=== PATIENT | male | born 1945 | race Asian ===

== ENCOUNTER 2021-01-13 13:17 | Inpatient (IN) ==
--- NOTE | 2021-01-13 14:08 | Emergency Department Note ---
Impression & Plan Venous thromboembolism, Abdominal pain ED Provider Note NAME: SVETA FOURNIER AGE: 75 SEX: M : 1945 ARRIVES VIA: Walk-In INFORMANT: Patient, ED PROVIDER(S): Hussein Brown MD Chief Complaint: Abdominal pain HPI: Patient does present concern for abdominal pain has been ongoing approximately 3 days with no bowel movement for 5 days. The pain is left-sided and aching nature. Slightly worse with palpation. The patient does not believe he has been passing gas. Patient does not have any history of abdominal surgeries but does have a history of colon cancer for which she does receive chemotherapy. The patient was initially with Dr. Clark but is transitioning to Dr. Barker. Patient last chemo was last little week. Patient denies any fevers chills chest pain shortness of breath nausea or vomiting. The patient does have a history of brain cancer status post gamma knife radiation and this is currently in remission. Patient does relate that the patient had had a period of remission with the colon cancer but that this relapsed. Patient has not taken anything at home for his constipation type symptoms. The patient does not take narcotics. ROS: See HPI for pertinent positives and negatives. A total of 10 systems were reviewed and otherwise negative. Past medical history: See below Surgical history: See below Social history: See below Physical Exam: GENERAL: Wearing a knit cap and a mask. NAD, non-toxic. EYE EXAM: Normal conjunctiva. PERRL, no anisocoria and EOM's grossly intact w/o pain. NECK: Supple, no nuchal rigidity, no adenopathy, non-tender. No signs of meningismus. Chest: Port in left chest. LUNGS: Clear to auscultation. Normal chest wall mechanics. HEART: NSR, no MRG. ABDOMEN: Abdomen soft, left-sided abdominal pain but without peritonitis. Normo-active bowel sounds, no masses, no rebound or guarding. BACK: No CVA TTP. SKIN: No rashes and no bruising. UPPER EXTREMITIES: Upper extremities are grossly normal. LOWER EXTREMITIES: Grossly normal, no edema. NEURO EXAM: A&O x3, cranial nerves II-XII grossly intact, normal speech, moves all 4 extremities on command w/o issue. Differential diagnoses: Appendicitis, testicular torsion, infections, diverticulitis, UTI, obstruction, mesenteric ischemia, aortic pathology, inflammatory bowel disease, renal colic, PUD, pancreatitis, biliary pathology, hernia, volvulus, constipation, as well as other pathologies. Course: Patient was seen and evaluated the bedside. Full history physical exam was performed. Imaging Studies: See below Cardiac monitoring: An order was placed for continuous cardiac monitoring. The monitor shows a rate of 68 with sinus rhythm. MDM: Patient was seen due to concern for abdominal pain. Blood work is obtained along with CT abdomen pelvis and patient was treated symptomatically. Patient does have normal white count virtually normal hemoglobin 13.5. Thrombocytopenia is noted 71,000. Kidney function is unremarkable. Hypercalcemia noted. Urinalysis negative for blood or infection. Covid negative. 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 This certainly may explain the patient's abdominal pain. The patient is not on any anticoagulant medications. Heparin ordered. I did speak the on-call hospitalist Dr. Soriano the patient was admitted to the medicine service Critical Care: I have personally spent 55 minutes of critical care time in direct management of this patient. This includes bedside care, interpretation of diagnostic studies, and testing, discussion with consultants, patient, and family members, and other require inpatient management activities. This 55 minutes is in excess of all separately billable procedures. Past Med/Surg History Medical History Abdominal pain Abscess packing removal Acoustic neuroma Adenocarcinoma of colon Anxiety BPH (benign prostatic hyperplasia) Brain cancer Dizziness Gastritis GERD (gastroesophageal reflux disease) Glaucoma Hearing deficit History of radiation therapy 2011 - Gamma Knife - in [place] - for Acoustic Neuroma Infected sebaceous cyst Port-A-Cath in place (03/15/19) Insertion of A-Port via left subclavian Dr. 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 And Counter Required: No Beliefs That Will Affect Care: None marital status: Current Living Situation: Spouse current occupational status: retired 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 [employer] Feels Safe at Home: Yes caffeine: No Dental Care, Regularly: No Physical Activity Frequency: Does not Exercise Seatbelt Use: always Assistive Devices: Cane and Glasses Allergies Allergies Allergy/AdvReac Type Severity Reaction Status Date / Time Anesthetics - Bing Type- AdvReac Intermediate URINARY Verified 01/13/21 16:48 Parabens RETENTION ibuprofen AdvReac Mild GI SYMPTOMS Verified 01/13/21 16:48 Home Meds Home Medications Medication Instructions Recorded Confirmed dorzolamide-timolol 1 drp OPB BID 01/14/19 01/13/21 latanoprost 1 drp OPB HS 01/14/19 01/13/21 lactobacillus combination no.4 3,000 mmu cells PO DAILY #0 03/08/19 01/13/21 [Probiotic] multivitamin 1 tab PO DAILY 07/19/19 01/13/21 medical marijuana 1 ea PO BID 04/15/20 01/13/21 Previous Rx's Medication Instructions Recorded Wheelchair (Manual or Powered) #1 ea 09/24/19 tamsulosin 0.4 mg capsule 0.4 mg PO BID 90 Days #180 cap 03/05/20 mirabegron 25 mg tablet,extended 25 mg PO DAILY #30 tab 12/24/20 release 24 hr omeprazole 40 mg capsule,delayed 40 mg PO DAILY #30 cap 01/06/21 release Results & Data (ED) Vital Signs Vital Signs - 24 hr 01/13/21 13:27 01/13/21 14:00 01/13/21 14:20 Temperature 36.1 C L Temperature Source Temporal Artery Scan Pulse Rate 75 70 Pulse Rate from SpO2 Sensor 70 Respiratory Rate 20 16 Respiratory Effort / Characteristics Non-Labored Spontaneous Respiratory Depth Normal Respiratory Pattern Regular Blood Pressure 125/76 101/69 Blood Pressure Mean 92 79 Pulse Oximetry 96 96 Oxygen Delivery Method Room Air Room Air Sepsis Recent Fever Within 48 Hours No Sepsis New/Unexplained Change in Mental Status No Sepsis Action Taken by Nursing No Action Required 01/13/21 14:30 01/13/21 15:00 01/13/21 15:01 Temperature Temperature Source Pulse Rate 68 61 65 Pulse Rate from SpO2 Sensor 68 62 64 Respiratory Rate 15 13 20 Respiratory Effort / Characteristics Respiratory Depth Respiratory Pattern Blood Pressure 108/73 123/73 Blood Pressure Mean 84 89 Pulse Oximetry 96 98 99 Oxygen Delivery Method Sepsis Recent Fever Within 48 Hours Sepsis New/Unexplained Change in Mental Status Sepsis Action Taken by Nursing 01/13/21 15:30 01/13/21 15:31 01/13/21 16:03 Temperature Temperature Source Pulse Rate 60 65 61 Pulse Rate from SpO2 Sensor 61 65 62 Respiratory Rate 19 19 14 Respiratory Effort / Characteristics Respiratory Depth Respiratory Pattern Blood Pressure 115/72 128/74 Blood Pressure Mean 86 92 Pulse Oximetry 95 92 99 Oxygen Delivery Method Sepsis Recent Fever Within 48 Hours Sepsis New/Unexplained Change in Mental Status Sepsis Action Taken by Nursing 01/13/21 16:04 01/13/21 16:30 01/13/21 16:31 Temperature Temperature Source Pulse Rate 62 63 66 Pulse Rate from SpO2 Sensor 62 64 66 Respiratory Rate 15 24 18 Respiratory Effort / Characteristics Respiratory Depth Respiratory Pattern Blood Pressure 140/85 Blood Pressure Mean 103 Pulse Oximetry 99 98 98 Oxygen Delivery Method Sepsis Recent Fever Within 48 Hours Sepsis New/Unexplained Change in Mental Status Sepsis Action Taken by Nursing 01/13/21 17:00 01/13/21 17:01 01/13/21 17:30 Temperature Temperature Source Pulse Rate 60 61 69 Pulse Rate from SpO2 Sensor 60 61 Respiratory Rate 15 19 20 Respiratory Effort / Characteristics Respiratory Depth Respiratory Pattern Blood Pressure 110/73 Blood Pressure Mean 85 Pulse Oximetry 96 98 Oxygen Delivery Method Sepsis Recent Fever Within 48 Hours Sepsis New/Unexplained Change in Mental Status Sepsis Action Taken by Nursing 01/13/21 18:00 01/13/21 18:32 01/13/21 18:38 Temperature Temperature Source Pulse Rate 62 58 L Pulse Rate from SpO2 Sensor 61 58 L Respiratory Rate 20 15 Respiratory Effort / Characteristics Respiratory Depth Respiratory Pattern Blood Pressure 129/84 Blood Pressure Mean 99 Pulse Oximetry 99 99 Oxygen Delivery Method Sepsis Recent Fever Within 48 Hours Sepsis New/Unexplained Change in Mental Status Sepsis Action Taken by Nursing 01/13/21 19:00 01/13/21 19:01 01/13/21 19:30 Temperature Temperature Source Pulse Rate 58 L 60 57 L Pulse Rate from SpO2 Sensor 58 L 60 57 L Respiratory Rate 17 20 19 Respiratory Effort / Characteristics Respiratory Depth Respiratory Pattern Blood Pressure 125/80 116/74 Blood Pressure Mean 95 88 Pulse Oximetry 97 97 96 Oxygen Delivery Method Sepsis Recent Fever Within 48 Hours Sepsis New/Unexplained Change in Mental Status Sepsis Action Taken by Nursing 01/13/21 19:31 Temperature Temperature Source Pulse Rate 60 Pulse Rate from SpO2 Sensor 60 Respiratory Rate 13 Respiratory Effort / Characteristics Respiratory Depth Respiratory Pattern Blood Pressure Blood Pressure Mean Pulse Oximetry 96 Oxygen Delivery Method Sepsis Recent Fever Within 48 Hours Sepsis New/Unexplained Change in Mental Status Sepsis Action Taken by Alf Medications Current Medication List: was personally reviewed by me Laboratory Data Attestation: I reviewed the patient's lab results. Result diagrams: 01/13/21 13:48 01/13/21 13:48 Lab Results 01/13/21 01/13/21 01/13/21 Range/Units 13:48 13:48 16:04 WBC 9.51 (4.8-10.8) K/uL RBC 4.28 L (4.7-6.1) M/uL Hgb 13.5 L (14.0-18.0) g/dL Hct 40.4 L (42-52) % MCV 94.4 (80-100) fL MCH 31.5 (25-34) pg MCHC 33.4 (32-36) g/dL RDW Std Deviation 54.7 H (36.4-46.3) fL RDW Coeff of Brian 15.9 H (11.5-14.5) % Plt Count 71 L (130-400) K/uL MPV 11.4 H (7.4-10.4) fL Immature Gran % (Auto) 1.2 % Neut % (Auto) 86.7 % Lymph % (Auto) 5.2 % [place] % (Auto) 4.2 % Eos % (Auto) 2.5 % Baso % (Auto) 0.2 % Neut # (Auto) 8.25 H (1.4-6.5) K/uL Lymph # (Auto) 0.49 L (1.2-3.4) K/uL [place] # (Auto) 0.40 (0.11-0.59) K/uL Eos # (Auto) 0.24 (0-0.5) K/uL Baso # (Auto) 0.02 (0-0.2) K/uL Immature Gran # (Auto) 0.11 H (0.00-0.02) K/uL Dohle Bodies 1+ Platelet Estimate Decreased L (Normal) Tear Drop Cells 1+ Sodium 139 (136-145) mmol/L Potassium 3.6 (3.5-5.1) mmol/L Chloride 107 (98-107) mmol/L Carbon Dioxide 26 (21-32) mmol/L Anion Gap 6.0 (3-11) BUN 16 (7-18) mg/dl Creatinine 0.72 (0.6-1.4) mg/dl Est Cr Clr Drug Dosing Not Reportable Est GFR ( Amer) 105.0 ml/min Est GFR (Non-Af Amer) 90.6 ml/min BUN/Creatinine Ratio 22.8 H (10-20) Glucose 118 H (70-99) mg/dl Lactate (0.4-2.0) mmol/L Calcium 8.0 L (8.5-10.1) mg/dl Total Bilirubin 1.1 H (0.2-1) mg/dl AST 18 (15-37) U/L ALT 32 (12-78) U/L Alkaline Phosphatase 202 H (45-117) U/L Total Protein 6.7 (6.4-8.2) gm/dl Albumin 3.4 (3.4-5.0) gm/dl Globulin 3.3 (2.5-4.0) gm/dl Albumin/Globulin Ratio 1.0 (0.9-2) Lipase 106 (73-393) U/L Urine Color Yellow Urine Appearance Clear (Clear) Urine pH 7.5 (4.5-7.5) Ur Specific [place] 1.020 (1.000-1.030) Urine Protein Negative (Negative) Urine Glucose (UA) Negative (Negative) Urine Ketones Negative (Negative) Urine Blood Negative (Negative) Urine Nitrite Negative (Negative) Urine Bilirubin Negative (Negative) Urine Urobilinogen Negative (Negative) Ur Leukocyte Esterase Negative (Negative) COVID-19 Eval Order SARS-CoV-2 (PCR) (Negative) 01/13/21 01/13/21 01/13/21 Range/Units 18:33 18:33 19:05 WBC (4.8-10.8) K/uL RBC (4.7-6.1) M/uL Hgb (14.0-18.0) g/dL Hct (42-52) % MCV (80-100) fL MCH (25-34) pg MCHC (32-36) g/dL RDW Std Deviation (36.4-46.3) fL RDW Coeff of Brian (11.5-14.5) % Plt Count (130-400) K/uL MPV (7.4-10.4) fL Immature Gran % (Auto) % Neut % (Auto) % Lymph % (Auto) % [place] % (Auto) % Eos % (Auto) % Baso % (Auto) % Neut # (Auto) (1.4-6.5) K/uL Lymph # (Auto) (1.2-3.4) K/uL [place] # (Auto) (0.11-0.59) K/uL Eos # (Auto) (0-0.5) K/uL Baso # (Auto) (0-0.2) K/uL Immature Gran # (Auto) (0.00-0.02) K/uL Dohle Bodies Platelet Estimate (Normal) Tear Drop Cells Sodium (136-145) mmol/L Potassium (3.5-5.1) mmol/L Chloride (98-107) mmol/L Carbon Dioxide (21-32) mmol/L Anion Gap (3-11) BUN (7-18) mg/dl Creatinine (0.6-1.4) mg/dl Est Cr Clr Drug Dosing Est GFR ( Amer) ml/min Est GFR (Non-Af Amer) ml/min BUN/Creatinine Ratio (10-20) Glucose (70-99) mg/dl Lactate 1.2 (0.4-2.0) mmol/L Calcium (8.5-10.1) mg/dl Total Bilirubin (0.2-1) mg/dl AST (15-37) U/L ALT (12-78) U/L Alkaline Phosphatase (45-117) U/L Total Protein (6.4-8.2) gm/dl Albumin (3.4-5.0) gm/dl Globulin (2.5-4.0) gm/dl Albumin/Globulin Ratio (0.9-2) Lipase (73-393) U/L Urine Color Urine Appearance (Clear) Urine pH (4.5-7.5) Ur Specific [place] (1.000-1.030) Urine Protein (Negative) Urine Glucose (UA) (Negative) Urine Ketones (Negative) Urine Blood (Negative) Urine Nitrite (Negative) Urine Bilirubin (Negative) Urine Urobilinogen (Negative) Ur Leukocyte Esterase (Negative) COVID-19 Eval Order Covid19 at [facility] SARS-CoV-2 (PCR) NEGATIVE (Negative) Administered Medications Heparin Sodium/Dextrose (Heparin Sodium/Dextrose) 25,000 units in 500 mls @ 26 mls/hr IV .[id number] [id number]; Protocol Stop: 02/12/21 18:33 Last Admin: 01/13/21 18:37 Dose: 1,300 units/hr, 26 mls/hr Documented by: [id number] Cosigned by: [id number] Discontinued Medications Heparin Sodium/Dextrose (Heparin Iv Adult Wt-Based Standard *No* Bolus Protocol) 1 ea N/A ONE ONE; Protocol Stop: 01/13/21 18:18 Last Admin: 01/13/21 18:37 Dose: 1 ea Documented by: [id number] Sodium Chloride (Nss) 500 mls @ 999 mls/hr IV .Q31M STA Stop: 01/13/21 14:50 Last Infusion: 01/13/21 15:25 Dose: 999 mls/hr Documented by: [id number] Admin: 01/13/21 14:43 Dose: 999 mls/hr Documented by: [id number] Ioversol (Optiray 320 100ml) 94 ml IV ONCE ONE Stop: 01/13/21 17:30 Last Admin: 01/13/21 17:30 Dose: 1 ml Documented by: [id number] Morphine Sulfate (Morphine Sulfate 4 Mg/Ml 1 Ml Carp\Vial) 2 mg IV NOW STA Stop: 01/13/21 14:21 Last Admin: 01/13/21 14:43 Dose: 2 mg Documented by: [id number] Morphine Sulfate (Morphine Sulfate 4 Mg/Ml 1 Ml Carp\Vial) 4 mg IV NOW STA Stop: 01/13/21 16:37 Last Admin: 01/13/21 16:42 Dose: 4 mg Documented by: [id number] Ondansetron HCl (Ondansetron Inj 2 Mg/Ml 2 Ml Vial) 4 mg IV NOW STA Stop: 01/13/21 14:21 Last Admin: 01/13/21 14:43 Dose: 4 mg Documented by: [id number] Imaging Data Radiologist's Impression: Abdomen/Pelvis CT 01/13/21 14:[address] WITH IV CONTRAST CT DOSE: 442.96 mGy.cm HISTORY: Acute left lower quadrant abdominal pain. History of rectal carcinoma with chemotherapy. L sided ab pain; h/o rectal CA undergoing trx TECHNIQUE: Multiaxial CT images of the abdomen and pelvis were performed following the IV administration of 94 cc of Optiray, A dose lowering technique was utilized adhering to the principles of ALARA. COMPARISON STUDY: CT abdomen and pelvis 10/08/2020, PET CT 04/09/2020 FINDINGS: Imaged inferior cardiac chambers are unremarkable. Trace pleural effusions. Mild bibasilar atelectasis. No pneumatosis or pneumoperitoneum. Spleen is enlarged measuring up to 14 cm. Mild generalized pancreatic atrophy. Unremarkable gallbladder and adrenal glands. Hepatic metastasis redemonstrated. 1.4 cm lesion of the posterior right hepatic lobe on image 90 is unchanged. 1.3 cm lesion of the hepatic dome on image 33 is stable. No definite new or enlarging metastatic lesions are identified. No hydronephrosis. Unremarkable kidneys. Asymmetric right lateral wall urinary bladder wall thickening is similar to comparison. Prostamegaly. Small fat filled left inguinal hernia. Atherosclerosis of the abdominal aorta without aneurysm. 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 The splenic vein is patent. Mild soft tissue thickening surrounding the inferior mesenteric artery is unchanged. No arterial occlusion identified. No bowel obstruction. Soft tissue asymmetry involving the right lateral rectal wall with extension into the mesorectal tissues redemonstrated. Mild to moderate fecal retention. Normal appendix. Stool-filled terminal ileum with trace free fluid of the inferior right pericolic gutter. There is a catheter present with distal tip terminating within the right paracentral mid abdomen anteriorly. No acute fracture. No destructive osseous lesions identified. Degenerative changes of the spine, pelvis and hips. Unchanged sclerotic foci of the left iliac bone. IMPRESSION: 1. 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 2. Mild associated reactive mesenteric edema with trace free fluid of the inferior right pericolic gutter. 3. Unchanged appearance of the hepatic metastasis. 4. Stable soft tissue thickening of the right lateral rectal wall with extension into the mesorectal distribution. 5. Prostamegaly with unchanged asymmetric right lateral urinary bladder wall thickening. 6. Trace pleural effusions. 7. Additional findings as above. ACT 112: Negative or not required by law. The above report was generated using voice recognition software. It may contain grammatical, syntax or spelling errors. Electronically signed by: Mil Barkley M.D. 01/13/2021 6:09 PM Discharge Plan Visit Data Chief Complaint: Abdominal Pain Stated Complaint: STOMACH PAIN FOR 5 DAYS ED Provider: Hussein Brown Discharge Problem: Venous thromboembolism, Abdominal pain Forms Stand Alone Forms: [employer] Prescriptions Prescriptions: No Action medical marijuana 1 ea PO BID RF: 0 (DME) Wheelchair (Manual) Device See Rx Instructions .ROUTE .MEDSUPPLY Qty: 1 RF: 0 Myrbetriq 25 mg tablet extended release 24 hr 25 mg PO DAILY Qty: 30 RF: 2 omeprazole 40 mg capsule,delayed release(DR/EC) 40 mg PO DAILY Qty: 30 RF: 5 tamsulosin 0.4 mg capsule 0.4 mg PO BID 90 Days Qty: 180 RF: 3 latanoprost 0.005 % drops 1 drp OPB HS RF: 0 dorzolamide-timolol 22.3-6.8 mg/mL drops 1 drp OPB BID RF: 0 Probiotic 3 billion cell Capsule 3,000 mmu cells PO DAILY Qty: 0 RF: 0 multivitamin Tablet 1 tab PO DAILY RF: 0 Discharge Problem: Abdominal pain Qualifiers: Abdominal location: unspecified location Qualified Code(s): R10.9 - Unspecified abdominal pain
[2021-01-13] MEDS ORDERED: MoRPHine SULFATE 4 MG/ML 1 ML CARP\\VIAL IV STA ×2 (14:20→16:36)
[2021-01-13] MEDS ORDERED: ONDANSETRON INJ 2 MG/ML 2 ML VIAL IV STA (14:20)
[2021-01-13] MEDS ORDERED: SODIUM CHLORIDE 0.9% 500 ML IV STA (14:20)
[2021-01-13 16:16] LABS: Appearance Urine Clear (Clear); Bilirubin Urine Negative (Negative); Blood Urine Negative (Negative); Color Urine Yellow; Glucose Urine UA Negative (Negative); Ketones Urine Negative (Negative); Leukocyte Esterase Urine Negative (Negative); Nitrite Urine Negative (Negative); Protein Urine Negative (Negative); Urobilinogen Urine Negative (Negative); pH Urine 7.5 (4.5-7.5)
[2021-01-13 16:35] LABS: Alanine Aminotransferase 32 U/L (12-78); Albumin Level 3.4 gm/dl (3.4-5.0); Aspartate Aminotransferase 18 U/L (15-37); BUN Creatinine Ratio 22.8 (10-20); Blood Urea Nitrogen 16 mg/dl (7-18); Carbon Dioxide 26 mmol/L (21-32); Chloride 107 mmol/L (98-107); Est GFR (Non-African American) 90.6 ml/min; Glucose 118 mg/dl (70-99); Lipase 106 U/L (73-393); Potassium 3.6 mmol/L (3.5-5.1); Sodium 139 mmol/L (136-145)
[2021-01-13 16:38] LABS: Alkaline Phosphatase 202 U/L (45-117); Bilirubin,Total 1.1 mg/dl (0.2-1); Globulin 3.3 gm/dl (2.5-4.0); Total Protein 6.7 gm/dl (6.4-8.2)
[2021-01-13 16:44] LABS: Hematocrit (blood only) 40.4 % (42-52); Hemoglobin 13.5 g/dL (14.0-18.0); Mean Corpuscular Hemoglobin 31.5 pg (25-34); Mean Corpuscular Hgb Conc 33.4 g/dL (32-36); Mean Corpuscular Volume 94.4 fL (80-100); Mean Platelet Volume 11.4 fL (7.4-10.4); Platelet Count 71 K/uL (130-400); RDW Coefficient of Variation 15.9 % (11.5-14.5); RDW Standard Deviation 54.7 fL (36.4-46.3); Red Blood Count 4.28 M/uL (4.7-6.1); White Blood Count 9.51 K/uL (4.8-10.8)
[2021-01-13 16:45] LABS: Basophils # (auto) 0.02 K/uL (0-0.2); Basophils % (auto) 0.2 %; Dohle Bodies 1+; Eosinophils # (auto) 0.24 K/uL (0-0.5); Eosinophils % (auto) 2.5 %; Immature Granulocytes # (auto) 0.11 K/uL (0.00-0.02); Immature Granulocytes % (auto) 1.2 %; Lymphocytes # (auto) 0.49 K/uL (1.2-3.4); Lymphocytes % (auto) 5.2 %; Monocytes % (auto) 4.2 %; Neutrophils # (auto) 8.25 K/uL (1.4-6.5); Neutrophils % (auto) 86.7 %; Platelet Estimate Decreased (Normal); Tear Drop Cells 1+
[2021-01-13] MEDS ORDERED: OPTIRAY 320 100ml IV ONE (17:29)
--- NOTE | 2021-01-13 18:10 | CT Scan Report ---
ABDOMEN AND PELVIS CT WITH IV CONTRAST CT DOSE: 442.96 mGy.cm HISTORY: Acute left lower quadrant abdominal pain. History of rectal carcinoma with chemotherapy. L sided ab pain; h/o rectal CA undergoing trx TECHNIQUE: Multiaxial CT images of the abdomen and pelvis were performed following the IV administrat ion of 94 cc of Optiray, A dose lowering technique was utilized adhering to the principles of ALARA. COMPARISON STUDY: CT abdomen and pelvis 10/08/2020, PET CT 04/09/2020 FINDINGS: Imaged inferior cardiac chambers are unremarkable. Trace pleural effusions. Mild bibasilar atelectasis. No pneumatosis or pneumoperitoneum. Spleen is enlarged measuring up to 14 cm. Mild gener alized pancreatic atrophy. Unremarkable gallbladder and adrenal glands. Hepatic metastasis redemonstr ated. 1.4 cm lesion of the posterior right hepatic lobe on image 90 is unchanged. 1.3 cm lesion of th e hepatic dome on image 33 is stable. No definite new or enlarging metastatic lesions are identified. No hydronephrosis. Unremarkable kidneys. Asymmetric right lateral wall urinary bladder wall thickenin g is similar to comparison. Prostamegaly. Small fat filled left inguinal hernia. Atherosclerosis of t he abdominal aorta without aneurysm. Occlusive and partially occlusive thrombi of the superior mesent pina vein and its branches extends into the portal vein with partially occlusive thrombus. The spleni c vein is patent. Mild soft tissue thickening surrounding the inferior mesenteric artery is unchanged . No arterial occlusion identified. No bowel obstruction. Soft tissue asymmetry involving the right lateral rectal wall with extension in to the mesorectal tissues redemonstrated. Mild to moderate fecal retention. Normal appendix. Stool-fi lled terminal ileum with trace free fluid of the inferior right pericolic gutter. There is a catheter present with distal tip terminating within the right paracentral mid abdomen anteriorly. No acute fr acture. No destructive osseous lesions identified. Degenerative changes of the spine, pelvis and hips . Unchanged sclerotic foci of the left iliac bone. IMPRESSION: 1. 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 2. Mild associated reactive mesenteric edema with trace free fluid of the inferior right pericolic gu tter. 3. Unchanged appearance of the hepatic metastasis. 4. Stable soft tissue thickening of the right lateral rectal wall with extension into the mesorectal distribution. 5. Prostamegaly with unchanged asymmetric right lateral urinary bladder wall thickening. 6. Trace pleural effusions. 7. Additional findings as above. ACT 112: Negative or not required by law. The above report was generated using voice recognition software. It may contain grammatical, syntax o r spelling errors. Electronically signed by: Mil Barkley M.D. 01/13/2021 6:09 PM
[2021-01-13] MEDS ORDERED: Heparin IV Adult Wt-Based Standard *NO* Bolus Protocol ONE (18:17)
[2021-01-13] MEDS: HEPARIN SODIUM/DEXTROSE 25,000 UNITS/500 ML BAG IV SCH (18:37)
--- NOTE | 2021-01-13 19:02 | History & Physical Report ---
Date of Service January 13, 2021 Assessment & Plan (1) Superior mesenteric vein thrombosis: Admit to PCU bed Patient now on heparin drip keep patient n.p.o. 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 Barker, I will consult him for further recommendations (3) Thrombocytopenia: Patient's platelet count is diminished from previous, consider effects of chemotherapy versus thromboembolic phenomena versus possible liver metastasis Await Dr. Barker's input regarding this. Patient is now on heparin, will need to monitor platelets very closely (4) Constipation: Patient is requesting something for constipation. Reluctant to give the patient a laxative considering ongoing pain Can try Dulcolax suppository for now History of Present Illness Chief Complaint: Abdominal pain Primary Care Provider: Lizett Walters MD This is a 75-year-old male with past medical history of rectal carcinoma with mets to the liver that presents today complaining abdominal pain. Patient is accompanied by his , both are good historians. Patient tells me he is having abdominal pain for the past 6 days. This tends to be mostly postprandial and lasts approximately 4-5 hours before it resolves. Pain is sharp with a cramping quality, mostly in the left side. He has been having significant nausea as well as a decreased appetite which has been an ongoing issue with his chemotherapy. He also states he has been constipated for the past 3 days, did not note any abnormality with his bowels before. Denies any hematochezia. Also denies any hematemesis or other vomiting. At the time of my exam, the patient was mostly comfortable, only expressed some pain with palpation during the exam. He is in no acute cardiopulmonary distress. Allergies Allergy/AdvReac Type Severity Reaction Status Date / Time Anesthetics - Bing Type- AdvReac Intermediate URINARY Verified 01/13/21 16:48 Parabens RETENTION ibuprofen AdvReac Mild GI SYMPTOMS Verified 01/13/21 16:48 Home Medications Medication Instructions Recorded Confirmed Type dorzolamide-timolol 1 drp OPB BID 01/14/19 01/13/21 History latanoprost 1 drp OPB HS 01/14/19 01/13/21 History lactobacillus combination no.4 3,000 mmu cells PO DAILY #0 03/08/19 01/13/21 History [Probiotic] multivitamin 1 tab PO DAILY 07/19/19 01/13/21 History Wheelchair (Manual or Powered) #1 ea 09/24/19 11/07/20 Rx tamsulosin 0.4 mg capsule 0.4 mg PO BID 90 Days #180 cap 03/05/20 01/13/21 Rx medical marijuana 1 ea PO BID 04/15/20 01/13/21 History mirabegron 25 mg tablet,extended 25 mg PO DAILY #30 tab 12/24/20 01/13/21 Rx release 24 hr omeprazole 40 mg capsule,delayed 40 mg PO DAILY #30 cap 01/06/21 01/13/21 Rx release Past Med/Surg History Medical History Abdominal pain Abscess packing removal Acoustic neuroma Adenocarcinoma of colon Anxiety BPH (benign prostatic hyperplasia) Brain cancer Dizziness Gastritis GERD (gastroesophageal reflux disease) Glaucoma Hearing deficit History of radiation therapy 2011 - Gamma Knife - in [place] - for Acoustic Neuroma Infected sebaceous cyst Port-A-Cath in place (03/15/19) Insertion of A-Port via left subclavian Dr. 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 Mechanic Required: No Beliefs That Will Affect Care: None marital status: Current Living Situation: Spouse current occupational status: retired 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 Feels Safe at Home: Yes caffeine: No Dental Care, Regularly: No Physical Activity Frequency: Does not Exercise Seatbelt Use: always Assistive Devices: Cane and Glasses Review of Systems Constitutional: + weakness, + anorexia and + weight loss; no fever, no chills and no weight gain Eyes: as per Subjective / HPI Respiratory: no cough, no chest congestion, no dyspnea and no dyspnea on e xertion Cardiovascular: no chest pain, no orthopnea, no palpitations, no l ightheadedness and no edema Gastrointestinal: + abdominal pain, + nausea, + cramping and + constipation; no vomiting, no coffee ground emesis, no dysphagia, no diarrhea/loose stools, no fecal incontinence and no melena Musculoskeletal: no back pain, no neck pain, no joint pain, no stiffness and no myalgia Integumentary: no rash Neurologic: no gait abnormality, no unsteadiness, no falls and no generalized weakness Physical Exam Constitutional: cooperative and comfortable; no acute distress Neck: trachea midline, no thyromegaly Respiratory: normal respiratory effort Auscultation: lungs clear to auscultation bilaterally; no crackles, no rales, no rhonchi and no wheezes Cardiovascular: Rate/Rhythm: regular rate and regular rhythm Heart Sounds: normal S1, normal S2 and + murmur Gastrointestinal (Abdomen): Inspection/Auscultation: abdomen normal to ins pection and + hypoactive bowel sounds Percussion/Palpation: + abdomen tender (L quads) and abdomen soft; no guarding, abdomen not rigid and no hepato splenomegaly Skin: no rashes, warm and dry Results & Data Results & Data ([facility]) Vital Signs (Past 12 Hours) Vital Signs Temp Pulse Resp BP Pulse Ox 01/13/21 17:01 61 19 98 01/13/21 17:00 60 15 110/73 96 01/13/21 16:31 66 18 98 01/13/21 16:30 63 24 140/85 98 01/13/21 16:04 62 15 99 01/13/21 16:03 61 14 128/74 99 01/13/21 15:31 65 19 92 01/13/21 15:30 60 19 115/72 95 01/13/21 15:01 65 20 99 01/13/21 15:00 61 13 123/73 98 01/13/21 14:30 68 15 108/73 96 01/13/21 14:00 70 16 101/69 96 01/13/21 13:27 36.1 C L 75 20 125/76 96 Diagnostic Findings ABDOMEN AND PELVIS CT WITH IV CONTRAST CT DOSE: 442.96 mGy.cm HISTORY: Acute left lower quadrant abdominal pain. History of rectal carcinoma with chemotherapy. L sided ab pain; h/o rectal CA undergoing trx TECHNIQUE: Multiaxial CT images of the abdomen and pelvis were performed following the IV administration of 94 cc of Optiray, A dose lowering technique was utilized adhering to the principles of ALARA. COMPARISON STUDY: CT abdomen and pelvis 10/08/2020, PET CT 04/09/2020 FINDINGS: Imaged inferior cardiac chambers are unremarkable. Trace pleural e ffusions. Mild bibasilar atelectasis. No pneumatosis or pneumoperitoneum. Spleen is enlarged measuring up to 14 cm. Mild generalized pancreatic atrophy. Unremarkable gallbladder and adrenal glands. Hepatic metastasis redemonstrated. 1.4 cm lesion of the posterior right hepatic lobe on image 90 is unchanged. 1.3 cm lesion of the hepatic dome on image 33 is stable. No definite new or enlarging metastatic lesions are identified. No hydronephrosis. Unremarkable kidneys. Asymmetric right lateral wall urinary bladder wall thickening is similar to comparison. Prostamegaly. Small fat filled left inguinal hernia. Atherosclerosis of the abdominal aorta without aneurysm. 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 The splenic vein is patent. Mild soft tissue thickening surrounding the inferior mesenteric artery is unchanged. No arterial occlusion identified. No bowel obstruction. Soft tissue asymmetry involving the right lateral rectal wall with extension into the mesorectal tissues redemonstrated. Mild to moderate fecal retention. Normal appendix. Stool-filled terminal ileum with trace free fluid of the inferior right pericolic gutter. There is a catheter present with distal tip terminating within the right paracentral mid abdomen anteriorly. No acute fracture. No destructive osseous lesions identified. Degenerative changes of the spine, pelvis and hips. Unchanged sclerotic foci of the left iliac bone. IMPRESSION: 1. 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 2. Mild associated reactive mesenteric edema with trace free fluid of the inferior right pericolic gutter. 3. Unchanged appearance of the hepatic metastasis. 4. Stable soft tissue thickening of the right lateral rectal wall with extension into the mesorectal distribution. 5. Prostamegaly with unchanged asymmetric right lateral urinary bladder wall thickening. 6. Trace pleural effusions. 7. Additional findings as above. 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
[2021-01-13] MEDS ORDERED: ZOLPIDEM TARTRATE 5 MG TAB PO PRN (20:30)
[2021-01-13] MEDS ORDERED: bisacodyL 10 MG SUPP PR ONE (20:30)
[2021-01-13] MEDS ORDERED: ONDANSETRON INJ 2 MG/ML 2 ML VIAL IV PRN (20:30)
[2021-01-13] MEDS: LATANOPROST 0.005% OP SOLN 2.5 ML BTL OPB SCH (21:25)
[2021-01-13] MEDS: DORZOLAMIDE/TIMOLOL 22.3/6.8MG/ML 10 ML BTL OPB SCH (21:26)
[2021-01-13] MEDS: TAMSULOSIN HCL 0.4 MG CAP PO SCH (21:28)
[2021-01-13] MEDS: SODIUM CHLORIDE 0.9% 1000ML 1,000 ML IV SCH (21:32)
[2021-01-13] MEDS ORDERED: ACETAMINOPHEN 1,000 MG/100 ML VIAL IV PRN (22:09)
[2021-01-14] MEDS ORDERED: HEPARIN 100 UNIT/ML 5ML FLUSH FLUSH PRN (00:46)
[2021-01-14 01:13] LABS: Partial Thromboplastin Ratio 2.5
[2021-01-14 01:19] LABS: Partial Thromboplastin Time 64.6 Seconds (21.0-31.0)
[2021-01-14 06:46] LABS: Hematocrit (blood only) 39.9 % (42-52); Hemoglobin 13.4 g/dL (14.0-18.0); Mean Corpuscular Hgb Conc 33.6 g/dL (32-36); Mean Corpuscular Volume 92.4 fL (80-100); RDW Coefficient of Variation 15.7 % (11.5-14.5); RDW Standard Deviation 52.8 fL (36.4-46.3); Red Blood Count 4.32 M/uL (4.7-6.1); White Blood Count 7.59 K/uL (4.8-10.8)
[2021-01-14 07:08] LABS: Mean Platelet Volume 11.6 fL (7.4-10.4); Platelet Count 59 K/uL (130-400)
[2021-01-14 07:09] LABS: Basophils # (auto) 0.02 K/uL (0-0.2); Basophils % (auto) 0.3 %; Eosinophils # (auto) 0.23 K/uL (0-0.5); Immature Granulocytes # (auto) 0.19 K/uL (0.00-0.02); Immature Granulocytes % (auto) 2.5 %; Lymphocytes # (auto) 0.51 K/uL (1.2-3.4); Lymphocytes % (auto) 6.7 %; Monocytes # (auto) 0.61 K/uL (0.11-0.59); Neutrophils # (auto) 6.03 K/uL (1.4-6.5); Neutrophils % (auto) 79.5 %
[2021-01-14 07:24] LABS: Albumin Level 3.2 gm/dl (3.4-5.0); BUN Creatinine Ratio 14.8 (10-20); Bilirubin,Total 1.1 mg/dl (0.2-1); Calcium 8.6 mg/dl (8.5-10.1); Creatinine Clr Calc Pharmacy 81.6 ml/min; Est GFR (Non-African American) 90.6 ml/min; Globulin 3.3 gm/dl (2.5-4.0); Potassium 3.6 mmol/L (3.5-5.1); Total Protein 6.5 gm/dl (6.4-8.2)
[2021-01-14] MEDS: DORZOLAMIDE/TIMOLOL 22.3/6.8MG/ML 10 ML BTL OPB SCH ×2 (08:09→21:02)
[2021-01-14] MEDS: MULTIVITAMIN TAB PO SCH (08:10)
[2021-01-14] MEDS: PANTOprazole 40 MG TAB PO SCH (08:10)
[2021-01-14] MEDS: MIRABEGRON ER 25 MG TAB PO SCH (08:10)
[2021-01-14] MEDS: TAMSULOSIN HCL 0.4 MG CAP PO SCH ×2 (08:10→21:00)
[2021-01-14] MEDS: SODIUM CHLORIDE 0.9% 1000ML 1,000 ML IV SCH ×2 (08:12→18:00)
[2021-01-14 08:36] LABS: INR 1.2 (0.9-1.1); Prothrombin Time 12.2 Seconds (9.0-12.0)
[2021-01-14] MEDS ORDERED: WARFARIN SOD 10 MG TAB PO ONE (09:15)
--- NOTE | 2021-01-14 09:19 | Consultation Report ---
MEDICAL ONCOLOGY CONSULTATION DATE OF CONSULTATION: 01/14/2021. REASON FOR CONSULTATION: A 75-year-old gentleman with metastatic colorectal cancer and new-ons et superior mesenteric vein thrombosis. HISTORY OF PRESENT ILLNESS: Mr. Colunga is a pleasant 75-year-old gentleman, patient at [facility] with a diag nosis of metastatic colorectal cancer originally established in 2019, status post multiple chemothera peutic regimens. Apparently received his final cycle of FOLFIRI and cetuximab which completed on . Shortly thereafter, developed subacute onset abdominal pain, specifically upon consumption of food, which prompted him to visit the emergency room. He admits to having pain at least over the past 6 days. Again, the pain is mostly postprandial and lasts about 4-5 hours before spontaneously r esolving. He describes the pain as sharp, cramping, mostly left sided. Neri is also manifesting si gnificant nausea and anorexia because of pain brought on by food. No fevers, chills or sweats. He u nderwent extensive radiographic workup in the emergency room and CT scan of the abdomen and pelvis sp ecifically revealed occlusive and partially occlusive thrombi of the superior mesenteric vein with pa rtial occlusive thrombus extension into the portal vein, unchanged appearance of hepatic metastasis, stable soft tissue thickening, right lateral rectal wall with extension into the mesorectal distribut ion, prostatomegaly with unchanged asymmetric right lateral urinary bladder wall thickening. Appropr iately, Neri has been started on heparin, awaiting conversion to Coumadin moving forward. This gent candis has no prior history of thromboembolic disease. I have been asked to render opinion regarding 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 moving forward. PAST MEDICAL HISTORY: Again significant for metastatic rectal cancer established in January of 2019, ac oustic neuroma, anxiety, benign prostatic hypertrophy, brain cancer, dizziness, gastritis, gastroesop hageal reflux disease, glaucoma, history of radiation therapy in 2011, gamma knife for acoustic neuro ma, infected sebaceous cyst, MediPort placement. PAST SURGICAL HISTORY: Brain shunt in 2012 for intracranial fluid and then history of urinary retent ion, history of anesthesia reaction, cataract surgery, colonoscopy, hemorrhoidectomy, history of live r biopsy, status post DRAY DRIVER shunt. MEDICATIONS: Prior to admission include dorzolamide/timolol ophthalmic drops one drop ____ b.i.d., l atanoprost one drop ____ at bedtime, lactobacillus 3000 mmu cells p.o. every day, multivitamin 1 p.o. every day, tamsulosin 0.4 mg p.o. b.i.d., medical marijuana, mirabegron 25 mg p.o. every day, omepra zole 40 mg p.o. every day. ALLERGIES: IBUPROFEN AND ANESTHESIA. FAMILY HISTORY: Mother at age 92 from old age, suffered a stroke and cardiovascular disease oth erwise. Father at age 100 of natural causes. No first-degree relatives with history of colore ctal or other neoplasia. 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 He is . Continues to smoke cigarettes. Negative for alcohol or illicit drugs. REVIEW OF SYSTEMS: CONSTITUTIONAL: Mostly for sharp stabbing crampy abdominal pain. No fevers, chills or sweats. Posi tive for anorexia. No overt weight loss. SKIN: No rashes or lesions. No history of dermatoses. HEENT: Negative for headaches, lightheadedness or dizziness. No dysphagia or sore throat. LYMPH: No history of lymphoproliferative disease. CARDIAC: Negative for coronary artery disease. No angina or palpitations. PULMONARY: Negative for COPD. He is not short of breath, dyspneic or orthopneic. GASTROINTESTINAL: As per HPI. GENITOURINARY: Positive for BPH. No current hematuria, dysuria, urinary incontinence. MUSCULOSKELETAL: No focal muscle weakness. No arthralgias. ENDOCRINE: Negative for diabetes or thyroid disease. NEUROLOGIC: Negative for seizure, stroke, or migraine headache. HEMATOLOGIC: Recent diagnosis of superior mesenteric vein and portal vein thrombosis. PHYSICAL EXAMINATION: GENERAL: A very pleasant 75-year-old gentleman in no acute distress. VITAL SIGNS: Temperature 36.4, pulse 65, respiratory rate 20, blood pressure 158/90. SKIN: Warm, dry, noncyanotic without petechiae, rash, or ecchymosis. HEENT: Head is atraumatic, normocephalic. Eyes: PERRLA, EOMI. Sclerae are nonicteric. No conjunc tival injection. Nares are patent without rhinorrhea or discharge. Throat clear. Tongue midline. Mucous membranes are moist. NECK: Supple without JVD or thyromegaly. LYMPH: No cervical, supraclavicular, axillary palpable nodes. HEART: Regular rate and rhythm. No clicks, rubs, murmurs or gallops. LUNGS: Clear to auscultation bilaterally. ABDOMEN: Soft, nontender, nondistended, without palpable hepatosplenomegaly. No rigidity or guardin g. Bowel sounds hypoactive. EXTREMITIES: Musculoskeletal strength and pulses are equal in all 4 quadrants. No clubbing, cyanosi s, or edema. NEUROLOGIC: He is awake, alert and oriented x3. Cranial nerves II through XII are intact. LABORATORY DATA: WBC count is 7590, hemoglobin 13.4, platelet count pending. PTT 64.6 seconds on he claudio. CMP pending. IMPRESSION: 1. 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 2. Metastatic colorectal cancer. 3. Thrombocytopenia. 4. Constipation. PLAN: Neri is a very pleasant 75-year-old longstanding patient of [facility] continuing his mobley with me tastatic colorectal cancer, hepatic metastatic disease. The patient has been followed by the physici an extenders, previously managed by Dr. Alejo Clark. He has been heavily pretreated receiving bot h FOLFOX and more recently FOLFIRI plus cetuximab. He actually finished his 12th and final course of FOLFIRI and cetuximab on 01/06/2021 and most likely will continue maintenance rituximab moving forwa rd. Radiographically, it would appear that his disease is stable. Unfortunately, he developed throm bosis in an unusual anatomic area, which indeed with his diagnosis warrants indefinite anticoagulatio n. I am sort of mixed as it pertains to hypercoag panel as it really would not offer additional info rmation; however, if one is to be done I would just limit it to antibodies, lupus anticoagulant, anti cardiolipin and antiphospholipid antibodies. That said, he is on heparin at this time and I would pl an on converting him to Coumadin moving forward. In case he does have an underlying thrombophilia, h e would be covered as NOACs are not studied extensively in the setting of acquired thrombophilias. I would also recommend consultation to the 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 clinic for Coumadin management. The patien t has established followup with Tamra Feliciano who has been managing Neri's case for the most part . I will inform her of his admission to hospital and therapeutic plan moving forward. I have nothin g further to add, agree with medical management otherwise. Thank you very much for allowing me to participate in his care. Job ID: [id number]
--- NOTE | 2021-01-14 09:33 | Gastrointestinal Consultation ---
Date of Consultation January 14, 2021 Assessment & Plan (1) Abdominal pain: 75 year old male with history of acoustic neuroma, anxiety, BPH s/p LUTS, metastatic colorectal cancer, hepatic metastatic disease admitted with pain, constipation, CTAP w/ known metastasis disease but new occlusive and partially occlusive thrombi of the superior mesenteric vein with partially occlusive thrombus extension into the portal vein. Agree with 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 As no signs of obstruction on CT but stool burden consider miralax 1 capful daily Thank you for allowing us to participate in the care of this patient. Please call with any acute changes, questions or concerns. Please see addendum below with additional recommendation from my supervising physician. (2) Superior mesenteric vein thrombosis: Supervising Physician Co-Signing Physician Notes Attg add: I interviewed and examined pt, reviewed chart and labs. Pt with h/o met rectal cancer, admit with post prandial abd pain, imaging shows acute SMV thrombosis. His pain appears resolved today - he tolerated breakfast without pain. His pain is likely related to mesenteric ischemia from acute mesenteric venous thrombosis; I assume his thrombosis is likely related to rectal cancer. Agree with anticoag. He was informed of risk of bleeding from Gi malignancy with 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; however, benefits of ac likely outweigh risks. Will schedule EGD to screen for varices and proctoscopy eval rectal cancer; if pt has varices, will need nadolol. History of Present Illness Reason for Consultation: CMV occlusion Requesting Physician: Aron Attending Physician: Dewey Sharp, DO History of Present Illness 75 year old male with history of metastatic colorectal cancer, hepatic metastatic disease following with [facility] s/p chemo/radiation admitted through the ED with abdominal pain. CTAP w/ occlusive and partially occlusive thrombi of the superior mesenteric vein with partially occlusive thrombus extension into the portal vein, unchanged appearance of the hepatic metastasis, stable soft tissue thickening of the right lateral rectal wall with extension into the mesorectal distribution. Pt was seem and evaluated, chart reviewed. at bedside. Notes generalized abd pain x 1 week associated with constipation. He did vomiting x 1 but this was after drinking a lot of water. Denies black or bloody stools. CTAP: 1. 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 Mild associated reactive mesenteric edema with trace free fluid of the inferior right pericolic gutter. Unchanged appearance of the hepatic metastasis. Stable soft tissue thickening of the right lateral rectal wall with extension into the mesorectal distribution.Prostamegaly with unchanged asymmetric right lateral urinary bladder wall thickening. Trace pleural effusions. Colonoscopy: none Allergies Allergy/AdvReac Type Severity Reaction Status Date / Time Anesthetics - Bing Type- AdvReac Intermediate URINARY Verified 01/13/21 16:48 Parabens RETENTION ibuprofen AdvReac Mild GI SYMPTOMS Verified 01/13/21 16:48 Home Medications Medication Instructions Recorded Confirmed Type dorzolamide-timolol 1 drp OPB BID 01/14/19 01/13/21 History latanoprost 1 drp OPB HS 01/14/19 01/13/21 History lactobacillus combination no.4 3,000 mmu cells PO DAILY #0 03/08/19 01/13/21 History [Probiotic] multivitamin 1 tab PO DAILY 07/19/19 01/13/21 History Wheelchair (Manual or Powered) #1 ea 09/24/19 11/07/20 Rx tamsulosin 0.4 mg capsule 0.4 mg PO BID 90 Days #180 cap 03/05/20 01/13/21 Rx medical marijuana 1 ea PO BID 04/15/20 01/13/21 History mirabegron 25 mg tablet,extended 25 mg PO DAILY #30 tab 12/24/20 01/13/21 Rx release 24 hr omeprazole 40 mg capsule,delayed 40 mg PO DAILY #30 cap 01/06/21 01/13/21 Rx release Patient History Medical History Abdominal pain Abscess packing removal Acoustic neuroma Adenocarcinoma of colon Anxiety BPH (benign prostatic hyperplasia) Brain cancer Dizziness Gastritis GERD (gastroesophageal reflux disease) Glaucoma Hearing deficit History of radiation therapy 2011 - Gamma Knife - in [place] - for Acoustic Neuroma Infected sebaceous cyst Port-A-Cath in place (03/15/19) Insertion of A-Port via left subclavian Dr. 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 Brother Family history of diabetes mellitus Hypertension Other Heart disease Denies family history of Colon cancer Ovarian cancer Prostate cancer Breast cancer Social History Smoking Status: Former smoker Tobacco Type: Cigarettes packs per day: 1; Years Smoked: 23; Second Hand Exposure: Yes; Hx Alcohol Use: No Hx Substance Use: No Preferred Language: Mandarin Faroese Communication Ability: Effective Visual Impairment: No Limitations Hearing Ability: Hard of Hearing Wiping Rag Washer Required: No Beliefs That Will Affect Care: None marital status: Current Living Situation: Spouse current occupational status: retired 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 [employer] How many Children do You have: 2 Other Information That Helps Us Care for You: No Feels Safe at Home: Yes Safety Concerns: Feels Safe At This Time caffeine: No Dental Care, Regularly: No Physical Activity Frequency: Does not Exercise Seatbelt Use: always Assistive Devices: Cane Review of Systems Review of Systems: All systems reviewed & are unremarkable except as noted in HPI & below Physical Exam Constitutional: WD/WN, vitals as above no acute distress and not ill appearing Neck: trachea midline, no thyromegaly Respiratory: normal respiratory effort, lungs clear to auscultation Cardiovascular: RRR, no murmur, no edema Gastrointestinal (Abdomen): normal bowel sounds, soft, nontender, no hepatosplenomegaly Results & Data ([facility]) Vital Signs (Past 12 Hours) Vital Signs Temp Pulse Pulse Resp BP Pulse Ox 01/14/21 07:45 36.8 C 69 18 148/81 H 96 01/14/21 05:36 36.4 C L 65 20 158/90 H 98 01/13/21 23:54 59 L 01/13/21 23:24 36.5 C 60 20 137/78 99 Laboratory Results 01/14/21 01/14/21 01/14/21 Range/Units 06:07 06:07 00:29 WBC 7.59 (4.8-10.8) K/uL RBC 4.32 L (4.7-6.1) M/uL Hgb 13.4 L (14.0-18.0) g/dL Hct 39.9 L (42-52) % MCV 92.4 (80-100) fL MCH 31.0 (25-34) pg MCHC 33.6 (32-36) g/dL RDW Std Deviation 52.8 H (36.4-46.3) fL RDW Coeff of Brian 15.7 H (11.5-14.5) % Plt Count 59 L (130-400) K/uL MPV 11.6 H (7.4-10.4) fL Immature Gran % (Auto) 2.5 % Neut % (Auto) 79.5 % Lymph % (Auto) 6.7 % [place] % (Auto) 8.0 % Eos % (Auto) 3.0 % Baso % (Auto) 0.3 % Neut # (Auto) 6.03 (1.4-6.5) K/uL Lymph # (Auto) 0.51 L (1.2-3.4) K/uL [place] # (Auto) 0.61 H (0.11-0.59) K/uL Eos # (Auto) 0.23 (0-0.5) K/uL Baso # (Auto) 0.02 (0-0.2) K/uL Immature Gran # (Auto) 0.19 H (0.00-0.02) K/uL Dohle Bodies Platelet Estimate (Normal) Tear Drop Cells PT 12.2 H (9.0-12.0) Seconds INR 1.2 H (0.9-1.1) APTT (21.0-31.0) Seconds PTT Ratio Sodium 139 (136-145) mmol/L Potassium 3.6 (3.5-5.1) mmol/L Chloride 109 H (98-107) mmol/L Carbon Dioxide 26 (21-32) mmol/L Anion Gap 5.0 (3-11) BUN 11 (7-18) mg/dl Creatinine 0.72 (0.6-1.4) mg/dl Est Cr Clr Drug Dosing 81.6 Est GFR ( Amer) 105.0 ml/min Est GFR (Non-Af Amer) 90.6 ml/min BUN/Creatinine Ratio 14.8 (10-20) Glucose 119 H (70-99) mg/dl Lactate (0.4-2.0) mmol/L Calcium 8.6 (8.5-10.1) mg/dl Total Bilirubin 1.1 H (0.2-1) mg/dl AST 18 (15-37) U/L ALT 28 (12-78) U/L Alkaline Phosphatase 186 H (45-117) U/L Total Protein 6.5 (6.4-8.2) gm/dl Albumin 3.2 L (3.4-5.0) gm/dl Globulin 3.3 (2.5-4.0) gm/dl Albumin/Globulin Ratio 1.0 (0.9-2) Lipase (73-393) U/L Urine Color Urine Appearance (Clear) Urine pH (4.5-7.5) Ur Specific [place] (1.000-1.030) Urine Protein (Negative) Urine Glucose (UA) (Negative) Urine Ketones (Negative) Urine Blood (Negative) Urine Nitrite (Negative) Urine Bilirubin (Negative) Urine Urobilinogen (Negative) Ur Leukocyte Esterase (Negative) COVID-19 Eval Order SARS-CoV-2 (PCR) (Negative) 01/14/21 01/13/21 01/13/21 Range/Units 00:29 19:05 18:33 WBC (4.8-10.8) K/uL RBC (4.7-6.1) M/uL Hgb (14.0-18.0) g/dL Hct (42-52) % MCV (80-100) fL MCH (25-34) pg MCHC (32-36) g/dL RDW Std Deviation (36.4-46.3) fL RDW Coeff of Brian (11.5-14.5) % Plt Count (130-400) K/uL MPV (7.4-10.4) fL Immature Gran % (Auto) % Neut % (Auto) % Lymph % (Auto) % [place] % (Auto) % Eos % (Auto) % Baso % (Auto) % Neut # (Auto) (1.4-6.5) K/uL Lymph # (Auto) (1.2-3.4) K/uL [place] # (Auto) (0.11-0.59) K/uL Eos # (Auto) (0-0.5) K/uL Baso # (Auto) (0-0.2) K/uL Immature Gran # (Auto) (0.00-0.02) K/uL Dohle Bodies Platelet Estimate (Normal) Tear Drop Cells PT (9.0-12.0) Seconds INR (0.9-1.1) APTT 64.6 H* (21.0-31.0) Seconds PTT Ratio 2.5 Sodium (136-145) mmol/L Potassium (3.5-5.1) mmol/L Chloride (98-107) mmol/L Carbon Dioxide (21-32) mmol/L Anion Gap (3-11) BUN (7-18) mg/dl Creatinine (0.6-1.4) mg/dl Est Cr Clr Drug Dosing Est GFR ( Amer) ml/min Est GFR (Non-Af Amer) ml/min BUN/Creatinine Ratio (10-20) Glucose (70-99) mg/dl Lactate 1.2 (0.4-2.0) mmol/L Calcium (8.5-10.1) mg/dl Total Bilirubin (0.2-1) mg/dl AST (15-37) U/L ALT (12-78) U/L Alkaline Phosphatase (45-117) U/L Total Protein (6.4-8.2) gm/dl Albumin (3.4-5.0) gm/dl Globulin (2.5-4.0) gm/dl Albumin/Globulin Ratio (0.9-2) Lipase (73-393) U/L Urine Color Urine Appearance (Clear) Urine pH (4.5-7.5) Ur Specific [place] (1.000-1.030) Urine Protein (Negative) Urine Glucose (UA) (Negative) Urine Ketones (Negative) Urine Blood (Negative) Urine Nitrite (Negative) Urine Bilirubin (Negative) Urine Urobilinogen (Negative) Ur Leukocyte Esterase (Negative) COVID-19 Eval Order SARS-CoV-2 (PCR) NEGATIVE (Negative) 01/13/21 01/13/21 01/13/21 Range/Units 18:33 16:04 13:48 WBC (4.8-10.8) K/uL RBC (4.7-6.1) M/uL Hgb (14.0-18.0) g/dL Hct (42-52) % MCV (80-100) fL MCH (25-34) pg MCHC (32-36) g/dL RDW Std Deviation (36.4-46.3) fL RDW Coeff of Brian (11.5-14.5) % Plt Count (130-400) K/uL MPV (7.4-10.4) fL Immature Gran % (Auto) % Neut % (Auto) % Lymph % (Auto) % [place] % (Auto) % Eos % (Auto) % Baso % (Auto) % Neut # (Auto) (1.4-6.5) K/uL Lymph # (Auto) (1.2-3.4) K/uL [place] # (Auto) (0.11-0.59) K/uL Eos # (Auto) (0-0.5) K/uL Baso # (Auto) (0-0.2) K/uL Immature Gran # (Auto) (0.00-0.02) K/uL Dohle Bodies Platelet Estimate (Normal) Tear Drop Cells PT (9.0-12.0) Seconds INR (0.9-1.1) APTT (21.0-31.0) Seconds PTT Ratio Sodium 139 (136-145) mmol/L Potassium 3.6 (3.5-5.1) mmol/L Chloride 107 (98-107) mmol/L Carbon Dioxide 26 (21-32) mmol/L Anion Gap 6.0 (3-11) BUN 16 (7-18) mg/dl Creatinine 0.72 (0.6-1.4) mg/dl Est Cr Clr Drug Dosing Not Reportable Est GFR ( Amer) 105.0 ml/min Est GFR (Non-Af Amer) 90.6 ml/min BUN/Creatinine Ratio 22.8 H (10-20) Glucose 118 H (70-99) mg/dl Lactate (0.4-2.0) mmol/L Calcium 8.0 L (8.5-10.1) mg/dl Total Bilirubin 1.1 H (0.2-1) mg/dl AST 18 (15-37) U/L ALT 32 (12-78) U/L Alkaline Phosphatase 202 H (45-117) U/L Total Protein 6.7 (6.4-8.2) gm/dl Albumin 3.4 (3.4-5.0) gm/dl Globulin 3.3 (2.5-4.0) gm/dl Albumin/Globulin Ratio 1.0 (0.9-2) Lipase 106 (73-393) U/L Urine Color Yellow Urine Appearance Clear (Clear) Urine pH 7.5 (4.5-7.5) Ur Specific [place] 1.020 (1.000-1.030) Urine Protein Negative (Negative) Urine Glucose (UA) Negative (Negative) Urine Ketones Negative (Negative) Urine Blood Negative (Negative) Urine Nitrite Negative (Negative) Urine Bilirubin Negative (Negative) Urine Urobilinogen Negative (Negative) Ur Leukocyte Esterase Negative (Negative) COVID-19 Eval Order Covid19 at [facility] SARS-CoV-2 (PCR) (Negative) 01/13/21 Range/Units 13:48 WBC 9.51 (4.8-10.8) K/uL RBC 4.28 L (4.7-6.1) M/uL Hgb 13.5 L (14.0-18.0) g/dL Hct 40.4 L (42-52) % MCV 94.4 (80-100) fL MCH 31.5 (25-34) pg MCHC 33.4 (32-36) g/dL RDW Std Deviation 54.7 H (36.4-46.3) fL RDW Coeff of Brian 15.9 H (11.5-14.5) % Plt Count 71 L (130-400) K/uL MPV 11.4 H (7.4-10.4) fL Immature Gran % (Auto) 1.2 % Neut % (Auto) 86.7 % Lymph % (Auto) 5.2 % [place] % (Auto) 4.2 % Eos % (Auto) 2.5 % Baso % (Auto) 0.2 % Neut # (Auto) 8.25 H (1.4-6.5) K/uL Lymph # (Auto) 0.49 L (1.2-3.4) K/uL [place] # (Auto) 0.40 (0.11-0.59) K/uL Eos # (Auto) 0.24 (0-0.5) K/uL Baso # (Auto) 0.02 (0-0.2) K/uL Immature Gran # (Auto) 0.11 H (0.00-0.02) K/uL Dohle Bodies 1+ Platelet Estimate Decreased L (Normal) Tear Drop Cells 1+ PT (9.0-12.0) Seconds INR (0.9-1.1) APTT (21.0-31.0) Seconds PTT Ratio Sodium (136-145) mmol/L Potassium (3.5-5.1) mmol/L Chloride (98-107) mmol/L Carbon Dioxide (21-32) mmol/L Anion Gap (3-11) BUN (7-18) mg/dl Creatinine (0.6-1.4) mg/dl Est Cr Clr Drug Dosing Est GFR ( Amer) ml/min Est GFR (Non-Af Amer) ml/min BUN/Creatinine Ratio (10-20) Glucose (70-99) mg/dl Lactate (0.4-2.0) mmol/L Calcium (8.5-10.1) mg/dl Total Bilirubin (0.2-1) mg/dl AST (15-37) U/L ALT (12-78) U/L Alkaline Phosphatase (45-117) U/L Total Protein (6.4-8.2) gm/dl Albumin (3.4-5.0) gm/dl Globulin (2.5-4.0) gm/dl Albumin/Globulin Ratio (0.9-2) Lipase (73-393) U/L Urine Color Urine Appearance (Clear) Urine pH (4.5-7.5) Ur Specific [place] (1.000-1.030) Urine Protein (Negative) Urine Glucose (UA) (Negative) Urine Ketones (Negative) Urine Blood (Negative) Urine Nitrite (Negative) Urine Bilirubin (Negative) Urine Urobilinogen (Negative) Ur Leukocyte Esterase (Negative) COVID-19 Eval Order SARS-CoV-2 (PCR) (Negative) (1) Abdominal pain Abdominal location: unspecified location Qualified Code(s): R10.9 - Unspecified abdominal pain
[2021-01-14] MEDS: HEPARIN SODIUM/DEXTROSE 25,000 UNITS/500 ML BAG IV SCH (12:37)
[2021-01-14] MEDS: LATANOPROST 0.005% OP SOLN 2.5 ML BTL OPB SCH (21:02)
--- NOTE | 2021-01-14 23:24 | Hospitalist Progress Note ---
Date of Service January 14, 2021 Assessment & Plan (1) Superior mesenteric vein thrombosis: heparin drip started on Coumadin 10mg will follow up with coagulation clinic per Dr. Barker, will need lifelong 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 (2) Malignant neoplasm of rectum metastatic to liver: GI plans for flex sig tomorrow (3) Thrombocytopenia: Patient's platelet count is diminished from previous, consider effects of chemotherapy versus thromboembolic phenomena versus possible liver metastasis needs to be on heparin for SMV thrombus (4) Constipation: plan for flex sig tomorrow Admission and Anticipated Discharge Date Admission Date: January 13, 2021 Subjective patient doing okay, no much abdominal pain as long as he does not eat not much of an appetite, plan for EGD and flex sig tomorrow discussed with GI, appreciate their input discussed with Dr. Barker, recommends Coumadin with the heparin drip, needs indefinitely, should follow with coag clinic no dyspnea, no fever/chills, no chest pain reviewed chart and labs Review of Systems Review of Systems: All systems reviewed & are unremarkable except as noted in Subjective Physical Exam Constitutional: well developed, well nourished, + disheveled and comfortable; no acute distress Neck: trachea midline, no thyromegaly Respiratory: normal respiratory effort, lungs clear to auscultation Cardiovascular: RRR, no murmur, no edema Gastrointestinal (Abdomen): normal bowel sounds, soft, nontender, no hepatosplenomegaly Musculoskeletal: no cyanosis or clubbing, extremities motor strength 5/5 Skin: no rashes, warm and dry Neurologic: patellar DTR's 2+ bilat, sensation intact and PERRL, EOMI, accommodation nl, no face palsy, no dysarthria Psychiatric: A+Ox3, euthymic affect Lymphatic: no cervical or axillary lymphadenopathy Results & Data Results & Data ([facility]) Vital Signs (Past 12 Hours) Vital Signs Temp Pulse Resp BP BP Pulse Ox 01/14/21 20:53 36.5 C 77 18 115/80 98 01/14/21 16:47 36.6 C 62 18 144/63 H 95 01/14/21 12:29 36.7 C 52 L 16 140/93 140/93 96 Laboratory Results Laboratory Results - last 24 hr 01/14/21 01/14/21 01/14/21 00:29 00:29 06:07 WBC 7.59 RBC 4.32 L Hgb 13.4 L Hct 39.9 L MCV 92.4 MCH 31.0 MCHC 33.6 RDW Std Deviation 52.8 H RDW Coeff of Brian 15.7 H Plt Count 59 L MPV 11.6 H Immature Gran % (Auto) 2.5 Neut % (Auto) 79.5 Lymph % (Auto) 6.7 [place] % (Auto) 8.0 Eos % (Auto) 3.0 Baso % (Auto) 0.3 Neut # (Auto) 6.03 Lymph # (Auto) 0.51 L [place] # (Auto) 0.61 H Eos # (Auto) 0.23 Baso # (Auto) 0.02 Immature Gran # (Auto) 0.19 H PT 12.2 H INR 1.2 H APTT 64.6 H* PTT Ratio 2.5 Sodium Potassium Chloride Carbon Dioxide Anion Gap BUN Creatinine Est Cr Clr Drug Dosing Est GFR ( Amer) Est GFR (Non-Af Amer) BUN/Creatinine Ratio Glucose POC Glucose Calcium Total Bilirubin AST ALT Alkaline Phosphatase Total Protein Albumin Globulin Albumin/Globulin Ratio 01/14/21 01/14/21 06:07 18:01 WBC RBC Hgb Hct MCV MCH MCHC RDW Std Deviation RDW Coeff of Brian Plt Count MPV Immature Gran % (Auto) Neut % (Auto) Lymph % (Auto) [place] % (Auto) Eos % (Auto) Baso % (Auto) Neut # (Auto) Lymph # (Auto) [place] # (Auto) Eos # (Auto) Baso # (Auto) Immature Gran # (Auto) PT INR APTT PTT Ratio Sodium 139 Potassium 3.6 Chloride 109 H Carbon Dioxide 26 Anion Gap 5.0 BUN 11 Creatinine 0.72 Est Cr Clr Drug Dosing 81.6 Est GFR ( Amer) 105.0 Est GFR (Non-Af Amer) 90.6 BUN/Creatinine Ratio 14.8 Glucose 119 H POC Glucose 116 H Calcium 8.6 Total Bilirubin 1.1 H AST 18 ALT 28 Alkaline Phosphatase 186 H Total Protein 6.5 Albumin 3.2 L Globulin 3.3 Albumin/Globulin Ratio 1.0 Medications Administered Current Inpatient Medications Dorzolamide/Timolol (Dorzolamide/Timolol 22.3/6.8mg/Ml 10 Ml Btl) 1 drops OPB BID LEAH Stop: 02/12/21 20:59 Last Admin: 01/14/21 21:02 Dose: 1 drops Documented by: Heparin Sodium (Porcine) (Heparin 100 Unit/Ml 5ml Flush) 5 ml FLUSH PRN PRN PRN Reason: Flush Stop: 02/13/21 00:45 Heparin Sodium/Dextrose (Heparin Sodium/Dextrose) 25,000 units in 500 mls @ 26 mls/hr IV .[id number] [facility]; Protocol Stop: 02/12/21 18:33 Last Titration: 01/14/21 19:10 Dose: 1,300 units/hr, 26 mls/hr Documented by: Sodium Chloride (Nss 1000ml) 1,000 mls @ 100 mls/hr IV .Q10H [facility] Stop: 02/12/21 20:29 Last Admin: 01/14/21 18:00 Dose: 100 mls/hr Documented by: Acetaminophen (Ofirmev) 1,000 mg in 100 mls @ 400 mls/hr IV Q8H PRN PRN Reason: Mild Pain Stop: 01/16/21 22:08 Latanoprost (Latanoprost 0.005% Op Soln 2.5 Ml Btl) 1 drops OPB HS [facility] Stop: 02/12/21 20:59 Last Admin: 01/14/21 21:02 Dose: 1 drops Documented by: Mirabegron (Mirabegron Er 25 Mg Tab) 25 mg PO DAILY [facility] Stop: 02/13/21 08:59 Last Admin: 01/14/21 08:10 Dose: 25 mg Documented by: Morphine Sulfate (Morphine Sulfate 2 Mg/Ml Carp) 2 mg IV Q2H PRN PRN Reason: Pain Stop: 01/27/21 22:08 Multivitamins (Multivitamin Tab) 1 tab PO DAILY [facility] Stop: 02/13/21 08:59 Last Admin: 01/14/21 08:10 Dose: 1 tab Documented by: Ondansetron HCl (Ondansetron Inj 2 Mg/Ml 2 Ml Vial) 4 mg IV Q6H PRN PRN Reason: Nausea Stop: 02/12/21 20:29 Last Admin: 01/13/21 21:29 Dose: 4 mg Documented by: Pantoprazole Sodium (Pantoprazole 40 Mg Tab) 40 mg PO DAILY [facility] Stop: 02/13/21 08:59 Last Admin: 01/14/21 08:10 Dose: 40 mg Documented by: Tamsulosin HCl (Tamsulosin Hcl 0.4 Mg Cap) 0.4 mg PO BID LEAH Stop: 02/12/21 20:59 Last Admin: 01/14/21 21:00 Dose: Not Given Documented by: Zolpidem Tartrate (Zolpidem Tartrate 5 Mg Tab) 5 mg PO HS PRN PRN Reason: Sleep Stop: 02/12/21 20:29 PG Care Time/CCT Total # of Minutes Spent Total Time Spent with Patient: Total time spent is greater than 50% in c oordination of care (as documented) at patient's floor/unit and/or counseling patient: Coding Level of Care Code 73539 Subseq Hosp Care Lvl 2 Diagnoses Superior mesenteric vein thrombosis K55.069 Malignant neoplasm of rectum metastatic to liver C20; C78.7 Thrombocytopenia D69.6 Constipation K59.00
[2021-01-15] MEDS: SODIUM CHLORIDE 0.9% 1000ML 1,000 ML IV SCH ×2 (03:36→15:58)
[2021-01-15] MEDS: MoRPHine SULFATE 2 MG/ML CARP IV PRN ×2 (03:36→22:27)
[2021-01-15 06:18] LABS: INR 2.4 (0.9-1.1); Partial Thromboplastin Ratio > 5.3; Prothrombin Time 22.3 Seconds (9.0-12.0)
[2021-01-15 06:31] LABS: Partial Thromboplastin Time > 139.0 Seconds (21.0-31.0)
[2021-01-15 08:20] LABS: Partial Thromboplastin Time 104.3 Seconds (21.0-31.0)
[2021-01-15] MEDS: MIRABEGRON ER 25 MG TAB PO SCH (08:59)
[2021-01-15] MEDS: MULTIVITAMIN TAB PO SCH (08:59)
[2021-01-15] MEDS: TAMSULOSIN HCL 0.4 MG CAP PO SCH ×2 (08:59→22:28)
[2021-01-15] MEDS: DORZOLAMIDE/TIMOLOL 22.3/6.8MG/ML 10 ML BTL OPB SCH ×2 (09:00→22:52)
[2021-01-15] MEDS: PANTOprazole 40 MG TAB PO SCH (09:00)
[2021-01-15 09:17] LABS: Partial Thromboplastin Ratio 2.5
[2021-01-15 09:18] LABS: Partial Thromboplastin Time 66.1 Seconds (21.0-31.0)
[2021-01-15] MEDS: HEPARIN SODIUM/DEXTROSE 25,000 UNITS/500 ML BAG IV SCH (09:28)
--- NOTE | 2021-01-15 10:31 | Gastroenterology Progress Note ---
Date of Service January 15, 2021 Assessment & Plan (1) Venous thromboembolism: 75 year old male with history of acoustic neuroma, anxiety, BPH s/p LUTS, metastatic colorectal cancer, hepatic metastatic disease admitted with pain, constipation, CTAP w/ known metastasis disease but new occlusive and partially occlusive thrombi of the superior mesenteric vein with partially occlusive thrombus extension into the portal vein NPO w/ heparin held for EGD/Colon this AM (2) Abdominal pain: Admission and Anticipated Discharge Date Admission Date: January 13, 2021 Subjective Pt was seen and evaluated, chart reviewed. Heparin was turned off this morning for EGD/Colon No new symptoms, no concerns verbalized by pt or Review of Systems Review of Systems: All systems reviewed & are unremarkable except as noted in HPI & below Physical Exam Constitutional: WD/WN, vitals as above Results & Data ([facility]) Vital Signs (Past 12 Hours) Vital Signs Temp Pulse Pulse Resp BP Pulse Ox 01/15/21 07:00 68 01/15/21 06:31 36.8 C 64 18 122/77 96 01/15/21 03:39 36.7 C 71 18 133/84 97 01/15/21 00:00 71 01/14/21 23:22 36.9 C 72 17 141/95 H 99 Laboratory Results 01/15/21 01/15/21 01/15/21 Range/Units 08:47 07:41 05:19 PT 22.3 H (9.0-12.0) Seconds INR 2.4 H (0.9-1.1) APTT 66.1 H* 104.3 H* > 139.0 H* (21.0-31.0) Seconds PTT Ratio 2.5 4.0 > 5.3 POC Glucose (70-99) mg/dl 01/14/21 Range/Units 18:01 PT (9.0-12.0) Seconds INR (0.9-1.1) APTT (21.0-31.0) Seconds PTT Ratio POC Glucose 116 H (70-99) mg/dl (1) Abdominal pain Abdominal location: unspecified location Qualified Code(s): R10.9 - Unspecified abdominal pain
--- NOTE | 2021-01-15 11:43 | Anesthesiology Consultation ---
Date of Service January 15, 2021 Assessment & Plan Chart Review Chart Review: Acceptable Risk for Surgery and Patient NOT seen in Pre Admission Testing Consults Requested none ASA ASA4 Proposed Anesthesia Anesthesia Type: MAC Risk / Benefits Reviewed With: PT / POA / Parent / Guardian, Accepts Plan and Informed Consent Obtained Additional Comments: covid test negative History Surgery Operation Date: 01/15/21 16:45 Proposed Procedures p Colonscopy EGD Dr Pritchett - Candi Pritchett MD Height/Weight Height: 5 ft 7 in Weight: 78.6 kg Allergies Allergy/AdvReac Type Severity Reaction Status Date / Time Anesthetics - Bing Type- AdvReac Intermediate URINARY Verified 01/13/21 16:48 Parabens RETENTION ibuprofen AdvReac Mild GI SYMPTOMS Verified 01/13/21 16:48 Medications Home Medications Medication Instructions Recorded Confirmed Last Taken dorzolamide-timolol 1 drp OPB BID 01/14/19 01/13/21 07/19/19 latanoprost 1 drp OPB HS 01/14/19 01/13/21 07/19/19 lactobacillus combination no.4 3,000 mmu cells PO DAILY #0 03/08/19 01/13/21 07/19/19 [Probiotic] multivitamin 1 tab PO DAILY 07/19/19 01/13/21 07/19/19 Wheelchair (Manual or Powered) #1 ea 09/24/19 11/07/20 Unknown tamsulosin 0.4 mg capsule 0.4 mg PO BID 90 Days #180 cap 03/05/20 01/13/21 Unknown medical marijuana 1 ea PO BID 04/15/20 01/13/21 Unknown mirabegron 25 mg tablet,extended 25 mg PO DAILY #30 tab 12/24/20 01/13/21 Unknown release 24 hr omeprazole 40 mg capsule,delayed 40 mg PO DAILY #30 cap 01/06/21 01/13/21 Unknown release Active Medications Generic Name Dose Route Start Last Admin Trade Name Freq PRN Reason Stop Dose Admin Dorzolamide/Timolol 1 drops 01/13/21 21:00 01/15/21 09:00 Dorzolamide/Timolol 22.3/6.8mg/Ml 10 Ml Btl OPB 02/12/21 20:59 1 drops BID LEAH Administration Heparin Sodium/Dextrose 25,000 units in 500 mls @ 0 mls/hr 01/13/21 18:34 01/15/21 10:58 Heparin Sodium/Dextrose IV 02/12/21 18:33 0 units/hr .Q0M LEAH 0 mls/hr Titration Protocol 0 UNITS/HR Sodium Chloride 1,000 mls @ 100 mls/hr 01/13/21 20:30 01/15/21 03:36 Nss 1000ml IV 02/12/21 20:29 100 mls/hr .Q10H LEAH Administration Latanoprost 1 drops 01/13/21 21:00 01/14/21 21:02 Latanoprost 0.005% Op Soln 2.5 Ml Btl OPB 02/12/21 20:59 1 drops HS LEAH Administration Mirabegron 25 mg 01/14/21 09:00 01/15/21 08:59 Mirabegron Er 25 Mg Tab PO 02/13/21 08:59 25 mg DAILY LEAH Administration Morphine Sulfate 2 mg 01/13/21 22:09 01/15/21 03:36 Morphine Sulfate 2 Mg/Ml Carp IV 01/27/21 22:08 2 mg Q2H PRN Administration Pain Multivitamins 1 tab 01/14/21 09:00 01/15/21 08:59 Multivitamin Tab PO 02/13/21 08:59 1 tab DAILY LEAH Administration Ondansetron HCl 4 mg 01/13/21 20:30 01/13/21 21:29 Ondansetron Inj 2 Mg/Ml 2 Ml Vial IV 02/12/21 20:29 4 mg Q6H PRN Administration Nausea Pantoprazole Sodium 40 mg 01/14/21 09:00 01/15/21 09:00 Pantoprazole 40 Mg Tab PO 02/13/21 08:59 40 mg DAILY LEAH Administration Tamsulosin HCl 0.4 mg 01/13/21 21:00 01/15/21 08:59 Tamsulosin Hcl 0.4 Mg Cap PO 02/12/21 20:59 0.4 mg BID LEAH Administration NPO Date Last Intake of Fluids: 01/14/21 Time Last Intake of Fluids: 23:30 Date Last Intake of Solids: 01/14/21 Time Last Intake of Solids: 23:30 Past Medical History Medical History Abdominal pain Abscess packing removal Acoustic neuroma Adenocarcinoma of colon Anxiety BPH (benign prostatic hyperplasia) Brain cancer Dizziness Gastritis GERD (gastroesophageal reflux disease) Glaucoma Hearing deficit History of radiation therapy 2011 - Gamma Knife - in [place] - for Acoustic Neuroma Infected sebaceous cyst Port-A-Cath in place (03/15/19) Insertion of A-Port via left subclavian Dr. 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 Brother Family history of diabetes mellitus Hypertension Other Heart disease Denies family history of Colon cancer Ovarian cancer Prostate cancer Breast cancer Past Surgical History Surgical History History of anesthesia reaction URINARY RETENTION History of brain shunt 2012 FOR INTRACRANIAL FLUID History of cataract surgery RT/LEFT History of colonoscopy History of hemorrhoidectomy 12/25/2014 History of liver biopsy S/P ROW BOSS shunt 2013 Past Anesthesia History No Hx of Anesthesia Complications and No Family Hx of Anesthesia Complications History of PONV No Hx of PONV and No Hx of Motion Sickness Social History Smoking Status: Former smoker tobacco type: cigarettes Hx Alcohol Use: No Hx Substance Use: No substance use type: does not use Physical Exam Vital Signs Last Vital Signs Temp 36.3 C L 01/15/21 11:18 Pulse 70 01/15/21 11:18 Resp 20 01/15/21 11:18 BP 140/93 01/15/21 11:18 Pulse Ox 95 01/15/21 11:18 Constitutional average body habitus ENMT Mouth: + dentition abnormality, + dental restorations and + poor dentition Thyromental Distance: > or= 3.5 Finger Breadths Mallampati Class: II Neck normal visual inspection and trachea midline; neck extension not limited Respiratory normal respiratory effort Auscultation: + diminished lung sounds Cardiovascular Rate/Rhythm: regular rate and regular rhythm Heart Sounds: no murmur Vessels: no carotid bruit Musculoskeletal Spine: normal cervical ROM Extremities: extremities normal to inspection Neurologic moves all extremities Motor/Sensory: no sensory deficit Psychiatric Orientation: alert and oriented x 3 Testing Laboratory Results 01/14/21 06:07 01/14/21 06:07 PT 22.3 Seconds (9.0-12.0) H 01/15/21 05:19 INR 2.4 (0.9-1.1) H 01/15/21 05:19 APTT 66.1 Seconds (21.0-31.0) H* 01/15/21 08:47 Urine Color Yellow 01/13/21 16:04 Urine Appearance Clear (Clear) 01/13/21 16:04 Urine pH 7.5 (4.5-7.5) 01/13/21 16:04 Ur Specific [place] 1.020 (1.000-1.030) 01/13/21 16:04 Urine Protein Negative (Negative) 01/13/21 16:04 Urine Glucose (UA) Negative (Negative) 01/13/21 16:04 Urine Ketones Negative (Negative) 01/13/21 16:04 Urine Nitrite Negative (Negative) 01/13/21 16:04 Ur Leukocyte Esterase Negative (Negative) 01/13/21 16:04 Electrocardiogram Date: 03/08/19 Findings: + NSR @ (at 72) Chest X-Ray Date: 03/15/19 Findings: + NAD and + other (left sided port)
[2021-01-15] MEDS ORDERED: ePHEDrine sulfate 50 MG/ML AMP IV PRN (11:46)
[2021-01-15] MEDS ORDERED: ATROPINE SULFATE 0.1 MG/ML 10ML SYR IV PRN (11:46)
--- NOTE | 2021-01-15 12:08 | History & Physical Bridge Note ---
Date of Service January 15, 2021 History & Physical Bridge Note I have examined the patient, reviewed the History & Physical and in the interval since the performance of the History & Physical I have noted the following changes of clinical significance: no changes noted
[2021-01-15] MEDS ORDERED: LIDOCAINE 2% 2 ML VIAL/AMP(20MG/ML) INFIL ONE (12:16)
[2021-01-15] MEDS ORDERED: PROPOFOL IV EMULSION 10 MG/ML 20 ML VIAL IV ONE (12:16)
[2021-01-15] MEDS ORDERED: ONDANSETRON INJ 2 MG/ML 2 ML VIAL ONE (12:17)
--- NOTE | 2021-01-15 12:57 | GI REPORT ---
Patient Name: Neri Colunga Procedure Date: 01/15/2021 12:20 PM Date of : 1945 Admit Type: Inpatient Age: 75 Gender: Male Attending MD: Candi Pritchett MD Procedure: Upper GI endoscopy Providers: Candi Pritchett MD Referring MD: Dewey Sharp Indications: Portal hypertension rule out esophageal varices Medicines: See the Anesthesia note for documentation of the administered medications Complications: No immediate complications. Estimated Blood Loss: Estimated blood loss: none. Procedure: Pre-Anesthesia Assessment: - ASA Grade Assessment: IV - A patient with severe systemic disease that is a constant threat to life. After obtaining informed consent, the endoscope was passed under direct vision. Throughout the procedure, the patient's blood pressure, pulse, and oxygen saturations were monitored continuously. The Endoscope was introduced through the mouth, and advanced to the fourth part of duodenum. The upper GI endoscopy was accomplished without difficulty. The patient tolerated the procedure well. Findings: There were two columns of small grade 1 varices less than 5 cm in length in the lower esophagus and GE junction. The remainder of the esophagus was normal. There were diffuse petechiae and snakeskin appearance of the stomach mucosa in the fundus and body, suggestive of mild portal gastropathy. There was a small lymphocele but the duodenum was otherwise normal. Recommendation: Discharge pt to floor. See [facility] for recommendations. - Discharge patient to home. Candi Pritchett M.D. Candi Pritchett MD 01/15/2021 12:57:13 PM This report has been signed electronically. Note Initiated On: 01/15/2021 12:20 PM Number of Addenda: 0 I attest to the content of the Intraoperative Record and orders documented therein, exceptions below {[id number]}
--- NOTE | 2021-01-15 13:02 | GI REPORT ---
Patient Name: Neri Colunga Procedure Date: 01/15/2021 12:19 PM Date of : 1945 Admit Type: Inpatient Age: 75 Gender: Male Attending MD: Candi Pritchett MD Procedure: Colonoscopy Providers: Candi Pritchett MD Referring MD: Dewey Sharp Indications: Follow-up of rectal cancer Medicines: See the Anesthesia note for documentation of the administered medications Complications: No immediate complications. Estimated Blood Loss: Estimated blood loss: none. Procedure: Pre-Anesthesia Assessment: - ASA Grade Assessment: IV - A patient with severe systemic disease that is a constant threat to life. After I obtained informed consent, the scope was passed under direct vision. Throughout the procedure, the patient's blood pressure, pulse, and oxygen saturations were monitored continuously. The Endoscope was introduced through the anus with the intention of advancing to the cecum. The scope was advanced to the transverse colon before the procedure was aborted. Medications were given. The colonoscopy was performed without difficulty. The patient tolerated the procedure well. The quality of the bowel preparation was poor. Findings: Perianal exam and rectal exam was normal. There was solid stool throughout the entire examined portion of the colon, limiting the exam. There was diffuse erythema and friability of the entire mucosa of the rectum. The rectum appeared narrow in caliber. Hemorrhoids on retroflexion. There was no evidence of mucosal involvement of colon cancer. Impression: - Preparation of the colon was poor. - No mucosal evidence of colon malignancy. Recommendation: - Discharge patient to floor. - See [facility] for recommendations. Candi Pritchett M.D. Candi Pritchett MD 01/15/2021 1:01:46 PM This report has been signed electronically. Note Initiated On: 01/15/2021 12:19 PM Number of Addenda: 0 I attest to the content of the Intraoperative Record and orders documented therein, exceptions below {[id number]}
--- NOTE | 2021-01-15 13:08 | Anesthesiology Progress Note ---
Date of Service January 15, 2021 Anesthesia Post Procedure Vital Signs Vital Signs: Temp Pulse Pulse Resp BP BP Pulse Ox 01/15/21 12:48 75 16 105/70 93 01/15/21 11:18 36.3 C L 70 20 140/93 95 01/15/21 07:00 68 01/15/21 06:31 36.8 C 64 18 122/77 96 01/15/21 03:39 36.7 C 71 18 133/84 97 01/15/21 00:00 71 01/14/21 23:22 36.9 C 72 17 141/95 H 99 01/14/21 20:53 36.5 C 77 18 115/80 98 01/14/21 16:47 36.6 C 62 18 144/63 H 95 Pain Intensity Lower Abdomen: Pain Intensity: 8 Transfer of Care Handoff Completed per policy Notes Mental Status: alert / awake / arousable Patient Amnestic to Procedure: Yes Nausea / Vomiting: adequately controlled Pain: adequately controlled Airway Patency, RR, SpO2: stable & adequate BP & HR: stable & adequate Hydration State: stable & adequate Anesthetic Complications: no major complications apparent
--- NOTE | 2021-01-15 13:25 | Gastroenterology Progress Note ---
Date of Service January 15, 2021 Assessment & Plan Admission and Anticipated Discharge Date Admission Date: January 13, 2021 Subjective There was no lesion seen on endoscopy today that would be considered at high risk for bleeding with 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. Would continue indefinite 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, with f/u imaging in 2-3 mos to eval for resolution of thrombosis; will defer management of SMV thrombosis to heme service Diet as tolerated. Pt should be begun on bowel regimen for constipation. No scheduled GI f/u needed, but please reconsult for any questions if needed. Results & Data ([facility]) Vital Signs (Past 12 Hours) Vital Signs Temp Pulse Pulse Resp BP BP Pulse Ox 01/15/21 13:03 72 16 124/81 97 01/15/21 12:48 75 16 105/70 93 01/15/21 11:18 36.3 C L 70 20 140/93 95 01/15/21 07:00 68 01/15/21 06:31 36.8 C 64 18 122/77 96 01/15/21 03:39 36.7 C 71 18 133/84 97
--- NOTE | 2021-01-15 16:20 | Hospitalist Progress Note ---
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 Barker, will need lifelong 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 (2) Malignant neoplasm of rectum metastatic to liver: GI plans for flex sig tomorrow - no advanced disease, no local spread to mucosa (3) Thrombocytopenia: Patient's platelet count is diminished likely from effects of chemotherapy versus thromboembolic phenomena versus possible liver metastasis INR is 2.4 stop heparin (4) Constipation: clean colon on flex sig today Admission and Anticipated Discharge Date Admission Date: January 13, 2021 Subjective patient did well with EGD and flex sigmoidoscopy today, poor bowel prep no varices seen, nothing significant on flex sig INR up to 2.4, will stop heparin given his low platelets, no need to overlap further try to get him tomorrow CM arranging for coag clinic follow up mild abdominal pain but much better, no N/V/D, no melena no chest pain, dyspnea, fevers Review of Systems Review of Systems: All systems reviewed & are unremarkable except as noted in Subjective Physical Exam Constitutional: well developed, well nourished, + disheveled and comfortable; no acute distress Neck: trachea midline, no thyromegaly Respiratory: normal respiratory effort, lungs clear to auscultation Cardiovascular: RRR, no murmur, no edema Gastrointestinal (Abdomen): normal bowel sounds, soft, nontender, no hepatosplenomegaly Musculoskeletal: no cyanosis or clubbing, extremities motor strength 5/5 Skin: no rashes, warm and dry Neurologic: patellar DTR's 2+ bilat, sensation intact and PERRL, EOMI, accommodation nl, no face palsy, no dysarthria Psychiatric: A+Ox3, euthymic affect Lymphatic: no cervical or axillary lymphadenopathy Results & Data Results & Data ([facility]) Vital Signs (Past 12 Hours) Vital Signs Temp Pulse Pulse Resp BP BP Pulse Ox 01/15/21 15:58 37.0 C 77 18 118/69 94 01/15/21 14:00 37 C 88 14 144/74 H 99 01/15/21 13:21 78 16 115/76 98 01/15/21 13:03 72 16 124/81 97 01/15/21 12:48 75 16 105/70 93 01/15/21 11:18 36.3 C L 70 20 140/93 95 01/15/21 07:00 68 01/15/21 06:31 36.8 C 64 18 122/77 96 Laboratory Results Laboratory Results - last 24 hr 01/15/21 01/15/21 01/15/21 05:19 07:41 08:47 PT 22.3 H INR 2.4 H APTT > 139.0 H* 104.3 H* 66.1 H* PTT Ratio > 5.3 4.0 2.5 POC Glucose 01/15/21 20:26 PT INR APTT PTT Ratio POC Glucose 138 H Medications Administered Current Inpatient Medications Dorzolamide/Timolol (Dorzolamide/Timolol 22.3/6.8mg/Ml 10 Ml Btl) 1 drops OPB BID LEAH Stop: 02/12/21 20:59 Last Admin: 01/15/21 22:52 Dose: 1 drops Documented by: Heparin Sodium (Porcine) (Heparin 100 Unit/Ml 5ml Flush) 5 ml FLUSH PRN PRN PRN Reason: Flush Stop: 02/13/21 00:45 Last Admin: 01/15/21 17:23 Dose: 5 ml Documented by: Acetaminophen (Ofirmev) 1,000 mg in 100 mls @ 400 mls/hr IV Q8H PRN PRN Reason: Mild Pain Stop: 01/16/21 22:08 Latanoprost (Latanoprost 0.005% Op Soln 2.5 Ml Btl) 1 drops OPB HS LEAH Stop: 02/12/21 20:59 Last Admin: 01/15/21 22:29 Dose: 1 drops Documented by: Mirabegron (Mirabegron Er 25 Mg Tab) 25 mg PO DAILY LEAH Stop: 02/13/21 08:59 Last Admin: 01/15/21 08:59 Dose: 25 mg Documented by: Morphine Sulfate (Morphine Sulfate 2 Mg/Ml Carp) 2 mg IV Q2H PRN PRN Reason: Pain Stop: 01/27/21 22:08 Last Admin: 01/15/21 22:27 Dose: 2 mg Documented by: Multivitamins (Multivitamin Tab) 1 tab PO DAILY LEAH Stop: 02/13/21 08:59 Last Admin: 01/15/21 08:59 Dose: 1 tab Documented by: Ondansetron HCl (Ondansetron Inj 2 Mg/Ml 2 Ml Vial) 4 mg IV Q6H PRN PRN Reason: Nausea Stop: 02/12/21 20:29 Last Admin: 01/13/21 21:29 Dose: 4 mg Documented by: Pantoprazole Sodium (Pantoprazole 40 Mg Tab) 40 mg PO DAILY LEAH Stop: 02/13/21 08:59 Last Admin: 01/15/21 09:00 Dose: 40 mg Documented by: Polyethylene Glycol (Polyethylene (Miralax) 17 Gm Pack) 17 gm PO DAILY LEAH Stop: 02/15/21 08:59 Tamsulosin HCl (Tamsulosin Hcl 0.4 Mg Cap) 0.4 mg PO BID LEAH Stop: 02/12/21 20:59 Last Admin: 01/15/21 22:28 Dose: 0.4 mg Documented by: Zolpidem Tartrate (Zolpidem Tartrate 5 Mg Tab) 5 mg PO HS PRN PRN Reason: Sleep Stop: 02/12/21 20:29 PG Care Time/CCT Total # of Minutes Spent Total Time Spent with Patient: Total time spent is greater than 50% in coordination of care (as documented) at patient's floor/unit and/or counseling patient: Coding Level of Care Code 53694 Subseq Hosp Care Lvl 2 Diagnoses Superior mesenteric vein thrombosis K55.069 Malignant neoplasm of rectum metastatic to liver C20; C78.7 Thrombocytopenia D69.6 Constipation K59.00
[2021-01-15] MEDS: LATANOPROST 0.005% OP SOLN 2.5 ML BTL OPB SCH (22:29)
[2021-01-16 06:06] LABS: INR 2.9 (0.9-1.1); Prothrombin Time 26.8 Seconds (9.0-12.0)
[2021-01-16] MEDS: PANTOprazole 40 MG TAB PO SCH (07:51)
[2021-01-16] MEDS: TAMSULOSIN HCL 0.4 MG CAP PO SCH (07:51)
[2021-01-16] MEDS: MULTIVITAMIN TAB PO SCH (07:52)
[2021-01-16] MEDS: MIRABEGRON ER 25 MG TAB PO SCH (07:53)
[2021-01-16] MEDS: DORZOLAMIDE/TIMOLOL 22.3/6.8MG/ML 10 ML BTL OPB SCH (07:53)
[2021-01-16 07:58] VITALS: PULSE 72; TEMP 98.1; O2SAT 96
[2021-01-16] MEDS ORDERED: POLYETHYLENE (MIRALAX) 17 GM PACK PO SCH (09:00)
--- NOTE | 2021-01-16 12:24 | Discharge Summary ---
Date of Service January 16, 2021 Admission HPI Per Admitting Provider This is a 75-year-old male with past medical history of rectal carcinoma with mets to the liver that presents today complaining abdominal pain. Patient is accompanied by his , both are good historians. Patient tells me he is having abdominal pain for the past 6 days. This tends to be mostly postprandial and lasts approximately 4-5 hours before it resolves. Pain is sharp with a cramping quality, mostly in the left side. He has been having significant nausea as well as a decreased appetite which has been an ongoing issue with his chemotherapy. He also states he has been constipated for the past 3 days, did not note any abnormality with his bowels before. Denies any hematochezia. Also denies any hematemesis or other vomiting. At the time of my exam, the patient was mostly comfortable, only expressed some pain with palpation during the exam. He is in no acute cardiopulmonary distress. Principal Diagnosis SMV thrombosis Discharge Exam Constitutional well developed, well nourished, + disheveled and comfortable; no acute distress Neck trachea midline, no thyromegaly Respiratory normal respiratory effort, lungs clear to auscultation Cardiovascular RRR, no murmur, no edema Gastrointestinal (Abdomen) normal bowel sounds, soft, nontender, no hepatosplenomegaly Musculoskeletal no cyanosis or clubbing, extremities motor strength 5/5 Skin no rashes, warm and dry Neurologic patellar DTR's 2+ bilat, sensation intact and PERRL, EOMI, accommodation nl, no face palsy, no dysarthria Psychiatric A+Ox3, euthymic affect Lymphatic no cervical or axillary lymphadenopathy Discharge Data Allergies Allergy/AdvReac Type Severity Reaction Status Date / Time Anesthetics - Bing Type- AdvReac Intermediate URINARY Verified 01/13/21 16:48 Parabens RETENTION ibuprofen AdvReac Mild GI SYMPTOMS Verified 01/13/21 16:48 Consultations 01/13/21 18:20 ED Decision to Admit Stat 01/13/21 20:30 Consult Gastroenterology Routine Consult Hematology Routine Procedures Performed Operation Date: 01/15/21 16:45 Actual Procedures p Esophagogastroduodenoscopy - Candi Pritchett MD s Colonoscopy - Candi Pritchett MD Ordered Studies 01/13/21 14:20 CT abd pelvis IV con only Stat Hospital Course (1) Superior mesenteric vein thrombosis: heparin ip -- stopped 01/15 as INR was 2.4 and low plts started on Coumadin 10mg on 01/14, INR up to 2.4 INR is up to 2.9 today will discharge on 5mg daily but told patient to not start until Wednesday 01/17 will check INR on Friday 01/19 with results to coagulation clinic and PCP, Dr. Walters per Dr. Barker, will need lifelong 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 due to setting of metastatic cancer (2) Malignant neoplasm of rectum metastatic to liver: flex sigmoidoscopy on 01/15 - no advanced disease, no local spread to mucosa (3) Thrombocytopenia: Patient's platelet count is diminished likely from effects of chemotherapy versus thromboembolic phenomena versus possible liver metastasis plts are low but stable (4) Constipation: clean colon on flex sig today Total Time Total Time Spent Total Time Spent (In Minutes): 32 Total Time Includes: Examination of the Patient, Discharge Planning, Medication Reconciliation and Communication With Other Providers Discharge Plan Discharge Items Patient Disposition: Home - Self-Care Reason For Visit: SMV THROMBOSIS Discharge Diagnosis: Superior mesenteric vein thrombosis Rectal cancer Condition on Discharge: Good Goals: use Warfarin for 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 Activity: Resume your previous activity Weightbearing: Full weightbearing Non-emergency contact: Primary Care Provider Call non-emergency contact if: you have any medication questions Follow-up/Referrals: Tarah Alonso MD, PhD [Pathologist] - (coagulation clinic, should get appointment this week) Lizett Walters MD [Primary Care Provider] - Diet: Regular Ambulatory Orders: Prothrombin Time INR (Routine) Timeframe: 20210119 Location: Determined by Patient Ordered By: Dewey Ramsey Attending Provider Instructions: Medications: continue all prior medications WARFARIN: this is blood thinner, your dose will likely change a few times over next several weeks as we determine what is an appropriate dose to keep INR between 2 and 3 you will start by taking 5mg daily, start taking this tomorrow (Tuesday) in the late afternoon (4-5pm) you will see another prescription for 1mg tablets, these are not intended to be taken yet, just in case you need to alter dose you will have them continue to take 5mg daily until you get INR checked on Friday 01/19, you can go anywhere to get blood work, does not need to be fasting results will go to coagulation clinic and PCP Superior mesenteric vein thrombosis (clot) likely due to hypercoagulable state with cancer, treated initially with heparin drip and started on warfarin will need to take blood thinner forever due to cancer see above for warfarin instructions Pending Studies at Discharge: No Stand-Alone Forms: My [facility] [employer], Smoking Cessation Medications and DC Order Prescriptions: New warfarin 5 mg tablet 5 mg PO DAILY Qty: 30 RF: 0 warfarin 1 mg tablet 1 mg PO UD 30 Days Qty: 60 RF: 0 Continued medical marijuana 1 ea PO BID RF: 0 (DME) Wheelchair (Manual) Device See Rx Instructions .ROUTE .MEDSUPPLY Qty: 1 RF: 0 Myrbetriq 25 mg tablet extended release 24 hr 25 mg PO DAILY Qty: 30 RF: 2 omeprazole 40 mg capsule,delayed release(DR/EC) 40 mg PO DAILY Qty: 30 RF: 5 tamsulosin 0.4 mg capsule 0.4 mg PO BID 90 Days Qty: 180 RF: 3 latanoprost 0.005 % drops 1 drp OPB HS RF: 0 dorzolamide-timolol 22.3-6.8 mg/mL drops 1 drp OPB BID RF: 0 Probiotic 3 billion cell Capsule 3,000 mmu cells PO DAILY Qty: 0 RF: 0 multivitamin Tablet 1 tab PO DAILY RF: 0 Discharge Orders: Discharge Order (Routine); Ordered 01/16/21 Ordered By: Dewey Sharp Admission Data Admit Date/Time: 01/13/21 19:22 Attending Provider: Dewey Sharp Admit Provider: Trevor Soriano Primary Care Provider: Lizett Walters Other Providers: Trevor Soriano ; Laya Rodriguez ; Shashank Barker V. Coding Level of Care Code D/C Day Management >30 mins Diagnoses Superior mesenteric vein thrombosis K55.069 Malignant neoplasm of rectum metastatic to liver C20; C78.7 Thrombocytopenia D69.6 Constipation K59.00
[2021-01-16 12:48] VITALS: BP 122/77
--- NOTE | 2021-01-19 19:31 | Communication Note ---
Date of Service: January 19, 2021 I received a phone call from the lab about a critical INR of 6.4. I called the patient discussed his care with his on the phone. She reports he is not having any trouble with bleeding from anywhere and that other than being a little bit fatigued which is his normal, he is doing fairly well. I advised her to have him hold his Coumadin although unfortunately he already took it today at 1600. She will have him hold his Coumadin for the next several days. I advised her to bring him to the lab tomorrow afternoon for a repeat INR to ensure that it is not climbing any higher. She has the 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 clinic appointment rescheduled for this coming January 22. No need for vitamin K reversal at this point as he is asymptomatic. Gave prec autions to come to the ER if he has any signs of bleeding.
== END 2021-01-16 13:03 | disposition home or self-care (01) | DRG 393 ==
LOC: ED 13:17 → SUATTDRO 19:22 → 2E 19:22 → 3N 01-15 16:00

== ENCOUNTER 2021-10-25 12:42 | Observation (INO) ==
--- NOTE | 2021-10-25 12:57 | Emergency Department Note ---
Impression & Plan Atypical chest pain, Chronic 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, History of rectal cancer ED Provider Note NAME: SVETA FOURNIER AGE: 76 SEX: M : 1945 ARRIVES VIA: Walk-In INFORMANT: Patient, ED PROVIDER(S): Hussein Brown MD Chief Complaint: Chest pain HPI: Patient presents due to concern for chest pain. The patient states it is midline and will radiate to the top of his abdomen. The patient describes it as a pressure and 5 out of 10 in severity. Patient states that have been ongoing for approximately 3 months but has been worse over the last 3 days and is not amenable to food which is typically improved his symptoms. Patient is unsure as without is a true exertional symptoms but denies any diaphoresis. The patient has had occasional nausea but no vomiting. Patient denies any leg swelling. The patient does receive chemotherapy for prior history of rectal cancer with liver metastases. The patient does have a prior history of acoustic neuroma but this is been treated status post surgery and does not receive any treatment for this. 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 Patient denies any fevers chills or cough. Patient denies any recent travel or known sick contacts. The patient has not taken any other medications help with the symptoms. The patient states that the symptoms been fairly constant over the last several days. Patient states he has been compliant with his medications. Patient denies any leg swelling recent surgeries procedures or hospitalizations. ROS: See HPI for pertinent positives and negatives. A total of 10 systems were revie wed and otherwise negative. Past medical history: See below Surgical history: See below Social history: See below Physical Exam: GENERAL: NAD, wearing glasses, wearing a mask, non-toxic. EYE EXAM: Normal conjunctiva. PERRL, no anisocoria and EOM's grossly intact w/o pain. OROPHARYNX: Moist mucus membranes. Grossly normal dentition. NECK: Supple, no nuchal rigidity, no adenopathy, non-tender. No signs of meningismus. Chest: No reproducible chest wall pain. LUNGS: Clear to auscultation. Normal chest wall mechanics. HEART: NSR, no MRG. ABDOMEN: Abdomen soft, non-tender, normo-active bowel sounds, no masses, no rebound or guarding. BACK: No CVA TTP. SKIN: No rashes and no bruising. UPPER EXTREMITIES: Upper extremities are grossly normal. LOWER EXTREMITIES: Grossly normal, no edema. Homans' sign bilaterally. NEURO EXAM: A&O x3, cranial nerves II-XII grossly intact, normal speech, moves all 4 extremities on command w/o issue. Differential diagnoses: Cardiac ischemia, aortic dissection, pulmonary embolism, pneumothorax, pneumonia, pericarditis, myocarditis, esophageal rupture, GERD, cholecystitis, pancreatitis, musculoskeletal, as well as other pathologies. Course: Patient was seen and evaluated the bedside. Full history physical exam was performed. EKG interpreted by me Normal sinus rhythm, rate of 80, normal intervals, normal axis, T wave inversion in lead III morphology appears relatively unchanged with the patient's T wave inversion is new from comparison EKG completed March 08, 2019. Imaging Studies: See Below Cardiac monitoring: An order was placed for continuous cardiac monitoring. The monitor shows a rate of 78 with sinus rhythm. MDM: Patient was seen due to concern for chest pain. As the patient had described as pressure was concerned with the possibility of cardiac etiology. The patient had stated that this discomfort had improved with eating in the past but this had not proved his symptoms in the last 3 days. Blood work was obtained along w ith an EKG troponin and chest x-ray. The patient was ordered some nitroglycerin. Patient did not have significant improvement symptoms but would like to try something for his stomach. Patient has a soft abdomen gel. Believe he requires a CAT scan at this time. Patient's blood work shows normal white counts with mildly elevated hemoglobin. The patient was ordered some IV fluids. The patient INR is slightly supratherapeutic at 3.1. The patient's kidney function normal with an undetectable troponin at this time. Covid negative. Chest x-ray clear. I did speak the on-call hospitalist as the patient does have an elevated heart score. Patient was admitted to the medicine service by Dr. Wu. Believe PE to be less likely as the patient is anticoagulated on Coumadin and is slightly supratherapeutic. The patient is not hypoxic nor tachycardic. Past Med/Surg History Medical History Abdominal pain Abdominal pain Abscess packing removal Acoustic neuroma Adenocarcinoma of colon Anxiety BPH (benign prostatic hyperplasia) Brain cancer Dizziness Gastritis GERD (gastroesophageal reflux disease) Glaucoma Hearing deficit History of radiation therapy 2011 - Gamma Knife - in [place] - for Acoustic Neuroma Infected sebaceous cyst Port-A-Cath in place (03/15/19) Insertion of A-Port via left subclavian Dr. 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 Brother Family history of diabetes mellitus Hypertension Other Heart disease Denies family history of Colon cancer Ovarian cancer Prostate cancer Breast cancer Social History Smoking Status: Former smoker Tobacco Type: Cigarettes packs per day: 1; Years Smoked: 23; Second Hand Exposure: Yes; Hx Alcohol Use: No Hx Substance Use: No Preferred Language: Mandarin [place] Communication Ability: Effective Visual Impairment: No Limitations Hearing Ability: Hard of Hearing Solid Die Cutter Required: No Beliefs That Will Affect Care: None marital status: Current Living Situation: Spouse current occupational status: retired 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 Home Meds Home Medications Medication Instructions Recorded Confirmed dorzolamide 22.3 mg-timolol 6.8 1 drp OPB BID 01/14/19 10/25/21 mg/mL eye drops latanoprost 0.005 % eye drops 1 drp OPB HS 01/14/19 10/25/21 lactobacillus combination no.4 3 3,000 mmu cells PO DAILY #0 03/08/19 10/25/21 billion cell capsule (Probiotic) medical marijuana 1 ea PO BID 04/15/20 10/25/21 cetuximab 100 mg/50 mL intravenous 0 mg IV Q14D ml 03/13/21 10/25/21 solution (Erbitux) tamsulosin 0.4 mg capsule 0.4 mg PO DAILY cap 04/24/21 10/25/21 warfarin 2.5 mg tablet See Rx Instructions PO UD tab 08/21/21 10/25/21 Previous Rx's Medication Instructions Recorded Wheelchair (Manual) #1 ea 09/24/19 omeprazole 40 mg capsule,delayed 40 mg PO DAILY #30 cap 01/06/21 release Wheeled Walker #1 ea 06/26/21 Results & Data (ED) Vital Signs Vital Signs - 24 hr 10/25/21 12:44 10/25/21 13:08 10/25/21 13:17 Temperature 36.1 C L Temperature Source Temporal Artery Scan Pulse Rate 84 Pulse Rate [Apical] Pulse Rhythm Regular Pulse Rhythm [Apical] Pulse Strength Normal Pulse Strength [Apical] Respiratory Rate 20 Respiratory Effort / Characteristics Non-Labored Spontaneous Respiratory Depth Normal Respiratory Pattern Regular Blood Pressure 166/106 H Blood Pressure [Right Arm] Blood Pressure Mean 126 Blood Pressure Mean [Right Arm] Blood Pressure Position Sitting Blood Pressure Position [Right Arm] Pulse Oximetry 95 Oxygen Delivery Method Room Air Room Air Room Air Sepsis Recent Fever Within 48 Hours No Sepsis New/Unexplained Change in Mental Status N/A Sepsis Action Taken by Nursing No Action Required 10/25/21 14:42 10/25/21 16:00 Temperature Temperature Source Pulse Rate Pulse Rate [Apical] 61 69 Pulse Rhythm Pulse Rhythm [Apical] Regular Pulse Strength Pulse Strength [Apical] Normal Respiratory Rate 20 18 Respiratory Effort / Characteristics Non-Labored Respiratory Depth Normal Respiratory Pattern Regular Blood Pressure Blood Pressure [Right Arm] 126/86 160/101 H Blood Pressure Mean Blood Pressure Mean [Right Arm] 99 120 Blood Pressure Position Blood Pressure Position [Right Arm] Lying Pulse Oximetry 95 95 Oxygen Delivery Method Room Air Room Air Sepsis Recent Fever Within 48 Hours Sepsis New/Unexplained Change in Mental Status Sepsis Action Taken by Halfway Medications Current Medication List: was personally reviewed by me Laboratory Data Attestation: I reviewed the patient's lab results. Result diagrams: 10/25/21 13:00 10/25/21 13:00 Lab Results 10/25/21 10/25/21 10/25/21 Range/Units 13:00 13:00 13:00 WBC 6.22 (4.8-10.8) K/uL RBC 5.97 (4.7-6.1) M/uL Hgb 18.4 H (14.0-18.0) g/dL Hct 52.4 H (42-52) % MCV 87.8 (80-100) fL MCH 30.8 (25-34) pg MCHC 35.1 (32-36) g/dL RDW Std Deviation 45.0 (36.4-46.3) fL RDW Coeff of Brian 14.0 (11.5-14.5) % Plt Count 154 (130-400) K/uL MPV 11.0 H (7.4-10.4) fL Immature Gran % (Auto) 0.2 % Neut % (Auto) 68.2 % Lymph % (Auto) 22.0 % [place] % (Auto) 6.3 % Eos % (Auto) 3.1 % Baso % (Auto) 0.2 % Neut # (Auto) 4.25 (1.4-6.5) K/uL Lymph # (Auto) 1.37 (1.2-3.4) K/uL [place] # (Auto) 0.39 (0.11-0.59) K/uL Eos # (Auto) 0.19 (0-0.5) K/uL Baso # (Auto) 0.01 (0-0.2) K/uL Immature Gran # (Auto) 0.01 (0.00-0.02) K/uL PT 30.8 H (9.0-12.0) Seconds INR 3.1 H (0.9-1.1) APTT 38.3 H (21.0-31.0) Seconds PTT Ratio 1.4 Sodium 140 (136-145) mmol/L Potassium 3.6 (3.5-5.1) mmol/L Chloride 104 (98-107) mmol/L Carbon Dioxide 26 (21-32) mmol/L Anion Gap 10 (3-11) BUN 14 (6-23) mg/dl Creatinine 0.84 (0.6-1.4) mg/dl Est Cr Clr Drug Dosing 75.3 ml/min Est GFR ( Amer) 97.9 ml/min Est GFR (Non-Af Amer) 84.5 ml/min BUN/Creatinine Ratio 16.7 (10-20) Glucose 137 H (70-99(Fasting)) mg/dl Calcium 9.3 (8.5-10.1) mg/dl Total Bilirubin 0.9 (0.2-1.0) mg/dl AST 31 (13-39) U/L ALT 44 (7-52) U/L Alkaline Phosphatase 124 H (34-104) U/L Troponin I < 0.03 (0-0.04) ng/ml Total Protein 8.1 (6.0-8.3) gm/dl Albumin 4.3 (3.4-5.0) gm/dl Globulin 3.8 (2.5-4.0) gm/dl Albumin/Globulin Ratio 1.1 (0.9-2) Lipase 25 (11-82) U/L SARS-CoV-2, RNA, NAAT (NEGATIVE) 10/25/21 Range/Units 15:09 WBC (4.8-10.8) K/uL RBC (4.7-6.1) M/uL Hgb (14.0-18.0) g/dL Hct (42-52) % MCV (80-100) fL MCH (25-34) pg MCHC (32-36) g/dL RDW Std Deviation (36.4-46.3) fL RDW Coeff of Brian (11.5-14.5) % Plt Count (130-400) K/uL MPV (7.4-10.4) fL Immature Gran % (Auto) % Neut % (Auto) % Lymph % (Auto) % [place] % (Auto) % Eos % (Auto) % Baso % (Auto) % Neut # (Auto) (1.4-6.5) K/uL Lymph # (Auto) (1.2-3.4) K/uL [place] # (Auto) (0.11-0.59) K/uL Eos # (Auto) (0-0.5) K/uL Baso # (Auto) (0-0.2) K/uL Immature Gran # (Auto) (0.00-0.02) K/uL PT (9.0-12.0) Seconds INR (0.9-1.1) APTT (21.0-31.0) Seconds PTT Ratio Sodium (136-145) mmol/L Potassium (3.5-5.1) mmol/L Chloride (98-107) mmol/L Carbon Dioxide (21-32) mmol/L Anion Gap (3-11) BUN (6-23) mg/dl Creatinine (0.6-1.4) mg/dl Est Cr Clr Drug Dosing ml/min Est GFR ( Amer) ml/min Est GFR (Non-Af Amer) ml/min BUN/Creatinine Ratio (10-20) Glucose (70-99(Fasting)) mg/dl Calcium (8.5-10.1) mg/dl Total Bilirubin (0.2-1.0) mg/dl AST (13-39) U/L ALT (7-52) U/L Alkaline Phosphatase (34-104) U/L Troponin I (0-0.04) ng/ml Total Protein (6.0-8.3) gm/dl Albumin (3.4-5.0) gm/dl Globulin (2.5-4.0) gm/dl Albumin/Globulin Ratio (0.9-2) Lipase (11-82) U/L SARS-CoV-2, RNA, NAAT NEGATIVE (NEGATIVE) Administered Medications Nitroglycerin (Nitroglycerin Sl 0.4 Mg/Tab Tab) 0.4 mg SL UD PRN PRN Reason: Chest Pain Stop: 11/24/21 13:15 Last Admin: 10/25/21 15:05 Dose: 0.4 mg Documented by: [id number] Discontinued Medications Aspirin (Aspirin Chew 324 Mg) 324 mg PO NOW STA Stop: 10/25/21 15:09 Last Admin: 10/25/21 15:27 Dose: 324 mg Documented by: [id number] Calcium Carbonate (Calcium Carbonate 500 Mg Chewable Tab) 1,500 mg PO ONE STA Stop: 10/25/21 16:32 Last Admin: 10/25/21 17:28 Dose: 1,500 mg Documented by: [id number] Famotidine (Pepcid 20mg Iv Push) 20 mg in 5 mls @ 2.5 mls/min IV NOW STA Stop: 10/25/21 15:09 Last Admin: 10/25/21 15:28 Dose: 2.5 mls/min Documented by: [id number] Sodium Chloride (Nss 1000ml) 500 mls @ 999 mls/hr IV .Q31M ONE Stop: 10/25/21 15:38 Last Infusion: 10/25/21 16:00 Dose: 0 mls/hr Documented by: [id number] Admin: 10/25/21 15:28 Dose: 999 mls/hr Documented by: [id number] Imaging Data Radiologist's Impression: Chest X-Ray 10/25/21 13:16 XR chest 1V portable CLINICAL HISTORY: Atypical chest pain. COMPARISON STUDY: Chest CT August 06, 2021. FINDINGS: Lung volumes are normal. A left upper lobe nodule is better depicted on chest CT August 06, 2021. There is no pneumothorax or pleural effusion. Cardiac size is normal. Mediastinal contours are normal. There is no evidence for pulmonary edema. Left subclavian [id number] is in place. Shunt catheter is partially imaged. IMPRESSION: 1. No acute cardiopulmonary findings. 2. Redemonstration of an indeterminate left upper lobe solid nodule. ACT 112: Negative or not required by law. Electronically signed by: Domenic Ortiz M.D. 10/25/2021 1:54 PM Discharge Plan Visit Data Chief Complaint: Cardiac Assessment Stated Complaint: chest pain Discharge Problem: Atypical chest pain, Chronic 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, History of rectal cancer Patient Disposition: Admitted As Inpatient
[2021-10-25] MEDS ORDERED: NITROGLYCERIN SL 0.4 MG/TAB TAB SL PRN (13:16)
[2021-10-25 13:25] LABS: Basophils # (auto) 0.01 K/uL (0-0.2); Basophils % (auto) 0.2 %; Eosinophils # (auto) 0.19 K/uL (0-0.5); Eosinophils % (auto) 3.1 %; Hematocrit (blood only) 52.4 % (42-52); Hemoglobin 18.4 g/dL (14.0-18.0); Immature Granulocytes # (auto) 0.01 K/uL (0.00-0.02); Immature Granulocytes % (auto) 0.2 %; Lymphocytes # (auto) 1.37 K/uL (1.2-3.4); Mean Corpuscular Hemoglobin 30.8 pg (25-34); Mean Corpuscular Hgb Conc 35.1 g/dL (32-36); Mean Corpuscular Volume 87.8 fL (80-100); Monocytes # (auto) 0.39 K/uL (0.11-0.59); Monocytes % (auto) 6.3 %; Neutrophils # (auto) 4.25 K/uL (1.4-6.5); Neutrophils % (auto) 68.2 %; Platelet Count 154 K/uL (130-400); Red Blood Count 5.97 M/uL (4.7-6.1); White Blood Count 6.22 K/uL (4.8-10.8)
--- NOTE | 2021-10-25 13:55 | XRay Report ---
XR chest 1V portable CLINICAL HISTORY: Atypical chest pain. COMPARISON STUDY: Chest CT August 06, 2021. FINDINGS: Lung volumes are normal. A left upper lobe nodule is better depicted on chest CT July. There is no pneumothorax or pleural effusion. Cardiac size is normal. Mediastinal contours ar e normal. There is no evidence for pulmonary edema. Left subclavian [id number]-[id number] is in place. Shunt catheter is partially imaged. IMPRESSION: 1. No acute cardiopulmonary findings. 2. Redemonstration of an indeterminate left upper lobe solid nodule. ACT 112: Negative or not required by law. Electronically signed by: Domenic Ortiz M.D. 10/25/2021 1:54 PM
[2021-10-25 13:56] LABS: Troponin I < 0.03 ng/ml (0-0.04)
[2021-10-25 13:59] LABS: Alanine Aminotransferase 44 U/L (7-52); Albumin Globulin Ratio 1.1 (0.9-2); Albumin Level 4.3 gm/dl (3.4-5.0); Alkaline Phosphatase 124 U/L (34-104); Anion Gap 10 (3-11); Aspartate Aminotransferase 31 U/L (13-39); BUN Creatinine Ratio 16.7 (10-20); Bilirubin,Total 0.9 mg/dl (0.2-1.0); Blood Urea Nitrogen 14 mg/dl (6-23); Calcium 9.3 mg/dl (8.5-10.1); Carbon Dioxide 26 mmol/L (21-32); Chloride 104 mmol/L (98-107); Creatinine Clr Calc Pharmacy 75.3 ml/min; Est GFR (African American) 97.9 ml/min; Est GFR (Non-African American) 84.5 ml/min; Globulin 3.8 gm/dl (2.5-4.0); Glucose 137 mg/dl (70-99(Fasting)); Lipase 25 U/L (11-82); Potassium 3.6 mmol/L (3.5-5.1); Sodium 140 mmol/L (136-145); Total Protein 8.1 gm/dl (6.0-8.3)
[2021-10-25] MEDS ORDERED: FAMOTIDINE 20MG IV PUSH 20 MG/5 ML SYR IV STA (15:08)
[2021-10-25] MEDS ORDERED: SODIUM CHLORIDE 0.9% 1000ML 500 ML IV ONE (15:08)
[2021-10-25] MEDS ORDERED: ASPIRIN CHEW 324 MG PO STA (15:08)
--- NOTE | 2021-10-25 16:27 | History & Physical Report ---
Date of Service October 25, 2021 Assessment & Plan (1) Dysphagia: Plan: Given relatively rapid onset on food getting stuck over a 2 week period would recommend inpatient workup for this. Will consult GI for consideration of EGD. (2) Gastritis: Plan: Patient with longstanding history of heartburn, likes acidic and spicy foods. Previously prescribed omeprazole last year although he is currently on taking this despite on his home med list. 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 Appears to be new onset. Will repeat CBC in AM and consider further workup at that time if persistent. (7) Palpitations: Plan: Monitor for arrhythmia overnight on telemetry (8) Pulmonary nodule: Plan: Presumably known to his oncologist as on recent PET/CT. Will defer further workup to them if necessary. Doubtful cause of current pain and appears to be stable. Plan: VTE Prophylaxis - warfarin Diet - heart healthy, NPO @ midnight Disposition - observation status to med/tele Admission and Anticipated Discharge Date Admission Date: October 25, 2020 History of Present Illness Chief Complaint: Chest pain Primary Care Provider: Lizett Walters MD Neri Colunga is a 76 year old male with colon adenocarcinoma and liver metastatic disease who presents to the ER with chest/epigastric pain. It has been ongoing for the last 3 months but worse over the last three days. He reports it comes on for 3-4 hours at a time. Usually only substernal but much more in epigastric area now for the last 2 days. Improves on exertion, no worse on inspiration. Comes on with eating food. Worse when he lies down on the recliner. Feels associated palpitations (fast and hard). Associated feeling cold inside. No diaphoresis or shortness of breath. Last had chemotherapy on Tuesday. Yesterday pain severity 6-7/10, currently 7/10. Worse now than when he came. He also notes food getting stuck, especially thicker foods in the lower part of his sternum for the last 2 weeks which is also getting worse. No acid taste in his mouth or NSAID use but he does enjoy many oranges and spicy foods. In the ER initial troponin negative. Given increasing frequency and increased HEART score he was referred to medicine for observation and ongoing management of this chest pain. Allergies Allergy/AdvReac Type Severity Reaction Status Date / Time Anesthetics - Bing Type- AdvReac Intermediate URINARY Verified 10/25/21 15:01 Parabens RETENTION ibuprofen AdvReac Mild OK IF Verified 10/25/21 15:04 TAKES WITH FOOD. Home Medications Medication Instructions Recorded Confirmed Type dorzolamide 22.3 mg-timolol 6.8 1 drp OPB BID 01/14/19 10/25/21 History mg/mL eye drops latanoprost 0.005 % eye drops 1 drp OPB HS 01/14/19 10/25/21 History lactobacillus combination no.4 3 3,000 mmu cells PO DAILY #0 03/08/19 10/25/21 History billion cell capsule (Probiotic) Wheelchair (Manual) #1 ea 09/24/19 09/18/21 Rx medical marijuana 1 ea PO BID 04/15/20 10/25/21 History omeprazole 40 mg capsule,delayed 40 mg PO DAILY #30 cap 01/06/21 10/25/21 Rx release cetuximab 100 mg/50 mL intravenous 0 mg IV Q14D ml 03/13/21 10/25/21 History solution (Erbitux) tamsulosin 0.4 mg capsule 0.4 mg PO DAILY cap 04/24/21 10/25/21 History Wheeled Walker #1 ea 06/26/21 09/18/21 Rx warfarin 2.5 mg tablet See Rx Instructions PO UD tab 08/21/21 10/25/21 History Past Med/Surg History Medical History Abdominal pain Abdominal pain Abscess packing removal Acoustic neuroma Adenocarcinoma of colon Anxiety BPH (benign prostatic hyperplasia) Brain cancer Dizziness Gastritis GERD (gastroesophageal reflux disease) Glaucoma Hearing deficit History of radiation therapy 2011 - Gamma Knife - in [place] - for Acoustic Neuroma Infected sebaceous cyst Port-A-Cath in place (03/15/19) Insertion of A-Port via left subclavian Dr. 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 Required: No Beliefs That Will Affect Care: None marital status: Current Living Situation: Spouse current occupational status: retired 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 Most recently prescribed omeprazole in March but didn't think it helped much so stopped taking this. Physical Exam Constitutional: WD/WN, vitals as above Eyes: PERRL, conjunctivae normal, anicteric sclerae Neck: trachea midline, no thyromegaly Respiratory: normal respiratory effort, lungs clear to auscultation Cardiovascular: RRR, no murmur, no edema Gastrointestinal (Abdomen): Inspection/Auscultation: normal bowel sounds Percussion/Palpation: + abdomen tender (epigastric) and abdomen soft; no guarding and abdomen not rigid Musculoskeletal: no cyanosis or clubbing, extremities motor strength 5/5 Skin: no rashes, warm and dry Neurologic: moves all extremities and awake; not confused Psychiatric: A+Ox3, euthymic affect Genitourinary: no CVA tenderness Results & Data Results & Data ([facility]) Vital Signs (Past 12 Hours) Vital Signs Temp Pulse Pulse Resp BP BP Pulse Ox 10/25/21 16:00 69 18 160/101 H 95 10/25/21 14:42 61 20 126/86 95 10/25/21 12:44 36.1 C L 84 20 166/106 H 95 Laboratory Results Abnormal lab results 10/25/21 10/25/21 10/25/21 Range/Units 13:00 13:00 13:00 Hgb 18.4 H (14.0-18.0) g/dL Hct 52.4 H (42-52) % MPV 11.0 H (7.4-10.4) fL PT 30.8 H (9.0-12.0) Seconds INR 3.1 H (0.9-1.1) APTT 38.3 H (21.0-31.0) Seconds Glucose 137 H (70-99(Fasting)) mg/dl Alkaline Phosphatase 124 H (34-104) U/L Diagnostic Findings XR chest 1V portable CLINICAL HISTORY: Atypical chest pain. COMPARISON STUDY: Chest CT August 06, 2021. FINDINGS: Lung volumes are normal. A left upper lobe nodule is better depicted on chest CT August 06, 2021. There is no pneumothorax or pleural effusion. Cardiac size is normal. Mediastinal contours are normal. There is no evidence for pulmonary edema. Left subclavian [id number]-[id number] is in place. Shunt catheter is partially imaged. IMPRESSION: 1. No acute cardiopulmonary findings. 2. Redemonstration of an indeterminate left upper lobe solid nodule. Medications Administered ER Medications Given: Aspirin 324mg PO Famotidine 20mg IV daily NSS 500ml bolus ECG Indication: chest pain Rate (beats per minute): 80 Rhythm: normal sinus Findings: + other (T wave flattening throughout) and + T-wave inversion (Inferior) Comparison ECG Date: from (March 08, 2019) Change: the following changes noted (T wave inversion/flattening is more prominant) Code Status & VTE Plan Code Status Full VTE Prophylaxis Plan VTE Prophylaxis will be ordered: Yes PG Care Time/CCT Total # of Minutes Spent Total Time Spent with Patient: Total time spent is greater than 50% in coordination of care (as documented) at patient's floor/unit and/or counseling patient: Coding Level of Care Code INT OBSERVATION CARE 70M LVL 3 Diagnoses Chest pain R07.9 Dysphagia R13.10 Gastritis K29.70 Superior mesenteric vein thrombosis K55.069 Adenocarcinoma of colon C18.9 Polycythemia D75.1 Palpitations R00.2 Pulmonary nodule R91.1
[2021-10-25] MEDS ORDERED: CALCIUM CARBONATE 500 MG CHEWABLE TAB PO STA (16:31)
[2021-10-25 16:52] LABS: INR 3.1 (0.9-1.1); Partial Thromboplastin Ratio 1.4; Partial Thromboplastin Time 38.3 Seconds (21.0-31.0); Prothrombin Time 30.8 Seconds (9.0-12.0)
[2021-10-25] MEDS ORDERED: ONDANSETRON INJ 2 MG/ML 2 ML VIAL IV PRN (18:07)
[2021-10-25] MEDS ORDERED: ACETAMINOPHEN 325 MG TAB PO PRN (18:07)
[2021-10-25] MEDS ORDERED: ALUMINUM/MAGNESIUM SUSP 30 ML UDC PO PRN (18:07)
[2021-10-25] MEDS ORDERED: WARFARIN SOD 2.5 MG TAB PO SCH (19:00)
[2021-10-25] MEDS ORDERED: LATANOPROST 0.005% OP SOLN 2.5 ML BTL OPB SCH (21:00)
[2021-10-25] MEDS: DORZOLAMIDE/TIMOLOL 22.3/6.8MG/ML 10 ML BTL OPB SCH (21:22)
[2021-10-26] MEDS ORDERED: LORazepam 2 MG/1 ML VIAL IV STA (03:03)
[2021-10-26] MEDS: HEPARIN 100 UNIT/ML 5ML FLUSH FLUSH PRN ×3 (03:23→17:36)
[2021-10-26] MEDS ORDERED: LACTATED RINGER'S 1,000 ML IV SCH (06:30)
[2021-10-26 06:43] LABS: Basophils # (auto) 0.01 K/uL (0-0.2); Basophils % (auto) 0.2 %; Eosinophils # (auto) 0.22 K/uL (0-0.5); Eosinophils % (auto) 3.7 %; Hematocrit (blood only) 48.5 % (42-52); Hemoglobin 17.1 g/dL (14.0-18.0); Immature Granulocytes # (auto) 0.01 K/uL (0.00-0.02); Immature Granulocytes % (auto) 0.2 %; Lymphocytes # (auto) 1.35 K/uL (1.2-3.4); Lymphocytes % (auto) 22.9 %; Mean Corpuscular Hemoglobin 30.5 pg (25-34); Mean Corpuscular Hgb Conc 35.3 g/dL (32-36); Mean Corpuscular Volume 86.5 fL (80-100); Mean Platelet Volume 10.9 fL (7.4-10.4); Monocytes % (auto) 8.5 %; Neutrophils % (auto) 64.5 %; Platelet Count 151 K/uL (130-400); RDW Coefficient of Variation 14.1 % (11.5-14.5); RDW Standard Deviation 44.7 fL (36.4-46.3); Red Blood Count 5.61 M/uL (4.7-6.1); White Blood Count 5.89 K/uL (4.8-10.8)
[2021-10-26 06:52] LABS: INR 2.7 (0.9-1.1); Prothrombin Time 26.9 Seconds (9.0-12.0)
[2021-10-26 07:05] LABS: BUN Creatinine Ratio 20.5 (10-20); Calcium 8.8 mg/dl (8.5-10.1); Creatinine Clr Calc Pharmacy 81.1 ml/min; Est GFR (African American) 100.9 ml/min; Est GFR (Non-African American) 87.1 ml/min; Potassium 3.5 mmol/L (3.5-5.1)
--- NOTE | 2021-10-26 07:30 | Hospitalist Progress Note ---
Date of Service October 26, 2021 Assessment & Plan Admission and Anticipated Discharge Date Admission Date: October 25, 2021 Subjective No overnight events. Patient stated that he is not currently experiencing any ch est pain, usually the pain comes when he has not eaten anything, tends to get better with food consumption but not always. Endorses palpitations at times. Denies nausea, vomiting, fevers, chills, shortness of breath, diarrhea. Review of Systems Review of Systems: As per HPI. Results & Data Results & Data ([facility]) Vital Signs (Past 12 Hours) Vital Signs Temp Pulse Pulse Resp BP Pulse Ox 10/26/21 03:18 36.4 C L 58 L 18 158/94 H 94 10/25/21 23:59 62 10/25/21 23:25 36.5 C 59 L 16 123/79 95 10/25/21 19:39 36.2 C L 70 18 149/88 H 94
[2021-10-26] MEDS: DORZOLAMIDE/TIMOLOL 22.3/6.8MG/ML 10 ML BTL OPB SCH (07:56)
[2021-10-26] MEDS ORDERED: TAMSULOSIN HCL 0.4 MG CAP PO SCH (09:00)
[2021-10-26] MEDS ORDERED: PANTOprazole 40 MG TAB PO SCH (09:00)
[2021-10-26] MEDS ORDERED: FAMOTIDINE 20 MG in SYRINGE 3 ML IV SCH (09:00)
--- NOTE | 2021-10-26 09:58 | Gastrointestinal Consultation ---
Date of Consultation October 26, 2021 Assessment & Plan (1) History of rectal cancer: (2) Dysphagia: (3) Chest pain: (4) GERD (gastroesophageal reflux disease): Pt is a 76 yo male w hx of metastatic rectal ca seen for symptoms of chest pain (negative Troponin, + EKG changes), mild dysphagia and GERD. Hx of grade I varices and portal gastropathy on last EGD in 2020. DDx: esophagitis, esophageal stenosis/stricture, dysmotility. - DC Famotidine, trial Protonix 40mg BID - He is taking Coumadin for hx of SMV thrombus. INR 2.7. Discussed with pt and that we can offer repeat EGD evaluation though needs his Coumadin held. Pt would like to have EGD in outpt setting. Hospitalist will discuss w Dr. Saravia to see if we need to bridge Coumadin for the procedure - GERD and aspiration precautions - Consider Cardiology eval for chest pain symptoms. - GI sign off; pls recall prn. We will help arrange outpt EGD Supervising Physician Co-Signing Physician Notes I have personally seen and examined the patient with NAIDA Ochoa. Her note reflects my exam and findings. I agree with her impression and plan. Will arrange out patient EGD with Dr. Pritchett. Leon Nickerson M.D. History of Present Illness Reason for Consultation: Dysphagia, gastritis Requesting Physician: Dr. Yasmin Castillo Attending Physician: Dr. Leon Nickerson History of Present Illness Pt is a 76 yo male w hx of metastatic rectal ca who presented yesterday w c/o chest pain symptoms. Troponin negative. EKG w changes ? infarct age non specific. He described the chest pain to be pressure like. He reports having trouble swallowing foods but only when he recline when eating. He does admit to having acid reflux and takes antiacids on prn basis. He denies any n/v, abd pain, bowel habit changes otherwise. Since admitted he was started on Protonix 40mg PO daily + Famotidine 20mg IV BID and felt his symptoms are improved. Last EGD 12/2020 showed grade I varices and portal gastropathy. Allergies Allergy/AdvReac Type Severity Reaction Status Date / Time Anesthetics - Bing Type- AdvReac Intermediate URINARY Verified 10/25/21 15:01 Parabens RETENTION ibuprofen AdvReac Mild OK IF Verified 10/25/21 15:04 TAKES WITH FOOD. Home Medications Medication Instructions Recorded Confirmed Type dorzolamide 22.3 mg-timolol 6.8 1 drp OPB BID 01/14/19 10/25/21 History mg/mL eye drops latanoprost 0.005 % eye drops 1 drp OPB HS 01/14/19 10/25/21 History lactobacillus combination no.4 3 3,000 mmu cells PO DAILY #0 03/08/19 10/25/21 History billion cell capsule (Probiotic) Wheelchair (Manual) #1 ea 09/24/19 09/18/21 Rx medical marijuana 1 ea PO BID 04/15/20 10/25/21 History omeprazole 40 mg capsule,delayed 40 mg PO DAILY #30 cap 01/06/21 10/25/21 Rx release cetuximab 100 mg/50 mL intravenous 0 mg IV Q14D ml 03/13/21 10/25/21 History solution (Erbitux) tamsulosin 0.4 mg capsule 0.4 mg PO DAILY cap 04/24/21 10/25/21 History Wheeled Walker #1 ea 06/26/21 09/18/21 Rx warfarin 2.5 mg tablet See Rx Instructions PO UD tab 08/21/21 10/25/21 History Patient History Medical History Abdominal pain Abdominal pain Abscess packing removal Acoustic neuroma Adenocarcinoma of colon Anxiety BPH (benign prostatic hyperplasia) Brain cancer Dizziness Gastritis GERD (gastroesophageal reflux disease) Glaucoma Hearing deficit History of radiation therapy 2011 - Gamma Knife - in [place] - for Acoustic Neuroma Infected sebaceous cyst Port-A-Cath in place (03/15/19) Insertion of A-Port via left subclavian Dr. 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: No Beliefs That Will Affect Care: None marital status: Current Living Situation: Spouse current occupational status: retired 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 [employer] How many Children do You have: 2 Other Information That Helps Us Care for You: No Feels Safe at Home: Yes Safety Concerns: Feels Safe At This Time caffeine: No Dental Care, Regularly: No Physical Activity Frequency: Does not Exercise Seatbelt Use: always Assistive Devices: Cane Review of Systems Review of Systems: All systems reviewed & are unremarkable except as noted in HPI & below Physical Exam Constitutional: WD/WN, vitals as above well groomed, cooperative and comfortable Eyes: PERRL, conjunctivae normal, anicteric sclerae ENMT: external ear and nose normal, oropharynx normal Respiratory: normal respiratory effort, lungs clear to auscultation Cardiovascular: RRR, no murmur, no edema Gastrointestinal (Abdomen): normal bowel sounds, soft, nontender, no hepatosplenomegaly Skin: no rashes, warm and dry no jaundice Psychiatric: A+Ox3, euthymic affect Lymphatic: no lymphedema Results & Data ([facility]) Vital Signs (Past 12 Hours) Vital Signs Temp Pulse Pulse Resp BP Pulse Ox 10/26/21 07:39 36.7 C 74 16 116/70 92 10/26/21 06:16 89 10/26/21 03:18 36.4 C L 58 L 18 158/94 H 94 10/25/21 23:59 62 10/25/21 23:25 36.5 C 59 L 16 123/79 95
[2021-10-26] MEDS ORDERED: Nursing to Pharmacy Communication SCH (14:15)
[2021-10-26 15:01] VITALS: BP 129/73; TEMP 98.6; O2SAT 94
[2021-10-26] MEDS ORDERED: WARFARIN SOD 5 MG TAB PO SCH (16:00)
--- NOTE | 2021-10-26 16:36 | Discharge Summary ---
Date of Service October 26, 2021 Admission HPI Per Admitting Provider Neri Colunga is a 76 year old male with colon adenocarcinoma and liver metastatic disease who presents to the ER with chest/epigastric pain. It has been ongoing for the last 3 months but worse over the last three days. He reports it comes on for 3-4 hours at a time. Usually only substernal but much more in epigastric area now for the last 2 days. Improves on exertion, no worse on inspiration. Comes on with eating food. Worse when he lies down on the recliner. Feels associated palpitations (fast and hard). Associated feeling cold inside. No diaphoresis or shortness of breath. Last had chemotherapy on Tuesday. Yesterday pain severity 6-7/10, currently 7/10. Worse now than when he came. He also notes food getting stuck, especially thicker foods in the lower part of his sternum for the last 2 weeks which is also getting worse. No acid taste in his mouth or NSAID use but he does enjoy many oranges and spicy foods. In the ER initial troponin negative. Given increasing frequency and increased HEART score he was referred to medicine for observation and ongoing management of this chest pain. Admission Exam Per Admitting Provider Constitutional: WD/WN, vitals as above Eyes: PERRL, conjunctivae normal, anicteric sclerae Neck: trachea midline, no thyromegaly Respiratory: normal respiratory effort, lungs clear to auscultation Cardiovascular: RRR, no murmur, no edema Gastrointestinal (Abdomen): Inspection/Auscultation: normal bowel sounds Percussion/Palpation: + abdomen tender (epigastric) and abdomen soft; no guarding and abdomen not rigid Musculoskeletal: no cyanosis or clubbing, extremities motor strength 5/5 Skin: no rashes, warm and dry Neurologic: moves all extremities and awake; not confused Psychiatric: A+Ox3, euthymic affect Genitourinary: no CVA tenderness Principal Diagnosis GERD, dysphagia Discharge Exam Constitutional WD/WN, vitals as above Eyes PERRL, conjunctivae normal, anicteric sclerae Respiratory normal respiratory effort, lungs clear to auscultation Cardiovascular RRR, no murmur, no edema Gastrointestinal (Abdomen) normal bowel sounds, soft, nontender, no hepatosplenomegaly Discharge Data Allergies Allergy/AdvReac Type Severity Reaction Status Date / Time Anesthetics - Bing Type- AdvReac Intermediate URINARY Verified 10/25/21 15:01 Parabens RETENTION ibuprofen AdvReac Mild OK IF Verified 10/25/21 15:04 TAKES WITH FOOD. Consultations 10/25/21 15:08 ED Decision to Admit Stat 10/25/21 20:01 Consult Gastroenterology Routine Hospital Course (1) Chest pain: (2) Dysphagia: (3) Gastritis: (4) Chronic 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: (5) History of rectal cancer: (6) Polycythemia: Neri is a 76 year old male w/ PmHx colon adenocarcinoma and liver mets undergoing chemotherapy, GERD, and nocturia who came into the ED for chest pain. GERD/Dysphagia: -History of GERD on omeprazole in the past, not currently taking. -GI consulted: -Recommend Protonix 40mg BID. Patient said they will continue their home omeprazole instead of wanting to get a new prescription. -Can do outpatient EGD. GI to contact patient in regards to scheduling EGD. 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 -Dr. Alonso from 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 clinic recommended D/C Coumadin 5 days prior to endoscopy and start Lovenox at prophylactic dose. -Prescribed Lovenox 40mg daily. -Told patient to ask at 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 clinic about when to stop Lovenox after procedure. Chest pain: -Non-exertional pain, better with eating, more likely reflux related. -Trop <0.03. -Heart rate normal sinus rhythm in 60's-80's while on telemetry. -GI consulted and plan as above. Chronic 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: -Same plan as above for EGD. ?Polycythemia: -Hgb 18.4 10/25, 17.1 10/26 -History of SVM thrombus. -No past workup can be found for polycythemia vera, REGGIE, hemochromatosis. -May warrant follow up on Hgb or further workup outpatient. Total Time Total Time Spent Total Time Spent (In Minutes): Please see attending attestation. Discharge Plan Discharge Items Patient Disposition: Home - Self-Care Reason For Visit: DYSPHAGIA, PALPITATIONS, EPIGASTRIC PAIN Discharge Diagnosis: Esophageal chest pain Activity: Per Instructions section Non-emergency contact: Primary Care Provider and Joint Maker Machine Call non-emergency contact if: your symptoms worsen, your pain is worsening and your temperature is above 101 Follow-up/Referrals: Lizett Walters MD [Primary Care Provider] - Diet: Regular Addtl Attending Provider Instructions: A discharge summary will be sent to your primary care physician to ensure continuity of care. You came in to the hospital for worsening chest pain. While you were here your it was determined that it is unlikely your chest pain is cardiac in nature based on your history. A blood test for damage to heart muscle came back negative. The pain you are experiencing is more likely to be gastrointestinal. The ordering box operator saw you in the hospital and recommended further evaluation with an endoscopy in the outpatient setting. They recommended you continue your reflux medication (either omeprazole or pantoprazole). Your outpatient endoscopy still has to be scheduled and so you will receive a call from a nurse telling you when to schedule in the near future. We talked with Dr. Alonso about stopping your Coumadin before your endoscopy. It is advised for you to stop taking Coumadin at least 5 days before the endoscopy. As soon as you stop taking Coumadin please take the medication Lovenox that is prescribed to you to keep you anticoagulated. After the endoscopy please continue both your Coumadin and the Lovenox so that there is no disconnect in 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 while restarting your Coumadin. Follow-up: * You should be seen by your primary physician within the next week for follow up on your hospital visit. * You need to follow up with gastroenterology for your further work up. They should call you with scheduling your endoscopy. Medications: Your medication list has been reviewed and reconciled upon discharge to ensure accuracy and continuity of care. An updated list of all your medications is included with your hospital discharge paperwork. Please review this list closely, and make note of any changes. * Please stop taking Coumadin 5 days before your scheduled endoscopy procedure. After the procedure you can restart Coumadin. * Please start taking the Lovenox 40mg the same day you stop taking your Coumadin. Lovenox is a once a day medication you will take until your 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 clinic tells you to stop. It is important you continue taking Lovenox after restarting Coumadin. * Please keep taking your proton pump inhibitor medication (either omeprazole or pantoprazole) daily to help decrease your reflux symptoms. * You were given a prescription for a new walker at your request. Take your medications as instructed; do not skip a dose of your medicines. Make sure all of your doctors know every medicine you are taking (including hobm-cof-bvmyhmb medicines, vitamins, and supplements). let your primary care provider know before taking any new medicines because some of these may interact with your current medications, or may make your symptoms worse. CONTACT YOUR PRIMARY CARE PROVIDER if you experience any of the following: * Fevers or shaking chills * Shortness of breath not relieved by inhalers, fainting * Sudden abdominal distension not relieved by catheterization. * Difficulty following your treatment plan, or difficulty taking medications CALL 911 OR GO TO THE EMERGENCY DEPARTMENT if you experience any of the following: * Sudden, severe abdominal pain or nausea/vomiting * Severe chest pain, or chest pain that radiates (moves) to your jaw or arm * Sudden, severe shortness of breath or difficulty breathing It was was our pleasure taking care of you here at [facility] . Thank you for allowing us to participate in your care. Pending Studies at Discharge: No Stand-Alone Forms: My [facility], Smoking Cessation Medications and DC Order Prescriptions: New enoxaparin [Lovenox] 40 mg/0.4 mL syringe 40 mg subcut DAILY 14 Days Qty: 5.6 RF: 0 Continued medical marijuana 1 ea PO BID RF: 0 Erbitux 100 mg/50 mL solution 0 mg IV Q14D RF: 0 tamsulosin 0.4 mg capsule 0.4 mg PO DAILY RF: 0 (DME) Wheelchair (Manual) Device See Rx Instructions .ROUTE .MEDSUPPLY Qty: 1 RF: 0 omeprazole 40 mg capsule,delayed release(DR/EC) 40 mg PO DAILY Qty: 30 RF: 5 (DME) Wheeled Walker Misc See Rx Instructions .Route Qty: 1 RF: 0 warfarin 2.5 mg tablet See Rx Instructions PO UD Qty: 110 RF: 1 latanoprost 0.005 % drops 1 drp OPB HS RF: 0 dorzolamide-timolol 22.3-6.8 mg/mL drops 1 drp OPB BID RF: 0 Probiotic 3 billion cell Capsule 3,000 mmu cells PO DAILY Qty: 0 RF: 0 Discharge Orders: Discharge Order (Routine); Ordered 10/26/21 Ordered By: Christian Malhotra Admission Data Admit Date/Time: 10/25/21 17:03 Attending Provider: Yasmin Castillo Admit Provider: Javier Wu Primary Care Provider: Lizett Walters Other Providers: Javier Wu ; Chelsea James Other Interventions: Discharge Summary Assessment (RN) Last Done: 10/26/21 17:07 Supervising Physician Co-Signing Physician Notes Resident Physician Supervision Note: I independently interviewed and examined the patient and verified the thornton history and physical, reviewed labs and image studies and agree with resident Dr. Malhotra findings and care plan. Resident Activity Tracking Resident Involvement: Resident Care Provided Care Provided: Adult Hospital Medicine
[2021-10-26 17:09] VITALS: PULSE 64
--- NOTE | 2021-10-27 06:35 | Electrocardiogram Report ---
Test Reason : Blood Pressure : / mmHG Vent. Rate : 080 BPM Atrial Rate : 080 BPM P-R Int : 174 ms QRS Dur : 098 ms QT Int : 376 ms P-R-T Axes : 035 -02 005 degrees QTc Int : 433 ms Poor data quality, interpretation may be adversely affected Normal sinus rhythm Inferior infarct , age undetermined Cannot rule out Anterior infarct , age undetermined Abnormal ECG When compared with ECG of 08-MAR-2019 15:17, T wave inversion more evident in Inferior leads T wave amplitude has decreased in Anterolateral leads Confirmed by Reynaldo Mcintyre ([id number]) on 10/27/2021 6:35:34 AM Referred By: Confirmed By:Reynaldo Mcintyre
== END 2021-10-26 17:38 | disposition home or self-care (01) ==
LOC: ED 12:42 → 2N 12:42 → SUATTDRO 17:03 → 2N 18:41

== ENCOUNTER 2022-07-06 07:28 | Observation (INO) ==
--- NOTE | 2022-07-01 10:43 | Anesthesiology Consultation ---
Date of Service July 01, 2022 Assessment & Plan (1) Encounter for pre-operative examination: Plan - check coags and CBC with diff STAT am DOS. - COVID screening: Per pumping supervisor on 07/01/2022: Travel screen negative, no known COVID-19 positive contacts or current COVID-19 related symptoms in past 2 weeks. To surgeon's discretion if preop COVID testing is needed. Chart Review Chart Review: Acceptable Risk for Surgery and Patient NOT seen in Pre Admission Testing History Surgery Operation Date: 07/06/22 09:05 Proposed Procedures p TURP (Transurethral Resection of the Prostate) - Dangelo Alvares MD Height/Weight Height: 5 ft 6 in Weight: 81.647 kg Allergies Allergy/AdvReac Type Severity Reaction Status Date / Time Anesthetics - Bing Type- AdvReac Intermediate URINARY Verified 07/01/22 09:51 Parabens RETENTION Medications Home Medications Medication Instructions Recorded Confirmed Last Taken dorzolamide 22.3 mg-timolol 6.8 1 drp OPB BID 01/14/19 07/01/22 06/02/22 mg/mL eye drops latanoprost 0.005 % eye drops 1 drp OPB HS 01/14/19 07/01/22 06/02/22 lactobacillus combination no.4 3 3,000 mmu cells PO QAM ##0 03/08/19 07/01/22 11/11/21 billion cell capsule (Probiotic) Wheelchair (Manual) #1 ea 09/24/19 07/01/22 Unknown medical marijuana 1 ea PO BID PRN appetite, mood 04/15/20 07/01/22 06/03/22 00:00 Wheeled Walker #1 ea 06/26/21 07/01/22 Unknown Wheeled Walker #1 ea 11/09/21 07/01/22 Unknown tamsulosin 0.4 mg capsule 0.4 mg PO BID #180 caps 05/31/22 07/01/22 06/02/22 21:00 dutasteride 0.5 mg capsule 0.5 mg PO QAM 06/01/22 07/01/22 06/02/22 (Avodart) warfarin 2.5 mg tablet 2.5 - 5 mg PO UD 06/01/22 07/01/22 05/30/22 Past Medical History Medical History (Updated 07/01/22 @ 10:37 by Lisa Arnett PA-C) Acoustic neuroma 2011 Anxiety BPH (benign prostatic hyperplasia) Brain cancer acoustic neuroma s/p radiation 2013, [employer] shunt in place 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 Calabrese 03/15/19 Rectal adenocarcinoma metastatic to liver Diagnosed 12/2018 Rectal cancer Diagnosed 12/25/14, Recurrence 12/2018; chemo/radiation Secondary lung cancer (05/12/22) s/p radiation to left lung per [facility]ology records 06/25/22 Past Family History Family History Mother , Passed age 92 of old age Stroke Myocardial infarction Father , Passed age 100 of old age No problems noted. Brother Family history of diabetes mellitus Hypertension Other Heart disease Denies family history of Colon cancer Ovarian cancer Prostate cancer Breast cancer Past Surgical History Surgical History (Updated 07/01/22 @ 10:37 by Lisa Arnett PA-C) History of anesthesia reaction URINARY RETENTION History of brain shunt 2012 hydrocephalus History of cataract surgery RT/LEFT History of colonoscopy History of esophagogastroduodenoscopy (EGD) History of hemorrhoidectomy 12/25/2014 History of liver biopsy History of procedure for peripheral vascular disease S/P [employer] shunt 2013 Social History Smoking Status: Former smoker tobacco type: cigarettes Smoking cigarettes per day: quit at age 44 Do You Dip or Chew Tobacco: No Hx Alcohol Use: No Hx Substance Use: Yes (medical- ADVISED) substance use type: marijuana Last Used Substance Other:: medical marijuana oil- uses daily for appetite and depression Lab Results Anesthesia Preop Results Results Anesthesia Widget: WBC 5.30 K/ul (4.8-10.8) 06/21/22 Hgb 17.7 g/dl (14.0-18.0) 06/21/22 Hct 50.6 % (40.1-51.0) 06/21/22 Plt 126 K/uL (130-400) L 06/21/22 Na 139 mmol/L (136-145) 06/21/22 K 4.1 mmol/L (3.5-5.1) 06/21/22 Cl 107 mmol/L (98-107) 06/21/22 CO2 25 mmol/L (21-32) 06/21/22 BUN 20 mg/dl (6-23) 06/21/22 Creat 0.96 mg/dl (0.6-1.4) 06/21/22 Glucose Level 127 mg/dl (70-99(Fasting)) H 06/21/22 Urine Color Yellow 05/21/22 Urine Appearance Clear 06/28/22 Urine pH 5.0 (4.5-7.5) 05/21/22 Urine Specific [place] 1.014 (1.000-1.030) 05/21/22 Urine Protein Negative (Negative) 05/21/22 Urine Glucose (UA) Negative (Negative) 05/21/22 Urine Ketones Negative (Negative) 05/21/22 Urine Blood Negative (Negative) 05/21/22 Urine Nitrite Negative (Negative) 05/21/22 Urine Bilirubin Negative (Negative) 05/21/22 Urine Urobilinogen Negative (Negative) 05/21/22 Urine Leukocyte Esterase Negative (Negative) 05/21/22 Testing Electrocardiogram Date: 10/25/21 Poor data quality NSR, rate 80 bpm Inferior infarct, age undetermined Cannot rule out anterior infarct, age undetermined Chest X-Ray Date: 10/25/21 *1view* Lung volumes are normal. A left upper lobe nodule is better depicted on chest CT August 06, 2021. There is no pneumothorax or pleural effusion. Cardiac size is normal. Mediastinal contours are normal. There is no evidence for pulmonary edema. Left subclavian [id number] is in place. Shunt catheter is partially imaged. IMPRESSION: 1. No acute cardiopulmonary findings. 2. Redemonstration of an indeterminate left upper lobe solid nodule. Other Testing PET scan skull to mid thigh 05/12/22 1. Asymmetric right lateral rectal wall thickening as shown on prior PET/CT. However, FDG avidity has increased. This favors progression at the primary site. Associated nodular thickening of the right aspect of the mesorectal fascia with mild FDG uptake which is also slightly increased. 2. 1.6 cm lobulated left upper lobe nodule, unchanged in size from earlier exams. However, FDG avidity has increased. This remains indeterminate but unlike ly to represent metastatic disease. A primary lung neoplasm cannot be excluded. 3. No change in asymmetric wall thickening of the right lateral aspect of the bladder. This remains indeterminate. 4. Resolution of FDG avidity of the right hepatic lobe metastases. Chest CT 02/24/22 1. No change in a solid lobulated 1.6 cm left upper lobe nodule since initial chest CT of February 16, 2019. This remains indeterminate but is unlikely to represent metastatic disease. 2. No new pulmonary nodules. 3. No thoracic lymphadenopathy. Abdomen pelvis CT 02/24/22 Lung bases: The heart is top normal in size and without pericardial effusion. There are coronary artery calcifications. There is elevation of the right hemidiaphragm and mild bibasilar scarring/atelectasis. The lung bases are otherwise clear. Liver: The contrast-enhanced liver is normal in size size and contour. Attenuation is heterogeneous. There is no intrahepatic biliary ductal dilatation. Faint hepatic hypodensities likely represent treated disease. The hepatic veins and portal veins are patent. There is a trace residual superior mesenteric venous thrombus, best seen on axial image #203. Gallbladder: Unremarkable. Spleen: Normal in size and attenuation. Pancreas: Unremarkable. Adrenal glands: Unremarkable. Kidneys: The contrast enhanced kidneys demonstrate mild cortical atrophy and are without hydronephrosis. The kidneys enhance symmetrically. There are small bilateral nonobstructing renal calculi which measure up to 3 mm. Abdominal vasculature: There is moderate atherosclerotic calcification and mild ectasia of the abdominal aorta. Bowel: There is no bowel obstruction. Enteric contrast reaches the left colon. Fecal retention is noted throughout the colon. The appendix is well-visualized and normal. No discrete rectal mass lesion is seen. There is mild perirectal soft tissue thickening. This is similar to previous and likely treatment related. There is mild colonic diverticulosis without CT evidence of acute diverticulitis. Peritoneum: There is no intraperitoneal free air or abdominal ascites. A peritoneal shunt catheter is in place. This traverses the anterior abdominal wall, enters the abdominal cavity above the umbilicus, and is coiled in the right lower quadrant. Mild soft tissue thickening around the inferior mesenteric artery seen on image #274 is unchanged. Lymphadenopathy: None. Pelvic viscera: The prostate gland is markedly enlarged and heterogeneous noting median lobe hypertrophy. The bladder wall is thickened and trabeculated indicating chronic outlet obstruction. Asymmetric bladder wall thickening is again seen on the right and measures up to 1.5 cm in thickness. There are bilateral fat-containing inguinal hernias. Skeletal structures: The skeletal structures are osteopenic. [id number] lumbosacral spondylosis is observed. No lytic or blastic lesions are seen. IMPRESSION: 1. There is no evidence of progressive metastatic disease. No significant change from 11/16/2021. 2. Previously identified hepatic metastatic lesions have almost completely resolved. 3. The previously characterized rectal mass is no longer discretely seen. 4. Nonspecific soft tissue thickening adjacent to the inferior mesenteric artery is unchanged. 5. There is only trace residual superior mesenteric venous thrombus. 6. Asymmetric right-sided bladder wall thickening is unchanged. This could be further assessed with cystoscopy if clinically warranted. 7. Bilateral nephrolithiasis. 8. Additional findings as above.
[~2022-07-06 07:28] MED LIST: CIPROFLOXACIN / D5W 400 MG/200 ML BAG IV SCH; LACTATED RINGER'S 1,000 ML IV SCH
[2022-07-06 08:08] LABS: Basophils # (auto) 0.03 K/uL (0-0.2); Basophils % (auto) 0.7 %; Eosinophils # (auto) 0.23 K/uL (0-0.50); Eosinophils % (auto) 5.7 %; Hematocrit (blood only) 49.7 % (40.1-51.0); Immature Granulocytes # (auto) 0.02 K/uL (0.00-0.02); Immature Granulocytes % (auto) 0.5 %; Lymphocytes # (auto) 1.17 K/uL (1.2-3.4); Lymphocytes % (auto) 28.8 %; Mean Corpuscular Hemoglobin 30.7 pg (25.0-34.0); Mean Corpuscular Hgb Conc 34.2 g/dL (32.0-36.0); Mean Corpuscular Volume 89.9 fL (80.0-100.0); Mean Platelet Volume 9.8 fL (9.4-12.4); Monocytes # (auto) 0.38 K/uL (0.24-0.82); Monocytes % (auto) 9.4 %; Neutrophils # (auto) 2.23 K/uL (1.4-6.5); Neutrophils % (auto) 54.9 %; Platelet Count 147 K/uL (130-400); RDW Coefficient of Variation 13.7 % (11.5-14.5); RDW Standard Deviation 45.2 fL (36.4-46.3); Red Blood Count 5.53 M/uL (4.63-6.08); White Blood Count 4.06 K/ul (4.8-10.8)
[2022-07-06 08:20] LABS: INR 1.1 (0.9-1.1); Partial Thromboplastin Time 26.2 Seconds (21.0-31.0); Prothrombin Time 11.2 Seconds (9.0-12.0)
[2022-07-06] MEDS ORDERED: ONDANSETRON INJ 2 MG/ML 2 ML VIAL IV PRN (08:41)
[2022-07-06] MEDS ORDERED: LABETALOL HCL IV 5 MG/ML 20ML IV PRN (08:41)
[2022-07-06] MEDS ORDERED: ATROPINE SULFATE 0.1 MG/ML 10ML SYR IV PRN (08:41)
[2022-07-06] MEDS ORDERED: fentaNYL citrate 100 MCG/2 ML VIAL IV PRN (08:41)
[2022-07-06] MEDS ORDERED: LIDOCAINE 2% MPF LOCAL 5 ML VIAL INFIL ONE (08:50)
[2022-07-06] MEDS ORDERED: PROPOFOL IV EMULSION 10 MG/ML 20 ML VIAL IV ONE (08:50)
[2022-07-06] MEDS ORDERED: ONDANSETRON INJ 2 MG/ML 2 ML VIAL ONE (08:50)
[2022-07-06] MEDS ORDERED: DEXAMETHASONE SOD INJ 4 MG/ML VIAL ONE (08:50)
[2022-07-06] MEDS ORDERED: fentaNYL citrate 100 MCG/2 ML VIAL ONE (08:51)
[2022-07-06] MEDS ORDERED: MIDAZOLAM HCL 1 MG/ML 2ML VIAL ONE (08:51)
--- NOTE | 2022-07-06 08:53 | History & Physical Bridge Note ---
Date of Service July 06, 2022 History & Physical Bridge Note I have examined the patient, reviewed the History & Physical and in the interval since the performance of the History & Physical I have noted the following changes of clinical significance: no changes noted
[2022-07-06] MEDS ORDERED: ePHEDrine sulfate 50 MG/ML SYR ONE (09:30)
[2022-07-06] MEDS ORDERED: PHENYLEPHRINE 100MCG/ML 5ML SYR ONE (09:30)
--- NOTE | 2022-07-06 10:32 | Operative Report ---
PG Post Operative Report Pre & Post Diagnosis Operation Date: 07/06/22 09:00 Pre-Op Diagnosis: Benign Prostatic Hyperplasia without Lower Urinary Obstuction Post-Op Diagnosis: Benign Prostatic Hyperplasia without Lower Urinary Obstuction I identified the patient and participated in the time-out.: Yes Procedure Operation Date: 07/06/22 09:00 Actual Procedures p Transurethral Resection of the Prostate(Not Applicable) - Dangelo Alvares MD Surgeon Dangelo Alvares MD Transmitter Chief none Estimated Blood Loss 5 Findings Consistent with Post-Op Diagnosis Specimens none Description of Procedure The patient was identified in the preoperative holding area, appropriate informed consents were reviewed and completed and the patient was transferred to the operative suite. Upon arrival, appropriate antibiotics and anesthesia were administered and the patient was placed in dorsal lithotomy position and prepped and draped in sterile fashion. To be in the case I passed a 26 Sammarinese resectoscope with 30 degree lens and visual obturator. Inspection reveals an enlarged prostate with lateral lobe hypertrophy and an intravesical component. Ureteral orifices were identified and a small stone was seen in the bladder. I irrigated the stone out of the bladder. I then utilized a button electrode to resect the intravesical component as well as the left and right lateral lobe. I obtained meticulous hemostasis after completing the resection. A 22 Sammarinese Valdes catheter was introduced and 30 cc of water instilled into the balloon. The case was concluded and he was reversed of anesthesia and taken to the recovery room in stable condition. There were no complications. I attest to the content of the Intraoperative Record and any orders documented therein. Any exceptions are noted below.
--- NOTE | 2022-07-06 11:26 | Anesthesiology Progress Note ---
Date of Service July 06, 2022 Anesthesia Post Procedure Vital Signs Vital Signs: Temp Pulse Pulse Resp BP Pulse Ox O2 Del Method 07/06/22 11:00 36.4 C L 70 18 127/83 97 Nasal Cannula 07/06/22 10:50 73 19 123/85 94 Nasal Cannula 07/06/22 10:40 71 16 111/76 93 Oxymask 07/06/22 10:30 73 16 119/79 94 Oxymask 07/06/22 10:20 77 16 113/80 95 Oxymask 07/06/22 10:14 36.4 C L 80 18 107/70 96 Oxymask 07/06/22 08:15 36.6 C 73 20 158/97 H 98 Room Air O2 Flow Rate 07/06/22 11:00 2 07/06/22 10:50 2 07/06/22 10:40 4 07/06/22 10:30 6 07/06/22 10:20 9 07/06/22 10:14 9 07/06/22 08:15 Transfer of Care Handoff Completed per policy Notes Mental Status: alert / awake / arousable Patient Amnestic to Procedure: Yes Nausea / Vomiting: adequately controlled Pain: adequately controlled Airway Patency, RR, SpO2: stable & adequate BP & HR: stable & adequate Hydration State: stable & adequate Anesthetic Complications: no major complications apparent
[2022-07-06] MEDS: SODIUM CHLORIDE 0.9% 500 ML IV SCH ×2 (13:30→19:52)
[2022-07-06] MEDS: DORZOLAMIDE/TIMOLOL 22.3/6.8MG/ML 10 ML BTL OPB SCH (19:52)
[2022-07-06] MEDS ORDERED: LATANOPROST 0.005% OP SOLN 2.5 ML BTL OPB SCH (21:00)
[2022-07-06] MEDS ORDERED: oxyCODONE/ACETAMINOPHEN 5mg/325mg TAB PO STA (23:18)
[2022-07-07] MEDS: SODIUM CHLORIDE 0.9% 500 ML IV SCH ×2 (00:57→01:15)
[2022-07-07 03:16] VITALS: O2SAT 97
[2022-07-07] MEDS ORDERED: oxyCODONE/ACETAMINOPHEN 5mg/325mg TAB PO STA (04:39)
[2022-07-07] MEDS: DORZOLAMIDE/TIMOLOL 22.3/6.8MG/ML 10 ML BTL OPB SCH (08:07)
--- NOTE | 2022-07-07 09:38 | Urology Progress Note ---
Date of Service July 07, 2022 Assessment & Plan (1) BPH w/o urinary obs/LUTS: Plan: Postop June 24 status post TURP voiding trial this morning and discharge home Admission and Anticipated Discharge Date Admission Date: July 06, 2022 Subjective No issues overnight Tolerated the catheter well Good urine output Feels well this morning Physical Exam Physical Exam: Relatively clear urine within the tubing, slightly bloody within the bag Plan for voiding trial this morning Results & Data ([facility]) Vital Signs (Past 12 Hours) Vital Signs Temp Pulse Resp BP BP Pulse Ox O2 Del Method 07/07/22 07:51 36.3 C L 53 L 16 121/80 97 Room Air 07/07/22 02:53 36.8 C 57 L 16 130/82 97 Room Air 07/06/22 21:46 36.5 C 87 16 132/84 95 Room Air PG Care Time/CCT Total # of Minutes Spent Total Time Spent with Patient: Total time spent is greater than 50% in coordination of care (as documented) at patient's floor/unit and/or counseling patient: Coding Level of Care Code 62884 Subseq Hosp Care Lvl 2 Diagnoses BPH w/o urinary obs/LUTS N40.0
[2022-07-07 11:17] VITALS: BP 113/77; PULSE 63; TEMP 98.1
--- NOTE | 2022-07-07 14:44 | Discharge Summary ---
Date of Service July 07, 2022 Admission HPI Per Admitting Provider 76-year-old male who presents for transurethral resection of the prostate. Admission Exam Per Admitting Provider Constitutional well developed and well nourished Neck neck nontender Respiratory normal respiratory effort; no respiratory distress and does not use accessory muscles Cardiovascular Rate/Rhythm: regular rate Vessels: radial pulses present Extremities: no edema Gastrointestinal (Abdomen) Inspection/Auscultation: abdomen normal to inspection Percussion/Palpation: abdomen soft; abdomen nontender and no guarding Musculoskeletal Head/Neck/Chest: normocephalic and head atraumatic Extremities: extremities normal to inspection Skin no rashes and no lesions Trauma: no evidence of skin trauma Neurologic awake; not obtunded Speech / Cognition: normal speech Motor/Sensory: no tremor Psychiatric Orientation: alert and oriented x 3 Genitourinary no CVA tenderness Lymphatic no lymphadenopathy Principal Diagnosis Benign Prostatic Hyperplasia without Lower Urinary Obstuction Discharge Exam Constitutional no acute distress Respiratory no respiratory distress and no labored breathing Neurologic moves all extremities and awake Psychiatric A+Ox3, euthymic affect Discharge Data Allergies Allergy/AdvReac Type Severity Reaction Status Date / Time Anesthetics - Bing Type- AdvReac Intermediate URINARY Verified 07/06/22 08:06 Parabens RETENTION Procedures Performed Operation Date: 07/06/22 09:00 Actual Procedures p Transurethral Resection of the Prostate(Not Applicable) - Dangelo Alvares MD Hospital Course (1) BPH w/o urinary obs/LUTS: Plan 76-year-old male admitted status post transurethral resection of the prostate with Dr. Alvares. Patient tolerated procedure well. No acute issues postoperatively. Patient remained afebrile and hemodynamically stable. He passed a voiding trial on postop day #1. Minimal pain. Tolerated diet. Ambulated without issue. He was subsequently discharged home on postop day #1. He was in stable condition at time of discharge. Discharge instructions were reviewed, all questions were answered. Total Time Total Time Spent Total Time Spent (In Minutes): 15 Discharge Plan Discharge Items Patient Disposition: Home - Self-Care Reason For Visit: Benign Prostatic Hyperplasia without Lower Urinary Discharge Diagnosis: Benign Prostatic Hyperplasia without Lower Urinary Activity: Per Instructions section Driving/Machine Use: Do not drive if taking prescription pain medication. Non-emergency contact: Surgeon and Urologist Call non-emergency contact if: you have any medication questions, your pain is not controlled, your pain is worsening and you have a fever Follow-up/Referrals: Dangelo Alvares MD [Physician] - (Dr. Dia Gandhi's office will call the patient with a hospital follow up visit.) Lizett Walters MD [Primary Care Provider] - Diet: Regular Addtl Attending Provider Instructions: Please take all medications as prescribed and keep all follow-ups as scheduled. Please call our office at [phone] with any questions, concerns or need to reschedule appointments for any reason. We are happy to assist you. The urology office will contact you to arrange a follow-up visit. You may resume your Coumadin in the next 1-2 days given your urine remains relatively clear. Please call the urology office with any questions or concerns. Tips for your recovery at home: Dont be alarmed by brownish or reddish blood or clots in your urine. This is a result of the procedure. This may occur off and on for weeks to months after the procedure but should continue to improve. Drink plenty of fluids during the day (enough to keep your urine very light colored). This will help keep a healthy flow of urine. Avoid constipation. Please use a stool softener (Colace) for the first two weeks after your procedure if needed. When to call [facility] at [phone]: Your urine contains heavy blood clots or you are unable to urinate. You are constantly leaking urine Fever of 101F or higher, chills, nausea, or vomiting Your pain is not relieved with medication Pending Studies at Discharge: No Stand-Alone Forms: My [employer], Smoking Cessation Medications and DC Order Prescriptions: Continued medical marijuana 1 ea PO BID PRN (Reason: appetite, mood) (DME) Wheelchair (Manual) Device See Rx Instructions .ROUTE .MEDSUPPLY Qty: 1 0RF Rx Instructions: As directed (DME) Wheeled Walker Misc See Rx Instructions .Route Qty: 1 0RF Rx Instructions: As directed tamsulosin 0.4 mg capsule 0.4 mg PO BID Qty: 180 3RF (DME) Wheeled Walker Misc See Rx Instructions .Route Qty: 1 0RF Rx Instructions: rollator walker with seat latanoprost 0.005 % drops 1 drp OPB HS dorzolamide-timolol 22.3-6.8 mg/mL drops 1 drp OPB BID Probiotic 3 billion cell Capsule 3,000 mmu cells PO QAM Qty: 0 warfarin 2.5 mg tablet 2.5 - 5 mg PO UD Rx Instructions: 5mg qMoFr, 2.5mg x 5 days per [facility] PO use as directed; dutasteride [Avodart] 0.5 mg capsule 0.5 mg PO QAM Discharge Orders: Discharge Order (Routine); Ordered 07/07/22 Ordered By: Tamra Elam/Other Patient Handouts: DVT Post Op Prevention Admission Data Admit Date/Time: 07/06/22 10:30 Attending Provider: Dangelo Alvares Admit Provider: Dangelo Alvares Primary Care Provider: Lizett Walters Other Interventions: Discharge Summary Assessment (RN) Last Done: 07/07/22 13:49 Coding Level of Care Code D/C DAY MANAGEMENT <30 MINS Diagnoses BPH w/o urinary obs/LUTS N40.0
== END 2022-07-07 14:53 | disposition home or self-care (01) ==
LOC: ASU 07:28 → PACUINP 07:28 → 3E 13:02

== ENCOUNTER 2022-10-05 15:32 | Inpatient (IN) ==
[2022-10-05] MEDS ORDERED: CEFEPIME 2,000 MG/20 ML VIAL IV STA (15:56)
[2022-10-05] MEDS ORDERED: SODIUM CHLORIDE 0.9% 1000ML 1,000 ML IV SCH (16:00)
--- NOTE | 2022-10-05 16:04 | Emergency Department Note ---
Impression & Plan Altered mental status, Tachycardia, Left leg pain, Lactic acidosis, Neutropenia, Metastatic cancer, Tachypnea ED Provider Note NAME: SVETA FOURNIER AGE: 77 SEX: M : 1945 ARRIVES VIA: Walk-In INFORMANT: [] ED PROVIDER(S): [Yosef Gonzales MD] CHIEF COMPLAINT: Weakness HISTORY OF PRESENT ILLNESS: The patient is a 77-year-old male who has been weak since yesterday evening at around 6:00pm, almost 24 hrs. now. He cannot walk without significant assistance because he has so much weakness. He actually crumpled to the ground when his was trying to help him to the bathroom. He does not want to speak. There has been no cough or fever or complaints of shortness of breath. He has complained of some left lower thigh pain near the knee. This pain was present though before the fall to the ground today. He has not had sick contacts. He does have known rectal and colon cancer that is metastasized to his liver. He has a OFFICE MOVER shunt from a previous brain lesion. The patient is undergoing chemotherapy, last chemotherapy was 2 weeks ago. He was told after the treatment that his counts had gone too low and that he was at risk for developing an infection. Because of the persistent weakness throughout the day today, he was brought for evaluation. Of note, the patient is a poor historian. History obtained from his . PMHx/PSHx: See Below SOCIAL HISTORY: See Below. PHYSICAL EXAM: GENERAL: Patient is in mild distress, seems potentially in pain. Mild respiratory distress noted. HEENT: No acute trauma, normocephalic atraumatic, mucous membranes moist, no nasal congestion. OFFICE MOVER shunt is palpable and ballotable. NECK: No stridor, no adenopathy, no meningismus, trachea is midline. LUNGS: Clear to auscultation bilaterally when listening anterior, no wheeze, no rhonchi, breath sounds equal. Respiratory rate is increased, mild respiratory distress noted. HEART: Mildly tachycardic, regular rhythm, no murmurs. ABDOMEN: Soft, nontender, bowel sounds positive, no peritonitis. EXTREMITIES: No cyanosis or edema. There is some warmth and slight redness to the distal thigh anteriorly just proximal to the knee. Movement of the left knee joint does not cause any pain. Warmth is present over this area of erythema. Both feet are equally warm to the touch. NEUROLOGIC: The patient does move all extremities, currently nonverbal. Awake. SKIN: No rash, no jaundice, no diaphoresis. Groin: No scrotal erythema appreciated. DIFFERENTIAL DIAGNOSIS: Sepsis or bacteremia, COVID-19, influenza, electrolyte imbalance, anemia, UTI, intracranial bleeding, stroke, among others. EMERGENCY DEPARTMENT COURSE/PROCEDURES: Prior/Outside records reviewed: Recent oncology note. ECG per my interpretation: Indication was weakness. The ECG shows a sinus tachycardia with a rate of 105. There is some baseline artifact seen. An old inferior infarct was suspected. There was no acute ST elevation, no PVCs. The QTc was 428. Continuous Cardiac Monitoring per my interpretation: An order was placed for continuous cardiac monitoring. The monitor shows a rate of 108 with sinus tachycardia. Critical Care Note: I have personally spent 53 minutes of critical care time in the direct management of this patient. This includes bedside care, interp retation of diagnostic studies, and testing, discussion with consultants, patient, and family members, and other required patient management activities. This 53 minutes is in excess of all separately billable procedures. MEDICAL DECISION MAKING: The patient is neutropenic with a white count of 0.91. Total neutrophil count is low at 0.07. Platelet count was low at 77. No anemia. INR was subtherapeutic at 1.6. Renal panel testing showed potential acidosis with a CO2 of 20. There was no renal failure. Lactic acid was quite high at 4.6, consistent with potential sepsis and/or dehydration. ECG showed a sinus tachycardia, no obvious ischemia. Cardiac enzyme testing x1 did show a slight elevation consistent with potential cardiac injury or strain. Mismatch could also be responsible for the mild troponin elevation. Procalcitonin level was elevated at over 6, consistent with bacterial infection. Urinalysis showed findings of dehydration, no obvious infection. Respiratory bio fire was completely negative. Chest film showed a poor inspiratory effort, no pneumonia or CHF per my review. Repeat chest film showed similar findings. Brain CT showed evidence for the OFFICE MOVER shunt, no hydrocephalus, no acute bleed or mass effect. Abdominal and pelvis CT results are currently pending. Films of the left femur and left knee were performed, no fractures or bony dislocations per my review. The patient was aggressively managed. He had presented quite ill. There was concern for sepsis. The patient received 2.5 L of IV saline for hydration. This was just over 30 cc/kg of fluid. He received IV Zofran for nausea, IV morphine for pain. He was given IV cefepime and IV daptomycin. He received a DuoNeb. A Valdes catheter was placed. Despite the above treatment, the patient remains tachypneic and tachycardic. I did talk with the patient's , she does not want the patient on a ventilator, she does not want aggressive measures. Comfort was felt to be a top concern. At this point, I have not been able to find an infectious source. Certainly, bacteremia from his port is a consideration. The area in the left thigh that was initially erythematous and warm has improved significantly and no longer appears cellulitic. DISPOSITION: Patient's presentation and findings warrant a hospital stay. 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 Diagnosed 12/2018 Rectal cancer Diagnosed 12/25/14, Recurrence 12/2018; chemo/radiation Secondary lung cancer (05/12/22) s/p radiation to left lung per [place] oncology records 06/25/22 Superior mesenteric vein thrombosis Surgical History History of anesthesia reaction URINARY RETENTION History of brain shunt 2012 hydrocephalus History of cataract surgery RT/LEFT History of colonoscopy History of esophagogastroduodenoscopy (EGD) History of hemorrhoidectomy 12/25/2014 History of liver biopsy History of procedure for peripheral vascular disease S/P OFFICE MOVER shunt 2013 Family History Mother , Passed age 92 of old age Stroke Myocardial infarction Father , Passed age 100 of old age No problems noted. Brother Family history of diabetes mellitus Hypertension Other Heart disease Denies family history of Colon cancer Ovarian cancer Prostate cancer Breast cancer Social History Smoking Status: Unknown if ever smoked Tobacco Type: Cigarettes packs per day: 1; Cigarettes Per Day: quit at age 44; Second Hand Exposure: No; Hx Alcohol Use: No Hx Substance Use: Yes (medical- ADVISED) Last Used Substance Other:: medical marijuana oil- uses daily for appetite and depression Preferred Language: Mandarin Kiswahili Communication Ability: Effective Visual Impairment: No Limitations Hearing Ability: Hard of Hearing Disbursing Agent Required: No Beliefs That Will Affect Care: None marital status: Current Living Situation: Spouse and Family current occupational status: retired 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 [employer] How many Children do You have: 2 Feels Safe at Home: Yes caffeine: No Dental Care, Regularly: No Physical Activity Frequency: Does not Exercise Seatbelt Use: always Sunscreen Use: No Assistive Devices: Cane, Glasses and Walker Allergies Allergies Allergy/AdvReac Type Severity Reaction Status Date / Time Anesthetics - Bing Type- AdvReac Intermediate URINARY Verified 10/05/22 17:44 Parabens RETENTION Home Meds Home Medications Medication Instructions Recorded Confirmed dorzolamide 22.3 mg-timolol 6.8 1 drp OPB BID 01/14/19 10/05/22 mg/mL eye drops latanoprost 0.005 % eye drops 1 drp OPB HS 01/14/19 10/05/22 lactobacillus combination no.4 3 3,000 mmu cells PO QAM ##0 03/08/19 10/05/22 billion cell capsule (Probiotic) medical marijuana 1 ea PO BID PRN appetite, mood 04/15/20 10/05/22 ibuprofen 200 mg tablet 200 mg PO Q12H PRN back pain 07/26/22 10/05/22 warfarin 2.5 mg tablet See Rx Instructions .Route .COMPLEX 07/26/22 10/05/22 tramadol 50 mg tablet 50 mg PO Q6H PRN pain 08/23/22 10/05/22 brimonidine 0.15 % eye drops 1 drp OPR BID 10/05/22 10/05/22 carboplatin 150 mg intravenous 0 mg IV DIRECTED 10/05/22 10/05/22 solution etoposide phosphate 100 mg 0 mg IV DIRECTED 10/05/22 10/05/22 intravenous solution Previous Rx's Medication Instructions Recorded Wheelchair (Manual) #1 ea 09/24/19 Wheeled Walker #1 ea 06/26/21 Wheeled Walker #1 ea 11/09/21 Results & Data (ED) Vital Signs Vital Signs - 24 hr 10/05/22 15:34 10/05/22 16:18 10/05/22 16:25 Temperature 36.1 C L Temperature Source Valdes Cath ( Temp Sensing) Pulse Rate 108 H 109 H Pulse Rate from SpO2 Sensor Respiratory Rate 18 33 H Respiratory Effort / Characteristics Non-Labored Spontaneous Respiratory Depth Normal Respiratory Pattern Regular Blood Pressure 137/87 135/92 Blood Pressure Mean 103 106 Blood Pressure Position Sitting Pulse Oximetry 94 96 94 Oxygen Delivery Method Room Air Room Air Oxygen Flow Rate Sepsis Recent Fever Within 48 Hours No Sepsis New/Unexplained Change in Mental Status Yes Sepsis Action Taken by Nursing No Action Required 10/05/22 15:49 10/05/22 16:45 10/05/22 16:45 Temperature Temperature Source Pulse Rate 107 H Pulse Rate from SpO2 Sensor 115 H Respiratory Rate Respiratory Effort / Characteristics Respiratory Depth Respiratory Pattern Blood Pressure 163/94 H Blood Pressure Mean 117 Blood Pressure Position Pulse Oximetry 90 Oxygen Delivery Method Oxygen Flow Rate Sepsis Recent Fever Within 48 Hours Sepsis New/Unexplained Change in Mental Status Sepsis Action Taken by Nursing 10/05/22 17:00 10/05/22 17:25 10/05/22 17:25 Temperature Temperature Source Pulse Rate 113 H 112 H Pulse Rate from SpO2 Sensor Respiratory Rate 36 H 29 H 24 Respiratory Effort / Characteristics Respiratory Depth Respiratory Pattern Blood Pressure 120/85 Blood Pressure Mean 96 Blood Pressure Position Pulse Oximetry 95 Oxygen Delivery Method Oxygen Flow Rate Sepsis Recent Fever Within 48 Hours Sepsis New/Unexplained Change in Mental Status Sepsis Action Taken by Nursing 10/05/22 17:30 10/05/22 17:45 10/05/22 18:00 Temperature Temperature Source Pulse Rate 111 H 114 H 124 H Pulse Rate from SpO2 Sensor Respiratory Rate 34 H 32 H 32 H Respiratory Effort / Characteristics Respiratory Depth Respiratory Pattern Blood Pressure 146/100 H 169/99 H 156/105 H Blood Pressure Mean 115 122 122 Blood Pressure Position Pulse Oximetry 94 92 90 Oxygen Delivery Method Oxygen Flow Rate Sepsis Recent Fever Within 48 Hours Sepsis New/Unexplained Change in Mental Status Sepsis Action Taken by Nursing 10/05/22 18:30 10/05/22 18:45 Temperature Temperature Source Pulse Rate 123 H 119 H Pulse Rate from SpO2 Sensor Respiratory Rate 35 H 46 H Respiratory Effort / Characteristics Respiratory Depth Respiratory Pattern Blood Pressure 149/104 H 141/82 H Blood Pressure Mean 119 101 Blood Pressure Position Pulse Oximetry 95 89 L Oxygen Delivery Method Room Air Oxygen Flow Rate 3 Sepsis Recent Fever Within 48 Hours Sepsis New/Unexplained Change in Mental Status Sepsis Action Taken by Group Home Medications Current Medication List: was personally reviewed by me Laboratory Data Attestation: I reviewed the patient's lab results. 10/05/22 16:14 10/05/22 16:14 Lab Results 10/05/22 10/05/22 10/05/22 Range/Units 16:14 16:14 16:14 WBC 0.91 L* (4.8-10.8) K/ul RBC 4.68 L (4.70-6.10) M/uL Hgb 14.6 (14.0-18.0) g/dl Hct 40.8 L (42.0-52.0) % MCV 87.2 (80.0-100.0) fL MCH 31.2 (25.0-34.0) pg MCHC 35.8 (32.0-36.0) g/dL RDW Std Deviation 39.7 (36.4-46.3) fL RDW Coeff of Brian 13.0 (11.5-14.5) % Plt Count 77 L (130-400) K/uL MPV 9.6 (9.4-12.4) fL Immature Gran % (Auto) 1.1 % Neut % (Auto) 7.7 % Lymph % (Auto) 61.5 % [place] % (Auto) 29.7 % Eos % (Auto) 0.0 % Baso % (Auto) 0.0 % Neut # (Auto) 0.07 L* (1.40-6.50) K/uL Lymph # (Auto) 0.56 L (1.2-3.4) K/uL [place] # (Auto) 0.27 (0.11-0.59) K/uL Eos # (Auto) 0.00 (0-0.50) K/uL Baso # (Auto) 0.00 (0-0.2) K/uL Immature Gran # (Auto) 0.01 (0.01-0.20) K/uL RBC Morphology Unremarkable PT 16.9 H (9.0-12.0) Seconds INR 1.6 H (0.9-1.1) APTT 40.4 H (21.0-31.0) Seconds PTT Ratio 1.5 ABG pH (7.35-7.45) ABG pCO2 (35-46) mmHg ABG pO2 (80-95) mmHg ABG HCO3 (19-24) mmol/L ABG O2 Saturation (90-95) % ABG Base Excess (-9-1.8) mEq/L Lloyd Test (Pos) Oxygen Given Sodium 134 L (136-145) mmol/L Potassium 3.5 (3.5-5.1) mmol/L Chloride 101 (98-107) mmol/L Carbon Dioxide 20 L (21-32) mmol/L Anion Gap 13 H (3-11) BUN 26 H (6-23) mg/dl Creatinine 1.32 (0.6-1.4) mg/dl Est Cr Clr Drug Dosing 46.0 ml/min Est GFR ( Amer) 59.5 ml/min Est GFR (Non-Af Amer) 51.3 ml/min BUN/Creatinine Ratio 19.7 (10-20) Glucose 147 H (70-99(Fasting)) mg/dl Lactate (0.4-2.0) mmol/L Calcium 9.2 (8.5-10.1) mg/dl Magnesium 1.9 (1.7-2.4) mg/dl Total Bilirubin 2.2 H (0.2-1.0) mg/dl Direct Bilirubin 0.4 H (0-0.2) mg/dl AST 33 (13-39) U/L ALT 33 (7-52) U/L Alkaline Phosphatase 69 (34-104) U/L Troponin I High Sens 25.3 H (0-20) pg/ml Total Protein 8.0 (6.0-8.3) gm/dl Albumin 4.1 (3.4-5.0) gm/dl Procalcitonin (0-0.5) ng/ml Urine Color Urine Appearance (Clear) Urine pH (4.5-7.5) Ur Specific [place] (1.000-1.030) Urine Protein (Negative) Urine Glucose (UA) (Negative) Urine Ketones (Negative) Urine Blood (Negative) Urine Nitrite (Negative) Urine Bilirubin (Negative) Urine Urobilinogen (Negative) Ur Leukocyte Esterase (Negative) Urine WBC (Auto) (0-5) /hpf Urine RBC (Auto) (0-4) /hpf U Hyaline Cast (Auto) (0-5) /lpf U Epithel Cells (Auto) (0-5) /lpf Urine Bacteria (Auto) (Negative) Adenovirus (PCR) (NotDetected) B. pertussis DNA (PCR) (NotDetected) B.parapertussis DNA PCR (NotDetected) C. pneumoniae DNA (PCR) (NotDetected) Coronavirus OC43 (PCR) (NotDetected) Coronavirus HKU1 (PCR) (NotDetected) Coronavirus 229E (PCR) (NotDetected) SARS-CoV-2 (PCR) (NotDetected) Coronavirus NL63 (PCR) (NotDetected) Human Metapneumovir PCR (NotDetected) Influenza Type A (PCR) (NotDetected) Influenza Type B (PCR) (NotDetected) M. pneumoniae (PCR) (NotDetected) Parainfluenza 1 (PCR) (NotDetected) Parainfluenza 2 (PCR) (NotDetected) Parainfluenza 3 (PCR) (NotDetected) Parainfluenza 4 (PCR) (NotDetected) RSV (PCR) (NotDetected) Entero/Rhino (PCR) (NotDetected) 10/05/22 10/05/22 10/05/22 Range/Units 16:14 16:14 16:14 WBC (4.8-10.8) K/ul RBC (4.70-6.10) M/uL Hgb (14.0-18.0) g/dl Hct (42.0-52.0) % MCV (80.0-100.0) fL MCH (25.0-34.0) pg MCHC (32.0-36.0) g/dL RDW Std Deviation (36.4-46.3) fL RDW Coeff of Brian (11.5-14.5) % Plt Count (130-400) K/uL MPV (9.4-12.4) fL Immature Gran % (Auto) % Neut % (Auto) % Lymph % (Auto) % [place] % (Auto) % Eos % (Auto) % Baso % (Auto) % Neut # (Auto) (1.40-6.50) K/uL Lymph # (Auto) (1.2-3.4) K/uL [place] # (Auto) (0.11-0.59) K/uL Eos # (Auto) (0-0.50) K/uL Baso # (Auto) (0-0.2) K/uL Immature Gran # (Auto) (0.01-0.20) K/uL RBC Morphology PT (9.0-12.0) Seconds INR (0.9-1.1) APTT (21.0-31.0) Seconds PTT Ratio ABG pH (7.35-7.45) ABG pCO2 (35-46) mmHg ABG pO2 (80-95) mmHg ABG HCO3 (19-24) mmol/L ABG O2 Saturation (90-95) % ABG Base Excess (-9-1.8) mEq/L Lloyd Test (Pos) Oxygen Given Sodium (136-145) mmol/L Potassium (3.5-5.1) mmol/L Chloride (98-107) mmol/L Carbon Dioxide (21-32) mmol/L Anion Gap (3-11) BUN (6-23) mg/dl Creatinine (0.6-1.4) mg/dl Est Cr Clr Drug Dosing ml/min Est GFR ( Amer) ml/min Est GFR (Non-Af Amer) ml/min BUN/Creatinine Ratio (10-20) Glucose (70-99(Fasting)) mg/dl Lactate 4.6 H* (0.4-2.0) mmol/L Calcium (8.5-10.1) mg/dl Magnesium (1.7-2.4) mg/dl Total Bilirubin (0.2-1.0) mg/dl Direct Bilirubin (0-0.2) mg/dl AST (13-39) U/L ALT (7-52) U/L Alkaline Phosphatase (34-104) U/L Troponin I High Sens (0-20) pg/ml Total Protein (6.0-8.3) gm/dl Albumin (3.4-5.0) gm/dl Procalcitonin 6.03 H (0-0.5) ng/ml Urine Color [place] Urine Appearance Clear (Clear) Urine pH 6.0 (4.5-7.5) Ur Specific [place] 1.022 (1.000-1.030) Urine Protein 3+ H (Negative) Urine Glucose (UA) Negative (Negative) Urine Ketones 1+ H (Negative) Urine Blood 3+ H (Negative) Urine Nitrite Negative (Negative) Urine Bilirubin Negative (Negative) Urine Urobilinogen Negative (Negative) Ur Leukocyte Esterase 1+ H (Negative) Urine WBC (Auto) 1-5 (0-5) /hpf Urine RBC (Auto) 5-10 H (0-4) /hpf U Hyaline Cast (Auto) 1-5 (0-5) /lpf U Epithel Cells (Auto) >30 H (0-5) /lpf Urine Bacteria (Auto) Negative (Negative) Adenovirus (PCR) (NotDetected) B. pertussis DNA (PCR) (NotDetected) B.parapertussis DNA PCR (NotDetected) C. pneumoniae DNA (PCR) (NotDetected) Coronavirus OC43 (PCR) (NotDetected) Coronavirus HKU1 (PCR) (NotDetected) Coronavirus 229E (PCR) (NotDetected) SARS-CoV-2 (PCR) (NotDetected) Coronavirus NL63 (PCR) (NotDetected) Human Metapneumovir PCR (NotDetected) Influenza Type A (PCR) (NotDetected) Influenza Type B (PCR) (NotDetected) M. pneumoniae (PCR) (NotDetected) Parainfluenza 1 (PCR) (NotDetected) Parainfluenza 2 (PCR) (NotDetected) Parainfluenza 3 (PCR) (NotDetected) Parainfluenza 4 (PCR) (NotDetected) RSV (PCR) (NotDetected) Entero/Rhino (PCR) (NotDetected) 10/05/22 10/05/22 10/05/22 Range/Units 16:35 18:46 19:04 WBC (4.8-10.8) K/ul RBC (4.70-6.10) M/uL Hgb (14.0-18.0) g/dl Hct (42.0-52.0) % MCV (80.0-100.0) fL MCH (25.0-34.0) pg MCHC (32.0-36.0) g/dL RDW Std Deviation (36.4-46.3) fL RDW Coeff of Brian (11.5-14.5) % Plt Count (130-400) K/uL MPV (9.4-12.4) fL Immature Gran % (Auto) % Neut % (Auto) % Lymph % (Auto) % [place] % (Auto) % Eos % (Auto) % Baso % (Auto) % Neut # (Auto) (1.40-6.50) K/uL Lymph # (Auto) (1.2-3.4) K/uL [place] # (Auto) (0.11-0.59) K/uL Eos # (Auto) (0-0.50) K/uL Baso # (Auto) (0-0.2) K/uL Immature Gran # (Auto) (0.01-0.20) K/uL RBC Morphology PT (9.0-12.0) Seconds INR (0.9-1.1) APTT (21.0-31.0) Seconds PTT Ratio ABG pH 7.40 (7.35-7.45) ABG pCO2 29 L (35-46) mmHg ABG pO2 81 (80-95) mmHg ABG HCO3 18 L (19-24) mmol/L ABG O2 Saturation 97.3 H (90-95) % ABG Base Excess -5.5 (-9-1.8) mEq/L Lloyd Test POSITIVE (Pos) Oxygen Given ROOM AIR Sodium (136-145) mmol/L Potassium (3.5-5.1) mmol/L Chloride (98-107) mmol/L Carbon Dioxide (21-32) mmol/L Anion Gap (3-11) BUN (6-23) mg/dl Creatinine (0.6-1.4) mg/dl Est Cr Clr Drug Dosing ml/min Est GFR ( Amer) ml/min Est GFR (Non-Af Amer) ml/min BUN/Creatinine Ratio (10-20) Glucose (70-99(Fasting)) mg/dl Lactate 4.5 H* (0.4-2.0) mmol/L Calcium (8.5-10.1) mg/dl Magnesium (1.7-2.4) mg/dl Total Bilirubin (0.2-1.0) mg/dl Direct Bilirubin (0-0.2) mg/dl AST (13-39) U/L ALT (7-52) U/L Alkaline Phosphatase (34-104) U/L Troponin I High Sens (0-20) pg/ml Total Protein (6.0-8.3) gm/dl Albumin (3.4-5.0) gm/dl Procalcitonin (0-0.5) ng/ml Urine Color Urine Appearance (Clear) Urine pH (4.5-7.5) Ur Specific [place] (1.000-1.030) Urine Protein (Negative) Urine Glucose (UA) (Negative) Urine Ketones (Negative) Urine Blood (Negative) Urine Nitrite (Negative) Urine Bilirubin (Negative) Urine Urobilinogen (Negative) Ur Leukocyte Esterase (Negative) Urine WBC (Auto) (0-5) /hpf Urine RBC (Auto) (0-4) /hpf U Hyaline Cast (Auto) (0-5) /lpf U Epithel Cells (Auto) (0-5) /lpf Urine Bacteria (Auto) (Negative) Adenovirus (PCR) Not Detected (NotDetected) B. pertussis DNA (PCR) Not Detected (NotDetected) B.parapertussis DNA PCR Not Detected (NotDetected) C. pneumoniae DNA (PCR) Not Detected (NotDetected) Coronavirus OC43 (PCR) Not Detected (NotDetected) Coronavirus HKU1 (PCR) Not Detected (NotDetected) Coronavirus 229E (PCR) Not Detected (NotDetected) SARS-CoV-2 (PCR) Not Detected (NotDetected) Coronavirus NL63 (PCR) Not Detected (NotDetected) Human Metapneumovir PCR Not Detected (NotDetected) Influenza Type A (PCR) Not Detected (NotDetected) Influenza Type B (PCR) Not Detected (NotDetected) M. pneumoniae (PCR) Not Detected (NotDetected) Parainfluenza 1 (PCR) Not Detected (NotDetected) Parainfluenza 2 (PCR) Not Detected (NotDetected) Parainfluenza 3 (PCR) Not Detected (NotDetected) Parainfluenza 4 (PCR) Not Detected (NotDetected) RSV (PCR) Not Detected (NotDetected) Entero/Rhino (PCR) Not Detected (NotDetected) Administered Medications Discontinued Medications Albuterol (Albut/Ipratrop 3mg/0.5mg Neb 3 Ml Vial) 3 ml NEB NOW STA; Protocol Stop: 10/05/22 17:51 Last Admin: 10/05/22 17:57 Dose: 3 ml Documented By: OAChris Cefepime HCl (Maxipime) 2,000 mg in 20 mls @ 5 mls/min IV NOW STA; Protocol Stop: 10/05/22 15:59 Last Admin: 10/05/22 16:25 Dose: 5 mls/min Documented By: OAM Sodium Chloride (Nss 1000ml) 1,000 mls @ 999 mls/hr IV .Q1H1M LEAH Stop: 10/05/22 17:00 Last Infusion: 10/05/22 17:28 Dose: 0 mls/hr Documented By: Admin: 10/05/22 16:25 Dose: 999 mls/hr Documented By: OAM Sodium Chloride (Nss 1000ml) 1,000 mls @ 999 mls/hr IV .Q1H1M ONE Stop: 10/05/22 17:39 Last Infusion: 10/05/22 18:04 Dose: 0 mls/hr Documented By: Admin: 10/05/22 16:59 Dose: 999 mls/hr Documented By: KT Sodium Chloride (Nss 1000ml) 500 mls @ 999 mls/hr IV .Q31M ONE Stop: 10/05/22 17:09 Last Infusion: 10/05/22 18:04 Dose: 0 mls/hr Documented By: Admin: 10/05/22 17:28 Dose: 999 mls/hr Documented By: RSL Daptomycin 425 mg/ Syringe 8.5 mls @ 4.25 mls/min IV NOW STA; Protocol Stop: 10/05/22 18:39 Last Admin: 10/05/22 18:58 Dose: 4.25 mls/min Documented By: DAYDAY Ioversol (Optiray 350 100ml) 87 ml IV ONCE ONE Stop: 10/05/22 18:19 Last Admin: 10/05/22 18:18 Dose: 87 ml Documented By: AUNG Morphine Sulfate (Morphine Sulfate 4 Mg/Ml 1 Ml Carp\\Vial) 4 mg IV NOW STA Stop: 10/05/22 17:51 Last Admin: 10/05/22 17:57 Dose: 4 mg Documented By: DAYDAY Ondansetron HCl (Ondansetron Inj 2 Mg/Ml 2 Ml Vial) 4 mg IV NOW STA Stop: 10/05/22 17:51 Last Admin: 10/05/22 17:57 Dose: 4 mg Documented By: DAYDAY Imaging Data Radiologist's Impression: Chest X-Ray 10/05/22 15:56 XR chest 1V portable HISTORY: Sepsis COMPARISON: Chest 10/25/2021. PET CT 09/09/2022. FINDINGS: The patient's known left upper lobe nodule is partially obscured by the overlapping first rib. No pneumothorax. No pleural effusions. The heart is normal in size. A right-sided ventriculoperitoneal shunt is noted. There is a le ft subclavian Port-A-Cath which terminates in the SVC. There is mild central pulmonary vascular congestion without overt edema. No new focal lung consolidations to suggest pneumonia. IMPRESSION: 1. Mild central pulmonary vascular congestion without overt edema. 2. The patient's known left upper lobe nodule is partially obscured by the overlapping first rib. ACT 112: Negative or not required by law. Electronically signed by: Aman Dumont M.D. 10/05/2022 5:[address] 10/05/22 15:56 CT SCAN OF THE BRAIN WITHOUT IV CONTRAST CLINICAL HISTORY: Change in mental status. COMPARISON STUDY: MRI of the brain dated 04/05/2012. TECHNIQUE: Unenhanced axial CT scan of the brain is performed from the vertex to the skull base. A dose lowering technique was utilized adhering to the principles of ALARA. The examination is compromised by motion artifact. The patient was scanned twice in an effort to improve image quality. CT DOSE: 1228.53 mGy.cm FINDINGS: Brain parenchyma: A right frontal approach ventricular shunt catheter is in place. The tip terminates in the body of the left lateral ventricle. Encephalomalacia seen along the course of the catheter. There is age-related involutional change noting mild subcortical and periventricular microangiopathic disease. There is no hemorrhage, mass effect, or evidence of acute territorial ischemia by CT criteria. Pacheco-white matter differentiation is preserved. No extr a-axial fluid collection is seen. Ventricles, sulci, cisterns: Prominent secondary to involutional change. Intracranial vasculature: There is mild atherosclerotic calcification of the cavernous carotid arteries. Calvarium: There is a right frontal bryanna hole. The calvarium is otherwise intact. Sinuses and mastoids: The visualized paranasal sinuses are clear. The mastoid air cells are well pneumatized. Orbits: The bony orbits are grossly intact. There are bilateral ocular lens implants. IMPRESSION: 1. There is no hemorrhage, mass effect, or evidence of acute territorial ischemia by CT criteria. 2. A right-sided ventricular shunt catheters in place. There is no evidence of hydrocephalus. ACT 112: Negative or not required by law. Electronically signed by: Yosef Alas M.D. 10/05/2022 6:33 PM Femur X-Ray 10/05/22 16:04 XR femur LT 2V routine, XR knee LT 1 or 2V routine CLINICAL HISTORY: Fall with left femur and knee pain. COMPARISON STUDY: None. FINDINGS: No fracture or dislocation within the left femur or left knee. No significant knee effusion. Mild vascular calcifications are noted. No significant soft tissue swelling. 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 IMPRESSION: No fracture or dislocation within the left femur or left knee. ACT 112: Negative or not required by law. Electronically signed by: Aman Dumont M.D. 10/05/2022 5:32 PM Knee X-Ray 10/05/22 16:04 XR femur LT 2V routine, XR knee LT 1 or 2V routine CLINICAL HISTORY: Fall with left femur and knee pain. COMPARISON STUDY: None. FINDINGS: No fracture or dislocation within the left femur or left knee. No significant knee effusion. Mild vascular calcifications are noted. No significant soft tissue swelling. 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 IMPRESSION: No fracture or dislocation within the left femur or left knee. ACT 112: Negative or not required by law. Electronically signed by: Aman Dumont M.D. 10/05/2022 5:32 PM Discharge Plan Visit Data Chief Complaint: Weakness Stated Complaint: SUDDEN WEAKNESS,PAINFUL BUMP ON L LEG ED Provider: Yosef Gonzales Discharge Problem: Altered mental status, Tachycardia, Left leg pain, Lactic acidosis, Neutropenia, Metastatic cancer, Tachypnea Patient Disposition: Admitted As Inpatient Condition: Serious Forms Stand Alone Forms: [employer] Prescriptions Prescriptions: No Action medical marijuana 1 ea PO BID PRN (Reason: appetite, mood) ibuprofen 200 mg tablet 200 mg PO Q12H PRN (Reason: back pain) tramadol 50 mg tablet 50 mg PO Q6H PRN (Reason: pain) (DME) Wheelchair (Manual) Device See Rx Instructions .ROUTE .MEDSUPPLY Qty: 1 0RF Rx Instructions: As directed (DME) Wheeled Walker Misc See Rx Instructions .Route Qty: 1 0RF Rx Instructions: As directed (DME) Wheeled Walker Misc See Rx Instructions .Route Qty: 1 0RF Rx Instructions: rollator walker with seat latanoprost 0.005 % drops 1 drp OPB HS dorzolamide-timolol 22.3-6.8 mg/mL drops 1 drp OPB BID Probiotic 3 billion cell Capsule 3,000 mmu cells PO QAM Qty: 0 warfarin 2.5 mg tablet See Rx Instructions .ROUTE .COMPLEX Rx Instructions: TAKES @ HS-- 5mg q M/F, 2.5mg x 5 days per [facility] orally use as dir ected etoposide phosphate 100 mg Recon Soln 0 mg IV DIRECTED Rx Instructions: PER PT'S SPOUSE "HAD 09/22/22-09/24/22". carboplatin 150 mg Recon Soln 0 mg IV DIRECTED Rx Instructions: PER PT'S SPOUSE "HAD 09/22/22--09/24/22". brimonidine 0.15 % drops 1 drp OPR BID Referrals Referrals: Lizett Walters MD [Primary Care Provider] - Altered mental status Qualifiers: Altered mental status type: disorientation Qualified Code(s): R41.0 - Disorientation, unspecified Neutropenia Qualifiers: Neutropenia type: secondary to cancer chemotherapy Qualified Code(s): D70.1 - Agranulocytosis secondary to cancer chemotherapy Metastatic cancer Qualifiers: Area of secondary neoplastic involvement: digestive structure Digestive structure secondary neoplasm location: metastatic to liver Qualified Code(s): C78.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
[2022-10-05 16:34] LABS: Appearance Urine Clear (Clear); Bacteria Urine Automated Negative (Negative); Bilirubin Urine Negative (Negative); Blood Urine 3+ (Negative); Color Urine Orange; Epithelial Cell Urine Auto >30 /lpf (0-5); Glucose Urine UA Negative (Negative); Ketones Urine 1+ (Negative); Leukocyte Esterase Urine 1+ (Negative); Nitrite Urine Negative (Negative); Protein Urine 3+ (Negative); Specific Gravity Urine 1.022 (1.000-1.030); Urobilinogen Urine Negative (Negative)
[2022-10-05] MEDS ORDERED: SODIUM CHLORIDE 0.9% 1000ML 1,000 ML IV ONE (16:39)
[2022-10-05] MEDS ORDERED: SODIUM CHLORIDE 0.9% 1000ML 500 ML IV ONE (16:39)
[2022-10-05 16:53] LABS: Albumin Level 4.1 gm/dl (3.4-5.0); BUN Creatinine Ratio 19.7 (10-20); Bilirubin Direct 0.4 mg/dl (0-0.2); Bilirubin,Total 2.2 mg/dl (0.2-1.0); Calcium 9.2 mg/dl (8.5-10.1); Est GFR (African American) 59.5 ml/min; Est GFR (Non-African American) 51.3 ml/min; Magnesium 1.9 mg/dl (1.7-2.4); Potassium 3.5 mmol/L (3.5-5.1)
[2022-10-05 16:59] LABS: Troponin I High Sensitivity 25.3 pg/ml (0-20)
[2022-10-05 17:10] LABS: INR 1.6 (0.9-1.1); Partial Thromboplastin Ratio 1.5; Partial Thromboplastin Time 40.4 Seconds (21.0-31.0); Prothrombin Time 16.9 Seconds (9.0-12.0)
--- NOTE | 2022-10-05 17:34 | XRay Report ---
XR femur LT 2V routine, XR knee LT 1 or 2V routine CLINICAL HISTORY: Fall with left femur and knee pain. COMPARISON STUDY: None. FINDINGS: No fracture or dislocation within the left femur or left knee. No significant knee effusion . Mild vascular calcifications are noted. No significant soft tissue swelling. Mild osteoarthritis wi thin the left hip and knee. IMPRESSION: No fracture or dislocation within the left femur or left knee. ACT 112: Negative or not required by law. Electronically signed by: Aman Dumont M.D. 10/05/2022 5:32 PM
[2022-10-05 17:40] LABS: Hematocrit (blood only) 40.8 % (42.0-52.0); Hemoglobin 14.6 g/dl (14.0-18.0); Mean Corpuscular Hemoglobin 31.2 pg (25.0-34.0); Mean Corpuscular Hgb Conc 35.8 g/dL (32.0-36.0); Mean Corpuscular Volume 87.2 fL (80.0-100.0); Mean Platelet Volume 9.6 fL (9.4-12.4); Platelet Count 77 K/uL (130-400); RDW Standard Deviation 39.7 fL (36.4-46.3); Red Blood Count 4.68 M/uL (4.70-6.10); White Blood Count 0.91 K/ul (4.8-10.8)
--- NOTE | 2022-10-05 17:40 | XRay Report ---
XR chest 1V portable HISTORY: Sepsis COMPARISON: Chest 10/25/2021. PET CT 09/09/2022. FINDINGS: The patient's known left upper lobe nodule is partially obscured by the overlapping first r ib. No pneumothorax. No pleural effusions. The heart is normal in size. A right-sided ventriculoperit [place] shunt is noted. There is a left subclavian Port-A-Cath which terminates in the SVC. There is mi ld central pulmonary vascular congestion without overt edema. No new focal lung consolidations to sug gest pneumonia. IMPRESSION: 1. Mild central pulmonary vascular congestion without overt edema. 2. The patient's known left upper lobe nodule is partially obscured by the overlapping first rib. ACT 112: Negative or not required by law. Electronically signed by: Aman Dumont M.D. 10/05/2022 5:39 PM
[2022-10-05 17:41] LABS: RBC Morphology Unremarkable
[2022-10-05 17:42] LABS: Adenovirus PCR Not Detected (NotDetected); Bordetella parapertussis PCR Not Detected (NotDetected); Bordetella pertussis PCR Not Detected (NotDetected); Chlamydia pneumoniae PCR Not Detected (NotDetected); Coronavirus 229E PCR Not Detected (NotDetected); Coronavirus CoV-2 (COVID19)PCR Not Detected (NotDetected); Coronavirus HKU1 PCR Not Detected (NotDetected); Coronavirus NL63 PCR Not Detected (NotDetected); Coronavirus OC43PCR Not Detected (NotDetected); Human Metapneumovirus PCR Not Detected (NotDetected); Influenza A PCR Not Detected (NotDetected); Influenza B PCR Not Detected (NotDetected); Mycoplasma pneumoniae PCR Not Detected (NotDetected); Parainfluenza Virus 1 PCR Not Detected (NotDetected); Parainfluenza Virus 2 PCR Not Detected (NotDetected); Parainfluenza Virus 3 PCR Not Detected (NotDetected); Parainfluenza Virus 4 PCR Not Detected (NotDetected); Respiratory Syncytial VirusPCR Not Detected (NotDetected); Rhinovirus/Enterovirus PCR Not Detected (NotDetected)
[2022-10-05 17:43] LABS: Immature Granulocytes # (auto) 0.01 K/uL (0.01-0.20); Immature Granulocytes % (auto) 1.1 %; Lymphocytes # (auto) 0.56 K/uL (1.2-3.4); Lymphocytes % (auto) 61.5 %; Monocytes # (auto) 0.27 K/uL (0.11-0.59); Monocytes % (auto) 29.7 %; Neutrophils # (auto) 0.07 K/uL (1.40-6.50); Neutrophils % (auto) 7.7 %
[2022-10-05] MEDS ORDERED: ONDANSETRON INJ 2 MG/ML 2 ML VIAL IV STA (17:50)
[2022-10-05] MEDS ORDERED: ALBUT/IPRATROP 3MG/0.5MG NEB 3 ML VIAL NEB STA (17:50)
[2022-10-05] MEDS ORDERED: MoRPHine SULFATE 4 MG/ML 1 ML CARP\\VIAL IV STA (17:50)
--- NOTE | 2022-10-05 18:05 | History & Physical Report ---
Date of Service October 05, 2022 History of Present Illness Chief Complaint: weakness Primary Care Provider: Lizett Walters MD 77yo male with PMHx significant for metastatic colorectal carcinoma to the liver, brain lesion w/ SLUICE TENDER shunt. Increased weakness last evening w/ confusion and unable to get to the bathroom. Had chemo on 09/22 and was told that his count were too low and needed to wait prior to doing anymore chemotherapy. Chief complaint of pain on admission Allergies Allergy/AdvReac Type Severity Reaction Status Date / Time Anesthetics - Bing Type- AdvReac Intermediate URINARY Verified 10/05/22 17:44 Parabens RETENTION Home Medications Medication Instructions Recorded Confirmed Type dorzolamide 22.3 mg-timolol 6.8 1 drp OPB BID 01/14/19 10/05/22 History mg/mL eye drops latanoprost 0.005 % eye drops 1 drp OPB HS 01/14/19 10/05/22 History lactobacillus combination no.4 3 3,000 mmu cells PO QAM ##0 03/08/19 10/05/22 History billion cell capsule (Probiotic) Wheelchair (Manual) #1 ea 09/24/19 09/27/22 Rx medical marijuana 1 ea PO BID PRN appetite, mood 04/15/20 10/05/22 History Wheeled Walker #1 ea 06/26/21 09/27/22 Rx Wheeled Walker #1 ea 11/09/21 09/27/22 Rx ibuprofen 200 mg tablet 200 mg PO Q12H PRN back pain 07/26/22 10/05/22 History warfarin 2.5 mg tablet See Rx Instructions .Route .COMPLEX 07/26/22 10/05/22 History tramadol 50 mg tablet 50 mg PO Q6H PRN pain 08/23/22 10/05/22 History brimonidine 0.15 % eye drops 1 drp OPR BID 10/05/22 10/05/22 History carboplatin 150 mg intravenous 0 mg IV DIRECTED 10/05/22 10/05/22 History solution etoposide phosphate 100 mg 0 mg IV DIRECTED 10/05/22 10/05/22 History intravenous solution Past Med/Surg History Medical History (Updated 07/09/22 @ 00:07 by Background Daemon) Acoustic neuroma 2011 Anxiety BPH (benign prostatic hyperplasia) Brain cancer acoustic neuroma s/p radiation 2013, SLUICE TENDER shunt in place Chest pain Constipation 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 Diagnosed 12/2018 Rectal cancer Diagnosed 12/25/14, Recurrence 12/2018; chemo/radiation Secondary lung cancer (05/12/22) s/p radiation to left lung per [place] oncology records 06/25/22 Superior mesenteric vein thrombosis Surgical History History of anesthesia reaction URINARY RETENTION History of brain shunt 2012 hydrocephalus History of cataract surgery RT/LEFT History of colonoscopy History of esophagogastroduodenoscopy (EGD) History of hemorrhoidectomy 12/25/2014 History of liver biopsy History of procedure for peripheral vascular disease S/P SLUICE TENDER shunt 2013 Family History Mother , Passed age 92 of old age Stroke Myocardial infarction Father , Passed age 100 of old age No problems noted. Brother Family history of diabetes mellitus Hypertension Other Heart disease Denies family history of Colon cancer Ovarian cancer Prostate cancer Breast cancer Social History Smoking Status: Unknown if ever smoked Tobacco Type: Cigarettes packs per day: 1; Cigarettes Per Day: quit at age 44; Second Hand Exposure: No; Hx Alcohol Use: No Hx Substance Use: Yes (medical- ADVISED) Last Used Substance Other:: medical marijuana oil- uses daily for appetite and depression Preferred Language: Mandarin [place] Communication Ability: Effective Visual Impairment: No Limitations Hearing Ability: Hard of Hearing Physician Assistant Certified Required: No Beliefs That Will Affect Care: None marital status: Current Living Situation: Spouse and Family current occupational status: retired 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 How many Children do You have: 2 Feels Safe at Home: Yes caffeine: No Dental Care, Regularly: No Physical Activity Frequency: Does not Exercise Seatbelt Use: always Sunscreen Use: No Assistive Devices: Cane, Glasses and Walker Results & Data Results & Data ([facility]) Vital Signs (Past 12 Hours) Vital Signs Temp Pulse Resp BP Pulse Ox O2 Del Method 10/05/22 17:25 112 H 24 120/85 95 10/05/22 17:25 29 H 10/05/22 17:00 113 H 36 H 10/05/22 16:45 163/94 H 10/05/22 16:45 90 10/05/22 15:49 107 H 10/05/22 16:25 109 H 33 H 135/92 94 10/05/22 16:18 96 Room Air 10/05/22 15:34 36.1 C L 108 H 18 137/87 94 Room Air PG Care Time/CCT Total # of Minutes Spent Total Time Spent with Patient: Total time spent is greater than 50% in coordination of care (as documented) at patient's floor/unit and/or counseling patient: Coding Diagnoses
[2022-10-05] MEDS ORDERED: OPTIRAY 350 100ml IV ONE (18:18)
--- NOTE | 2022-10-05 18:19 | History & Physical Report ---
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 Severe sepsis. 2/4 SIRS. Lactate 4.6. Procal 6.03. CT chest w/o pneumonia. CT abd w/o infection. UA w/ 1+ leuks. Source unknown, leading differential is septic joint. Pain and swelling at left upper knee. + effusion on exam. Modest elevation in CK. Less likely compartment syndrome. Will obtain MRI L femur pending CLINICAL RN shunt compatibility check (tech to contact [facility] [place]). Obtain CT L femur and knee w/ IV contrast. Pending result, consider consulting ortho for joint aspiration. s/p 2.5L NSS bolus. On Dapto and cefepime. Blood cultures pending. (2) Elevated lactic acid level: Plan: Secondary to the above. Minimal improvement w/ fluids. Trend. The tachypnea to upper 30s is likely compensatory secondary to the lactic acidosis. Avoid narcotic medications if possible. ABG 7.40/29/81/18 (3) Neutropenia: Plan: s/p chemo 09/22 for metastatic rectal cancer. Oncologist is Dr. Suarez. Reached out to Dr. Suarez regarding Neupogen; Will defer for now as lack of clear benefit in this setting. Oncology will be consulted. (4) 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 care home 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: Plan: Unable to swallow PO warfarin. Deferring IV anticoag until r/o hemarthrosis of L knee. (5) Altered mental status: Plan: Secondary to the above. CT head w/o acute changes or intracranial hemorrhage. (6) S/P CLINICAL RN shunt: Plan: Per patient's , had MRI and shunt adjustment at [facility] [place] 07/2022. (7) Metabolic acidosis, increased anion gap: (8) Lactic acidosis: (9) Tachypnea: Plan FEN/GI: NPO. Failed dysphagia screen. 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 Patient's had returned home w/ patient unattended for 30 min (he is A&Ox4 at baseline). She noted that he was less verbal than usual and only gave single word responses. His speech was slightly dysarthric and he appeared mildly confused. Patient complained of left knee swelling and pain yesterday. He fell on the ground today from generalized weakness, but this is different and unrelated to the knee swelling. Patient's collective symptoms of malaise and AMS worsened today, prompting the ED visit. Patient does take tramadol 50mg at night and uses medical marijuana. His denies noticing misuse. She did not note any fever, URI symptoms, abdominal pain, or diarrhea. He appeared slightly sweaty. No home O2 and no tellez. Per , had CLINICAL RN shunt adjustment and MRI brain in 07/2022 through [facility]. Chemo on 09/22/22. History was obtained from because of patient's AMS. He is able to give single word responses and denies pain. He endorses confusion. ED course: 2.5L NSS bolus. Cefepime. Dapto. Notable labs: procal 6.03. Lactate 4.6. Neutropenic 0.07. Leukopenic 0.91. CT head w/o hydrocephalus or bleed. CT abd and chest pending. ABG w/ pH 7.4. Allergies Allergy/AdvReac Type Severity Reaction Status Date / Time Anesthetics - Bing Type- AdvReac Intermediate URINARY Verified 10/05/22 17:44 Parabens RETENTION Home Medications Medication Instructions Recorded Confirmed Type dorzolamide 22.3 mg-timolol 6.8 1 drp OPB BID 01/14/19 10/05/22 History mg/mL eye drops latanoprost 0.005 % eye drops 1 drp OPB HS 01/14/19 10/05/22 History lactobacillus combination no.4 3 3,000 mmu cells PO QAM ##0 03/08/19 10/05/22 History billion cell capsule (Probiotic) Wheelchair (Manual) #1 ea 09/24/19 09/27/22 Rx medical marijuana 1 ea PO BID PRN appetite, mood 04/15/20 10/05/22 History Wheeled Walker #1 ea 06/26/21 09/27/22 Rx Wheeled Walker #1 ea 11/09/21 09/27/22 Rx ibuprofen 200 mg tablet 200 mg PO Q12H PRN back pain 07/26/22 10/05/22 History warfarin 2.5 mg tablet See Rx Instructions .Route .COMPLEX 07/26/22 10/05/22 History tramadol 50 mg tablet 50 mg PO Q6H PRN pain 08/23/22 10/05/22 History brimonidine 0.15 % eye drops 1 drp OPR BID 10/05/22 10/05/22 History carboplatin 150 mg intravenous 0 mg IV DIRECTED 10/05/22 10/05/22 History solution etoposide phosphate 100 mg 0 mg IV DIRECTED 10/05/22 10/05/22 History intravenous solution Past Med/Surg History Medical History Acoustic neuroma 2011 Anxiety BPH (benign prostatic hyperplasia) Brain cancer acoustic neuroma s/p radiation 2013, CLINICAL RN shunt in place Chest pain Constipation Deafness in right ear speak into left ear, pt has no hearing aid in right Deep vein thrombosis 10/2020, "in his chest", now taking Coumadin; f/u PCP Dysphagia Encounter for pre-operative examination GERD (gastroesophageal reflux disease) med prn Glaucoma History of radiation therapy 2011 - Gamma Knife - in [place] - for Acoustic Neuroma Palpitations Polycythemia Port-A-Cath in place (03/15/19) Insertion of A-Port via left subclavian Dr. 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 Diagnosed 12/2018 Rectal cancer Diagnosed 12/25/14, Recurrence 12/2018; chemo/radiation Secondary lung cancer (05/12/22) s/p radiation to left lung per [place] oncology records 06/25/22 Superior mesenteric vein thrombosis Surgical History History of anesthesia reaction URINARY RETENTION History of brain shunt 2013 hydrocephalus History of cataract surgery RT/LEFT History of colonoscopy History of esophagogastroduodenoscopy (EGD) History of hemorrhoidectomy 12/25/2014 History of liver biopsy History of procedure for peripheral vascular disease S/P CLINICAL RN shunt 2013 Family History Mother , Passed age 92 of old age Stroke Myocardial infarction Father , Passed age 100 of old age No problems noted. Brother Family history of diabetes mellitus Hypertension Other Heart disease Denies family history of Colon cancer Ovarian cancer Prostate cancer Breast cancer Social History Smoking Status: Former smoker Tobacco Type: Cigarettes packs per day: 1; Cigarettes Per Day: quit at age 44; Smoking End Date: stopped smoking at age 44; Second Hand Exposure: No; Do You Dip or Chew Tobacco: No; Tobacco Cessation Education Requested by Patient: No Hx Alcohol Use: No Hx Substance Use: Yes Last Used Substance: Days (ago) Last Used Substance Other :: yesterday 10/04/22 Substance Use Type Other:: medical marijuanan for appetite stimulation Preferred Language: Mandarin Yakut Communication Ability: Impaired Visual Impairment: No Limitations Hearing Ability: Hard of Hearing Catering Barista Required: Yes Beliefs That Will Affect Care: None marital status: Current Living Situation: Spouse current occupational status: retired 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 NAD. Appears slightly fatigued. HEENT: Atraumatic, normocephalic. EOMI. 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 Pulm: CTAB, diminished. + tachypnea to 30s and + mild accessory muscle use. Cardiac: RRR, -mrg. Radial pulses intact and symmetrical. No LE edema Abdominal: Nontender, nondistended, soft. Msk: Moving all extrem. L knee w/ effusion, erythema, warmth and swelling. TTP to light palpation. Neuro: Normal strength and sensation of extremities. Speech is fluent. Able to provide 1 word answers. No dysarthria. Integ: Warm, dry, intact. No rash. L upper chest wall port w/o erythema. Results & Data Results & Data ([facility]) Vital Signs (Past 12 Hours) Vital Signs Temp Pulse Resp BP Pulse Ox O2 Del Method 10/05/22 18:00 124 H 32 H 156/105 H 90 10/05/22 17:45 114 H 32 H 169/99 H 92 10/05/22 17:30 111 H 34 H 146/100 H 94 10/05/22 17:25 112 H 24 120/85 95 10/05/22 17:25 29 H 10/05/22 17:00 113 H 36 H 10/05/22 16:45 163/94 H 10/05/22 16:45 90 10/05/22 15:49 107 H 10/05/22 16:25 109 H 33 H 135/92 94 10/05/22 16:18 96 Room Air 10/05/22 15:34 36.1 C L 108 H 18 137/87 94 Room Air Laboratory Results Cardiac Enzymes 10/05/22 Range/Units 16:14 AST 33 (13-39) U/L Troponin I High Sens 25.3 H (0-20) pg/ml Coagulation 10/05/22 Range/Units 16:14 PT 16.9 H (9.0-12.0) Seconds APTT 40.4 H (21.0-31.0) Seconds CBC 10/05/22 Range/Units 16:14 WBC 0.91 L* (4.8-10.8) K/ul RBC 4.68 L (4.70-6.10) M/uL Hgb 14.6 (14.0-18.0) g/dl Hct 40.8 L (42.0-52.0) % Plt Count 77 L (130-400) K/uL Neut # (Auto) 0.07 L* (1.40-6.50) K/uL Lymph # (Auto) 0.56 L (1.2-3.4) K/uL [place] # (Auto) 0.27 (0.11-0.59) K/uL Eos # (Auto) 0.00 (0-0.50) K/uL Baso # (Auto) 0.00 (0-0.2) K/uL Comprehensive Metabolic Panel 10/05/22 Range/Units 16:14 Sodium 134 L (136-145) mmol/L Potassium 3.5 (3.5-5.1) mmol/L Chloride 101 (98-107) mmol/L Carbon Dioxide 20 L (21-32) mmol/L BUN 26 H (6-23) mg/dl Creatinine 1.32 (0.6-1.4) mg/dl Glucose 147 H (70-99(Fasting)) mg/dl Calcium 9.2 (8.5-10.1) mg/dl Direct Bilirubin 0.4 H (0-0.2) mg/dl AST 33 (13-39) U/L ALT 33 (7-52) U/L Alkaline Phosphatase 69 (34-104) U/L Total Protein 8.0 (6.0-8.3) gm/dl Albumin 4.1 (3.4-5.0) gm/dl Intake and Output 10/05/22 10/05/22 10/05/22 06:59 14:59 22:59 Intake Total 2500 / 2500 Balance 2500 / 2500 Intake: IV 2500 / 2500 Sodium Chloride 0.9% 1000ML 500 2500 / 2500 ml @ 999 mls/hr IV .Q31M ONE Rx#:[id number] Oral 0 / 0 Other: Weight 80.7 kg Weight Measurement Method Built in [facility] Patient Weight 10/06/22 06:59 Weight 80.7 kg Diagnostic Findings Chest X-Ray 10/05/22 15:56 XR chest 1V portable HISTORY: Sepsis COMPARISON: Chest 10/25/2021. PET CT 09/09/2022. FINDINGS: The patient's known left upper lobe nodule is partially obscured by the overlapping first rib. No pneumothorax. No pleural effusions. The heart is normal in size. A right-sided ventriculoperitoneal shunt is noted. There is a left subclavian Port-A-Cath which terminates in the SVC. There is mild central pulmonary vascular congestion without overt edema. No new focal lung consolidations to suggest pneumonia. IMPRESSION: 1. Mild central pulmonary vascular congestion without overt edema. 2. The patient's known left upper lobe nodule is partially obscured by the overlapping first rib. ACT 112: Negative or not required by law. Electronically signed by: Aman Dumont M.D. 10/05/2022 5:[address] 10/05/22 15:56 CT SCAN OF THE BRAIN WITHOUT IV CONTRAST CLINICAL HISTORY: Change in mental status. COMPARISON STUDY: MRI of the brain dated 04/05/2012. TECHNIQUE: Unenhanced axial CT scan of the brain is performed from the vertex to the skull base. A dose lowering technique was utilized adhering to the principles of ALARA. The examination is compromised by motion artifact. The patient was scanned twice in an effort to improve image quality. CT DOSE: 1228.53 mGy.cm FINDINGS: Brain parenchyma: A right frontal approach ventricular shunt catheter is in place. The tip terminates in the body of the left lateral ventricle. Encephalomalacia seen along the course of the catheter. There is age-related involutional change noting mild subcortical and periventricular microangiopathic disease. There is no hemorrhage, mass effect, or evidence of acute territorial ischemia by CT criteria. Pacheco-white matter differentiation is preserved. No extra-axial fluid collection is seen. Ventricles, sulci, cisterns: Prominent secondary to involutional change. Intracranial vasculature: There is mild atherosclerotic calcification of the cavernous carotid arteries. Calvarium: There is a right frontal bryanna hole. The calvarium is otherwise intact. Sinuses and mastoids: The visualized paranasal sinuses are clear. The mastoid air cells are well pneumatized. Orbits: The bony orbits are grossly intact. There are bilateral ocular lens implants. IMPRESSION: 1. There is no hemorrhage, mass effect, or evidence of acute territorial ischemia by CT criteria. 2. A right-sided ventricular shunt catheters in place. There is no evidence of hydrocephalus. ACT 112: Negative or not required by law. Electronically signed by: Yosef Alas M.D. 10/05/2022 6:33 PM Femur X-Ray 10/05/22 16:04 XR femur LT 2V routine, XR knee LT 1 or 2V routine CLINICAL HISTORY: Fall with left femur and knee pain. COMPARISON STUDY: None. FINDINGS: No fracture or dislocation within the left femur or left knee. No significant knee effusion. Mild vascular calcifications are noted. No significant soft tissue swelling. 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 IMPRESSION: No fracture or dislocation within the left femur or left knee. ACT 112: Negative or not required by law. Electronically signed by: Aman Dumont M.D. 10/05/2022 5:32 PM Knee X-Ray 10/05/22 16:04 XR femur LT 2V routine, XR knee LT 1 or 2V routine CLINICAL HISTORY: Fall with left femur and knee pain. COMPARISON STUDY: None. FINDINGS: No fracture or dislocation within the left femur or left knee. No s ignificant knee effusion. Mild vascular calcifications are noted. No significant soft tissue swelling. 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 IMPRESSION: No fracture or dislocation within the left femur or left knee. ACT 112: Negative or not required by law. Electronically signed by: Aman Dumont M.D. 10/05/2022 5:32 PM Abdomen/Pelvis CT 10/05/22 17:26 CT SCAN OF THE ABDOMEN AND PELVIS WITH IV CONTRAST CLINICAL HISTORY: Rectal carcinoma. Clinical concern for abscess. COMPARISON STUDY: Abdominal CT dated 02/24/2022. PET/CT dated 09/09/2022. TECHNIQUE: Following the IV administration of 87 cc of Optiray 350, CT scan of the abdomen and pelvis is performed from the lung bases to the proximal femora. Images are reviewed in the axial, sagittal, and coronal planes. IV contrast was administered without complication. A dose lowering technique was utilized adhering to the principles of ALARA. The patient was scanned twice due to significant motion artifact. The examination is motion compromised. There is also streak artifact from the arms which could not be elevated above the abdomen or pelvis. FINDINGS: Lung bases: The tip of a central venous infusion port catheter terminates at the cavoatrial junction. The heart is top normal in size and without pericardial effusion. There are coronary artery calcifications. Evaluation of the lung bases is degraded by motion artifact. There is elevation of the right hemidiaphragm and bibasilar scarring/atelectasis. The lung bases are otherwise grossly clear. There is a small hiatal hernia. Liver: The contrast-enhanced liver is normal in size size and contour. Attenuation is heterogeneous. There is no intrahepatic biliary ductal dilatation. No new hepatic metastatic disease is not well visualized due to streak and motion artifact. A 2.6 cm lesion below the right hemidiaphragm as seen on image #42 of the second series. The hepatic veins and portal veins are patent. There is a trace residual superior mesenteric venous thrombus, best seen on axial image #211. Gallbladder: Unremarkable. Spleen: Normal in size and attenuation. Pancreas: Moderately atrophic and grossly unremarkable. Adrenal glands: Unremarkable. Kidneys: The contrast enhanced kidneys demonstrate mild cortical atrophy and are without hydronephrosis. The kidneys enhance symmetrically. There are small bilateral nonobstructing renal calculi which measure up to 2 mm. Abdominal vasculature: There is moderate atherosclerotic calcification and mild ectasia of the abdominal aorta. Bowel: No bowel obstruction is seen. There is [id number] colonic fecal retention. The appendix is well-visualized and normal. Asymmetric right-sided rectal wall thickening is again seen on axial image #461. A right perirectal implant on image #1445 measures up to 2.1 cm. Additional presacral implants are seen on images #410 and #416. These measure up to 2 cm. There is mild colonic diverticulosis without CT evidence of acute diverticulitis. Peritoneum: There is no intraperitoneal free air or abdominal ascites. A ventriculoperitoneal shunt catheter is in place. This traverses the anterior abdominal wall, enters the abdominal cavity above the umbilicus, and is coiled in the right mid abdomen. Soft tissue thickening around the inferior mesenteric artery seen on image #304 has increased from 2022. This was FDG avid on the recent PET examination and likely represents metastatic disease. Lymphadenopathy: None. Pelvic viscera: The prostate gland is enlarged and heterogeneous noting median lobe hypertrophy. The bladder is decompressed around a Tellez catheter and not well evaluated. There are bilateral fat-containing inguinal hernias. Skeletal structures: The skeletal structures are osteopenic. Moderate lumbosacral spondylosis is observed. No lytic or blastic lesions are seen. IMPRESSION: 1. Significantly streak and motion compromised examination . 2. No acute infectious or inflammatory findings are identified in the abdomen or pelvis. 3. A right-sided rectal mass and multifocal metastatic disease has not appreciably changed as compared to the 09/09/2022 PET examination. See above. 4. 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 5 Bilateral nephrolithiasis. 6. Additional findings as above. ACT 112: Negative or not required by law. Electronically signed by: Yosef Alas M.D. 10/05/2022 8:31 PM Chest X-Ray 10/05/22 18:48 SINGLE VIEW CHEST CLINICAL HISTORY: Dyspnea. FINDINGS: An AP, portable, upright chest radiograph is compared to study dated 10/05/2022 and correlated with chest CT dated 02/24/2022 as well as PET/CT dated 09/09/2022. A left subclavian central venous infusion port is unchanged in position. The heart is enlarged. The pulmonary vasculature is noncongested. Chronic reticular thickening similar to previous. Scarring/atelectasis is noted at the lung bases. The patient's left apical pulmonary lesion was better assessed on prior CT scans. The lungs and pleural spaces are clear. No pneumothorax is seen. The skeletal structures are osteopenic. The bony thorax is grossly intact. IMPRESSION: 1. Cardiomegaly with no active disease in the chest. 2. The patient's known left apical pulmonary lesion was much better assessed on recent CT examinations. ACT 112: Negative or not required by law. Electronically signed by: Yosef Alas M.D. 10/05/2022 7:31 PM Code Status & VTE Plan Code Status full VTE Prophylaxis Plan VTE Prophylaxis will be ordered: Yes Supervising Physician Co-Signing Physician Notes I personally saw and examined the patient. I verified all thornton points and agree with resident physician Dr Greg Ferrari MD with the following exceptions and/or additions: 77 year old male with metastatic adenocarcinoma currently on chemotherapy presents with left thigh pain and altered mental state. O/E Ill appearing, HS increased rate, regular rhythm, Chest CTAB, Abdo SNT, Left thigh swelling and pain to palpation or any movement without erythema, no pitting pedal edema A/P Neutropenic Sepsis - neutropenic isolation precaution, workup appears to suggest infection with the patient being neutropenic. He was started on cefepime/daptomycin in the ER. CT chest performed to make sure we would not have to cover for pneumonia and subsequently negative. He has a port therefore certainly could just be bacteremic from this. Currently we do not have a definitive source of infection. Left thigh pain - US venous doppler to r/o DVT which I suspect is unlikely. CPK ordered to assess for myositis. The ideal scan would be an MRI w/wo IV contrast femur if no DVT to further assess his pain. It would be very unusual to have a compartment syndrome in this space but if MRI negative would advise orthopedic evaluation. He has a knee effusion but this is not tender like his anterior late ral thigh therefore much lower suspicion the joint is septic. Metabolic acidosis with elevated anion gap due to lactic acidosis - avoid NSS (he has already had 2.5L bolus of this in the ER). Currently with respiratory compensation however after morphine given likely suppressing his respiratory drive in addition to sleeping and may result worsening acidosis overnight in add ition due to NSS given. Repeat labs in AM. Metabolic encephalopathy - CT head with no acute abnormalities Resident Activity Tracking Resident Involvement: Resident Care Provided Care Provided: Adult Hospital Medicine (3) Neutropenia Neutropenia type: secondary to cancer chemotherapy Qualified Code(s): D70.1 - Agranulocytosis secondary to cancer chemotherapy; T45.1X5A - Adverse effect of antineoplastic and immunosuppressive drugs, initial encounter (5) Altered mental status Altered mental status type: disorientation Qualified Code(s): R41.0 - Disorientation, unspecified
--- NOTE | 2022-10-05 18:36 | CT Scan Report ---
CT SCAN OF THE BRAIN WITHOUT IV CONTRAST CLINICAL HISTORY: Change in mental status. COMPARISON STUDY: MRI of the brain dated 04/05/2012. TECHNIQUE: Unenhanced axial CT scan of the brain is performed from the vertex to the skull base. A do se lowering technique was utilized adhering to the principles of ALARA. The examination is compromise d by motion artifact. The patient was scanned twice in an effort to improve image quality. CT DOSE: 1228.53 mGy.cm FINDINGS: Brain parenchyma: A right frontal approach ventricular shunt catheter is in place. The tip terminates in the body of the left lateral ventricle. Encephalomalacia seen along the course of the catheter. T here is age-related involutional change noting mild subcortical and periventricular microangiopathic disease. There is no hemorrhage, mass effect, or evidence of acute territorial ischemia by CT criteri a. Pacheco-white matter differentiation is preserved. No extra-axial fluid collection is seen. Ventricles, sulci, cisterns: Prominent secondary to involutional change. Intracranial vasculature: There is mild atherosclerotic calcification of the cavernous carotid arteri es. Calvarium: There is a right frontal bryanna hole. The calvarium is otherwise intact. Sinuses and mastoids: The visualized paranasal sinuses are clear. The mastoid air cells are well pneu matized. Orbits: The bony orbits are grossly intact. There are bilateral ocular lens implants. IMPRESSION: 1. There is no hemorrhage, mass effect, or evidence of acute territorial ischemia by CT criteria. 2. A right-sided ventricular shunt catheters in place. There is no evidence of hydrocephalus. ACT 112: Negative or not required by law. Electronically signed by: Yosef Alas M.D. 10/05/2022 6:33 PM
[2022-10-05] MEDS ORDERED: DAPTOmycin 425 MG in SYRINGE 0 ML IV STA (18:38)
[2022-10-05 19:14] LABS: Base Excess ABG -5.5 mEq/L (-9-1.8); HCO3 ABG 18 mmol/L (19-24); Oxygen Saturation ABG 97.3 % (90-95); PCO2 ABG 29 mmHg (35-46); PO2 ABG 81 mmHg (80-95)
[2022-10-05 19:16] LABS: Allen Test POSITIVE (Pos)
--- NOTE | 2022-10-05 19:33 | XRay Report ---
SINGLE VIEW CHEST CLINICAL HISTORY: Dyspnea. FINDINGS: An AP, portable, upright chest radiograph is compared to study dated 10/05/2022 and correlat ed with chest CT dated 02/24/2022 as well as PET/CT dated 09/09/2022. A left subclavian central venous i nfusion port is unchanged in position. The heart is enlarged. The pulmonary vasculature is noncongest ed. Chronic reticular thickening similar to previous. Scarring/atelectasis is noted at the lung bases . The patient's left apical pulmonary lesion was better assessed on prior CT scans. The lungs and ple ural spaces are clear. No pneumothorax is seen. The skeletal structures are osteopenic. The bony thor ax is grossly intact. IMPRESSION: 1. Cardiomegaly with no active disease in the chest. 2. The patient's known left apical pulmonary lesion was much better assessed on recent CT examination s. ACT 112: Negative or not required by law. Electronically signed by: Yosef Alas M.D. 10/05/2022 7:31 PM
[2022-10-05] MEDS ORDERED: WARFARIN SOD 4 MG TAB PO STA (19:56)
--- NOTE | 2022-10-05 20:33 | CT Scan Report ---
CT SCAN OF THE ABDOMEN AND PELVIS WITH IV CONTRAST CLINICAL HISTORY: Rectal carcinoma. Clinical concern for abscess. COMPARISON STUDY: Abdominal CT dated 02/24/2022. PET/CT dated 09/09/2022. TECHNIQUE: Following the IV administration of 87 cc of Optiray 350, CT scan of the abdomen and pelvi s is performed from the lung bases to the proximal femora. Images are reviewed in the axial, sagittal , and coronal planes. IV contrast was administered without complication. A dose lowering technique wa s utilized adhering to the principles of ALARA. The patient was scanned twice due to significant jenni on artifact. The examination is motion compromised. There is also streak artifact from the arms which could not be elevated above the abdomen or pelvis. FINDINGS: Lung bases: The tip of a central venous infusion port catheter terminates at the cavoatrial junction. The heart is top normal in size and without pericardial effusion. There are coronary artery calcific ations. Evaluation of the lung bases is degraded by motion artifact. There is elevation of the right hemidiaphragm and bibasilar scarring/atelectasis. The lung bases are otherwise grossly clear. There i s a small hiatal hernia. Liver: The contrast-enhanced liver is normal in size size and contour. Attenuation is heterogeneous. There is no intrahepatic biliary ductal dilatation. No new hepatic metastatic disease is not well vis ualized due to streak and motion artifact. A 2.6 cm lesion below the right hemidiaphragm as seen on i mage #42 of the second series. The hepatic veins and portal veins are patent. There is a trace residu al superior mesenteric venous thrombus, best seen on axial image #211. Gallbladder: Unremarkable. Spleen: Normal in size and attenuation. Pancreas: Moderately atrophic and grossly unremarkable. Adrenal glands: Unremarkable. Kidneys: The contrast enhanced kidneys demonstrate mild cortical atrophy and are without hydronephros is. The kidneys enhance symmetrically. There are small bilateral nonobstructing renal calculi which m easure up to 2 mm. Abdominal vasculature: There is moderate atherosclerotic calcification and mild ectasia of the abdomi nal aorta. Bowel: No bowel obstruction is seen. There is ovvo-rl-[id number] colonic fecal retention. The appendix is well-visualized and normal. Asymmetric right-sided rectal wall thickening is again seen on axial image #461. A right perirectal implant on image #1445 measures up to 2.1 cm. Additional presacral imp lants are seen on images #410 and #416. These measure up to 2 cm. There is mild colonic diverticulosi s without CT evidence of acute diverticulitis. Peritoneum: There is no intraperitoneal free air or abdominal ascites. A ventriculoperitoneal shunt c atheter is in place. This traverses the anterior abdominal wall, enters the abdominal cavity above th e umbilicus, and is coiled in the right mid abdomen. Soft tissue thickening around the inferior mesen teric artery seen on image #304 has increased from 2021. This was FDG avid on the recent PET examinat ion and likely represents metastatic disease. Lymphadenopathy: None. Pelvic viscera: The prostate gland is enlarged and heterogeneous noting median lobe hypertrophy. The bladder is decompressed around a Valdes catheter and not well evaluated. There are bilateral fat-conta ining inguinal hernias. Skeletal structures: The skeletal structures are osteopenic. Moderate lumbosacral spondylosis is obse rved. No lytic or blastic lesions are seen. IMPRESSION: 1. Significantly streak and motion compromised examination . 2. No acute infectious or inflammatory findings are identified in the abdomen or pelvis. 3. A right-sided rectal mass and multifocal metastatic disease has not appreciably changed as compare d to the 09/09/2022 PET examination. See above. 4. 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 5 Bilateral nephrolithiasis. 6. Additional findings as above. ACT 112: Negative or not required by law. Electronically signed by: Yosef Alas M.D. 10/05/2022 8:31 PM
--- NOTE | 2022-10-05 20:52 | CT Scan Report ---
CT SCAN OF THE CHEST WITHOUT IV CONTRAST CLINICAL HISTORY: Dyspnea. Tachypnea. COMPARISON STUDY: Chest CT dated 02/24/2022. Chest x-ray dated 10/05/2022. PET/CT dated 09/09/2022. TECHNIQUE: CT scan of the thorax was performed from the thoracic inlet to the upper abdomen. Images are reviewed in the axial, sagittal, and coronal planes. IV contrast was not administered for this ex amination as per the referring clinician. A dose lowering technique was utilized adhering to the foreign Marcos. The examination is compromised by motion artifact, as well as by streak artifact fr om the arms which could not be elevated above the chest. CT DOSE: 766.90 mGy.cm FINDINGS: Thyroid: Imaged portions of the thyroid gland are normal in size and attenuation. Thoracic aorta: There is atherosclerotic calcification of the thoracic aorta, which is normal in mouna wilfredo and demonstrates standard 3-vessel arch anatomy. Heart: A left subclavian central venous infusion port is in place. The heart is enlarged and without pericardial effusion. There are coronary artery calcifications. The main pulmonary arteries appear di lated suggest a pulmonary hypertension. Lungs and pleural spaces: Evaluation of the lung parenchyma is significantly compromised by motion ar tifact. Dependent scarring/atelectasis is present at both lung bases. No air space consolidation typi christen for pneumonia or pleural effusion is identified. Moderate intralobular septal thickening suggests fluid overload. A 1.7 cm lobulated pulmonary nodule at the anterior left apex on image #49 is unchan ged. The trachea and central airways appear clear. Mediastinum: There is no mediastinal lymphadenopathy. Rupinder: Not well assessed without IV contrast. Axillae: There is no axillary lymphadenopathy. Upper abdomen: Calcified granuloma is present in the spleen. Partially visualized upper abdominal vis cera is otherwise grossly unremarkable. Known new hepatic metastatic lesions are not well-visualized due to streak and motion. Skeletal structures: The skeletal structures are osteopenic. Degenerative change is noted in the shou lders and thoracic spine. A presumed bone island in the body of T5 is unchanged from prior studies. N o lytic or blastic bony lesions are seen. IMPRESSION: 1. Significantly streak and motion compromised examination. 2. There is no airspace consolidation typical for pneumonia or pleural effusion. 3. The heart is enlarged. Intralobular septal thickening suggests fluid overload/congestive change. C linical correlation required. 4. A 1.7 cm lobulated pulmonary nodule at the left apex is unchanged. This was PET avid and neoplasm is the diagnosis of exclusion. 5. Additional findings as above. ACT 112: Negative or not required by law. Electronically signed by: Yosef Alas M.D. 10/05/2022 8:51 PM
[2022-10-05] MEDS ORDERED: WARFARIN SOD 2.5 MG TAB PO SCH (21:45)
[2022-10-05 22:15] LABS: Reticulocyte % 1.6 % (0.5-2.0); Reticulocytes # 0.07 10^6/uL (0.02-0.10)
--- NOTE | 2022-10-05 22:43 | Ultrasound Report ---
Exam(s): US VENOUS LEFT LOWER EXTREMITY EXAM: US Duplex Left Lower Extremity Veins CLINICAL HISTORY: Reason for exam: Upper thigh pain and swelling. TECHNIQUE: Real-time duplex ultrasound scan of the left lower extremity veins integrating B-mode two-dimensional vascular structure, Doppler spectral analysis, color flow Doppler imaging and compression. COMPARISON: No relevant prior studies available. FINDINGS: Deep veins: Unremarkable. No DVT in the visualized common femoral, femoral, proximal deep femoral or popliteal veins. The veins demonstrate normal color flow, are normally compressible, with normal phasic flow and/or augmentation response. Superficial veins: Unremarkable. No thrombus in the visualized great saphenous vein. Soft tissues: No acute findings. No popliteal cyst. IMPRESSION: No evidence of DVT in the left lower extremity. Electronically signed by: Hannah Sky MD 10/05/22 22:42 PM
[2022-10-05 22:55] LABS: Lyme Ab IgG w/WB Rflx Negative (Negative); Lyme Ab IgM w/WB Rflx Negative (Negative)
[2022-10-06] MEDS ORDERED: SODIUM CHLORIDE 0.9% 1000ML 1,000 ML IV SCH (00:45)
[2022-10-06] MEDS ORDERED: LACTATED RINGER'S 1,000 ML IV SCH (01:30)
[2022-10-06] MEDS ORDERED: OPTIRAY 350 100ml IV ONE (01:49)
--- NOTE | 2022-10-06 02:28 | Communication Note ---
Date of Service: October 06, 2022 Will defer to dayshift to f/u result of CT L knee and femur. Will need to decide if MRI L femur needed and if need to add MRI L knee. Repeat lactate showed improvement from 4s to 2.2. BNP 760 noted.
--- NOTE | 2022-10-06 02:42 | CT Scan Report ---
Exam(s): CT LEFT KNEE With Contrast IV Amt: 84 ml optiray EXAM: CT Left Lower Extremity With Intravenous Contrast, Knee CLINICAL HISTORY: Reason for exam: concern for septic joint. immunocompromised. TECHNIQUE: Axial computed tomography images of the left knee with intravenous contrast. CTDI is 25.37 mGy and DLP is 1405.02 mGy-cm. Automated exposure control was utilized for the study. A dose lowering technique was utilized adhering to the principles of ALARA. CONTRAST: Patient received 84 ml optiray of IV contrast COMPARISON: No relevant prior studies available. FINDINGS: Bones/joints: Small joint effusion. No acute fracture. No dislocation. Soft tissues: Subcutaneous edema along the anterior and lateral aspects of the knee. Small amount of abnormal decreased density in the distal aspect of the vastus lateralis muscle. No soft tissue gas. IMPRESSION: Small joint effusion. Anterior and lateral subcutaneous edema. Region of abnormal decreased density within the distal aspect of the vastus lateralis muscle without focal fluid collection. Electronically signed by: Antonio Justice MD 10/06/22 02:41 AM
--- NOTE | 2022-10-06 02:45 | CT Scan Report ---
Exam(s): CT EXTREMITY LEFT LOWER With Contrast IV Amt: 84 ml optiray EXAM: CT Left Lower Extremity With Intravenous Contrast CLINICAL HISTORY: Reason for exam: concern for septic joint. immunocompromised.. TECHNIQUE: Axial computed tomography images of the left lower extremity with intravenous contrast. CTDI is 25.37 mGy and DLP is 1405.02 mGy-cm. Automated exposure control was utilized for the study. A dose lowering technique was utilized adhering to the principles of ALARA. CONTRAST: Patient received 84 ml optiray of IV contrast COMPARISON: No relevant prior studies available. FINDINGS: Bones/joints: Unremarkable. No acute fracture. No dislocation. No focal abnormality. Soft tissues: Abdominal subcutaneous edema along the lateral aspect of the thigh. Small region of abnormal decreased density in the distal aspect of the vastus lateralis muscle. This appears to represent edema. A defined focal fluid collection is not evident. IMPRESSION: 1. Abdominal subcutaneous edema along the lateral aspect of the thigh. 2. Small region of abnormal decreased density in the distal aspect of the vastus lateralis muscle. This appears to represent edema. A defined focal fluid collection is not evident. Electronically signed by: Antonio Justice MD 10/06/22 02:44 AM
[2022-10-06 05:00] LABS: A calco-baum cmplx NotReported Not Detected (NotDetected); Bact fragilis Not Reported Not Detected (NotDetected); C auris Not Reported Not Detected (NotDetected); Calbicans Not Reported Not Detected (NotDetected); Candida glabrata Not Reported Not Detected (NotDetected); Candida krusei Not Reported Not Detected (NotDetected); Cneoformans/gatti Not Reported Not Detected (NotDetected); Cparapsilosis Not Reported Not Detected (NotDetected); Ctropicalis Not Reported Not Detected (NotDetected); E cloacae compx Not Reported Not Detected (NotDetected); Efaecalis Not Reported Not Detected (NotDetected); Efaecium Not Reported Not Detected (NotDetected); Enterobacterales Not Reported Not Detected (NotDetected); Escherichia coli Not Reported Not Detected (NotDetected); H influenzae Not Reported Not Detected (NotDetected); K aerogenes Not Reported Not Detected (NotDetected); Koxytoca Not Reported Not Detected (NotDetected); Kpneumoniae grp Not Reported Not Detected (NotDetected); Lmonocyt Not Reported Not Detected (NotDetected); N meningitidis Not Reported Not Detected (NotDetected); P aeruginosa Not Reported Not Detected (NotDetected); Proteus spp Not Reported Not Detected (NotDetected); Salmonella spp Not Reported Not Detected (NotDetected); Smarcescens Not Reported Not Detected (NotDetected); Staph lugdunensis Not Reported Not Detected (NotDetected); Staph spp. Not Reported Not Detected (NotDetected); Staphaureus Not Reported Not Detected (NotDetected); Staphepi Not Reported Not Detected (NotDetected); Stenmaltophilia Not Reported Not Detected (NotDetected); Strep agal(GrpB) Not Reported DETECTED (NotDetected); Strep pneum Not Reported Not Detected (NotDetected); Strep pyog (GrpA) Not Reported Not Detected (NotDetected); Strep spp Not Reported DETECTED (NotDetected); Streptococcus spp DETECTED (NotDetected)
[2022-10-06 05:08] LABS: Streptococcus agalactiae(GrpB) DETECTED (NotDetected)
--- NOTE | 2022-10-06 05:29 | Billing Data ---
Date of Service October 05, 2022 Coding Level of Care Code 27061 INT INP/OBS CARE
--- NOTE | 2022-10-06 05:31 | Billing Data ---
Date of Service October 05, 2022 I personally spent 35 minutes of critical care time attending to this patient with a life threatening medical condition. Including discussing with the ER physician. Multiple (re)examinations of the patient. Review of current and previous notes, lab work, imaging studies. Coding Level of Care Code 68408 CRITICAL CARE 1ST 30-74M
[2022-10-06] MEDS: CEFEPIME 2,000 MG in SYRINGE 0 ML IV SCH ×2 (06:08→18:11)
[2022-10-06 06:18] LABS: HCO3 VBG 22 mmol/L; Oxygen Saturation VBG 69.6 %; PCO2 VBG 36 mmHg (38-50); PO2 VBG 35 mmHg
[2022-10-06 06:46] LABS: Albumin Globulin Ratio 1.1 (0.9-2); Albumin Level 3.5 gm/dl (3.4-5.0); BUN Creatinine Ratio 18.9 (10-20); Bilirubin,Total 1.8 mg/dl (0.2-1.0); Creatinine Clr Calc Pharmacy 57.4 ml/min; Est GFR (African American) 77.5 ml/min; Est GFR (Non-African American) 66.9 ml/min; Globulin 3.2 gm/dl (2.5-4.0); Magnesium 1.9 mg/dl (1.7-2.4); Potassium 3.2 mmol/L (3.5-5.1); Total Protein 6.7 gm/dl (6.0-8.3)
[2022-10-06 06:53] LABS: Troponin I High Sensitivity 78.4 pg/ml (0-20)
[2022-10-06 07:12] LABS: INR 1.7 (0.9-1.1); Partial Thromboplastin Ratio 1.3; Partial Thromboplastin Time 36.2 Seconds (21.0-31.0); Prothrombin Time 17.5 Seconds (9.0-12.0)
[2022-10-06 07:44] LABS: Hematocrit (blood only) 39.2 % (42.0-52.0); Mean Corpuscular Hemoglobin 30.9 pg (25.0-34.0); Mean Corpuscular Hgb Conc 35.7 g/dL (32.0-36.0); Mean Corpuscular Volume 86.5 fL (80.0-100.0); Mean Platelet Volume 9.7 fL (9.4-12.4); Platelet Count 53 K/uL (130-400); RDW Standard Deviation 40.3 fL (36.4-46.3); Red Blood Count 4.53 M/uL (4.70-6.10)
[2022-10-06 07:54] LABS: Lymphocytes % (auto) 57.1 %; Monocytes # (auto) 0.21 K/uL (0.11-0.59); Neutrophils # (auto) 0.09 K/uL (1.40-6.50); Neutrophils % (auto) 12.9 %
[2022-10-06] MEDS ORDERED: ETHYL CHLORIDE AER PER SPRAY 100 ML CAN EXT ONE (09:25)
[2022-10-06] MEDS ORDERED: ETHYL CHLORIDE AER SPR 100 ML CAN EXT ONE (09:45)
--- NOTE | 2022-10-06 10:51 | Hospitalist Progress Note ---
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 source could be the knee, given pain and swelling CT knee shows small effusion Chest x ray and abdominal CT did not show any acute pathology Ortho on consult Will continue broad spectrum antibiotics, Cefepime and Daptomycin Await culture (2) Elevated lactic acid level: Plan: secondary to sepsis some improvement after IV fluids (3) Neutropenia: Plan: s/p chemo 09/22 for metastatic rectal cancer. Oncologist is Dr. Suarez. Reached out to Dr. Suarez regarding Neupogen; Will defer for now as lack of clear benefit in this setting. Oncology consulted. (4) 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 adjunct faculty for medical terminology 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: Plan: Unable to swallow PO warfarin. Deferring IV anticoag until r/o hemarthrosis of L knee. (5) Altered mental status: Plan: Secondary to the above. CT head w/o acute changes or intracranial hemorrhage. (6) S/P CARPET LAYER shunt: Plan: Per patient's , had MRI and shunt adjustment at [place] 07/2022. (7) Metabolic acidosis, increased anion gap: Plan: Likely due to sepsis Continue antibiotics and IV fluids as above (8) Lactic acidosis: (9) Tachypnea: Plan FEN/GI: NPO. Failed dysphagia screen. NSS 60mL/hr x 1 bag anticoag: on hold code: full: detailed discussion w/ patient's dispo: continue hospitalization Admission and Anticipated Discharge Date Admission Date: October 05, 2022 Subjective patient seen and examined, by the bed side, complains of pain on the left knee Review of Systems Review of Systems: All systems reviewed are negative, apart from the ones contained in the history. Physical Exam Physical Exam: The patient is awake, alert and oriented 3, in some distress HEENT--PERRL, EOMI, mucous membranes and oropharynx mildly dry Neck--supple. No JVD. No bruits. Thyroid normal, trachea midline, no adenopathy. porthacath Heart--normal S1 and S2. No murmurs, rubs or gallops. Lungs--clear bilaterally, no respiratory distress, no accessory muscle use. Abdomen--normal bowel sounds and soft. Mild epigastric and left sided abdominal pain Extremities--left knee swelling Dermatologic--normal skin turgor, normal color, no abnormal lymph nodes, no rash. Neurologic--cranial nerves II through XII grossly intact. Rheumatologic--normal range of motion. Psychiatric--normal affect. Results & Data Results & Data Vital Signs (Past 12 Hours) Vital Signs Temp Pulse Pulse Resp BP Pulse Ox O2 Del Method 10/06/22 08:00 Nasal Cannula 10/06/22 07:38 97.9 F 103 H 17 116/80 96 Nasal Cannula 10/06/22 00:00 107 H 10/06/22 03:09 99.5 F 105 H 20 122/84 96 Nasal Cannula O2 Flow Rate 10/06/22 08:00 1.5 10/06/22 07:38 1.5 10/06/22 00:00 10/06/22 03:09 2 PG Care Time/CCT Total # of Minutes Spent Total Time Spent with Patient: Total time spent is greater than 50% in coordination of care (as documented) at patient's floor/unit and/or counseling patient: Coding Level of Care Code 82340 SUB INP/OBS CARE 2/35MIN Diagnoses Sepsis A41.9 Elevated lactic acid level R79.89 Neutropenia D70.1; T45.1X5A Neutropenia type: secondary to cancer chemotherapy 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 adjunct faculty for medical terminology 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 Z79.01 Altered mental status R41.0 Altered mental status type: disorientation S/P CARPET LAYER shunt Z98.2 Metabolic acidosis, increased anion gap E87.29 Lactic acidosis E87.20 Tachypnea R06.82 Time Spent (min) 35 (3) Neutropenia Neutropenia type: secondary to cancer chemotherapy Qualified Code(s): D70.1 - Agranulocytosis secondary to cancer chemotherapy; T45.1X5A - Adverse effect of antineoplastic and immunosuppressive drugs, initial encounter (5) Altered mental status Altered mental status type: disorientation Qualified Code(s): R41.0 - Disorientation, unspecified
[2022-10-06 11:48] LABS: C Reactive Protein 42.6 mg/dl (0-0.5)
[2022-10-06] MEDS: FLUCONAZOLE 100 MG TAB PO SCH (12:28)
--- NOTE | 2022-10-06 12:55 | Neurology Consultation ---
Date of Consultation October 06, 2022 Assessment & Plan (1) Altered mental status: Plan NEUROLOGY CONSULTATION Assessment & Plan: Impression: pt with resolved confusion, likely due to metabolic disorder/infecti on related. not suggestive of stroke. Recommendations: -continue tx for infection and metabolic disorder. no need for further stroke work up at this point. continue supportive care. continue warfarin. will sign off. call again if new question. Dr. Austen Parker MD [facility] Neurology Chief Complaint: confusion History of Present Illness: pt this morning back to baseline. not confused anymore. CT head negative. chart reviewed. speaking well in romansh and some congolese. 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 Patient's had returned home w/ patient unattended for 30 min (he is A&Ox4 at baseline). She noted that he was less verbal than usual and only gave single word responses. His speech was slightly dysarthric and he appeared mildly confused. Patient complained of left knee swelling and pain yesterday. He fell on the ground today from generalized weakness, but this is different and unrelated to the knee swelling. Patient's collective symptoms of malaise and AMS worsened today, prompting the ED visit. Patient does take tramadol 50mg at night and uses medical marijuana. His denies noticing misuse. She did not note any fever, URI symptoms, abdominal pain, or diarrhea. He appeared slightly sweaty. No home O2 and no tellez. Per , had ENERGY CONSERVATION ENGINEER shunt adjustment and MRI brain in 07/2022 through [place]. Chemo on 09/22/22. History was obtained from because of patient's AMS. He is able to give single word responses and denies pain. He endorses confusion. ED course: 2.5L NSS bolus. Cefepime. Dapto. Notable labs: procal 6.03. Lactate 4.6. Neutropenic 0.07. Leukopenic 0.91. CT head w/o hydrocephalus or bleed. CT abd and chest pending. ABG w/ pH 7.4. Past Medical History: See chart Meds: See chart I personally reviewed all of the medications Social & Family History: See chart Review of Systems: Per initial HPI on admission. Physical Exam: GEN: NAD HEENT: Normocephalic Neuro: Mental status:Alert and knew location and home address and knew and speaks well in romansh. No dysarthria or aphasia.No neglect. Fluent speech. No apraxia Cranial Nerves:II-XII intact Motor:grossly moves all limbs, limited left leg exam due to pain in his knee. Coordination:Intact grossly. Sensation: Intact x 4 extremities to touch Chart reviewed I have spent more than 50% educating patient about potential diagnosis and neurological evaluation and coordinating care with patient's treatment team. Total time spent (including chart review and coordination of care): 80 min (this includes chart review). History of Present Illness Attending Physician: Jose Dennis MD Allergies Allergy/AdvReac Type Severity Reaction Status Date / Time Anesthetics - Bing Type- AdvReac Intermediate URINARY Verified 10/05/22 17:44 Parabens RETENTION Home Medications Medication Instructions Recorded Confirmed Type dorzolamide 22.3 mg-timolol 6.8 1 drp OPB BID 01/14/19 10/05/22 History mg/mL eye drops latanoprost 0.005 % eye drops 1 drp OPB HS 01/14/19 10/05/22 History lactobacillus combination no.4 3 3,000 mmu cells PO QAM ##0 03/08/19 10/05/22 History billion cell capsule (Probiotic) Wheelchair (Manual) #1 ea 09/24/19 09/27/22 Rx medical marijuana 1 ea PO BID PRN appetite, mood 04/15/20 10/05/22 History Wheeled Walker #1 ea 06/26/21 09/27/22 Rx Wheeled Walker #1 ea 11/09/21 09/27/22 Rx ibuprofen 200 mg tablet 200 mg PO Q12H PRN back pain 07/26/22 10/05/22 History warfarin 2.5 mg tablet See Rx Instructions .Route .COMPLEX 07/26/22 10/05/22 History tramadol 50 mg tablet 50 mg PO Q6H PRN pain 08/23/22 10/05/22 History brimonidine 0.15 % eye drops 1 drp OPR BID 10/05/22 10/05/22 History carboplatin 150 mg intravenous 0 mg IV DIRECTED 10/05/22 10/05/22 History solution etoposide phosphate 100 mg 0 mg IV DIRECTED 10/05/22 10/05/22 History intravenous solution Patient History Medical History Acoustic neuroma 2011 Anxiety BPH (benign prostatic hyperplasia) Brain cancer acoustic neuroma s/p radiation 2013, ENERGY CONSERVATION ENGINEER shunt in place Chest pain Constipation Deafness in right ear speak into left ear, pt has no hearing aid in right Deep vein thrombosis 10/2020, "in his chest", now taking Coumadin; f/u PCP Dysphagia Encounter for pre-operative examination GERD (gastroesophageal reflux disease) med prn Glaucoma History of radiation therapy 2011 - Gamma Knife - in [place] - for Acoustic Neuroma Palpitations Polycythemia Port-A-Cath in place (03/15/19) Insertion of A-Port via left subclavian Dr. 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 Diagnosed 12/2018 Rectal cancer Diagnosed 12/25/14, Recurrence 12/2018; chemo/radiation Secondary lung cancer (05/12/22) s/p radiation to left lung per [place] oncology records 06/25/22 Superior mesenteric vein thrombosis Surgical History History of anesthesia reaction URINARY RETENTION History of brain shunt 2012 hydrocephalus History of cataract surgery RT/LEFT History of colonoscopy History of esophagogastroduodenoscopy (EGD) History of hemorrhoidectomy 12/25/2014 History of liver biopsy History of procedure for peripheral vascular disease S/P ENERGY CONSERVATION ENGINEER shunt 2013 Family History Mother , Passed age 92 of old age Stroke Myocardial infarction Father , Passed age 100 of old age No problems noted. Brother Family history of diabetes mellitus Hypertension Other Heart disease Denies family history of Colon cancer Ovarian cancer Prostate cancer Breast cancer Social History Smoking Status: Former smoker Tobacco Type: Cigarettes packs per day: 1; Cigarettes Per Day: quit at age 44; Smoking End Date: stopped smoking at age 44; Second Hand Exposure: No; Do You Dip or Chew Tobacco: No; Tobacco Cessation Education Requested by Patient: No Hx Alcohol Use: No Hx Substance Use: Yes Last Used Substance: Days (ago) Last Used Substance Other:: yesterday 10/04/22 Substance Use Type Other:: medical marijuanan for appetite stimulation Preferred Language: Mandarin Mongolian Communication Ability: Impaired Visual Impairment: No Limitations Hearing Ability: Hard of Hearing Helicopter Utility Aircrewman Required: Yes Beliefs That Will Affect Care: None marital status: Current Living Situation: Spouse current occupational status: retired 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 How many Children do You have: 2 Other Information That Helps Us Care for You: No Feels Safe at Home: Yes Safety Concerns: Feels Safe At This Time caffeine: No Dental Care, Regularly: No Physical Activity Frequency: Does not Exercise Seatbelt Use: always Sunscreen Use: No Assistive Devices: Cane, Glasses and Walker Results & Data Vital Signs (Past 12 Hours) Vital Signs Temp Pulse Resp BP Pulse Ox O2 Del Method O2 Flow Rate 10/06/22 12:14 36.5 C 102 H 17 115/80 96 Nasal Cannula 1.5 10/06/22 08:00 Nasal Cannula 1.5 10/06/22 07:38 36.6 C 103 H 17 116/80 96 Nasal Cannula 1.5 10/06/22 03:09 37.5 C 105 H 20 122/84 96 Nasal Cannula 2 (1) Altered mental status Altered mental status type: disorientation Qualified Code(s): R41.0 - Disorientation, unspecified
[2022-10-06] MEDS ORDERED: WARFARIN SOD 2.5 MG TAB PO SCH (15:00)
--- NOTE | 2022-10-06 15:53 | Orthopedic Consultation ---
Date of Service October 06, 2022 Assessment & Plan (1) Left knee pain: Patient seen and examined today. He does have a small knee effusion. CRP and ESR are elevated. His INR is 1.7 today. He was already seen by Dr. Wu today and did have his knee aspirated. I spoke with Dr. Malloy. We will await the lab results from the aspiration. History of Present Illness Reason for Consultation: . left knee effusion/pain Requesting Physician: . Attending Physician: Jose Dennis MD .Mr. Colunga is a 77 year old patient with a history of metastatic rectal cancer admitted yesterday to the hospitalist service with generalized weakness/confusion and found to have sepsis. He has been undergoing chemotherapy and is neutropenic. Much of his history obtained from the H and P and also from his who is present with him. She states that he did not have any knee pain prior to 2 days ago. She said he was alone for a brief period of time 2 days ago in the evening and believes that he fell during this time. Since that time he has been complaining of left knee pain. He did have some xrays and CT scans, was also seen by Dr. Wu and had his knee aspirated. He also has a history of DVT and his on warfarin. His INR is 1.7 today. ESR is 49. CRP 42.60 Allergies Allergy/AdvReac Type Severity Reaction Status Date / Time Anesthetics - Bing Type- AdvReac Intermediate URINARY Verified 10/05/22 17:44 Parabens RETENTION Home Medications Medication Instructions Recorded Confirmed Type dorzolamide 22.3 mg-timolol 6.8 1 drp OPB BID 01/14/19 10/05/22 History mg/mL eye drops latanoprost 0.005 % eye drops 1 drp OPB HS 01/14/19 10/05/22 History lactobacillus combination no.4 3 3,000 mmu cells PO QAM ##0 03/08/19 10/05/22 History billion cell capsule (Probiotic) Wheelchair (Manual) #1 ea 09/24/19 09/27/22 Rx medical marijuana 1 ea PO BID PRN appetite, mood 04/15/20 10/05/22 History Wheeled Walker #1 ea 06/26/21 09/27/22 Rx Wheeled Walker #1 ea 11/09/21 09/27/22 Rx ibuprofen 200 mg tablet 200 mg PO Q12H PRN back pain 07/26/22 10/05/22 History warfarin 2.5 mg tablet See Rx Instructions .Route .COMPLEX 07/26/22 10/05/22 History tramadol 50 mg tablet 50 mg PO Q6H PRN pain 08/23/22 10/05/22 History brimonidine 0.15 % eye drops 1 drp OPR BID 10/05/22 10/05/22 History carboplatin 150 mg intravenous 0 mg IV DIRECTED 10/05/22 10/05/22 History solution etoposide phosphate 100 mg 0 mg IV DIRECTED 10/05/22 10/05/22 History intravenous solution Past Med/Surg History Medical History Acoustic neuroma 2011 Anxiety BPH (benign prostatic hyperplasia) Brain cancer acoustic neuroma s/p radiation 2013, MUSIC THEORY PROFESSOR shunt in place Chest pain Constipation 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 Diagnosed 12/2018 Rectal cancer Diagnosed 12/25/14, Recurrence 12/2018; chemo/radiation Secondary lung cancer (05/12/22) s/p radiation to left lung per [place] [facility] [place] 06/25/22 Superior mesenteric vein thrombosis Surgical History History of anesthesia reaction URINARY RETENTION History of brain shunt 2012 hydrocephalus History of cataract surgery RT/LEFT History of colonoscopy History of esophagogastroduodenoscopy (EGD) History of hemorrhoidectomy 12/25/2014 History of liver biopsy History of procedure for peripheral vascular disease S/P MUSIC THEORY PROFESSOR shunt 2013 Family History Mother , Passed age 92 of old age Stroke Myocardial infarction Father , Passed age 100 of old age No problems noted. Brother Family history of diabetes mellitus Hypertension Other Heart disease Denies family history of Colon cancer Ovarian cancer Prostate cancer Breast cancer Social History Smoking Status: Former smoker Tobacco Type: Cigarettes packs per day: 1; Cigarettes Per Day: quit at age 44; Smoking End Date: stopped smoking at age 44; Second Hand Exposure: No; Do You Dip or Chew Tobacco: No; Tobacco Cessation Education Requested by Patient: No Hx Alcohol Use: No Hx Substance Use: Yes Last Used Substance: Days (ago) Last Used Substance Oth er:: yesterday 10/04/22 Substance Use Type Other:: medical marijuanan for appetite stimulation Preferred Language: Mandarin Romanian Communication Ability: Impaired Visual Impairment: No Limitations Hearing Ability: Hard of Hearing Osteopathy Doctor Required: Yes Beliefs That Will Affect Care: None marital status: Current Living Situation: Spouse current occupational status: retired 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 Physical Exam .Alert, No acute distress. Left leg: Small knee effusion. Has generalized tenderness to palpation around his knee. Skin is intact other than a band aid on his aspiration site. He tolerates limited passive range of motion of his knee, about 0-50 degrees. He is unable to do a straight leg raise. I am not able to palpate an defect in his quad tendon. Results & Data Results & Data Laboratory Results . Diagnostic Findings . Xrays of the left knee reviewed and show no obvious fracture. Ct scan reviewed and also shows no fractures. He does have some edema in the vastus lateralis per report. PG Care Time/CCT Total # of Minutes Spent Total Time Spent with Patient: Total time spent is greater than 50% in coordination of care (as documented) at patient's floor/unit and/or counseling patient: Coding Level of Care Code 63001 IN/OBS CONSULT LVL 3,45M Diagnoses Left knee pain M25.562
--- NOTE | 2022-10-06 16:03 | Consultation Report ---
DATE OF CONSULTATION: 10/06/2022 HISTORY OF PRESENT ILLNESS: This is a 77-year-old gentleman seen at request of Dr. Javier Wu and Dr. Greg Ferrari. The patient has a history of rectal adenocarcinoma, metastatic to lung and liver with anxiety, acoustic neuroma, BPH, right ear deafness, pulmonary embolism, on warfarin, GERD, glaucoma, polycythemia and neutropenia. The patient began having symptoms of generalized weakness and confusion since approximately 6:30 p.m. on 10/04/22. The patient's returned home after picking up dinner and the patient was left unattended for approximately 30 minutes. She noted that he rapidly became almost nonverbal and began giving only occasional single word responses. He had confusion and sudden loss of appetite. He had complaints of left knee swelling and pain, which according to the , who does translation for this pokagon Mandarin Faroese speaker, the patient has discomfort in his left leg and knee, which began spontaneously. He had no clear evidence of any fall prior to; however, the states that the patient may have had a fall within the last several days. He was transferred to [facility], admitted to the Hospitalist Service with diagnosis of bacteremia and sepsis, concerns regarding left knee as being a possible source and he has been on IV antibiotics and supportive management. He has had improvement in his indices indicating improvement in his overall general condition and the patient's reports that the patient is more awake and alert and he does speak some Nigerien during the evaluation. 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 PAST SURGICAL HISTORY: Anesthesia reaction, urinary retention, brain shunt, cataract surgery, bilateral colonoscopy, EGD, hemorrhoidectomy, liver biopsy, peripheral vascular disease status post peripheral bypass. ALLERGIES: Anesthetic agent WITH URINARY RETENTION. MEDICATIONS: Please note the list in the medical record. SOCIAL HISTORY: Denies tobacco use. He was a former cigarette smoker 1 pack per day, quit at age 44. Denies alcohol and drug use. 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 He is , lives with his spouse. PHYSICAL EXAMINATION: This is a 77-year-old gentleman presents with his at bedside. He is awake and alert. He does speak fluent Mandarin Faroese. He responds to questions with his as plate glass installer helper. He does understand Nigerien, however, prefers to have his answer questions as she is well spoken in Nigerien and Mandarin Faroese. The patient does respond to questions regarding pain, swelling, fever appropriately. He is lying supine in his hospital room bed. Focused examination of bilateral knees demonstrates mild effusion on the left compared to the right. Right knee is benign with full range of motion, 0- 140 degrees of flexion. Ligament exam is stable on the right. Examination of the left, he has a stable ligamentous exam for varus and valgus stress testing. Negative anterior and posterior drawer tests. Melodie test is negative. He has range of motion 0-45 degrees of flexion, limited by pain, primarily localized to the distal lateral aspect of the thigh with ecchymosis and redness, slight warmth without any evidence of fluctuance or fluid collection in the muscle belly or adjacent to the knee. No crepitation is noted with passive flexion of the left knee. As stated previously, there is a mild effusion. He is able to spontaneously extend the left knee support of the upper thigh. He does have some weakness with extension and certainly has tenderness to palpation superior border of the patella and the superolateral aspect of the patella extending into the distal aspect of the vastus lateralis. There is some local muscular edema in the left vastus lateralis compared to the right. Laboratories and radiographic examinations including x-rays and CT scans of the left knee and femur have been reviewed noting minimal effusion, no evidence of significant fluid collections, whether it be in the left knee or in the areas imaged on the vastus lateralis or rectus femoris regions. The extensor including the quadriceps tendon appears to be contiguous; however, there is an area that appears may have laxity; however, not reported in the radiographic report. No obvious fractures, no loose bodies. Age-appropriate mild arthritic changes. Laboratories consistent with bacteremia, neutropenia, thrombocytopenia. The microbiology revealing bacteremia. IMPRESSION: 1. Left knee effusion-mild. 2. Lateral distal thigh ecchymosis left leg. 3. Contusion, left thigh. 4. Rule out possible partial quadriceps tendon derangement. 5. Bacteremia. 6. Rectal adenocarcinoma with metastases to lung and liver. RECOMMENDATIONS: Procedure: After obtaining oral consent from the patient and his , the proper procedure site was identified with procedure "time-out", the patient underwent sterile prep of the left knee in the superolateral aspect with Betadine and alcohol prep followed by aspiration with sterile 18 gauge needle and 60cc syringe, of approximately 7 mL of straw colored, clear, viscous, synovial appearing fluid without evidence of obvious bacterial infection. It is straw-colored, light in color, translucent. No particulate debris was noted in the aspirate. The needle was withdrawn in atraumatic fashion. Direct pressure was applied to the site for approximately 8 minutes and then a sterile bandage applied to the site. Ethyl chloride was used as local refrigerant prior to aspiration. The patient tolerated well. The sample was then sent for aerobic, anaerobic, Gram stain analysis in addition to cell count with manual differential, crystal analysis, and Lyme titer. The patient should also have ice applied to the left knee as needed, assist for transport, weightbearing as tolerated with walker under supervision. Continue IV antibiotics per medical team. MRI left knee/left thigh to assess for possible quadriceps hematoma/derangement if approved by medicine, radiology and neurosurg Await findings from left knee joint fluid analysis Will follow with you. Thank you for the opportunity to consult in the care of this patient. Brenton Wu DO [facility] [place] Job ID: [id number] [facility]
[2022-10-06 16:07] LABS: Appearance Synovial Fluid Cloudy; Color Synovial Fluid Red; Mononuclear WBC Synovial 79.3 %; Polynuclear WBC Synovial 20.7 %; RBC Synovial Fluid Auto 101000 /uL; Source Synovial Fluid Knee; WBC Synovial Fluid Auto 359 /ul (0-200)
[2022-10-06 17:00] LABS: Vitamin B12 453 pg/ml (180-914)
[2022-10-06] MEDS ORDERED: DAPTOmycin 500 MG in SYRINGE 0 ML IV SCH (19:00)
[2022-10-06] MEDS ORDERED: DAPTOmycin 375 MG in SYRINGE 0 ML IV SCH (19:00)
[2022-10-06] MEDS: BRIMONIDINE TARTRATE-P 0.15% 5 ML BTL OPR SCH (21:07)
[2022-10-06] MEDS: DORZOLAMIDE/TIMOLOL 22.3/6.8MG/ML 10 ML BTL OPB SCH (21:07)
[2022-10-06] MEDS: LATANOPROST 0.005% OP SOLN 2.5 ML BTL OPB SCH (21:08)
[2022-10-06] MEDS ORDERED: POLYETHYLENE (MIRALAX) 17 GM PACK PO PRN (21:19)
[2022-10-07] MEDS: ACETAMINOPHEN 1,000 MG/100 ML VIAL IV PRN ×2 (05:56→22:56)
[2022-10-07] MEDS: CEFEPIME 2,000 MG in SYRINGE 0 ML IV SCH ×3 (05:56→22:40)
[2022-10-07 06:23] LABS: Hemoglobin 13.2 g/dl (14.0-18.0); Mean Corpuscular Hemoglobin 31.2 pg (25.0-34.0); Mean Corpuscular Hgb Conc 35.7 g/dL (32.0-36.0); Mean Corpuscular Volume 87.5 fL (80.0-100.0); Mean Platelet Volume 10.2 fL (9.4-12.4); Platelet Count 71 K/uL (130-400); RDW Coefficient of Variation 13.2 % (11.5-14.5); RDW Standard Deviation 41.1 fL (36.4-46.3); Red Blood Count 4.23 M/uL (4.70-6.10); White Blood Count 1.34 K/ul (4.8-10.8)
[2022-10-07 06:34] LABS: BUN Creatinine Ratio 27.9 (10-20); Calcium 7.7 mg/dl (8.5-10.1); Creatinine Clr Calc Pharmacy 71.3 ml/min; Est GFR (African American) 96.3 ml/min; Est GFR (Non-African American) 83.1 ml/min; Potassium 3.1 mmol/L (3.5-5.1)
[2022-10-07] MEDS ORDERED: POTASSIUM CHLORIDE CRTAB 20 MEQ TABCR PO ONE (06:40)
[2022-10-07 08:50] LABS: Basophils # (auto) 0.02 K/uL (0-0.2); Basophils % (auto) 1.5 %; Dohle Bodies 1+; Immature Granulocytes % (auto) 7.3 %; Lymphocytes # (auto) 0.44 K/uL (1.2-3.4); Lymphocytes % (auto) 32.1 %; Monocytes # (auto) 0.32 K/uL (0.11-0.59); Monocytes % (auto) 23.4 %; Neutrophils # (auto) 0.49 K/uL (1.40-6.50); Neutrophils % (auto) 35.7 %; Toxic Granulation 1+
[2022-10-07] MEDS: FLUCONAZOLE 100 MG TAB PO SCH (09:00)
[2022-10-07] MEDS: DORZOLAMIDE/TIMOLOL 22.3/6.8MG/ML 10 ML BTL OPB SCH ×2 (09:01→22:41)
[2022-10-07] MEDS: BRIMONIDINE TARTRATE-P 0.15% 5 ML BTL OPR SCH ×2 (09:01→22:42)
--- NOTE | 2022-10-07 11:17 | Hospitalist Progress Note ---
Date of Service October 07, 2022 Assessment & Plan (1) Sepsis: Plan: 77 y/o male w/ PMHx of rectal adenocarcinoma metastatic to lung and liver, anxiety, BPH, acoustic neuroma s/p FREIGHT INSPECTOR shunt, right ear deafness, PE on warfarin, GERD, glaucoma, polycythemia, chest port who presents w/ generalized weakness and confusion a day prior to presentation Severe sepsis. source could be the knee, given pain and swelling CT knee shows small effusion Chest x ray and abdominal CT did not show any acute pathology Ortho on consult, joint has been aspirated, awaitng cultures Will continue broad spectrum antibiotics, Cefepime and Daptomycin Await culture (2) Elevated lactic acid level: Plan: secondary to sepsis some improvement after IV fluids (3) Neutropenia: Plan: s/p chemo 09/22 for metastatic rectal cancer. Oncologist is Dr. Suarez. Reached out to Dr. Suarez regarding Neupogen; Will defer for now as lack of clear benefit in this setting. Some improvement in neutropenia Oncology consulted appreciate recs No urgent need for neupogen for now (4) Rhabdomyolysis: Plan: Non traumaitic rhabdo Elevated CPK on admission Will continue IV hydration (5) 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-term 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: Plan: Hold in view of thrombocytopenia (6) Altered mental status: Plan: Acute metabolic encephalopathy, Secondary to sepsis. CT head w/o acute changes or intracranial hemorrhage. According to , patient now back to his baseline (7) S/P FREIGHT INSPECTOR shunt: Plan: Per patient's , had MRI and shunt adjustment at [place] 07/2022. (8) Metabolic acidosis, increased anion gap: Plan: Likely due to sepsis Continue antibiotics and IV fluids as above (9) Lactic acidosis: (10) Tachypnea: Plan FEN/GI: low fiber diet anticoag: on hold code: full: detailed discussion w/ patient's dispo: continue hospitalization Admission and Anticipated Discharge Date Admission Date: October 05, 2022 Subjective patient seen and examined, by the bed side, complains of pain on the left knee and thigh Review of Systems Review of Systems: All systems reviewed are negative, apart from the ones contained in the history. Physical Exam Physical Exam: The patient is awake, alert and oriented 3, in some distress HEENT--PERRL, EOMI, mucous membranes and oropharynx mildly dry Neck--supple. No JVD. No bruits. Thyroid normal, trachea midline, no adenopathy. porthacath Heart--normal S1 and S2. No murmurs, rubs or gallops. Lungs--clear bilaterally, no respiratory distress, no accessory muscle use. Abdomen--normal bowel sounds and soft. Mild epigastric and left sided abdominal pain Extremities--left knee swelling, left thigh redness Dermatologic--normal skin turgor, normal color, no abnormal lymph nodes, no rash. Neurologic--cranial nerves II through XII grossly intact. Rheumatologic--normal range of motion. Psychiatric--normal affect. Results & Data Results & Data Vital Signs (Past 12 Hours) Vital Signs Temp Pulse Pulse Resp BP Pulse Ox O2 Del Method 10/07/22 11:11 Nasal Cannula 10/07/22 08:04 99 H 10/07/22 07:48 97.7 F 100 H 17 106/73 95 Nasal Cannula 10/07/22 02:41 97.9 F 111 H 18 105/74 96 Nasal Cannula O2 Flow Rate 10/07/22 11:11 1.5 10/07/22 08:04 10/07/22 07:48 1.5 10/07/22 02:41 PG Care Time/CCT Total # of Minutes Spent Total Time Spent with Patient: Total time spent is greater than 50% in coordination of care (as documented) at patient's floor/unit and/or counseling patient: Coding Level of Care Code 89711 SUB INP/OBS CARE 2/35MIN Diagnoses Sepsis A41.9 Elevated lactic acid level R79.89 Neutropenia D70.1; T45.1X5A Neutropenia type: secondary to cancer chemotherapy Rhabdomyolysis M62.82 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
[2022-10-07] MEDS: SODIUM CHLORIDE 0.9% 1000ML 1,000 ML IV SCH (11:42)
--- NOTE | 2022-10-07 12:01 | CT Scan Report ---
LEFT FEMUR CT CT DOSE: 425.93 mGy.cm HISTORY: Left thigh swelling TECHNIQUE: Multiaxial CT images of the left femur were performed and reformatted in the sagittal and coronal plane without the use of contrast. A dose lowering technique was utilized adhering to the pr inciples of CASSIDY. COMPARISON: Left femur CT 10/06/2022. FINDINGS: No acute fracture or dislocation within the left femur. The visualized pelvic bones are int act. 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 The bladder is decompressed b y Valdes catheter. Small fat-containing left inguinal hernia. Trace left knee effusion, unchanged. The re is mild skin thickening and subcutaneous edema within the lateral left thigh. This is similar to t he prior study. There is again noted a subtle ill-defined area of hypodensity within the distal vastu s lateralis muscle best seen on axial image 277. This is better appreciated on the prior contrast-enh anced CT examination but appears relatively unchanged compared the prior study. This is nonspecific a nd could represent a resolving hematoma, contusion, or nonspecific myositis. No definite loculated fl uid collections on this noncontrast study to suggest an abscess at this time. IMPRESSION: There is again noted a subtle ill-defined area of hypodensity within the distal vastus lateralis musc le. This is better appreciated on the prior contrast-enhanced CT examination but appears relatively u nchanged. This is nonspecific and could represent a resolving hematoma, contusion, or nonspecific erick sitis. No definite loculated fluid collections on this noncontrast study to suggest an abscess at thi s time. ACT 112: Negative or not required by law. Electronically signed by: Aman Dumont M.D. 10/07/2022 12:00 PM
[2022-10-07] MEDS: HEPARIN 100 UNIT/ML 5ML FLUSH FLUSH PRN (14:41)
--- NOTE | 2022-10-07 17:57 | Infectious Disease Consult ---
Date of Consultation October 07, 2022 Assessment & Plan (1) Neutropenia: #Strep agalactiae sepsis #L knee effusion s/p arthrocentesis 10/06 #Neutropenia secondary to chemotherapy #Rectal adenocarcinoma with mets MICRO Bcx 10/05 Group B beta hemolytic strep bottles, strep agalactiae by BC[facility]. 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 Unclear what chemotherapy regimen he received. Last oncology note scanned from 08/27 state he would lkely be started on capecitabine and oxaliplatin vs cisplatin and etopaside. He was seen by Urology on 09/27 to review his bladder discomfort, with discussion re cystoscopy. He was admitted on 10/05 with sudden onset AMS, found by his . Patient has been afebrile, tachycardic, req 1.5 L oxygen. Notable labs: procal 6.03. Lactate 4.6. Neutropenic 0.07. Leukopenic 0.91. CT head w/o hydrocephalus or bleed. Started on Cefepime. Dapto. Blood cultures 10/05 Group B beta hemolytic strep bottles, strep agalactiae by BCID. 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 No airspace disease. L knee CT shows effusion L femur CT shows subtle ill-defined area of hypodensity within the distal vastus lateralis muscle. Seen by Orthopaedics Knee arthrocentesis on 10/06 synovial fluid shows 359 wbcs (20%pmns, 79% monos) rbcs [id number] gram stain few wbcs no organisms. Patient on Diflucan, Cefepime, Daptomycinc dcd Discussion Strep sepsis in neutropenic patient. Etiology unclear can be secondary to lungs (CT no pneumonia), GI Tract, Urine (Ucx 1K colony only) or IV line, or L knee effusion, Plan to repeat blood cultures and follow L knee cultures. (2) Metastatic cancer: (3) Adenocarcinoma of colon: (4) Lumbar radiculopathy: (5) Sepsis: Plan -C/W Cefepime for now, P his synovial cultures, we may then narrow to Ceftriaxone -Repeat Blood cultures -Follow synovial fluid I would like to see patient live tomorrow ID will follow Thank you for this consult, will d/w primary team. Nancy Richards MD Infectious Diseases [facility] ID Connect Consultation Information This patient recommendation is based on a telemedicine consult request which was completed asynchronously through chart review and information provided by the primary physician. The patient was not seen or examined today. The evaluation is consultative in nature and all patient care and treatment decisions can either be accepted or rejected by the patient's primary hospital-based treating physician using their own independent medical judgment for their patient. Accounting Consultant contact information: Please call ID Connect Call Center . 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 Unclear what chemotherapy regimen he received. Last oncology note scanned from 08/27 state he would lkely be started on capecitabine and oxaliplatin vs cisplatin and etopaside. He was seen by Urology on 09/27 to review his bladder discomfort, with discussion re cystoscopy. He was admitted on 10/05 with sudden onset AMS, found by his . Patient has been afebrile, tachycardic, req 1.5 L oxygen. Notable labs: procal 6.03. Lactate 4.6. Neutropenic 0.07. Leukopenic 0.91. CT head w/o hydrocephalus or bleed. Started on Cefepime. Dapto. Blood cultures 10/05 Group B beta hemolytic strep bottles, strep agalactiae by BC[facility]. 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 No airspace disease. L knee CT shows effusion L femur CT shows subtle ill-defined area of hypodensity within the distal vastus lateralis muscle. Seen by Orthopaedics Knee arthrocentesis on 10/06 synovial fluid shows 359 wbcs (20%pmns, 79% monos) rbcs [id number] gram stain few wbcs no organisms. Patient on Diflucan, Cefepime, Daptomycinc dcd Allergies Allergy/AdvReac Type Severity Reaction Status Date / Time Anesthetics - Bing Type- AdvReac Intermediate URINARY Verified 10/05/22 17:44 Parabens RETENTION Home Medications Medication Instructions Recorded Confirmed Type dorzolamide 22.3 mg-timolol 6.8 1 drp OPB BID 01/14/19 10/05/22 History mg/mL eye drops latanoprost 0.005 % eye drops 1 drp OPB HS 01/14/19 10/05/22 History lactobacillus combination no.4 3 3,000 mmu cells PO QAM ##0 03/08/19 10/05/22 History billion cell capsule (Probiotic) Wheelchair (Manual) #1 ea 09/24/19 09/27/22 Rx medical marijuana 1 ea PO BID PRN appetite, mood 04/15/20 10/05/22 History Wheeled Walker #1 ea 06/26/21 09/27/22 Rx Wheeled Walker #1 ea 11/09/21 09/27/22 Rx ibuprofen 200 mg tablet 200 mg PO Q12H PRN back pain 07/26/22 10/05/22 History warfarin 2.5 mg tablet See Rx Instructions .Route .COMPLEX 07/26/22 10/05/22 History tramadol 50 mg tablet 50 mg PO Q6H PRN pain 08/23/22 10/05/22 History brimonidine 0.15 % eye drops 1 drp OPR BID 10/05/22 10/05/22 History carboplatin 150 mg intravenous 0 mg IV DIRECTED 10/05/22 10/05/22 History solution etoposide phosphate 100 mg 0 mg IV DIRECTED 10/05/22 10/05/22 History intravenous solution Patient History Medical History Acoustic neuroma 2011 Anxiety BPH (benign prostatic hyperplasia) Brain cancer acoustic neuroma s/p radiation 2013, [employer] shunt in place Chest pain Constipation Deafness in right ear speak into left ear, pt has no hearing aid in right Deep vein thrombosis 10/2020, "in his chest", now taking Coumadin; f/u PCP Dysphagia Encounter for pre-operative examination GERD (gastroesophageal reflux disease) med prn Glaucoma History of radiation therapy 2011 - Gamma Knife - in [place] - for Acoustic Neuroma Palpitations Polycythemia Port-A-Cath in place (03/15/19) Insertion of A-Port via left subclavian Dr. 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 Diagnosed 12/2018 Rectal cancer Diagnosed 12/25/14, Recurrence 12/2018; chemo/radiation Secondary lung cancer (05/12/22) s/p radiation to left lung per [place] oncology records 06/25/22 Superior mesenteric vein thrombosis Surgical History History of anesthesia reaction URINARY RETENTION History of brain shunt 2012 hydrocephalus History of cataract surgery RT/LEFT History of colonoscopy History of esophagogastroduodenoscopy (EGD) History of hemorrhoidectomy 12/25/2014 History of liver biopsy History of procedure for peripheral vascular disease S/P [employer] shunt 2013 Family History Mother , Passed age 92 of old age Stroke Myocardial infarction Father , Passed age 100 of old age No problems noted. Brother Family history of diabetes mellitus Hypertension Other Heart disease Denies family history of Colon cancer Ovarian cancer Prostate cancer Breast cancer Social History Smoking Status: Former smoker Tobacco Type: Cigarettes packs per day: 1; Cigarettes Per Day: quit at age 44; Smoking End Date: stopped smoking at age 44; Second Hand Exposure: No; Do You Dip or Chew Tobacco: No; Tobacco Cessation Education Requested by Patient: No Hx Alcohol Use: No Hx Substance Use: Yes Last Used Substance: Days (ago) Last Used Substance Other:: yesterday 10/04/22 Substance Use Type Other:: medical marijuanan for appetite stimulation Preferred Language: Mandarin Kyrgyz Communication Ability: Impaired Visual Impairment: No Limitations Hearing Ability: Hard of Hearing Pelt Dropper Required: Yes Beliefs That Will Affect Care: None marital status: Current Living Situation: Spouse current occupational status: retired 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 [employer] How many Children do You have: 2 Other Information That Helps Us Care for You: No Feels Safe at Home: Yes Safety Concerns: Feels Safe At This Time caffeine: No Dental Care, Regularly: No Physical Activity Frequency: Does not Exercise Seatbelt Use: always Sunscreen Use: No Assistive Devices: Cane, Glasses and Walker Results & Data Vital Signs (Past 12 Hours) Vital Signs Temp Pulse Pulse Resp BP Pulse Ox O2 Del Method 10/07/22 16:00 37.0 C 94 H 16 113/78 97 Nasal Cannula 10/07/22 17:06 90 10/07/22 14:07 36.3 C L 91 H 18 107/75 95 Room Air 10/07/22 11:11 Nasal Cannula 10/07/22 08:04 99 H 10/07/22 07:48 36.5 C 100 H 17 106/73 95 Nasal Cannula O2 Flow Rate 10/07/22 16:00 1.5 10/07/22 17:06 10/07/22 14:07 10/07/22 11:11 1.5 10/07/22 08:04 10/07/22 07:48 1.5 Laboratory Results Laboratory Results - last 48 hr 10/05/22 10/05/22 10/05/22 16:14 16:24 18:46 WBC RBC Hgb Hct MCV MCH MCHC RDW Std Deviation RDW Coeff of Brian Plt Count MPV Immature Gran % (Auto) Neut % (Auto) Lymph % (Auto) [place] % (Auto) Eos % (Auto) Baso % (Auto) Reticulocyte % (Auto) 1.6 Neut # (Auto) Lymph # (Auto) [place] # (Auto) Eos # (Auto) Baso # (Auto) Reticulocyte # 0.07 Immature Gran # (Auto) Toxic Granulation Dohle Bodies ESR PT INR APTT PTT Ratio ABG pH ABG pCO2 ABG pO2 ABG HCO3 ABG O2 Saturation ABG Base Excess Lloyd Test VBG pH VBG pCO2 VBG pO2 VBG HCO3 VBG O2 Saturation VBG Base Excess Oxygen Given Sodium Potassium Chloride Carbon Dioxide Anion Gap BUN Creatinine Est Cr Clr Drug Dosing Est GFR ( Amer) Est GFR (Non-Af Amer) BUN/Creatinine Ratio Glucose Lactate 4.5 H* Calcium Magnesium Total Bilirubin AST ALT Alkaline Phosphatase Lactate Dehydrogenase Total Creatine Kinase Troponin I High Sens C-Reactive Protein B-Natriuretic Peptide Total Protein Albumin Globulin Albumin/Globulin Ratio Vitamin B12 Folate Fluid Comment Synovial Source Synovial Color Synovial Appearance Synovial WBC (Auto) Synovial RBC (Auto) Synovial Polynuclear % Synovial Mononuclear % Synovial Crystals Anaplasma Smear See Comment Babesia Smear See Comment Lyme Disease IgG Ab Lyme Disease IgM Ab Streptococcus sp PCR DETECTED A Strep agalactiae (PCR) DETECTED A Bld Cult ID Panel PCR See PCR Comment 10/05/22 10/05/22 10/05/22 19:04 21:27 21:27 WBC RBC Hgb Hct MCV MCH MCHC RDW Std Deviation RDW Coeff of Brian Plt Count MPV Immature Gran % (Auto) Neut % (Auto) Lymph % (Auto) [place] % (Auto) Eos % (Auto) Baso % (Auto) Reticulocyte % (Auto) Neut # (Auto) Lymph # (Auto) [place] # (Auto) Eos # (Auto) Baso # (Auto) Reticulocyte # Immature Gran # (Auto) Toxic Granulation Dohle Bodies ESR PT INR APTT PTT Ratio ABG pH 7.40 ABG pCO2 29 L ABG pO2 81 ABG HCO3 18 L ABG O2 Saturation 97.3 H ABG Base Excess -5.5 Lloyd Test POSITIVE VBG pH VBG pCO2 VBG pO2 VBG HCO3 VBG O2 Saturation VBG Base Excess Oxygen Given ROOM AIR Sodium Potassium Chloride Carbon Dioxide Anion Gap BUN Creatinine Est Cr Clr Drug Dosing Est GFR ( Amer) Est GFR (Non-Af Amer) BUN/Creatinine Ratio Glucose Lactate Calcium Magnesium Total Bilirubin AST ALT Alkaline Phosphatase Lactate Dehydrogenase 187 Total Creatine Kinase Troponin I High Sens C-Reactive Protein B-Natriuretic Peptide 760 H Total Protein Albumin Globulin Albumin/Globulin Ratio Vitamin B12 Folate Fluid Comment Synovial Source Synovial Color Synovial Appearance Synovial WBC (Auto) Synovial RBC (Auto) Synovial Polynuclear % Synovial Mononuclear % Synovial Crystals Anaplasma Smear Babesia Smear Lyme Disease IgG Ab Lyme Disease IgM Ab Streptococcus sp PCR Strep agalactiae (PCR) Bld Cult ID Panel PCR 10/05/22 10/05/22 10/06/22 21:27 22:54 00:51 WBC RBC Hgb Hct MCV MCH MCHC RDW Std Deviation RDW Coeff of Brian Plt Count MPV Immature Gran % (Auto) Neut % (Auto) Lymph % (Auto) [place] % (Auto) Eos % (Auto) Baso % (Auto) Reticulocyte % (Auto) Neut # (Auto) Lymph # (Auto) [place] # (Auto) Eos # (Auto) Baso # (Auto) Reticulocyte # Immature Gran # (Auto) Toxic Granulation Dohle Bodies ESR PT INR APTT PTT Ratio ABG pH ABG pCO2 ABG pO2 ABG HCO3 ABG O2 Saturation ABG Base Excess Lloyd Test VBG pH VBG pCO2 VBG pO2 VBG HCO3 VBG O2 Saturation VBG Base Excess Oxygen Given Sodium Potassium Chloride Carbon Dioxide Anion Gap BUN Creatinine Est Cr Clr Drug Dosing Est GFR ( Amer) Est GFR (Non-Af Amer) BUN/Creatinine Ratio Glucose Lactate 2.2 H* Calcium Magnesium Total Bilirubin AST ALT Alkaline Phosphatase Lactate Dehydrogenase Total Creatine Kinase 1658 H Troponin I High Sens C-Reactive Protein B-Natriuretic Peptide Total Protein Albumin Globulin Albumin/Globulin Ratio Vitamin B12 Folate Fluid Comment Synovial Source Synovial Color Synovial Appearance Synovial WBC (Auto) Synovial RBC (Auto) Synovial Polynuclear % Synovial Mononuclear % Synovial Crystals Anaplasma Smear Babesia Smear Lyme Disease IgG Ab Negative Lyme Disease IgM Ab Negative Streptococcus sp PCR Strep agalactiae (PCR) Bld Cult ID Panel PCR 10/06/22 10/06/22 10/06/22 06:04 06:04 06:04 WBC 0.70 L* RBC 4.53 L Hgb 14.0 Hct 39.2 L MCV 86.5 MCH 30.9 MCHC 35.7 RDW Std Deviation 40.3 RDW Coeff of Brian 13.0 Plt Count 53 L MPV 9.7 Immature Gran % (Auto) 0.0 Neut % (Auto) 12.9 Lymph % (Auto) 57.1 [place] % (Auto) 30.0 Eos % (Auto) 0.0 Baso % (Auto) 0.0 Reticulocyte % (Auto) Neut # (Auto) 0.09 L* Lymph # (Auto) 0.40 L [place] # (Auto) 0.21 Eos # (Auto) 0.00 Baso # (Auto) 0.00 Reticulocyte # Immature Gran # (Auto) 0.00 L Toxic Granulation Dohle Bodies ESR PT 17.5 H INR 1.7 H APTT 36.2 H PTT Ratio 1.3 ABG pH ABG pCO2 ABG pO2 ABG HCO3 ABG O2 Saturation ABG Base Excess Lloyd Test VBG pH VBG pCO2 VBG pO2 VBG HCO3 VBG O2 Saturation VBG Base Excess Oxygen Given Sodium 139 Potassium 3.2 L Chloride 108 H Carbon Dioxide 21 Anion Gap 10 BUN 20 Creatinine 1.06 Est Cr Clr Drug Dosing 57.4 Est GFR ( Amer) 77.5 Est GFR (Non-Af Amer) 66.9 BUN/Creatinine Ratio 18.9 Glucose 124 H Lactate Calcium 8.0 L Magnesium 1.9 Total Bilirubin 1.8 H AST 35 ALT 30 Alkaline Phosphatase 53 Lactate Dehydrogenase Total Creatine Kinase Troponin I High Sens 78.4 H* D C-Reactive Protein 42.60 H B-Natriuretic Peptide Total Protein 6.7 Albumin 3.5 Globulin 3.2 Albumin/Globulin Ratio 1.1 Vitamin B12 Folate Fluid Comment Synovial Source Synovial Color Synovial Appearance Synovial WBC (Auto) Synovial RBC (Auto) Synovial Polynuclear % Synovial Mononuclear % Synovial Crystals Anaplasma Smear Babesia Smear Lyme Disease IgG Ab Lyme Disease IgM Ab Streptococcus sp PCR Strep agalactiae (PCR) Bld Cult ID Panel PCR 10/06/22 10/06/22 10/06/22 06:04 06:04 06:04 WBC RBC Hgb Hct MCV MCH MCHC RDW Std Deviation RDW Coeff of Brian Plt Count MPV Immature Gran % (Auto) Neut % (Auto) Lymph % (Auto) [place] % (Auto) Eos % (Auto) Baso % (Auto) Reticulocyte % (Auto) Neut # (Auto) Lymph # (Auto) [place] # (Auto) Eos # (Auto) Baso # (Auto) Reticulocyte # Immature Gran # (Auto) Toxic Granulation Dohle Bodies ESR PT INR APTT PTT Ratio ABG pH ABG pCO2 ABG pO2 ABG HCO3 ABG O2 Saturation ABG Base Excess Lloyd Test VBG pH 7.40 VBG pCO2 36 L VBG pO2 35 VBG HCO3 22 VBG O2 Saturation 69.6 VBG Base Excess -2.0 Oxygen Given Sodium Potassium Chloride Carbon Dioxide Anion Gap BUN Creatinine Est Cr Clr Drug Dosing Est GFR ( Amer) Est GFR (Non-Af Amer) BUN/Creatinine Ratio Glucose Lactate 1.9 Calcium Magnesium Total Bilirubin AST ALT Alkaline Phosphatase Lactate Dehydrogenase Total Creatine Kinase 1385 H Troponin I High Sens C-Reactive Protein B-Natriuretic Peptide Total Protein Albumin Globulin Albumin/Globulin Ratio Vitamin B12 Folate Fluid Comment Synovial Source Synovial Color Synovial Appearance Synovial WBC (Auto) Synovial RBC (Auto) Synovial Polynuclear % Synovial Mononuclear % Synovial Crystals Anaplasma Smear Babesia Smear Lyme Disease IgG Ab Lyme Disease IgM Ab Streptococcus sp PCR Strep agalactiae (PCR) Bld Cult ID Panel PCR 10/06/22 10/06/22 10/06/22 07:43 14:00 14:00 WBC RBC Hgb Hct MCV MCH MCHC RDW Std Deviation RDW Coeff of Brian Plt Count MPV Immature Gran % (Auto) Neut % (Auto) Lymph % (Auto) [place] % (Auto) Eos % (Auto) Baso % (Auto) Reticulocyte % (Auto) Neut # (Auto) Lymph # (Auto) [place] # (Auto) Eos # (Auto) Baso # (Auto) Reticulocyte # Immature Gran # (Auto) Toxic Granulation Dohle Bodies ESR 49 H PT INR APTT PTT Ratio ABG pH ABG pCO2 ABG pO2 ABG HCO3 ABG O2 Saturation ABG Base Excess Lloyd Test VBG pH VBG pCO2 VBG pO2 VBG HCO3 VBG O2 Saturation VBG Base Excess Oxygen Given Sodium Potassium Chloride Carbon Dioxide Anion Gap BUN Creatinine Est Cr Clr Drug Dosing Est GFR ( Amer) Est GFR (Non-Af Amer) BUN/Creatinine Ratio Glucose Lactate Calcium Magnesium Total Bilirubin AST ALT Alkaline Phosphatase Lactate Dehydrogenase Total Creatine Kinase Troponin I High Sens C-Reactive Protein B-Natriuretic Peptide Total Protein Albumin Globulin Albumin/Globulin Ratio Vitamin B12 Folate Fluid Comment Synovial Source Knee Synovial Color Red Synovial Appearance Cloudy Synovial WBC (Auto) 359 H Synovial RBC (Auto) [id number] Synovial Polynuclear % 20.7 Synovial Mononuclear % 79.3 Synovial Crystals Anaplasma Smear Babesia Smear Lyme Disease IgG Ab Lyme Disease IgM Ab Streptococcus sp PCR Strep agalactiae (PCR) Bld Cult ID Panel PCR 10/06/22 10/07/22 10/07/22 15:58 05:41 05:41 WBC 1.34 L RBC 4.23 L Hgb 13.2 L Hct 37.0 L MCV 87.5 MCH 31.2 MCHC 35.7 RDW Std Deviation 41.1 RDW Coeff of Brian 13.2 Plt Count 71 L MPV 10.2 Immature Gran % (Auto) 7.3 Neut % (Auto) 35.7 Lymph % (Auto) 32.1 [place] % (Auto) 23.4 Eos % (Auto) 0.0 Baso % (Auto) 1.5 Reticulocyte % (Auto) Neut # (Auto) 0.49 L* Lymph # (Auto) 0.44 L [place] # (Auto) 0.32 Eos # (Auto) 0.00 Baso # (Auto) 0.02 Reticulocyte # Immature Gran # (Auto) 0.10 Toxic Granulation 1+ Dohle Bodies 1+ ESR PT INR APTT PTT Ratio ABG pH ABG pCO2 ABG pO2 ABG HCO3 ABG O2 Saturation ABG Base Excess Lloyd Test VBG pH VBG pCO2 VBG pO2 VBG HCO3 VBG O2 Saturation VBG Base Excess Oxygen Given Sodium 138 Potassium 3.1 L Chloride 109 H Carbon Dioxide 23 Anion Gap 6 BUN 24 H Creatinine 0.86 Est Cr Clr Drug Dosing 71.3 Est GFR ( Amer) 96.3 Est GFR (Non-Af Amer) 83.1 BUN/Creatinine Ratio 27.9 H Glucose 131 H Lactate Calcium 7.7 L Magnesium Total Bilirubin AST ALT Alkaline Phosphatase Lactate Dehydrogenase Total Creatine Kinase Troponin I High Sens C-Reactive Protein B-Natriuretic Peptide Total Protein Albumin Globulin Albumin/Globulin Ratio Vitamin B12 453 Folate > 22.30 Fluid Comment Synovial Source Synovial Color Synovial Appearance Synovial WBC (Auto) Synovial RBC (Auto) Synovial Polynuclear % Synovial Mononuclear % Synovial Crystals Anaplasma Smear Babesia Smear Lyme Disease IgG Ab Lyme Disease IgM Ab Streptococcus sp PCR Strep agalactiae (PCR) Bld Cult ID Panel PCR Microbiology 10/05/22 16:24 Blood Aerobic Blood Culture - Preliminary Group B Beta Strep 10/05/22 16:24 Blood Anaerobic Blood Culture - Preliminary No growth in Anaerobic bottle after 48 hours. 10/05/22 16:14 Blood Aerobic Blood Culture - Preliminary No growth in Aerobic bottle after 48 hours. 10/05/22 16:14 Blood Anaerobic Blood Culture - Preliminary No growth in Anaerobic bottle after 48 hours. 10/06/22 14:00 Knee,Left Gram Stain - Final 10/06/22 14:00 Knee,Left Aerobic and Anaerobic Culture - Preliminary No growth to date. 10/05/22 16:14 Urine,Indwelling Cath Urine Culture - Final No growth - less than 1,000 colonies/mL. Diagnostic Findings Chest X-Ray 10/05/22 15:56 XR chest 1V portable HISTORY: Sepsis COMPARISON: Chest 10/25/2021. PET CT 09/09/2022. FINDINGS: The patient's known left upper lobe nodule is partially obscured by the overlapping first rib. No pneumothorax. No pleural effusions. The heart is normal in size. A right-sided ventriculoperitoneal shunt is noted. There is a left subclavian Port-A-Cath which terminates in the SVC. There is mild central pulmonary vascular congestion without overt edema. No new focal lung consolidations to suggest pneumonia. IMPRESSION: 1. Mild central pulmonary vascular congestion without overt edema. 2. The patient's known left upper lobe nodule is partially obscured by the overlapping first rib. ACT 112: Negative or not required by law. Electronically signed by: Aman Dumont M.D. 10/05/2022 5:[address] 10/05/22 15:56 CT SCAN OF THE BRAIN WITHOUT IV CONTRAST CLINICAL HISTORY: Change in mental status. COMPARISON STUDY: MRI of the brain dated 04/05/2012. TECHNIQUE: Unenhanced axial CT scan of the brain is performed from the vertex to the skull base. A dose lowering technique was utilized adhering to the principles of ALARA. The examination is compromised by motion artifact. The patient was scanned twice in an effort to improve image quality. CT DOSE: 1228.53 mGy.cm FINDINGS: Brain parenchyma: A right frontal approach ventricular shunt catheter is in place. The tip terminates in the body of the left lateral ventricle. Encephal omalacia seen along the course of the catheter. There is age-related involutional change noting mild subcortical and periventricular microangiopathic disease. There is no hemorrhage, mass effect, or evidence of acute territorial ischemia by CT criteria. Pacheco-white matter differentiation is preserved. No extra-axial fluid collection is seen. Ventricles, sulci, cisterns: Prominent secondary to involutional change. Intracranial vasculature: There is mild atherosclerotic calcification of the cavernous carotid arteries. Calvarium: There is a right frontal bryanna hole. The calvarium is otherwise intact. Sinuses and mastoids: The visualized paranasal sinuses are clear. The mastoid air cells are well pneumatized. Orbits: The bony orbits are grossly intact. There are bilateral ocular lens i mplants. IMPRESSION: 1. There is no hemorrhage, mass effect, or evidence of acute territorial ischemia by CT criteria. 2. A right-sided ventricular shunt catheters in place. There is no evidence of hydrocephalus. ACT 112: Negative or not required by law. Electronically signed by: Yosef Alas M.D. 10/05/2022 6:33 PM Femur X-Ray 10/05/22 16:04 XR femur LT 2V routine, XR knee LT 1 or 2V routine CLINICAL HISTORY: Fall with left femur and knee pain. COMPARISON STUDY: None. FINDINGS: No fracture or dislocation within the left femur or left knee. No significant knee effusion. Mild vascular calcifications are noted. No significant soft tissue swelling. 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 IMPRESSION: No fracture or dislocation within the left femur or left knee. ACT 112: Negative or not required by law. Electronically signed by: Aman Dumont M.D. 10/05/2022 5:32 PM Knee X-Ray 10/05/22 16:04 XR femur LT 2V routine, XR knee LT 1 or 2V routine CLINICAL HISTORY: Fall with left femur and knee pain. COMPARISON STUDY: None. FINDINGS: No fracture or dislocation within the left femur or left knee. No significant knee effusion. Mild vascular calcifications are noted. No significant soft tissue swelling. 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 IMPRESSION: No fracture or dislocation within the left femur or left knee. ACT 112: Negative or not required by law. Electronically signed by: Aman Dumont M.D. 10/05/2022 5:32 PM Abdomen/Pelvis CT 10/05/22 17:26 CT SCAN OF THE ABDOMEN AND PELVIS WITH IV CONTRAST CLINICAL HISTORY: Rectal carcinoma. Clinical concern for abscess. COMPARISON STUDY: Abdominal CT dated 02/24/2022. PET/CT dated 09/09/2022. TECHNIQUE: Following the IV administration of 87 cc of Optiray 350, CT scan of the abdomen and pelvis is performed from the lung bases to the proximal femora. Images are reviewed in the axial, sagittal, and coronal planes. IV contrast was administered without complication. A dose lowering technique was utilized adhering to the principles of ALARA. The patient was scanned twice due to significant motion artifact. The examination is motion compromised. There is also streak artifact from the arms which could not be elevated above the abdomen or pelvis. FINDINGS: Lung bases: The tip of a central venous infusion port catheter terminates at the cavoatrial junction. The heart is top normal in size and without pericardial effusion. There are coronary artery calcifications. Evaluation of the lung bases is degraded by motion artifact. There is elevation of the right hemidiaphragm and bibasilar scarring/atelectasis. The lung bases are otherwise grossly clear. There is a small hiatal hernia. Liver: The contrast-enhanced liver is normal in size size and contour. Attenuation is heterogeneous. There is no intrahepatic biliary ductal dilatati on. No new hepatic metastatic disease is not well visualized due to streak and motion artifact. A 2.6 cm lesion below the right hemidiaphragm as seen on image #42 of the second series. The hepatic veins and portal veins are patent. There is a trace residual superior mesenteric venous thrombus, best seen on axial image #211. Gallbladder: Unremarkable. Spleen: Normal in size and attenuation. Pancreas: Moderately atrophic and grossly unremarkable. Adrenal glands: Unremarkable. Kidneys: The contrast enhanced kidneys demonstrate mild cortical atrophy and are without hydronephrosis. The kidneys enhance symmetrically. There are small bilateral nonobstructing renal calculi which measure up to 2 mm. Abdominal vasculature: There is moderate atherosclerotic calcification and mild ectasia of the abdominal aorta. Bowel: No bowel obstruction is seen. There is [id number] colonic fecal retention. The appendix is well-visualized and normal. Asymmetric right-sided rectal wall thickening is again seen on axial image #461. A right perirectal implant on image #1445 measures up to 2.1 cm. Additional presacral implants are seen on images #410 and #416. These measure up to 2 cm. There is mild colonic diverticulosis without CT evidence of acute diverticulitis. Peritoneum: There is no intraperitoneal free air or abdominal ascites. A ventriculoperitoneal shunt catheter is in place. This traverses the anterior abdominal wall, enters the abdominal cavity above the umbilicus, and is coiled in the right mid abdomen. Soft tissue thickening around the inferior mesenteric artery seen on image #304 has increased from 2022. This was FDG avid on the recent PET examination and likely represents metastatic disease. Lymphadenopathy: None. Pelvic viscera: The prostate gland is enlarged and heterogeneous noting median lobe hypertrophy. The bladder is decompressed around a Valdes catheter and not well evaluated. There are bilateral fat-containing inguinal hernias. Skeletal structures: The skeletal structures are osteopenic. Moderate lumbosacral spondylosis is observed. No lytic or blastic lesions are seen. IMPRESSION: 1. Significantly streak and motion compromised examination . 2. No acute infectious or inflammatory findings are identified in the abdomen or pelvis. 3. A right-sided rectal mass and multifocal metastatic disease has not appreciably changed as compared to the 09/09/2022 PET examination. See above. 4. 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 5 Bilateral nephrolithiasis. 6. Additional findings as above. ACT 112: Negative or not required by law. Electronically signed by: Yosef Alas M.D. 10/05/2022 8:31 PM Chest X-Ray 10/05/22 18:48 SINGLE VIEW CHEST CLINICAL HISTORY: Dyspnea. FINDINGS: An AP, portable, upright chest radiograph is compared to study dated 10/05/2022 and correlated with chest CT dated 02/24/2022 as well as PET/CT dated 09/09/2022. A left subclavian central venous infusion port is unchanged in position. The heart is enlarged. The pulmonary vasculature is noncongested. Chronic reticular thickening similar to previous. Scarring/atelectasis is noted at the lung bases. The patient's left apical pulmonary lesion was better assessed on prior CT scans. The lungs and pleural spaces are clear. No pneumothorax is seen. The skeletal structures are osteopenic. The bony thorax is grossly intact. IMPRESSION: 1. Cardiomegaly with no active disease in the chest. 2. The patient's known left apical pulmonary lesion was much better assessed on recent CT examinations. ACT 112: Negative or not required by law. Electronically signed by: Yosef Alas M.D. 10/05/2022 7:[address] 10/05/22 19:05 CT SCAN OF THE CHEST WITHOUT IV CONTRAST CLINICAL HISTORY: Dyspnea. Tachypnea. COMPARISON STUDY: Chest CT dated 02/24/2022. Chest x-ray dated 10/05/2022. PET/CT dated 09/09/2022. TECHNIQUE: CT scan of the thorax was performed from the thoracic inlet to the upper abdomen. Images are reviewed in the axial, sagittal, and coronal planes. IV contrast was not administered for this examination as per the referring clinician. A dose lowering technique was utilized adhering to the principles of ALARA. The examination is compromised by motion artifact, as well as by streak artifact from the arms which could not be elevated above the chest. CT DOSE: 766.90 mGy.cm FINDINGS: Thyroid: Imaged portions of the thyroid gland are normal in size and attenuation. Thoracic aorta: There is atherosclerotic calcification of the thoracic aorta, which is normal in caliber and demonstrates standard 3-vessel arch anatomy. Heart: A left subclavian central venous infusion port is in place. The heart is enlarged and without pericardial effusion. There are coronary artery calcifications. The main pulmonary arteries appear dilated suggest a pulmonary hypertension. Lungs and pleural spaces: Evaluation of the lung parenchyma is significantly compromised by motion artifact. Dependent scarring/atelectasis is present at both lung bases. No air space consolidation typical for pneumonia or pleural eff usion is identified. Moderate intralobular septal thickening suggests fluid overload. A 1.7 cm lobulated pulmonary nodule at the anterior left apex on image #49 is unchanged. The trachea and central airways appear clear. Mediastinum: There is no mediastinal lymphadenopathy. Rupinder: Not well assessed without IV contrast. Axillae: There is no axillary lymphadenopathy. Upper abdomen: Calcified granuloma is present in the spleen. Partially visualized upper abdominal viscera is otherwise grossly unremarkable. Known new hepatic metastatic lesions are not well-visualized due to streak and motion. Skeletal structures: The skeletal structures are osteopenic. Degenerative change is noted in the shoulders and thoracic spine. A presumed bone island in the body of T5 is unchanged from prior studies. No lytic or blastic bony lesions are seen. IMPRESSION: 1. Significantly streak and motion compromised examination. 2. There is no airspace consolidation typical for pneumonia or pleural effusion. 3. The heart is enlarged. Intralobular septal thickening suggests fluid overload/congestive change. Clinical correlation required. 4. A 1.7 cm lobulated pulmonary nodule at the left apex is unchanged. This was PET avid and neoplasm is the diagnosis of exclusion. 5. Additional findings as above. ACT 112: Negative or not required by law. Electronically signed by: Yosef Alas M.D. 10/05/2022 8:51 PM Venous Doppler Study 10/05/22 21:36 Exam(s): US VENOUS LEFT LOWER EXTREMITY EXAM: US Duplex Left Lower Extremity Veins CLINICAL HISTORY: Reason for exam: Upper thigh pain and swelling. TECHNIQUE: Real-time duplex ultrasound scan of the left lower extremity veins integrating B-mode two-dimensional vascular structure, Doppler spectral analysis, color flow Doppler imaging and compression. COMPARISON: No relevant prior studies available. FINDINGS: Deep veins: Unremarkable. No DVT in the visualized common femoral, femoral, proximal deep femoral or popliteal veins. The veins demonstrate normal color flow, are normally compressible, with normal phasic flow and/or augmentation response. Superficial veins: Unremarkable. No thrombus in the visualized great saphenous vein. Soft tissues: No acute findings. No popliteal cyst. IMPRESSION: No evidence of DVT in the left lower extremity. Electronically signed by: Hannah Sky MD 10/05/22 22:[address] 10/06/22 00:35 Exam(s): CT LEFT KNEE With Contrast IV Amt: 84 ml optiray EXAM: CT Left Lower Extremity With Intravenous Contrast, Knee CLINICAL HISTORY: Reason for exam: concern for septic joint. immunocompromised. TECHNIQUE: Axial computed tomography images of the left knee with intravenous contrast. CTDI is 25.37 mGy and DLP is 1405.02 mGy-cm. Automated exposure control was utilized for the study. A dose lowering technique was utilized adhering to the principles of ALARA. CONTRAST: Patient received 84 ml optiray of IV contrast COMPARISON: No relevant prior studies available. FINDINGS: Bones/joints: Small joint effusion. No acute fracture. No dislocation. Soft tissues: Subcutaneous edema along the anterior and lateral aspects of the knee. Small amount of abnormal decreased density in the distal aspect of the vastus lateralis muscle. No soft tissue gas. IMPRESSION: Small joint effusion. Anterior and lateral subcutaneous edema. Region of abnormal decreased density within the distal aspect of the vastus lateralis muscle without focal fluid collection. Electronically signed by: Antonio Justice MD 10/06/22 02:[address] 10/06/22 00:40 Exam(s): CT EXTREMITY LEFT LOWER With Contrast IV Amt: 84 ml optiray EXAM: CT Left Lower Extremity With Intravenous Contrast CLINICAL HISTORY: Reason for exam: concern for septic joint. immunocompromised.. TECHNIQUE: Axial computed tomography images of the left lower extremity with intravenous contrast. CTDI is 25.37 mGy and DLP is 1405.02 mGy-cm. Automated exposure control was utilized for the study. A dose lowering technique was utilized adhering to the principles of ALARA. CONTRAST: Patient received 84 ml optiray of IV contrast COMPARISON: No relevant prior studies available. FINDINGS: Bones/joints: Unremarkable. No acute fracture. No dislocation. No focal abnormality. Soft tissues: Abdominal subcutaneous edema along the lateral aspect of the thigh. Small region of abnormal decreased density in the distal aspect of the vastus lateralis muscle. This appears to represent edema. A defined focal fluid collection is not evident. IMPRESSION: 1. Abdominal subcutaneous edema along the lateral aspect of the thigh. 2. Small region of abnormal decreased density in the distal aspect of the vastus lateralis muscle. This appears to represent edema. A defined focal fluid collection is not evident. Electronically signed by: Antonio Justice MD 10/06/22 02:[address] 10/07/22 10:[address] DOSE: 425.93 mGy.cm HISTORY: Left thigh swelling TECHNIQUE: Multiaxial CT images of the left femur were performed and reformatted in the sagittal and coronal plane without the use of contrast. A dose lowering technique was utilized adhering to the principles of ALARA. COMPARISON: Left femur CT 10/06/2022. FINDINGS: No acute fracture or dislocation within the left femur. The visualized pelvic bones are intact. 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 The bladder is decompressed by Valdes catheter. Small fat-containing left inguinal hernia. Trace left knee effusion, unchanged. There is mild skin thickening and subcutaneous edema within the lateral left thigh. This is similar to the prior study. There is again noted a subtle ill-defined area of hypodensity within the distal vastus lateralis muscle best seen on axial image 277. This is better appreciated on the prior contrast-enhanced CT examination but appears relatively unchanged compared the prior study. This is nonspecific and could represent a resolving hematoma, contusion, or nonspecific myositis. No definite loculated fluid collections on this noncontrast study to suggest an abscess at this time. IMPRESSION: There is again noted a subtle ill-defined area of hypodensity within the distal vastus lateralis muscle. This is better appreciated on the prior contrast- enhanced CT examination but appears relatively unchanged. This is nonspecific and could represent a resolving hematoma, contusion, or nonspecific myositis. No definite loculated fluid collections on this noncontrast study to suggest an abscess at this time. ACT 112: Negative or not required by law. Electronically signed by: Aman Dumont M.D. 10/07/2022 12:00 PM Medications Administered Current Inpatient Medications Brimonidine Tartrate (Brimonidine Tartrate-P 0.15% 5 Ml Btl) 1 drops OPR BID LEAH Stop: 11/05/22 20:59 Last Admin: 10/07/22 09:01 Dose: 1 drops Dorzolamide/Timolol (Dorzolamide/Timolol 22.3/6.8mg/Ml 10 Ml Btl) 1 drops OPB BID LEAH Stop: 11/05/22 20:59 Last Admin: 10/07/22 09:01 Dose: 1 drops Fluconazole (Fluconazole 100 Mg Tab) 100 mg PO QAM LEAH Stop: 10/16/22 10:59 Last Admin: 10/07/22 09:00 Dose: 100 mg Heparin Sodium (Porcine) (Heparin 100 Unit/Ml 5ml Flush) 5 ml FLUSH PRN PRN PRN Reason: Flush Stop: 11/05/22 01:22 Last Admin: 10/07/22 14:41 Dose: 5 ml Acetaminophen (Ofirmev) 1,000 mg in 100 mls @ 400 mls/hr IV Q8H PRN PRN Reason: Pain Stop: 10/08/22 22:34 Last Infusion: 10/07/22 06:11 Dose: Infused Cefepime HCl 2,000 mg/ Syringe 20 mls @ 5 mls/min IV Q8 LEAH; Protocol Stop: 10/08/22 13:59 Last Admin: 10/07/22 14:51 Dose: 5 mls/min Sodium Chloride (Nss 1000ml) 1,000 mls @ 80 mls/hr IV .[id number] LEAH Stop: 11/06/22 11:29 Last Admin: 10/07/22 11:42 Dose: 80 mls/hr Latanoprost (Latanoprost 0.005% Op Soln 2.5 Ml Btl) 1 drops OPB HS LEAH Stop: 11/05/22 20:59 Last Admin: 10/06/22 21:08 Dose: 1 drops Polyethylene Glycol (Polyethylene (Miralax) 17 Gm Pack) 17 gm PO DAILY PRN PRN Reason: Constipation Stop: 11/05/22 21:18 Last Admin: 10/06/22 22:06 Dose: 17 gm (1) Neutropenia Neutropenia type: secondary to cancer chemotherapy Qualified Code(s): D70.1 - Agranulocytosis secondary to cancer chemotherapy; T45.1X5A - Adverse effect of antineoplastic and immunosuppressive drugs, initial encounter (2) Metastatic cancer Area of secondary neoplastic involvement: digestive structure Digestive structure secondary neoplasm location: metastatic to liver Qualified Code(s): C78.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
[2022-10-07] MEDS: LATANOPROST 0.005% OP SOLN 2.5 ML BTL OPB SCH (22:41)
--- NOTE | 2022-10-07 23:20 | Consultation ---
Date of Consultation October 07, 2022 Assessment & Plan (1) Metastatic cancer: Patient has had a challenging sequence of presentation with rectal adenocarcinoma and liver metastases, what looked like reasonably good responses to initial therapy but relapse and ultimately, where his liver has been almost DARRLY following initial treatment, aggressive re-emergence of significiant metastases in that organ as well as a a relapsed rectal mass at the end of 2021. 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 He was given etoposide/carboplatinum on September 22, 2022 and initially did well but is now admitted with streptococcal sepsis We will need to see how well he recovers from this episode and unless he can recover back to a reasonably good performance status we may need to reassess the aggression with which we pursue further chemotherapy (2) Pancytopenia: The etoposide/carboplatinum regimen was given relatively aggressively out of concern over the aggression of his disease itself. Juliann counts on 10/01/2022 were in reasonably acceptable range with platelets well above 50,000 and neutrophils right around 500. The dramatic neutropenia with which he presented at the time of his admission earlier this week for sepsis is probably multifactorial with combinations of the pre-existing chemotherapy-induced neutropenia/thrombocytopenia certainly indicative of a vulnerable hematopoietic series at the peak of chemotherapy effect but the profound drop of neutropenia almost certainly further reflecting the acute impact of his sepsis. With antibiotics and clinical stabilization he has quickly rebounded to approximately 500 ANC stage. Specific question had been whether or not there was a role for myeloid growth factors. While myeloid growth factors can be very effective in preventing neutropenia and accompanying fever when given immediately after each cycle of chemotherapy, their role in established neutropenia is much less robust. Up-to-date suggests that myeloid growth factors "are generally not recommended for the management of patients with established fever and neutropenia, with some exceptions . . . " This reflects the fact that once neutropenia is established and especially in the context of the significant cytokine/inflammatory environment of sepsis, endogenous myeloid growth factors are already significantly increased and the further addition of pharmacologic G-CSF seems to have no more than a moderate impact on days of antibiotics and hospitalization but without a fundamental impact on broader overall outcome goals of recovery and survival. It would seem reasonable to make exceptions, however, in patients who are severely compromised/hemodynamically unstable and/or in situations where recovery is anticipated to be prolonged. He has had a sharp rise in neutrophils over the last 24 hours and will hopefully be able to sustain that returning to reasonable neutrophil levels in the fairly near future. Thrombocytopenia has been only mild with counts remaining above 50,000. So long as counts are numerically in that range it is not unreasonable to use 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 in whatever is appropriate fashion. Plan Primary focus is on optimizing his antibiotic regimen and with what ever supportive care is required for what appears to be potentially septic left knee joint Would transfuse conservatively but at need particularly trying to keep his hemoglobin levels above 7.5 g/dL if that were to fall. Platelets seem to be staying in adequate range (> 50k) Unless his clinical status significantly deteriorates or he does not sustain the current strong rise in neutrophil counts, myeloid growth factors are not likely to play a role Further chemotherapy will remain on hold until we can see a robust return to reasonable performance status to do so given that we will at best offer some potential palliation with some life extension we cannot expect to achieve a cure nor are would likely to see dramatic prolongation of overall survival History of Present Illness Reason for Consultation: Patient with rectal cancer showing mixed histologies of both traditional adenocarcinoma the more recently an element of aggressive neuroendocrine tumor status post recent chemotherapy admitted with neutropenia and streptococcal sepsis Attending Physician: Jose Dennis MD History of Present Illness Briefly summarizing, patient diagnosed with an adenocarcinoma of the rectum in 2018 with liver metastases at the time of presentation. He was treated with a combination of palliative radiation to the rectum and FOLFOX chemotherapy to which cetuximab was added. He did have some neuropathy issues towards the completion of cycle 9 and oxaliplatin was omitted thereafter, completed altogether 12 cycles of treatment With interim progression in the liver he received SBRT to a liver lesion in April, and was started on FOLFIRI plus cetuximab in June,. That continued until the following year when he was placed on maintenance cetuximab which continued until 06/2022 and will stop for progression. Note that he did receive additional SBRT to a lung lesion in May, that was an isolated finding felt to possibly represent metachronous primary disease Reevaluation May, suggested a rectal mass and ultimately endorectal ultrasound with biopsy showed both populations of adenocarcinoma but as well high-grade small cell neuroendocrine carcinoma. 09/09/2022 PET scan showed multiple FDG avid hepatic metastases progressive from previous with ABG avidity in the asymmetric right lateral rectal wall extending in the mesorectal fascia and as well on some additional regional perirectal/presacral nodules. After extensive review concern was over the potentially greater threat of the newly diagnosed aggressive small cell neuroendocrine carcinoma. He received cycle 1 of etoposide/carboplatinum 09/22 - 10/11/2022 He had been followed in the outpatient infusion center where juliann counts were drawn 10/01/2022 - CBC showed WBC 1.33, hemoglobin 14.9, platelets 81,000 with an ANC of 0.58 He had been doing clinically reasonably well at that time but developed rapid onset confusion and prostration and was admitted 10/05/2022 with what ultimately proved to be sepsis blood cultures have grown group B beta strep as well as strep agalactiae. Clinically patient has intense erythema of the left knee with subsequent tap showing increased white blood cells, cultures are pending no other unequivocal potential infectious source was identified on body CT current antibiotics as per infectious disease note, patient has stabilized significantly clinically. Serial CBCs 10/05/2022 CBC showed WBC 0.91, hemoglobin 14.6, platelets 77,000 with ANC 0.07 10/06/2022 CBC showed WBC 0.70, hemoglobin 14.0 platelets 53,000, ANC 0.09 10/07/2022 CBC shows WBC 1.34, hemoglobin 13.2, platelets 71,000, ANC 0.49 Also note: 10/06/2022 vitamin B12 453, folic acid > 22.3 Allergies Allergy/AdvReac Type Severity Reaction Status Date / Time Anesthetics - Bing Type- AdvReac Intermediate URINARY Verified 10/05/22 17:44 Parabens RETENTION Home Medications Medication Instructions Recorded Confirmed Type dorzolamide 22.3 mg-timolol 6.8 1 drp OPB BID 01/14/19 10/05/22 History mg/mL eye drops latanoprost 0.005 % eye drops 1 drp OPB HS 01/14/19 10/05/22 History lactobacillus combination no.4 3 3,000 mmu cells PO QAM ##0 03/08/19 10/05/22 History billion cell capsule (Probiotic) Wheelchair (Manual) #1 ea 09/24/19 09/27/22 Rx medical marijuana 1 ea PO BID PRN appetite, mood 04/15/20 10/05/22 History Wheeled Walker #1 ea 06/26/21 09/27/22 Rx Wheeled Walker #1 ea 11/09/21 09/27/22 Rx ibuprofen 200 mg tablet 200 mg PO Q12H PRN back pain 07/26/22 10/05/22 History warfarin 2.5 mg tablet See Rx Instructions .Route .COMPLEX 07/26/22 10/05/22 History tramadol 50 mg tablet 50 mg PO Q6H PRN pain 08/23/22 10/05/22 History brimonidine 0.15 % eye drops 1 drp OPR BID 10/05/22 10/05/22 History carboplatin 150 mg intravenous 0 mg IV DIRECTED 10/05/22 10/05/22 History solution etoposide phosphate 100 mg 0 mg IV DIRECTED 10/05/22 10/05/22 History intravenous solution Patient History Medical History Acoustic neuroma 2011 Anxiety BPH (benign prostatic hyperplasia) Brain cancer acoustic neuroma s/p radiation 2013, VIDEO P[employer] FLOORMAN shunt in place Chest pain Constipation 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 Diagnosed 12/2018 Rectal cancer Diagnosed 12/25/14, Recurrence 12/2018; chemo/radiation Secondary lung cancer (05/12/22) s/p radiation to left lung per [place] oncology records 06/25/22 Superior mesenteric vein thrombosis Surgical History History of anesthesia reaction URINARY RETENTION History of brain shunt 2012 hydrocephalus History of cataract surgery RT/LEFT History of colonoscopy History of esophagogastroduodenoscopy (EGD) History of hemorrhoidectomy 12/25/2014 History of liver biopsy History of procedure for peripheral vascular disease S/P V[employer] FLOORMAN shunt 2013 Family History Mother , Passed age 92 of old age Stroke Myocardial infarction Father , Passed age 100 of old age No problems noted. Brother Family history of diabetes mellitus Hypertension Other Heart disease Denies family history of Colon cancer Ovarian cancer Prostate cancer Breast cancer Social History Smoking Status: Former smoker Tobacco Type: Cigarettes packs per day: 1; Cigarettes Per Day: quit at age 44; Smoking End Date: stopped smoking at age 44; Second Hand Exposure: No; Do You Dip or Chew Tobacco: No; Tobacco Cessation Education Requested by Patient: No Hx Alcohol Use: No Hx Substance Use: Yes Last Used Substance: Days (ago) Last Used Substance Other:: yesterday 10/04/22 Substance Use Type Other:: medical marijuanan for appetite stimulation Preferred Language: Mandarin Togolese Communication Ability: Impaired Visual Impairment: No Limitations Hearing Ability: Hard of Hearing [employer] Sprayer Required: Yes Beliefs That Will Affect Care: None marital status: Current Living Situation: Spouse current occupational status: retired 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 He remains afebrile. He is wearing nasal cannula but is alert and seems appropriate given language differences Mild cardiac abdominal exam is stable He continues with intense erythema around the left knee Results & Data Vital Signs (Past 12 Hours) Vital Signs Temp Pulse Pulse Resp BP Pulse Ox O2 Del Method 10/07/22 19:31 36.5 C 98 H 16 119/81 97 Nasal Cannula 10/07/22 16:00 37.0 C 94 H 16 113/78 97 Nasal Cannula 10/07/22 17:06 90 10/07/22 14:07 36.3 C L 91 H 18 107/75 95 Room Air 10/07/22 11:11 Nasal Cannula O2 Flow Rate 10/07/22 19:31 1.5 10/07/22 16:00 1.5 10/07/22 17:06 10/07/22 14:07 10/07/22 11:11 1.5 PG Care Time/CCT Total # of Minutes Spent Total Time Spent with Patient: Total time spent is greater than 50% in coordination of care (as documented) at patient's floor/unit and/or counseling patient: Coding Level of Care Code 01308 IN/OBS CONSULT LVL 3,45M History Expanded Problem Focused Exam Problem Focused Medical Decision Making Moderate Complexity Diagnoses Metastatic cancer C78.7 Area of secondary neoplastic involvement: digestive structure Digestive structure secondary neoplasm location: metastatic to liver Pancytopenia D61.818 (1) Metastatic cancer Area of secondary neoplastic involvement: digestive structure Digestive structure secondary neoplasm location: metastatic to liver Qualified Code(s): C78.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
--- NOTE | 2022-10-07 23:45 | Electrocardiogram Report ---
Test Reason : Blood Pressure : / mmHG Vent. Rate : 105 BPM Atrial Rate : 105 BPM P-R Int : 206 ms QRS Dur : 104 ms QT Int : 324 ms P-R-T Axes : 055 -06 008 degrees QTc Int : 428 ms Poor data quality, interpretation may be adversely affected Sinus tachycardia Possible Left atrial enlargement Possible Inferior infarct When compared with ECG of 25-OCT-2021 12:53, T wave inversion less evident in Inferior leads Confirmed by Angel Harper ([id number]) on 10/07/2022 11:45:16 PM Referred By: REFERRED SELF Confirmed By:Angel Harper
[2022-10-08] MEDS: SODIUM CHLORIDE 0.9% 1000ML 1,000 ML IV SCH ×2 (00:12→12:19)
[2022-10-08] MEDS: CEFEPIME 2,000 MG in SYRINGE 0 ML IV SCH (06:03)
[2022-10-08] MEDS: HEPARIN 100 UNIT/ML 5ML FLUSH FLUSH PRN (06:03)
[2022-10-08 06:42] LABS: Calcium 7.9 mg/dl (8.5-10.1); Creatinine Clr Calc Pharmacy 76.4 ml/min; Est GFR (African American) 98.2 ml/min; Est GFR (Non-African American) 84.7 ml/min; Potassium 3.6 mmol/L (3.5-5.1)
[2022-10-08 06:45] LABS: Hematocrit (blood only) 36.5 % (42.0-52.0); Hemoglobin 12.9 g/dl (14.0-18.0); Mean Corpuscular Hemoglobin 30.9 pg (25.0-34.0); Mean Corpuscular Hgb Conc 35.3 g/dL (32.0-36.0); Mean Corpuscular Volume 87.3 fL (80.0-100.0); Mean Platelet Volume 10.7 fL (9.4-12.4); Platelet Count 70 K/uL (130-400); RDW Coefficient of Variation 13.3 % (11.5-14.5); RDW Standard Deviation 41.7 fL (36.4-46.3); Red Blood Count 4.18 M/uL (4.70-6.10); White Blood Count 2.98 K/ul (4.8-10.8)
--- NOTE | 2022-10-08 07:28 | Hospitalist Progress Note ---
Date of Service October 08, 2022 Assessment & Plan (1) Pancytopenia: Plan: Total white count has more than doubled overnight with platelets holding steady well above 50,000. If the relative differential holds (that is pending) that would suggest that his ANC has reached the approximately 1000 level which should be a reasonably secure numerical value for good neutrophil response to infection. In retrospect, myeloid growth factors would probably not have dramatically changed the timing to reach that threshold and other than perhaps some subtle augmentation of neutrophil function probably would not have made a dramatic difference in his overall outcome. Even with good recovery of neutrophils he clearly still has a significant infection - will defer to the hospitalist and ID teams for optimal further evaluation and antibiotic management. Anticoagulation can continue at the appropriate level so long as the platelets remain above 50,000 and he has no clinical signs of bleed (2) Rectal cancer: Plan: Chemotherapy will be on indefinite hold. We will need to see that he specifically clears his infection and also to what degree he recovers his performance status before making a determination if/when/how we can resume Plan Simple monitoring from a hematology standpoint as he has reached reasonable targets for neutrophil threshold and remains in good range for platelets. If he were to have any secondary falls and hemoglobin would have to consider transfusions and also assessment for the need for iron supplementation Chemotherapy on hold pending resolution of the current infection and reassessment of his performance status and care goals Admission and Anticipated Discharge Date Admission Date: October 05, 2022 Subjective Still with left knee discomfort but without respiratory or other complaints and seems alert and back to his neurological baseline Physical Exam Physical Exam: Temperature 96.3, vital signs stable. Still wearing nasal cannula but no respiratory distress lung and heart exam seems stable. Persistent erythema around the knee but swelling seems to be decreased somewhat Results & Data Results & Data Vital Signs (Past 12 Hours) Vital Signs Temp Pulse Pulse Resp BP Pulse Ox O2 Del Method 10/08/22 03:48 36.3 C L 91 H 18 119/82 94 Nasal Cannula 10/07/22 20:00 Room Air 10/07/22 22:31 103 H 10/07/22 23:00 36.2 C L 102 H 18 155/102 H 97 Nasal Cannula 10/07/22 19:31 36.5 C 98 H 16 119/81 97 Nasal Cannula O2 Flow Rate 10/08/22 03:48 1.5 10/07/22 20:00 10/07/22 22:31 10/07/22 23:00 1.5 10/07/22 19:31 1.5 PG Care Time/CCT Total # of Minutes Spent Total Time Spent with Patient: Total time spent is greater than 50% in coordination of care (as documented) at patient's floor/unit and/or counseling patient: Coding Level of Care Code 92324 SUB INP/OBS CARE 08/18MIN Diagnoses Pancytopenia D61.818 Rectal cancer C20
[2022-10-08 07:47] LABS: ALC (manual) 0.89 K/uL (1.2-3.4); ANC (manual) 1.43 K/uL (1.4-6.5); Dohle Bodies 1+; Lymphocytes # (manual) 0.89 K/uL (1.2-3.4); Lymphocytes % (manual) 30 %; Metamyelocytes # (manual) 0.06 K/uL (0-0); Metamyelocytes % (manual) 2 %; Monocytes # (manual) 0.54 K/uL (0.11-0.59); Monocytes % (manual) 18 %; Myelocytes # (manual) 0.06 K/uL (0-0); Myelocytes % (manual) 2 %; Neutrophils # (manual) 1.43 K/uL (1.40-6.50); Neutrophils % (manual) 48 %
[2022-10-08] MEDS: BRIMONIDINE TARTRATE-P 0.15% 5 ML BTL OPR SCH ×2 (08:36→22:03)
[2022-10-08] MEDS: DORZOLAMIDE/TIMOLOL 22.3/6.8MG/ML 10 ML BTL OPB SCH ×2 (08:37→22:03)
[2022-10-08] MEDS: FLUCONAZOLE 100 MG TAB PO SCH (08:40)
--- NOTE | 2022-10-08 13:27 | Hospitalist Progress Note ---
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 source could be the knee, given pain and swelling CT knee shows small effusion Chest x ray and abdominal CT did not show any acute pathology Ortho on consult, joint has been aspirated, awaitng cultures Blood cultures growing group B strep Will continue Cefepime, discontinue Daptomycin Appreciate ID recs (2) Elevated lactic acid level: Plan: secondary to sepsis some improvement after IV fluids (3) Neutropenia: Plan: s/p chemo 09/22 for metastatic rectal cancer. Oncologist is Dr. Suarez. Reached out to Dr. Suarez regarding Neupogen; Will defer for now as lack of clear benefit in this setting. 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 CT head w/o acute changes or intracranial hemorrhage. According to , patient now back to his baseline (7) S/P WORKERS COMPENSATION CLAIMS ADJUSTER shunt: Plan: Per patient's , had MRI and shunt adjustment at [facility] 07/2022. (8) Metabolic acidosis, increased anion gap: Plan: Likely due to sepsis Continue antibiotics and IV fluids as above much improved (9) Lactic acidosis: (10) Tachypnea: Plan FEN/GI: low fiber diet anticoag: on hold code: full: detailed discussion w/ patient's dispo: continue hospitalization Admission and Anticipated Discharge Date Admission Date: October 05, 2022 Subjective patient seen and examined, feels betteer, but still with some thigh pains. by the bed side, provides interpretation, patient speaks mostly canadian Review of Systems Review of Systems: All systems reviewed are negative, apart from the ones contained in the history. Physical Exam Physical Exam: The patient is awake, alert and oriented 3, in some distress HEENT--PERRL, EOMI, mucous membranes and oropharynx mildly dry Neck--supple. No JVD. No bruits. Thyroid normal, trachea midline, no adenopathy. porthacath Heart--normal S1 and S2. No murmurs, rubs or gallops. Lungs--clear bilaterally, no respiratory distress, no accessory muscle use. Abdomen--normal bowel sounds and soft. Mild epigastric and left sided abdominal pain Extremities--left knee swelling, left thigh redness Dermatologic--normal skin turgor, normal color, no abnormal lymph nodes, no rash. Neurologic--cranial nerves II through XII grossly intact. Rheumatologic--normal range of motion. Psychiatric--normal affect. Results & Data Results & Data Vital Signs (Past 12 Hours) Vital Signs Temp Pulse Resp BP Pulse Ox O2 Del Method O2 Flow Rate 10/08/22 11:36 98.6 F 92 H 18 126/86 95 Room Air 10/08/22 08:15 Room Air 10/08/22 07:58 98.6 F 99 H 19 135/85 95 Room Air 10/08/22 03:48 97.3 F L 91 H 18 119/82 94 Nasal Cannula 1.5 PG Care Time/CCT Total # of Minutes Spent Total Time Spent with Patient: Total time spent is greater than 50% in coordination of care (as documented) at patient's floor/unit and/or counseling patient: Coding Level of Care Code 84853 SUB INP/OBS CARE 2/35MIN Diagnoses Sepsis A41.9 Elevated lactic acid level R79.89 Neutropenia D70.1; T45.1X5A Neutropenia type: secondary to cancer chemotherapy Rhabdomyolysis M62.82 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 retirement 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 Z79.01 Altered mental status R41.0 Altered mental status type: disorientation S/P WORKERS COMPENSATION CLAIMS ADJUSTER shunt Z98.2 Metabolic acidosis, increased anion gap E87.29 Lactic acidosis E87.20 Tachypnea R06.82 Time Spent (min) 35 (3) Neutropenia Neutropenia type: secondary to cancer chemotherapy Qualified Code(s): D70.1 - Agranulocytosis secondary to cancer chemotherapy; T45.1X5A - Adverse effect of antineoplastic and immunosuppressive drugs, initial encounter (6) Altered mental status Altered mental status type: disorientation Qualified Code(s): R41.0 - Disorientation, unspecified
[2022-10-08] MEDS ORDERED: bisacodyL 10 MG SUPP PR STA (13:57)
--- NOTE | 2022-10-08 14:13 | Infectious Disease Progress Nt ---
Date of Service October 08, 2022 Assessment & Plan (1) Neutropenia: Plan: #Strep agalactiae sepsis #L knee effusion s/p arthrocentesis 10/06 #Neutropenia secondary to chemotherapy #Rectal adenocarcinoma with mets MICRO Bcx 10/05 Group B beta hemolytic strep bottles, strep agalactiae by BCID. 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 Unclear what chemotherapy regimen he received. Last oncology note scanned from 08/27 state he would lkely be started on capecitabine and oxaliplatin vs cisplatin and etopaside. He was seen by Urology on 09/27 to review his bladder discomfort, with discussion re cystoscopy. He was admitted on 10/05 with sudden onset AMS, found by his . Patient has been afebrile, tachycardic, req 1.5 L oxygen. Notable labs: procal 6.03. Lactate 4.6. Neutropenic 0.07. Leukopenic 0.91. CT head w/o hydrocephalus or bleed. Started on Cefepime. Dapto. Blood cultures 10/05 Group B beta hemolytic strep bottles, strep agalactiae by BCID. 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 No airspace disease. L knee CT shows effusion L femur CT shows subtle ill-defined area of hypodensity within the distal vastus lateralis muscle. Seen by Orthopaedics Knee arthrocentesis on 10/06 synovial fluid shows 359 wbcs (20%pmns, 79% monos) rbcs [id number] gram stain few wbcs no organisms. Patient on Diflucan, Cefepime, Daptomycinc dcd Discussion Strep sepsis in neutropenic patient. Etiology unclear can be secondary to lungs (CT no pneumonia), GI Tract, Urine (Ucx 1K colony only) or IV line, or L knee effusion, Plan to repeat blood cultures and follow L knee cultures. (2) Metastatic cancer: (3) Adenocarcinoma of colon: (4) Lumbar radiculopathy: (5) Sepsis: Plan -C/W Cefepime for now, P his synovial cultures, we may then narrow to Ceftriaxone -Repeat Blood cultures -Follow synovial fluid I would like to see patient live tomorrow ID will follow Thank you for this consult, will d/w primary team. Nancy Richards MD Infectious Diseases [facility] ID Connect Admission and Anticipated Discharge Date Admission Date: October 05, 2022 Subjective This patient recommendation is based on a telemedicine consult request which was completed asynchronously through chart review and information provided by the primary physician. The patient was not seen or examined today. The evaluation is consultative in nature and all patient care and treatment decisions can either be accepted or rejected by the patient's primary hospital-based treating physician using their own independent medical judgment for their patient. Time Spent Reviewing Chart: 31+ minutes 24 hours: [place] Results & Data Vital Signs (Past 12 Hours) Vital Signs Temp Pulse Resp BP Pulse Ox O2 Del Method O2 Flow Rate 10/08/22 11:36 37.0 C 92 H 18 126/86 95 Room Air 10/08/22 08:15 Room Air 10/08/22 07:58 37.0 C 99 H 19 135/85 95 Room Air 10/08/22 03:48 36.3 C L 91 H 18 119/82 94 Nasal Cannula 1.5 (1) Neutropenia Neutropenia type: secondary to cancer chemotherapy Qualified Code(s): D70.1 - Agranulocytosis secondary to cancer chemotherapy; T45.1X5A - Adverse effect of antineoplastic and immunosuppressive drugs, initial encounter (2) Metastatic cancer Area of secondary neoplastic involvement: digestive structure Digestive structure secondary neoplasm location: metastatic to liver Qualified Code(s): C78.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
--- NOTE | 2022-10-08 14:28 | Infectious Disease Progress Nt ---
Date of Service October 08, 2022 Assessment & Plan (1) Neutropenia: Plan: #Strep agalactiae sepsis #L knee effusion s/p arthrocentesis 10/06 #Neutropenia secondary to chemotherapy #Rectal adenocarcinoma with mets MICRO Bcx 10/05 Group B beta hemolytic strep bottles, strep agalactiae by BCID. 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 Unclear what chemotherapy regimen he received. Last oncology note scanned from 08/27 state he would lkely be started on capecitabine and oxaliplatin vs cisplatin and etopaside. He was seen by Urology on 09/27 to review his bladder discomfort, with discussion re cystoscopy. He was admitted on 10/05 with sudden onset AMS, found by his . Patient has been afebrile, tachycardic, req 1.5 L oxygen. Notable labs: procal 6.03. Lactate 4.6. Neutropenic 0.07. Leukopenic 0.91. CT head w/o hydrocephalus or bleed. Started on Cefepime. Dapto. Blood cultures 10/05 Group B beta hemolytic strep bottles, strep agalactiae by BCID. 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 No airspace disease. L knee CT shows effusion L femur CT shows subtle ill-defined area of hypodensity within the distal vastus lateralis muscle. Seen by Orthopaedics Knee arthrocentesis on 10/06 synovial fluid shows 359 wbcs (20%pmns, 79% monos) rbcs [id number] gram stain few wbcs no organisms. Patient on Diflucan, Cefepime, Daptomycinc dcd On my exam patient has LLE cellulitis, this was marked by our nurses today. Discussion: Neutropenic patient with LLE cellulitis likely source of bacteremia. He also has a mediport in place which appears c/d/i. I have repeated cultures and narrowed him to Ceftriaxone today. He will need at least 2weeks of therapy. HIs WBC appears to be imrpoved today and he has no fevers (2) Metastatic cancer: (3) Adenocarcinoma of colon: (4) Lumbar radiculopathy: (5) Sepsis: Plan -Narrow ABX to Ceftriaxone 2G IV Daily -Repeat blood cultures today (done) -Follow LLE cellulitis and L knee synovial fluid cultures, abx may need to be extended based on these results -L chest mediport ok to keep for now ID will follow, please page OTW with questions. Dr. Lepe to see patient on Tuesday. Nancy Richards MD Infectious Diseases [facility] ID Connect Admission and Anticipated Discharge Date Admission Date: October 05, 2022 Subjective Subsequent visit was provided via telemedicine using two-way real-time interactive telecommunication between the patient and the telemedicine provider. For the duration of the visit, the provider was performing the assessment from a different facility than the patient. This includesuse of bluetooth stethoscope forauscultationperformed by the telepresenter that the telemed icine provider can hear if described in the physical exam. [employer]er contact information: Please call ID Connect Call Center . (Phone Number For Physician Use Only) After establishing a telemedicine visit, patient was: Patient was verified with two unique identifiers, Patient/authorized rep acknowledged consent and u nderstanding and Gave permission to continue telehealth session Time Spent with Patient: Subsequent => 35 min Patient is feeling better Results & Data Vital Signs (Past 12 Hours) Vital Signs Temp Pulse Resp BP Pulse Ox O2 Del Method O2 Flow Rate 10/08/22 11:36 37.0 C 92 H 18 126/86 95 Room Air 10/08/22 08:15 Room Air 10/08/22 07:58 37.0 C 99 H 19 135/85 95 Room Air 10/08/22 03:48 36.3 C L 91 H 18 119/82 94 Nasal Cannula 1.5 Laboratory Results Laboratory Results - last 48 hr 10/06/22 10/07/22 10/07/22 14:00 05:41 05:41 WBC 1.34 L RBC 4.23 L Hgb 13.2 L Hct 37.0 L MCV 87.5 MCH 31.2 MCHC 35.7 RDW Std Deviation 41.1 RDW Coeff of Brian 13.2 Plt Count 71 L MPV 10.2 Immature Gran % (Auto) 7.3 Neut % (Auto) 35.7 Lymph % (Auto) 32.1 [place] % (Auto) 23.4 Eos % (Auto) 0.0 Baso % (Auto) 1.5 Neut # (Auto) 0.49 L* Lymph # (Auto) 0.44 L [place] # (Auto) 0.32 Eos # (Auto) 0.00 Baso # (Auto) 0.02 Immature Gran # (Auto) 0.10 Neutrophils % (Manual) Lymphocytes % (Manual) Monocytes % (Manual) Metamyelocytes % (Man) Myelocytes % (Man) Neutrophils # (Manual) Total Absolute Neuts Lymphocytes # (Manual) Total Abs Lymphocytes Monocytes # (Manual) Metamyelocytes # (Man) Myelocytes # (Manual) Toxic Granulation 1+ Dohle Bodies 1+ Sodium 138 Potassium 3.1 L Chloride 109 H Carbon Dioxide 23 Anion Gap 6 BUN 24 H Creatinine 0.86 Est Cr Clr Drug Dosing 71.3 Est GFR ( Amer) 96.3 Est GFR (Non-Af Amer) 83.1 BUN/Creatinine Ratio 27.9 H Glucose 131 H Calcium 7.7 L Total Creatine Kinase Synovial Crystals 10/08/22 10/08/22 05:51 05:51 WBC 2.98 L RBC 4.18 L Hgb 12.9 L Hct 36.5 L MCV 87.3 MCH 30.9 MCHC 35.3 RDW Std Deviation 41.7 RDW Coeff of Brian 13.3 Plt Count 70 L MPV 10.7 Immature Gran % (Auto) Neut % (Auto) Lymph % (Auto) [place] % (Auto) Eos % (Auto) Baso % (Auto) Neut # (Auto) Lymph # (Auto) [place] # (Auto) Eos # (Auto) Baso # (Auto) Immature Gran # (Auto) Neutrophils % (Manual) 48 Lymphocytes % (Manual) 30 Monocytes % (Manual) 18 Metamyelocytes % (Man) 2 Myelocytes % (Man) 2 Neutrophils # (Manual) 1.43 Total Absolute Neuts 1.43 Lymphocytes # (Manual) 0.89 L Total Abs Lymphocytes 0.89 L Monocytes # (Manual) 0.54 Metamyelocytes # (Man) 0.06 H Myelocytes # (Manual) 0.06 H Toxic Granulation Dohle Bodies 1+ Sodium 138 Potassium 3.6 Chloride 108 H Carbon Dioxide 22 Anion Gap 8 BUN 23 Creatinine 0.82 Est Cr Clr Drug Dosing 76.4 Est GFR ( Amer) 98.2 Est GFR (Non-Af Amer) 84.7 BUN/Creatinine Ratio 28.0 H Glucose 112 H Calcium 7.9 L Total Creatine Kinase 451 H Synovial Crystals (1) Neutropenia Neutropenia type: secondary to cancer chemotherapy Qualified Code(s): D70.1 - Agranulocytosis secondary to cancer chemotherapy; T45.1X5A - Adverse effect of antineoplastic and immunosuppressive drugs, initial encounter (2) Metastatic cancer Area of secondary neoplastic involvement: digestive structure Digestive structure secondary neoplasm location: metastatic to liver Qualified Code(s): C78.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
[2022-10-08] MEDS: POLYETHYLENE (MIRALAX) 17 GM PACK PO SCH (15:03)
[2022-10-08] MEDS: WARFARIN SOD 2.5 MG TAB PO SCH (15:04)
[2022-10-08] MEDS: cefTRIAXone SODIUM 2,000 MG in DEXTROSE 5% 50 ML IV SCH (15:19)
[2022-10-08] MEDS: LATANOPROST 0.005% OP SOLN 2.5 ML BTL OPB SCH (22:03)
[2022-10-09] MEDS ORDERED: ACETAMINOPHEN 1,000 MG/100 ML VIAL IV STA (00:04)
[2022-10-09] MEDS: SODIUM CHLORIDE 0.9% 1000ML 1,000 ML IV SCH ×2 (01:35→13:19)
[2022-10-09 08:03] LABS: ALC (manual) 0.89 K/uL (1.2-3.4); ANC (manual) 4.35 K/uL (1.4-6.5); Acanthocytes 2+; Echinocytes 2+; Hematocrit (blood only) 35.9 % (42.0-52.0); Hemoglobin 12.6 g/dl (14.0-18.0); Lymphocytes # (manual) 0.89 K/uL (1.2-3.4); Lymphocytes % (manual) 15 %; Mean Corpuscular Hgb Conc 35.1 g/dL (32.0-36.0); Mean Corpuscular Volume 88.4 fL (80.0-100.0); Mean Platelet Volume 10.9 fL (9.4-12.4); Monocytes # (manual) 0.72 K/uL (0.11-0.59); Monocytes % (manual) 12 %; Neutrophils # (manual) 4.35 K/uL (1.40-6.50); Neutrophils % (manual) 73 %; Platelet Count 72 K/uL (130-400); Platelet Estimate Decreased (Normal); RDW Coefficient of Variation 13.5 % (11.5-14.5); Red Blood Count 4.06 M/uL (4.70-6.10); Tear Drop Cells 1+; White Blood Count 5.96 K/ul (4.8-10.8)
[2022-10-09] MEDS: FLUCONAZOLE 100 MG TAB PO SCH ×2 (08:06→12:10)
[2022-10-09] MEDS: POLYETHYLENE (MIRALAX) 17 GM PACK PO SCH (08:06)
[2022-10-09] MEDS: DORZOLAMIDE/TIMOLOL 22.3/6.8MG/ML 10 ML BTL OPB SCH ×2 (08:07→20:16)
[2022-10-09] MEDS: BRIMONIDINE TARTRATE-P 0.15% 5 ML BTL OPR SCH ×2 (08:07→20:15)
[2022-10-09 08:09] LABS: BUN Creatinine Ratio 23.4 (10-20); Calcium 7.9 mg/dl (8.5-10.1); Creatinine Clr Calc Pharmacy 78.9 ml/min; Est GFR (African American) 100.7 ml/min; Est GFR (Non-African American) 86.9 ml/min; Potassium 3.5 mmol/L (3.5-5.1)
--- NOTE | 2022-10-09 12:50 | Hospitalist Progress Note ---
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 source could be the knee, given pain and swelling CT knee shows small effusion Chest x ray and abdominal CT did not show any acute pathology Ortho on consult, joint has been aspirated, awaitng cultures, but preliminary result show wbc 300, Blood cultures growing group B strep Has been transitioned to Ceftriaxone by ID, will need a toltal of 2 weeks. ok to use his port Appreciate ID recs (2) Elevated lactic acid level: Plan: Resolved (3) Neutropenia: Plan: s/p chemo 09/22 for metastatic rectal cancer. Oncologist is Dr. Suarez. Reached out to Dr. Suarez regarding Neupogen; Will defer for now as lack of clear benefit in this setting. Now resolved (4) Rhabdomyolysis: Plan: Non traumatic rhabdo Now resolved (5) 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 fdc 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: Plan: Continue coumadin Monitor platelets, stop if below 50k (6) Altered mental status: Plan: Acute metabolic encephalopathy, Secondary to sepsis. CT head w/o acute changes or intracranial hemorrhage. According to , patient now back to his baseline (7) S/P COSTUME SEAMSTRESS shunt: Plan: Per patient's , had MRI and shunt adjustment at [place] 07/2022. (8) Malnutrition: Plan: According to the , patient has not been eating very well, he says he is not hungry and doesnt have appetite will continue nutritional supplements and encourage intake (9) Metabolic acidosis, increased anion gap: Plan: Likely due to sepsis Continue antibiotics and IV fluids as above much improved (10) Lactic acidosis: (11) Tachypnea: Plan FEN/GI: low fiber diet anticoag: on hold code: full: detailed discussion w/ patient's dispo: continue hospitalization Admission and Anticipated Discharge Date Admission Date: October 05, 2022 Subjective Patient seen and examined, feels lethargic and not eating well according to the , says he is not hungry Review of Systems Review of Systems: All systems reviewed are negative, apart from the ones contained in the history. Physical Exam Physical Exam: The patient is awake, alert and oriented 3, in some distress HEENT--PERRL, EOMI, mucous membranes and oropharynx mildly dry Neck--supple. No JVD. No bruits. Thyroid normal, trachea midline, no adenopathy. porthacath Heart--normal S1 and S2. No murmurs, rubs or gallops. Lungs--clear bilaterally, no respiratory distress, no accessory muscle use. Abdomen--normal bowel sounds and soft. Mild epigastric and left sided abdominal pain Extremities--left knee swelling, left thigh redness Dermatologic--normal skin turgor, normal color, no abnormal lymph nodes, no rash. Neurologic--cranial nerves II through XII grossly intact. Rheumatologic--normal range of motion. Psychiatric--normal affect. Results & Data Results & Data Vital Signs (Past 12 Hours) Vital Signs Temp Pulse Pulse Resp BP Pulse Ox O2 Del Method 10/09/22 07:48 68 10/09/22 10:34 Room Air 10/09/22 08:32 97.7 F 75 16 126/83 94 Room Air 10/09/22 03:56 97.9 F 75 20 133/81 92 Room Air 10/09/22 02:57 Room Air PG Care Time/CCT Total # of Minutes Spent Total Time Spent with Patient: Total time spent is greater than 50% in coordination of care (as documented) at patient's floor/unit and/or counseling patient: Coding Level of Care Code 40580 SUB INP/OBS CARE 2/35MIN Diagnoses Sepsis A41.9 Elevated lactic acid level R79.89 Neutropenia D70.1; T45.1X5A Neutropenia type: secondary to cancer chemotherapy Rhabdomyolysis M62.82 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 fdc 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 Z79.01 Altered mental status R41.0 Altered mental status type: disorientation S/P COSTUME SEAMSTRESS shunt Z98.2 Malnutrition E46 Metabolic acidosis, increased anion gap E87.29 Lactic acidosis E87.20 Tachypnea R06.82 Time Spent (min) 35 (3) Neutropenia Neutropenia type: secondary to cancer chemotherapy Qualified Code(s): D70.1 - Agranulocytosis secondary to cancer chemotherapy; T45.1X5A - Adverse effect of antineoplastic and immunosuppressive drugs, initial encounter (6) Altered mental status Altered mental status type: disorientation Qualified Code(s): R41.0 - Disorientation, unspecified
[2022-10-09] MEDS: cefTRIAXone SODIUM 2,000 MG in DEXTROSE 5% 50 ML IV SCH (15:13)
[2022-10-09] MEDS: WARFARIN SOD 2.5 MG TAB PO SCH (15:48)
[2022-10-09] MEDS: LATANOPROST 0.005% OP SOLN 2.5 ML BTL OPB SCH (20:16)
[2022-10-10] MEDS: SODIUM CHLORIDE 0.9% 1000ML 1,000 ML IV SCH ×2 (02:28→13:41)
[2022-10-10] MEDS ORDERED: ACETAMINOPHEN 500 MG TAB ONE (03:59)
[2022-10-10] MEDS: ACETAMINOPHEN 500 MG TAB PO PRN (04:29)
[2022-10-10 07:44] LABS: ALC (manual) 0.62 K/uL (1.2-3.4); ANC (manual) 6.19 K/uL (1.4-6.5); Hematocrit (blood only) 34.9 % (42.0-52.0); Hemoglobin 12.1 g/dl (14.0-18.0); INR 2.3 (0.9-1.1); Lymphocytes # (manual) 0.62 K/uL (1.2-3.4); Lymphocytes % (manual) 8 %; Mean Corpuscular Hemoglobin 30.6 pg (25.0-34.0); Mean Corpuscular Hgb Conc 34.7 g/dL (32.0-36.0); Mean Corpuscular Volume 88.4 fL (80.0-100.0); Mean Platelet Volume 10.8 fL (9.4-12.4); Metamyelocytes # (manual) 0.08 K/uL (0-0); Metamyelocytes % (manual) 1 %; Monocytes # (manual) 0.85 K/uL (0.11-0.59); Monocytes % (manual) 11 %; Myelocytes # (manual) 0.08 K/uL (0-0); Myelocytes % (manual) 1 %; Neutrophils # (manual) 6.19 K/uL (1.40-6.50); Neutrophils % (manual) 80 %; Nucleated RBC # (auto) 0.04 K/uL (0-0.12); Nucleated RBC % (auto) 0.5 %; Platelet Count 81 K/uL (130-400); RBC Morphology Unremarkable; RDW Coefficient of Variation 13.5 % (11.5-14.5); RDW Standard Deviation 42.9 fL (36.4-46.3); Red Blood Count 3.95 M/uL (4.70-6.10); White Blood Count 7.74 K/ul (4.8-10.8)
[2022-10-10 07:55] LABS: BUN Creatinine Ratio 22.1 (10-20); Calcium 7.7 mg/dl (8.5-10.1); Creatinine Clr Calc Pharmacy 87.7 ml/min; Est GFR (Non-African American) 91.5 ml/min; Potassium 3.5 mmol/L (3.5-5.1)
[2022-10-10] MEDS: FLUCONAZOLE 100 MG TAB PO SCH (09:57)
[2022-10-10] MEDS: DORZOLAMIDE/TIMOLOL 22.3/6.8MG/ML 10 ML BTL OPB SCH ×2 (09:58→22:08)
[2022-10-10] MEDS: BRIMONIDINE TARTRATE-P 0.15% 5 ML BTL OPR SCH ×2 (09:58→22:08)
[2022-10-10] MEDS: POLYETHYLENE (MIRALAX) 17 GM PACK PO SCH (09:58)
--- NOTE | 2022-10-10 10:24 | Hospitalist Progress Note ---
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 source could be the knee, given pain and swelling CT knee shows small effusion Chest x ray and abdominal CT did not show any acute pathology Ortho on consult, joint has been aspirated, cultures negative, Blood cultures growing group B strep Has been transitioned to Ceftriaxone by ID, will need a total of 2 weeks. ok to use his port Appreciate ID recs (2) Left leg pain: Plan: Etiology is uncertain, could be myositis given elevated CPK on admission Still has some swelling and tenderness around the left thigh, although a little improved CT femur x2 show some subcutaneous edema, no drainable fluid Ortho on consult MRI could not be done because patient has a programmable CUSTOMER SOLUTIONS SPECIALIST shunt which would need to be checked after MRI Neurology was consulted for that, but they adviced we call [facility], where the device was put in, but no one from [facility] is willing to come here and do the checking. (3) Neutropenia: Plan: s/p chemo 09/22 for metastatic rectal cancer, worsened by sepsis Now resolved (4) Elevated lactic acid level: Plan: Resolved (5) Rhabdomyolysis: Plan: Non traumatic rhabdo Now resolved (6) 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 intermediate 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: Plan: Continue coumadin Monitor platelets, stop if below 50k follows coagulation clinic (7) Altered mental status: Plan: Acute metabolic encephalopathy, Secondary to sepsis. CT head w/o acute changes or intracranial hemorrhage. According to , patient now back to his baseline (8) S/P CUSTOMER SOLUTIONS SPECIALIST shunt: Plan: Per patient's , had MRI and shunt adjustment at [facility] 07/2022. (9) Malnutrition: Plan: According to the , patient has not been eating very well, he says he is not hungry and doesnt have appetite will continue nutritional supplements and encourage intake Will also continue gentle hydration, patient not drinking enough, but will be wary of fluid overload and thigh edema worsening (10) Metabolic acidosis, increased anion gap: Plan: Resolved (11) Lactic acidosis: (12) Tachypnea: Plan FEN/GI: low fiber diet anticoag: warfarin code: full: detailed discussion w/ patient's dispo: continue hospitalization Admission and Anticipated Discharge Date Admission Date: October 05, 2022 Subjective Patient seen and examined, although he is overall better compared to admission, he still feels lethargic and not eating well according to the , says he is not hungry Review of Systems Review of Systems: All systems reviewed are negative, apart from the ones contained in the history. Physical Exam Physical Exam: The patient is awake, alert and oriented 3, in some distress HEENT--PERRL, EOMI, mucous membranes and oropharynx mildly dry Neck--supple. No JVD. No bruits. Thyroid normal, trachea midline, no adenopathy. porthacath Heart--normal S1 and S2. No murmurs, rubs or gallops. Lungs--clear bilaterally, no respiratory distress, no accessory muscle use. Abdomen--normal bowel sounds and soft. Mild epigastric and left sided abdominal pain Extremities--left knee swelling, left thigh redness Dermatologic--normal skin turgor, normal color, no abnormal lymph nodes, no rash. Neurologic--cranial nerves II through XII grossly intact. Rheumatologic--normal range of motion. Psychiatric--normal affect. Results & Data Results & Data Vital Signs (Past 12 Hours) Vital Signs Temp Pulse Pulse Resp BP Pulse Ox O2 Del Method 10/10/22 08:38 97.9 F 86 18 137/87 95 Room Air 10/10/22 05:36 99 H 10/10/22 03:53 98.2 F 82 18 147/93 H 94 Room Air 10/09/22 23:02 97.9 F 84 18 132/85 94 Room Air PG Care Time/CCT Total # of Minutes Spent Total Time Spent with Patient: Total time spent is greater than 50% in coordination of care (as documented) at patient's floor/unit and/or counseling patient: Coding Level of Care Code 19305 SUB INP/OBS CARE 2/35MIN Diagnoses Sepsis A41.9 Left leg pain M79.605 Neutropenia D70.1; T45.1X5A Neutropenia type: secondary to cancer chemotherapy Elevated lactic acid level R79.89 Rhabdomyolysis M62.82 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 intermediate 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 Z79.01 Altered mental status R41.0 Altered mental status type: disorientation S/P CUSTOMER SOLUTIONS SPECIALIST shunt Z98.2 Malnutrition E46 Metabolic acidosis, increased anion gap E87.29 Lactic acidosis E87.20 Tachypnea R06.82 Time Spent (min) 35 (3) Neutropenia Neutropenia type: secondary to cancer chemotherapy Qualified Code(s): D70.1 - Agranulocytosis secondary to cancer chemotherapy; T45.1X5A - Adverse effect of antineoplastic and immunosuppressive drugs, initial encounter (7) Altered mental status Altered mental status type: disorientation Qualified Code(s): R41.0 - Disorientation, unspecified
[2022-10-10] MEDS: cefTRIAXone SODIUM 2,000 MG in DEXTROSE 5% 50 ML IV SCH (13:41)
[2022-10-10] MEDS: WARFARIN SOD 2.5 MG TAB PO SCH (17:03)
[2022-10-10] MEDS: LATANOPROST 0.005% OP SOLN 2.5 ML BTL OPB SCH (22:09)
[2022-10-11] MEDS: SODIUM CHLORIDE 0.9% 1000ML 1,000 ML IV SCH (02:57)
[2022-10-11 06:35] LABS: INR 2.9 (0.9-1.1); Prothrombin Time 28.8 Seconds (9.0-12.0)
[2022-10-11] MEDS: POLYETHYLENE (MIRALAX) 17 GM PACK PO SCH (10:00)
[2022-10-11] MEDS: FLUCONAZOLE 100 MG TAB PO SCH (10:00)
[2022-10-11] MEDS: DORZOLAMIDE/TIMOLOL 22.3/6.8MG/ML 10 ML BTL OPB SCH ×2 (10:01→22:42)
[2022-10-11] MEDS: BRIMONIDINE TARTRATE-P 0.15% 5 ML BTL OPR SCH ×2 (10:01→22:41)
[2022-10-11] MEDS ORDERED: VANCOMYCIN CONSULT ACTIVE PRN ×2 (11:44)
[2022-10-11] MEDS ORDERED: VANCOMYCIN HCL 1,500 MG in SODIUM CHLORIDE 0.9% 500 ML IV STA (12:02)
--- NOTE | 2022-10-11 13:42 | Pharmacy Report ---
Pharmacy Vanc AUC Short Note - Date of Service October 11, 2022 - Assessment & Plan Assessment 77 year old M receiving vancomycin for treatment of SSTI. Pertinent microbiologic data includes: blood culture growing Group B Beta Strep from 10/05/22. Day # 1 of antimicrobial therapy. (patient received two days of cefepime and three days of Rocephin) Plan Vancomycin * AUC/KEYUR is the preferred PK/PD target for vancomycin * AUC guided dosing is effective and associated with decreased risk of nephrotoxicity compared to traditional trough targets * Vancomycin 1250 mg IV q12 is predicted to achieve target AUC/KEYUR of 400-600 mg/L.hr and may be associated with a 16 % risk of nephrotoxicity * Random to be ordered if continued > 48 hours Pharmacy will continue to follow and will adjust dose/frequency as necessary. Thank you.
--- NOTE | 2022-10-11 13:51 | Hospitalist Progress Note ---
Date of Service October 11, 2022 Assessment & Plan (1) Sepsis: Plan: Present on admission. Now resolved. We will continue to treat apparent cellulitis of the left leg. Rocephin switched to vancomycin. Orthopedic consultation appreciated. Left knee joint aspirate culture negative (2) Left leg pain: Plan: This appears to be due to underlying cellulitis. Rocephin switched to vancomycin. CT femur x2 show some subcutaneous edema, no drainable fluid. (3) Neutropenia: Plan: s/p chemo 09/22 for metastatic rectal cancer. Serial labs (4) Elevated lactic acid level: Plan: Resolved (5) Rhabdomyolysis: Plan: Non traumatic rhabdo. Present on admission. Mild. 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 History of pulmonary embolism (7) Altered mental status: Plan: Acute metabolic encephalopathy present on admission. Now resolved. CT head w/o acute changes or intracranial hemorrhage. 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 Recently had MRI and shunt adjustment at [place] 07/2022. (9) Malnutrition: Plan: Patient has not been eating very well, he says he is not hungry and doesnt have appetite. Will continue nutritional supplements and encourage intake (10) Metabolic acidosis, increased anion gap: Plan: Resolved (11) Lactic acidosis: Plan: Resolved (12) Tachypnea: Plan: Present on admission. Now resolved Plan Rocephin switched to intravenous vancomycin. Anticipate discharge to [facility] with continued IV antibiotics through his venous access port at the time of discharge hopefully later this week. Admission and Anticipated Discharge Date Admission Date: October 05, 2022 Subjective Alert and oriented. is at the bedside. He appears to have a cellulitic process involving the left upper leg. The knee aspirate culture is negative. Rocephin switched to vancomycin. We will discontinue IV fluids since oral intake is adequate. INR 2.9 today. Review of Systems Review of Systems: Constitutional-no fever or chills ENT-no blurred vision, no double vision, no epistaxis, no sore throat Respiratory-no cough, no wheezing, no shortness of breath Cardiac-no palpitations, no chest pain, no syncope GI-no nausea, vomiting, diarrhea, melena, hematochezia -no urinary retention, no urinary incontinence, no dysuria, no hematuria Musculoskeletal-erythema and tenderness of the left upper extremity. Left knee effusion noted. Skin-no bruising, no rashes, no pruritus Neuro-no isolated weakness, no paresthesia, no weakness Psych-no depression, no anxiety Physical Exam Physical Exam: General-alert and oriented x3, no fevers, no chills HEENT-head atraumatic and normocephalic, pupils equal and reactive to light, extraocular muscles intact Neck-no lymphadenopathy or thyromegaly, trachea midline Chest-clear to auscultation percussion. No rales wheezing or rhonchi Cardiac-regular rate and rhythm, normal S1 and S2 Abdomen-normal bowel sounds, nontender, no hepatosplenomegaly Extremities-left upper leg erythema and induration with tenderness. Left knee effusion noted Neuro-cranial nerves II through XII intact, motor and sensory function within normal limits, strength symmetrical , no focal deficits Psych-normal affect, normal mood Results & Data Results & Data Vital Signs (Past 12 Hours) Vital Signs Temp Pulse Resp BP Pulse Ox O2 Del Method 10/11/22 12:07 37.1 C 103 H 19 155/103 H 95 Room Air 10/11/22 08:13 36.6 C 75 19 146/90 H 95 Room Air 10/11/22 02:46 36.7 C 90 18 141/98 H 97 Room Air Laboratory Results 10/10/22 06:49 10/10/22 06:49 PG Care Time/CCT Total # of Minutes Spent Total Time Spent with Patient: Total time spent is greater than 50% in coordination of care (as documented) at patient's floor/unit and/or counseling patient: Coding Level of Care Code 50072 SUB INP/OBS CARE 3/50MIN Diagnoses Sepsis A41.9 Left leg pain M79.605 Neutropenia D70.1; T45.1X5A Neutropenia type: secondary to cancer chemotherapy Elevated lactic acid level R79.89 Rhabdomyolysis M62.82 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 terminal worker 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 Z79.01 Altered mental status R41.0 Altered mental status type: disorientation S/P TEACH[employer]UC[employer] shunt Z98.2 Malnutrition E46 Metabolic acidosis, increased anion gap E87.29 Lactic acidosis E87.20 Tachypnea R06.82 (3) Neutropenia Neutropenia type: secondary to cancer chemotherapy Qualified Code(s): D70.1 - Agranulocytosis secondary to cancer chemotherapy; T45.1X5A - Adverse effect of antineoplastic and immunosuppressive drugs, initial encounter (7) Altered mental status Altered mental status type: disorientation Qualified Code(s): R41.0 - Disorientation, unspecified
[2022-10-11] MEDS: WARFARIN SOD 2.5 MG TAB PO SCH (14:07)
--- NOTE | 2022-10-11 15:06 | Infectious Disease Progress Nt ---
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 Unclear what chemotherapy regimen he received. Last oncology note scanned from 08/27 state he would lkely be started on capecitabine and oxaliplatin vs cisplatin and etopaside. He was seen by Urology on 09/27 to review his bladder discomfort, with discussion re cystoscopy. He was admitted on 10/05 with sudden onset AMS, found by his . Patient was afebrile, tachycardic, req 1.5 L oxygen. Notable labs: procal 6.03. Lactate 4.6. Neutropenic 0.07. Leukopenic 0.91. CT head w/o hydrocephalus or bleed. Started on Cefepime. Dapto. Blood cultures 10/05 Group B beta hemolytic strep bottles, strep agalactiae by BC[facility]. 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 No airspace disease. L knee CT shows effusion L femur CT shows subtle ill-defined area of hypodensity within the distal vastus lateralis muscle. Seen by Orthopaedics Knee arthrocentesis on 10/06 synovial fluid shows 359 wbcs (20%pmns, 79% monos) 101,000 rbcs. Gram stain few wbcs no organisms. Knee cx is no growth. Patient on Diflucan, Cefepime, Daptomycinc dcd Pt unable to have MRI L leg due to ROUGH ROUNDER MACHINE shunt. On Tuesday, LLE cellulitis was marked. Today, 10/11, CTX changed to vancomycin as pt's reported worsening of L leg. however on exam, he has clear improvement of erythema, tenderness- unlikely to occur only approx 2 hours after vancomycin administered. No known prior h/o MRSA/contact isolation per pt and . Repeat Bcxs are NGTD (2) Metastatic cancer: (3) Adenocarcinoma of colon: (4) Lumbar radiculopathy: (5) Sepsis: Plan -Will change vancomycin to unasyn 3 g IV q6 today, as more optimal abx for GBS than vancomycin. Most likely that pt improved clinically on CTX but pt's raised concern this AM leading to empiric expansion of abx. -Repeat blood cultures are NGTD -Follow LLE cellulitis- if continues to improve on unasyn, pt can be switched to augmentin 875mg PO q12 upon discharge to complete 2 weeks total course -L chest mediport ok to keep Please page with any questions. Syl Lepe M.D. [facility] [employer] Pager [phone] Admission and Anticipated Discharge Date Admission Date: October 05, 2022 Subjective Subsequent visit was provided via telemedicine using two-way real-time interactive telecommunication between the patient and the telemedicine provider. For the duration of the visit, the provider was performing the assessment from a different facility than the patient. This includesuse of bluetooth stethoscope forauscultationperformed by the telepresenter that the telemedicine provider can hear if described in the physical exam. Stunt Performer contact information: Please call [employer] Connect Call Center [phone]. (Phone Number For Physician Use Only) After establishing a telemedicine visit, patient was: Patient was verified with two unique identifiers, Patient/authorized rep acknowledged consent and understanding and Gave permission to continue telehealth session Time Spent with Patient: Subsequent => 35 min Pt denies fever, feels cold on occasion per his . no abd pain or diarrhea- is constipated L leg is less painful today- although he still cannot bend leg However, this morning pt's was concerned that leg had been worsening and CTX was changed to vancomycin- she thinks the current improvement 2.5 hours after vanco is due to the vanco. Pt and do not recall any prior MRSA infections, being on contact isolation in past Physical Exam Physical Exam: PE: Gen: Awake, fatigued/chronically-ill appearing, NAD HEENT: anicteric Chest: L chest port nontender Resp: no resp distress on RA Abd: Soft, distended, NT Extr: no c/c L leg is slightly swollen with areas of erythema both lateral and medial L thigh which has receded from prior markings. Erythema does not extend to posterior leg. It is less tender to palpation per pt and . L knee remains swollen and warm. No significant pedal edema. : tellez with yellow urine Skin: R peripheral IV ok Results & Data Vital Signs (Past 12 Hours) Vital Signs Temp Pulse Resp BP Pulse Ox O2 Del Method 10/11/22 12:07 37.1 C 103 H 19 155/103 H 95 Room Air 10/11/22 08:13 36.6 C 75 19 146/90 H 95 Room Air Laboratory Results 10/05/22 16:24 Aerobic Blood Culture - Final Blood Group B Beta Strep Anaerobic Blood Culture - Final No growth in Anaerobic bottle after 5 days. 10/06/22 14:00 Gram Stain - Final Knee,Left Aerobic and Anaerobic Culture - Final No growth 10/05/22 16:14 Aerobic Blood Culture - Final Blood No growth in Aerobic bottle after 5 days. Anaerobic Blood Culture - Final No growth in Anaerobic bottle after 5 days. 10/08/22 19:28 Aerobic Blood Culture - Preliminary Blood No growth in Aerobic bottle after 48 hours. Anaerobic Blood Culture - Final 10/08/22 19:25 Aerobic Blood Culture - Preliminary Blood No growth in Aerobic bottle after 48 hours. Anaerobic Blood Culture - Final 10/11/22 10/06/22 05:39 15:58 PT 28.8 H INR 2.9 H Serum Copper 100 Medications Administered Current Medications Acetaminophen (Acetaminophen 500 Mg Tab) 1,000 mg PO Q8H PRN PRN Reason: Pain or Fever Stop: 11/09/22 03:52 Last Admin: 10/10/22 04:29 Dose: 1,000 mg Brimonidine Tartrate (Brimonidine Tartrate-P 0.15% 5 Ml Btl) 1 drops OPR BID [facility] Stop: 11/05/22 20:59 Last Admin: 10/11/22 10:01 Dose: 1 drops Dorzolamide/Timolol (Dorzolamide/Timolol 22.3/6.8mg/Ml 10 Ml Btl) 1 drops OPB BID [facility] Stop: 11/05/22 20:59 Last Admin: 10/11/22 10:01 Dose: 1 drops Fluconazole (Fluconazole 100 Mg Tab) 100 mg PO QAM [facility] Stop: 10/16/22 10:59 Last Admin: 10/11/22 10:00 Dose: 100 mg Heparin Sodium (Porcine) (Heparin 100 Unit/Ml 5ml Flush) 5 ml FLUSH PRN PRN PRN Reason: Flush Stop: 11/05/22 01:22 Last Admin: 10/08/22 06:03 Dose: 5 ml Vancomycin HCl 1,250 mg/ (Sodium Chloride) 275 mls @ 200 mls/hr IV Q12 [facility]; Protocol Stop: 10/18/22 20:59 Latanoprost (Latanoprost 0.005% Op Soln 2.5 Ml Btl) 1 drops OPB HS [facility] Stop: 11/05/22 20:59 Last Admin: 10/10/22 22:09 Dose: 1 drops Miscellaneous Information (Vancomycin Consult Active) 1 each N/A UD PRN PRN Reason: Consult Stop: 11/10/22 11:43 Polyethylene Glycol (Polyethylene (Miralax) 17 Gm Pack) 17 gm PO DAILY PRN PRN Reason: Constipation Stop: 11/05/22 21:18 Last Admin: 10/06/22 22:06 Dose: 17 gm Polyethylene Glycol (Polyethylene (Miralax) 17 Gm Pack) 17 gm PO DAILY [facility] Stop: 11/07/22 13:59 Last Admin: 10/11/22 10:00 Dose: 17 gm Warfarin Sodium (Warfarin Sod 2.5 Mg Tab) 2.5 mg PO DAILY@1600 [facility] Stop: 11/07/22 15:59 Last Admin: 10/11/22 14:07 Dose: Not Given (1) Neutropenia Neutropenia type: secondary to cancer chemotherapy Qualified Code(s): D70.1 - Agranulocytosis secondary to cancer chemotherapy; T45.1X5A - Adverse effect of antineoplastic and immunosuppressive drugs, initial encounter (2) Metastatic cancer Area of secondary neoplastic involvement: digestive structure Digestive structure secondary neoplasm location: metastatic to liver Qualified Code(s): C78.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
[2022-10-11] MEDS: AMPICILLIN/SULBACTAM SOD 3,000 MG in 0.9 % SODIUM CHLORIDE 100 ML IV SCH ×2 (16:44→22:47)
[2022-10-11] MEDS ORDERED: VANCOMYCIN HCL 1,250 MG in SODIUM CHLORIDE 0.9% 250 ML IV SCH (21:00)
[2022-10-11 21:53] LABS: Lyme DNA PCR CSF or Synovial Not Detected (Not Detected); Lyme DNA Source SYNOVIAL FLUID
[2022-10-11] MEDS: LATANOPROST 0.005% OP SOLN 2.5 ML BTL OPB SCH (22:42)
[2022-10-11] MEDS ORDERED: MoRPHine SULFATE 2 MG/ML CARP IV ONE (23:06)
[2022-10-12] MEDS: AMPICILLIN/SULBACTAM SOD 3,000 MG in 0.9 % SODIUM CHLORIDE 100 ML IV SCH ×4 (04:09→21:28)
[2022-10-12 07:25] LABS: INR 2.2 (0.9-1.1); Prothrombin Time 22.1 Seconds (9.0-12.0)
[2022-10-12] MEDS: BRIMONIDINE TARTRATE-P 0.15% 5 ML BTL OPR SCH ×2 (08:26→20:22)
[2022-10-12] MEDS: DORZOLAMIDE/TIMOLOL 22.3/6.8MG/ML 10 ML BTL OPB SCH ×2 (08:26→20:22)
[2022-10-12] MEDS: POLYETHYLENE (MIRALAX) 17 GM PACK PO SCH (08:27)
[2022-10-12] MEDS: FLUCONAZOLE 100 MG TAB PO SCH (08:27)
[2022-10-12] MEDS: METOPROLOL TARTRATE 25 MG TAB PO SCH ×2 (11:06→20:23)
--- NOTE | 2022-10-12 11:29 | Infectious Disease Progress Nt ---
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 Unclear what chemotherapy regimen he received. Last oncology note scanned from 08/27 state he would lkely be started on capecitabine and oxaliplatin vs cisplatin and etopaside. He was seen by Urology on 09/27 to review his bladder discomfort, with discussion re cystoscopy. He was admitted on 10/05 with sudden onset AMS, found by his . Patient was afebrile, tachycardic, req 1.5 L oxygen. Notable labs: procal 6.03. Lactate 4.6. Neutropenic 0.07. Leukopenic 0.91. CT head w/o hydrocephalus or bleed. Started on Cefepime. Dapto. Blood cultures 10/05 Group B beta hemolytic strep bottles, strep agalactiae by [facility]. 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 No airspace disease. L knee CT shows effusion L femur CT shows subtle ill-defined area of hypodensity within the distal vastus lateralis muscle. Seen by Orthopaedics Knee arthrocentesis on 10/06 synovial fluid shows 359 wbcs (20%pmns, 79% monos) 101,000 rbcs. Gram stain few wbcs no organisms. Knee cx is no growth. Patient on Diflucan, Cefepime, Daptomycinc dcd Pt unable to have MRI L leg due to CHILD AND FAMILY SERVICES WORKER shunt. On Tuesday, LLE cellulitis was marked. On 10/11, CTX changed to vancomycin as pt's reported worsening of L leg. however on exam, he has clear improvement of erythema, tenderness- unlikely to occur only approx 2 hours after vancomycin administered. No known prior h/o MRSA/contact isolation per pt and . Vanco changed to unasyn Repeat Bcxs are NGTD (2) Metastatic cancer: (3) Adenocarcinoma of colon: (4) Lumbar radiculopathy: (5) Sepsis: Plan -Appears to be continued improvement of L LE cellulitis, so would continue unasyn 3 g IV q6 -Repeat blood cultures are NGTD -If LLE continues to improve on unasyn, pt can be switched to augmentin 875mg PO q12 upon discharge to complete 2 weeks total course -L chest mediport ok to keep Please page with any questions. Syl Lepe M.D. [facility] [employer] Pager [phone] Admission and Anticipated Discharge Date Admission Date: October 05, 2022 Subjective Subsequent visit was provided via telemedicine using two-way real-time interactive telecommunication between the patient and the telemedicine provider. For the duration of the visit, the provider was performing the assessment from a different facility than the patient. This includesuse of bluetooth stethoscope forauscultationperformed by the telepresenter that the telemedicine provider can hear if described in the physical exam. Business Systems Advisor contact information: Please call [employer] Connect Call Center . (Phone Number For Physician Use Only) After establishing a telemedicine visit, patient was: Patient was verified with two unique identifiers, Patient/authorized rep acknowledged consent and understanding and Gave permission to continue telehealth session Time Spent with Patient: Subsequent => 25 min No fevers, chills or abd pain. Unable to recall any symptoms associated with an isolated low grade fever yesterday afternoon. Per his at bedside, he is taking miralax and had 2 BMs yesterday. c/o no appetite. Left leg is less tender and pt was able to stand with support today. Physical Exam Physical Exam: PE: Gen: Awake, fatigued/chronically-ill appearing, NAD HEENT: anicteric Chest: L chest port nontender Resp: no resp distress on RA Abd: Soft, distended, NT Extr: no c/c L leg is slightly swollen with erythema and warmth lateral L thigh which has receded from prior markings. Prior erythema medial L thigh appears resolved. Erythema does not extend to posterior leg. It is less tender to palpation per pt and . L knee remains swollen and warm. No significant pedal edema. : tellez with yellow urine Skin: R peripheral IV ok Results & Data Vital Signs (Past 12 Hours) Vital Signs Temp Pulse Pulse Pulse Resp BP BP 10/12/22 08:00 10/12/22 08:00 84 10/12/22 07:59 36.5 C 92 H 18 166/115 H 10/12/22 02:48 36.6 C 89 18 151/90 H 10/12/22 00:51 97 H Pulse Ox O2 Del Method 10/12/22 08:00 Room Air 10/12/22 08:00 10/12/22 07:59 94 Room Air 10/12/22 02:48 95 Room Air 10/12/22 00:51 Laboratory Results 10/05/22 16:24 Aerobic Blood Culture - Final Blood Group B Beta Strep Anaerobic Blood Culture - Final No growth in Anaerobic bottle after 5 days. 10/06/22 14:00 Gram Stain - Final Knee,Left Aerobic and Anaerobic Culture - Final No growth 10/12/22 10/06/22 06:24 14:00 PT 22.1 H INR 2.2 H Fld Lyme DNA (PCR) Not Detected Lyme Specimen Source SYNOVIAL FLUID Lyme DNA Comment see note Medications Administered Current Medications Acetaminophen (Acetaminophen 500 Mg Tab) 1,000 mg PO Q8H PRN PRN Reason: Pain or Fever Stop: 11/09/22 03:52 Last Admin: 10/10/22 04:29 Dose: 1,000 mg Brimonidine Tartrate (Brimonidine Tartrate-P 0.15% 5 Ml Btl) 1 drops OPR BID [facility] Stop: 11/05/22 20:59 Last Admin: 10/12/22 08:26 Dose: 1 drops Dorzolamide/Timolol (Dorzolamide/Timolol 22.3/6.8mg/Ml 10 Ml Btl) 1 drops OPB BID [facility] Stop: 11/05/22 20:59 Last Admin: 10/12/22 08:26 Dose: 1 drops Fluconazole (Fluconazole 100 Mg Tab) 100 mg PO QAM [facility] Stop: 10/16/22 10:59 Last Admin: 10/12/22 08:27 Dose: 100 mg Heparin Sodium (Porcine) (Heparin 100 Unit/Ml 5ml Flush) 5 ml FLUSH PRN PRN PRN Reason: Flush Stop: 11/05/22 01:22 Last Admin: 10/08/22 06:03 Dose: 5 ml Ampicillin Sodium/Sulbactam Sodium 3,000 mg/ Sodium Chloride 108 mls @ 200 mls/hr IV Q6H [facility]; Protocol Stop: 10/25/22 15:44 Last Infusion: 10/12/22 09:07 Dose: Infused Latanoprost (Latanoprost 0.005% Op Soln 2.5 Ml Btl) 1 drops OPB HS [facility] Stop: 11/05/22 20:59 Last Admin: 10/11/22 22:42 Dose: 1 drops Metoprolol Tartrate (Metoprolol Tartrate 25 Mg Tab) 25 mg PO BID [facility] Stop: 11/11/22 10:29 Last Admin: 10/12/22 11:06 Dose: 25 mg Polyethylene Glycol (Polyethylene (Miralax) 17 Gm Pack) 17 gm PO DAILY PRN PRN Reason: Constipation Stop: 11/05/22 21:18 Last Admin: 10/06/22 22:06 Dose: 17 gm Polyethylene Glycol (Polyethylene (Miralax) 17 Gm Pack) 17 gm PO DAILY [facility] Stop: 11/07/22 13:59 Last Admin: 10/12/22 08:27 Dose: 17 gm Warfarin Sodium (Warfarin Sod 2.5 Mg Tab) 2.5 mg PO DAILY@1600 [facility] Stop: 11/07/22 15:59 Last Admin: 10/11/22 14:07 Dose: Not Given (1) Neutropenia Neutropenia type: secondary to cancer chemotherapy Qualified Code(s): D70.1 - Agranulocytosis secondary to cancer chemotherapy; T45.1X5A - Adverse effect of antineoplastic and immunosuppressive drugs, initial encounter (2) Metastatic cancer Area of secondary neoplastic involvement: digestive structure Digestive structure secondary neoplasm location: metastatic to liver Qualified Code(s): C78.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
--- NOTE | 2022-10-12 14:31 | Hospitalist Progress Note ---
Date of Service October 12, 2022 Assessment & Plan (1) Sepsis: Plan: Present on admission. Now resolved. We will continue to treat apparent cellulitis of the left leg. Rocephin switched to vancomycin then to Unasyn. Orthopedic consultation appreciated. Left knee joint aspirate culture negative (2) Left leg pain: Plan: This appears to be due to underlying cellulitis. Rocephin switched to van comycin then to Unasyn. CT femur x2 show some subcutaneous edema, no drainable fluid. (3) Neutropenia: Plan: s/p chemo 09/22 for metastatic rectal cancer. Serial labs (4) Elevated lactic acid level: Plan: Resolved (5) Rhabdomyolysis: Plan: Non traumatic rhabdo. Present on admission. Mild. Now resolved (6) 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 half-way 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: Plan: Continue coumadin . History of pulmonary embolism. INR 2.2 today, October 12 (7) Altered mental status: Plan: Acute metabolic encephalopathy present on admission. Now resolved. CT head w/o acute changes or intracranial hemorrhage. (8) S/P WINDOWS ADMIN shunt: Plan: Placed after acoustic neuroma surgery. Recently had MRI and shunt adjustment at [place] 07/2022. (9) Malnutrition: Plan: Will continue nutritional supplements and encourage intake (10) Metabolic acidosis, increased anion gap: Plan: Resolved (11) Lactic acidosis: Plan: Resolved (12) Tachypnea: Plan: Present on admission. Now resolved (13) Hypertension: Plan: Metoprolol started today, October 12 for heart rate and blood pressure control. We will follow Plan Currently on intravenous Unasyn. Hopeful eventual transition to oral antibiotic and eventual discharge to [facility]. Admission and Anticipated Discharge Date Admission Date: October 05, 2022 Subjective Alert and oriented. No distress. is at the bedside. INR 2.2 today. Infectious disease has altered his antibiotic therapy to Unasyn. Metoprolol added for heart rate and blood pressure control. Blood cultures are negative. Review of Systems 2 Review of Systems: Constitutional-no fever or chills ENT-no blurred vision, no double vision, no epistaxis, no sore throat Respiratory-no cough, no wheezing, no shortness of breath Cardiac-no palpitations, no chest pain, no syncope GI-no nausea, vomiting, diarrhea, melena, hematochezia -no urinary retention, no urinary incontinence, no dysuria, no hematuria Musculoskeletal-erythema and tenderness of the left upper extremity. Left knee effusion noted. Skin-no bruising, no rashes, no pruritus Neuro-no isolated weakness, no paresthesia, no weakness Psych-no depression, no anxiety Physical Exam Physical Exam: General-alert and oriented x3, no fevers, no chills HEENT-head atraumatic and normocephalic, pupils equal and reactive to light, extraocular muscles intact Neck-no lymphadenopathy or thyromegaly, trachea midline Chest-clear to auscultation percussion. No rales wheezing or rhonchi Cardiac-regular rate and rhythm, normal S1 and S2 Abdomen-normal bowel sounds, nontender, no hepatosplenomegaly Extremities-left upper leg erythema and induration with tenderness. Left knee effusion noted Neuro-cranial nerves II through XII intact, motor and sensory function within normal limits, strength symmetrical , no focal deficits Psych-normal affect, normal mood Results & Data Results & Data Vital Signs (Past 12 Hours) Vital Signs Temp Pulse Pulse Pulse Resp BP BP 10/12/22 12:40 36.5 C 87 18 134/86 10/12/22 08:00 10/12/22 08:00 84 10/12/22 07:59 36.5 C 92 H 18 166/115 H 10/12/22 02:48 36.6 C 89 18 151/90 H Pulse Ox O2 Del Method 10/12/22 12:40 96 Room Air 10/12/22 08:00 Room Air 10/12/22 08:00 10/12/22 07:59 94 Room Air 10/12/22 02:48 95 Room Air Laboratory Results 10/10/22 06:49 10/10/22 06:49 PG Care Time/CCT Total # of Minutes Spent Total Time Spent with Patient: Total time spent is greater than 50% in coordination of care (as documented) at patient's floor/unit and/or counseling patient: Coding Level of Care Code 49163 SUB INP/OBS CARE 3/50MIN Diagnoses Sepsis A41.9 Left leg pain M79.605 Neutropenia D70.1; T45.1X5A Neutropenia type: secondary to cancer chemotherapy Elevated lactic acid level R79.89 Rhabdomyolysis M62.82 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
[2022-10-12] MEDS: WARFARIN SOD 2.5 MG TAB PO SCH (14:53)
[2022-10-12] MEDS: LATANOPROST 0.005% OP SOLN 2.5 ML BTL OPB SCH (20:23)
[2022-10-13] MEDS: ACETAMINOPHEN 500 MG TAB PO PRN ×3 (01:37→21:12)
[2022-10-13] MEDS: AMPICILLIN/SULBACTAM SOD 3,000 MG in 0.9 % SODIUM CHLORIDE 100 ML IV SCH ×4 (03:51→21:19)
[2022-10-13 06:53] LABS: Hematocrit (blood only) 35.4 % (42.0-52.0); Hemoglobin 12.1 g/dl (14.0-18.0); Mean Corpuscular Hemoglobin 30.6 pg (25.0-34.0); Mean Corpuscular Hgb Conc 34.2 g/dL (32.0-36.0); Mean Corpuscular Volume 89.6 fL (80.0-100.0); Mean Platelet Volume 10.1 fL (9.4-12.4); Platelet Count 159 K/uL (130-400); RDW Coefficient of Variation 13.8 % (11.5-14.5); RDW Standard Deviation 44.4 fL (36.4-46.3); Red Blood Count 3.95 M/uL (4.70-6.10); White Blood Count 8.23 K/ul (4.8-10.8)
[2022-10-13 07:08] LABS: BUN Creatinine Ratio 18.5 (10-20); Creatinine Clr Calc Pharmacy 76.2 ml/min; Est GFR (African American) 98.7 ml/min; Est GFR (Non-African American) 85.1 ml/min; Potassium 3.1 mmol/L (3.5-5.1)
[2022-10-13 07:26] LABS: ALC (manual) 0.41 K/uL (1.2-3.4); ANC (manual) 7.41 K/uL (1.4-6.5); Lymphocytes # (manual) 0.41 K/uL (1.2-3.4); Lymphocytes % (manual) 5 %; Metamyelocytes # (manual) 0.08 K/uL (0-0); Metamyelocytes % (manual) 1 %; Monocytes # (manual) 0.25 K/uL (0.11-0.59); Monocytes % (manual) 3 %; Myelocytes # (manual) 0.08 K/uL (0-0); Myelocytes % (manual) 1 %; Neutrophils # (manual) 7.41 K/uL (1.40-6.50); Neutrophils % (manual) 90 %; RBC Morphology Unremarkable
[2022-10-13] MEDS: METOPROLOL TARTRATE 25 MG TAB PO SCH ×2 (09:16→21:12)
[2022-10-13] MEDS: FLUCONAZOLE 100 MG TAB PO SCH (09:16)
[2022-10-13] MEDS: BRIMONIDINE TARTRATE-P 0.15% 5 ML BTL OPR SCH ×2 (09:17→21:19)
[2022-10-13] MEDS: DORZOLAMIDE/TIMOLOL 22.3/6.8MG/ML 10 ML BTL OPB SCH ×2 (09:18→21:19)
[2022-10-13] MEDS: POLYETHYLENE (MIRALAX) 17 GM PACK PO SCH (09:18)
--- NOTE | 2022-10-13 09:45 | Infectious Disease Progress Nt ---
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 Unclear what chemotherapy regimen he received. Last oncology note scanned from 08/27 state he would lkely be started on capecitabine and oxaliplatin vs cisplatin and etopaside. He was seen by Urology on 09/27 to review his bladder discomfort, with discussion re cystoscopy. He was admitted on 10/05 with sudden onset AMS, found by his . Patient was afebrile, tachycardic, req 1.5 L oxygen. Notable labs: procal 6.03. Lactate 4.6. Neutropenic 0.07. Leukopenic 0.91. CT head w/o hydrocephalus or bleed. Started on Cefepime. Dapto. Blood cultures 10/05 Group B beta hemolytic strep bottles, strep agalactiae by [facility]. 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 No airspace disease. L knee CT shows effusion L femur CT shows subtle ill-defined area of hypodensity within the distal vastus lateralis muscle. Seen by Orthopaedics Knee arthrocentesis on 10/06 synovial fluid shows 359 wbcs (20%pmns, 79% monos) 101,000 rbcs. Gram stain few wbcs no organisms. Knee cx is no growth. Patient on Diflucan, Cefepime, Daptomycinc dcd Pt unable to have MRI L leg due to CUSTODY OFFICER shunt. On Tuesday, LLE cellulitis was marked. On 10/11, CTX changed to vancomycin as pt's reported worsening of L leg. however on exam, he has clear improvement of erythema, tenderness- unlikely to occur only approx 2 hours after vancomycin administered. No known prior h/o MRSA/contact isolation per pt and . Vanco changed to unasyn 10/12- L leg appears improved 10/13- slight increase in erythema L leg- pt lying on that side predominantly per son Repeat Bcxs are NGTD (2) Metastatic cancer: (3) Adenocarcinoma of colon: (4) Lumbar radiculopathy: (5) Sepsis: Plan -today there is noted increased erythema L LE, possibly due to increased pressure/edema -platelets improved today -will add linezolid 600 PO q12 to unasyn 3 g IV q6 for now- no drug interactions with current meds -Repeat blood cultures are NGTD -L chest mediport ok to keep -discussed with pt and son Please page with any questions. Syl Lepe M.D. [facility] [employer] Pager [phone] Admission and Anticipated Discharge Date Admission Date: October 05, 2022 Subjective Subsequent visit was provided via telemedicine using two-way real-time interactive telecommunication between the patient and the telemedicine provider. For the duration of the visit, the provider was performing the assessment from a different facility than the patient. This includesuse of bluetooth stethoscope forauscultationperformed by the telepresenter that the telemedicine provider can hear if described in the physical exam. Software Maintenance Engineer contact information: Please call [employer] [facility] Call Center . (Phone Number For Physician Use Only) After establishing a telemedicine visit, patient was: Patient was verified with two unique identifiers, Patient/authorized rep acknowledged consent and understanding and Gave permission to continue telehealth session Time Spent with Patient: Subsequent => 25 min No fever, chills, or abd pain. Pt is now having frequent BMs so refused laxative this AM. Pt's son at bedside reports pt removed pillow under R leg so ended up lying mostly on L side. He has not c/o pain in L leg. He was able to stand for 5 minutes today while using bed for support. Physical Exam Physical Exam: PE: Gen: Awake, fatigued/chronically-ill appearing, NAD HEENT: anicteric Chest: L chest port nontender Resp: no resp distress on RA Abd: Soft, distended, NT Extr: no c/c L leg is slightly swollen with erythema and warmth lateral L thigh which has receded from prior markings. Faint erythema medial L thigh. Erythema does not extend to posterior leg. L knee remains swollen and warm. No significant pedal edema. : tellez with yellow urine Skin: R peripheral IV ok Results & Data Vital Signs (Past 12 Hours) Vital Signs Temp Pulse Pulse Resp BP BP Pulse Ox 10/13/22 07:32 36.9 C 96 H 19 130/80 94 10/13/22 03:40 36.7 C 91 H 20 143/96 H 92 10/13/22 03:32 78 10/12/22 23:47 36.3 C L 78 20 137/88 96 O2 Del Method 10/13/22 07:32 Room Air 10/13/22 03:40 Room Air 10/13/22 03:32 10/12/22 23:47 Room Air Laboratory Results 10/13/22 10/13/22 10/13/22 06:18 06:18 06:18 WBC 8.23 RBC 3.95 L Hgb 12.1 L Hct 35.4 L MCV 89.6 MCH 30.6 MCHC 34.2 RDW Std Deviation 44.4 RDW Coeff of Brian 13.8 Plt Count 159 MPV 10.1 Neutrophils % (Manual) 90 Lymphocytes % (Manual) 5 Monocytes % (Manual) 3 Metamyelocytes % (Man) 1 Myelocytes % (Man) 1 Neutrophils # (Manual) 7.41 H Total Absolute Neuts 7.41 H Lymphocytes # (Manual) 0.41 L Total Abs Lymphocytes 0.41 L Monocytes # (Manual) 0.25 Metamyelocytes # (Man) 0.08 H Myelocytes # (Manual) 0.08 H RBC Morphology Unremarkable PT 21.0 H INR 2.0 H Sodium 141 Potassium 3.1 L Chloride 108 H Carbon Dioxide 26 Anion Gap 7 BUN 15 Creatinine 0.81 Est Cr Clr Drug Dosing 76.2 Est GFR ( Amer) 98.7 Est GFR (Non-Af Amer) 85.1 BUN/Creatinine Ratio 18.5 Glucose 185 H Calcium 8.0 L Medications Administered Current Medications Acetaminophen (Acetaminophen 500 Mg Tab) 1,000 mg PO Q8H PRN PRN Reason: Pain or Fever Stop: 11/09/22 03:52 Last Admin: 10/13/22 01:37 Dose: 1,000 mg Brimonidine Tartrate (Brimonidine Tartrate-P 0.15% 5 Ml Btl) 1 drops OPR BID [facility] Stop: 11/05/22 20:59 Last Admin: 10/13/22 09:17 Dose: 1 drops Dorzolamide/Timolol (Dorzolamide/Timolol 22.3/6.8mg/Ml 10 Ml Btl) 1 drops OPB BID [facility] Stop: 11/05/22 20:59 Last Admin: 10/13/22 09:18 Dose: 1 drops Fluconazole (Fluconazole 100 Mg Tab) 100 mg PO QAM LEAH Stop: 10/16/22 10:59 Last Admin: 10/13/22 09:16 Dose: 100 mg Heparin Sodium (Porcine) (Heparin 100 Unit/Ml 5ml Flush) 5 ml FLUSH PRN PRN PRN Reason: Flush Stop: 11/05/22 01:22 Last Admin: 10/08/22 06:03 Dose: 5 ml Ampicillin Sodium/Sulbactam Sodium 3,000 mg/ Sodium Chloride 108 mls @ 200 mls/hr IV Q6H [facility]; Protocol Stop: 10/25/22 15:44 Last Infusion: 10/13/22 04:27 Dose: Infused Latanoprost (Latanoprost 0.005% Op Soln 2.5 Ml Btl) 1 drops OPB HS [facility] Stop: 11/05/22 20:59 Last Admin: 10/12/22 20:23 Dose: 1 drops Metoprolol Tartrate (Metoprolol Tartrate 25 Mg Tab) 25 mg PO BID [facility] Stop: 11/11/22 10:29 Last Admin: 10/13/22 09:16 Dose: 25 mg Polyethylene Glycol (Polyethylene (Miralax) 17 Gm Pack) 17 gm PO DAILY PRN PRN Reason: Constipation Stop: 11/05/22 21:18 Last Admin: 10/06/22 22:06 Dose: 17 gm Polyethylene Glycol (Polyethylene (Miralax) 17 Gm Pack) 17 gm PO DAILY [facility] Stop: 11/07/22 13:59 Last Admin: 10/13/22 09:18 Dose: Not Given Warfarin Sodium (Warfarin Sod 2.5 Mg Tab) 2.5 mg PO DAILY@1600 [facility] Stop: 11/07/22 15:59 Last Admin: 10/12/22 14:53 Dose: 2.5 mg (1) Neutropenia Neutropenia type: secondary to cancer chemotherapy Qualified Code(s): D70.1 - Agranulocytosis secondary to cancer chemotherapy; T45.1X5A - Adverse effect of antineoplastic and immunosuppressive drugs, initial encounter (2) Metastatic cancer Area of secondary neoplastic involvement: digestive structure Digestive structure secondary neoplasm location: metastatic to liver Qualified Code(s): C78.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
[2022-10-13] MEDS: LINEZOLID 600 MG TAB PO SCH ×2 (11:16→21:12)
--- NOTE | 2022-10-13 14:53 | Hospitalist Progress Note ---
Date of Service October 13, 2022 Assessment & Plan (1) Sepsis: Plan: Present on admission. Now resolved. We will continue to treat apparent cellulitis of the left leg. Rocephin switched to vancomycin then to Unasyn. Linezolid added per ID today, October 13. Orthopedic consultation appreciated. Left knee joint aspirate culture negative (2) Left leg pain: Plan: This appears to be due to underlying cellulitis. Rocephin switched to vancomycin then to Unasyn plus linezolid. CT femur x2 show some subcutaneous edema, no drainable fluid. (3) Neutropenia: Plan: s/p chemo 09/22 for metastatic rectal cancer. Serial labs (4) Elevated lactic acid level: Plan: Resolved (5) Rhabdomyolysis: Plan: Non traumatic rhabdo. Present on admission. Mild. 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 History of pulmonary embolism. INR 2.0 today, October 13 (7) Altered mental status: Plan: Acute metabolic encephalopathy present on admission. Now resolved. CT head w/o acute changes or intracranial hemorrhage. (8) S/P TANK WAGON DRIVER shunt: Plan: Placed after acoustic neuroma surgery. Recently had MRI and shunt adjustment at [place] 07/2022. (9) Malnutrition: Plan: Will continue nutritional supplements and encourage intake (10) Metabolic acidosis, increased anion gap: Plan: Resolved (11) Lactic acidosis: Plan: Resolved (12) Tachypnea: Plan: Present on admission. Now resolved (13) Hypertension: Plan: Metoprolol started on October 12 for heart rate and blood pressure control. Now improved Plan Currently on intravenous Unasyn and oral linezolid. Hopeful eventual transition to oral antibiotics and eventual discharge to [facility]. Admission and Anticipated Discharge Date Admission Date: October 05, 2022 Subjective No significant improvement from yesterday. Infectious disease entry noted. Linezolid has been added to Unasyn. He remains afebrile. INR 2.0 today. Blood pressure has improved with addition of metoprolol. Review of Systems Review of Systems: Constitutional-no fever or chills ENT-no blurred vision, no double vision, no epistaxis, no sore throat Respiratory-no cough, no wheezing, no shortness of breath Cardiac-no palpitations, no chest pain, no syncope GI-no nausea, vomiting, diarrhea, melena, hematochezia -no urinary retention, no urinary incontinence, no dysuria, no hematuria Musculoskeletal-erythema and tenderness of the left upper extremity. Left knee effusion noted. Skin-no bruising, no rashes, no pruritus Neuro-no isolated weakness, no paresthesia, no weakness Psych-no depression, no anxiety Physical Exam Physical Exam: General-alert and oriented x3, no fevers, no chills HEENT-head atraumatic and normocephalic, pupils equal and reactive to light, extraocular muscles intact Neck-no lymphadenopathy or thyromegaly, trachea midline Chest-clear to auscultation percussion. No rales wheezing or rhonchi Cardiac-regular rate and rhythm, normal S1 and S2 Abdomen-normal bowel sounds, nontender, no hepatosplenomegaly Extremities-indurated tender proximal upper left leg. Neuro-cranial nerves II through XII intact, motor and sensory function within normal limits, strength symmetrical with generalized weakness , no focal deficits Psych-normal affect, normal mood Results & Data Results & Data Vital Signs (Past 12 Hours) Vital Signs Temp Pulse Pulse Resp BP BP Pulse Ox 10/13/22 12:33 36.6 C 73 18 151/87 H 95 10/13/22 11:42 78 10/13/22 08:00 78 10/13/22 07:32 36.9 C 96 H 19 130/80 94 10/13/22 03:40 36.7 C 91 H 20 143/96 H 92 10/13/22 03:32 78 O2 Del Method 10/13/22 12:33 Room Air 10/13/22 11:42 10/13/22 08:00 10/13/22 07:32 Room Air 10/13/22 03:40 Room Air 10/13/22 03:32 Laboratory Results 10/13/22 06:18 10/13/22 06:18 PG Care Time/CCT Total # of Minutes Spent Total Time Spent with Patient: Total time spent is greater than 50% in coordination of care (as documented) at patient's floor/unit and/or counseling patient: Coding Level of Care Code 40378 SUB INP/OBS CARE 3/50MIN Diagnoses Sepsis A41.9 Left leg pain M79.605 Neutropenia D70.1; T45.1X5A Neutropenia type: secondary to cancer chemotherapy Elevated lactic acid level R79.89 Rhabdomyolysis M62.82 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 lines 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
[2022-10-13] MEDS: WARFARIN SOD 2.5 MG TAB PO SCH (17:02)
[2022-10-13] MEDS: LATANOPROST 0.005% OP SOLN 2.5 ML BTL OPB SCH (21:19)
[2022-10-14] MEDS: AMPICILLIN/SULBACTAM SOD 3,000 MG in 0.9 % SODIUM CHLORIDE 100 ML IV SCH ×4 (04:52→23:04)
[2022-10-14 06:22] LABS: Hematocrit (blood only) 33.5 % (42.0-52.0); Hemoglobin 11.6 g/dl (14.0-18.0); Mean Corpuscular Hemoglobin 30.5 pg (25.0-34.0); Mean Corpuscular Hgb Conc 34.6 g/dL (32.0-36.0); Mean Corpuscular Volume 88.2 fL (80.0-100.0); Mean Platelet Volume 10.3 fL (9.4-12.4); Platelet Count 199 K/uL (130-400); RDW Coefficient of Variation 13.5 % (11.5-14.5); RDW Standard Deviation 42.5 fL (36.4-46.3)
[2022-10-14 06:37] LABS: BUN Creatinine Ratio 16.2 (10-20); Creatinine Clr Calc Pharmacy 83.9 ml/min; Est GFR (African American) 102.4 ml/min; Est GFR (Non-African American) 88.3 ml/min; Potassium 3.4 mmol/L (3.5-5.1)
[2022-10-14 06:45] LABS: INR 2.6 (0.9-1.1); Prothrombin Time 26.7 Seconds (9.0-12.0)
[2022-10-14 06:53] LABS: Basophils # (auto) 0.03 K/uL (0-0.2); Basophils % (auto) 0.4 %; Eosinophils # (auto) 0.01 K/uL (0-0.50); Eosinophils % (auto) 0.1 %; Immature Granulocytes # (auto) 0.72 K/uL (0.01-0.20); Immature Granulocytes % (auto) 8.5 %; Lymphocytes # (auto) 0.71 K/uL (1.2-3.4); Lymphocytes % (auto) 8.4 %; Monocytes # (auto) 0.78 K/uL (0.11-0.59); Monocytes % (auto) 9.2 %; Neutrophils # (auto) 6.25 K/uL (1.40-6.50); Neutrophils % (auto) 73.4 %
[2022-10-14] MEDS: FLUCONAZOLE 100 MG TAB PO SCH (08:44)
[2022-10-14] MEDS: METOPROLOL TARTRATE 25 MG TAB PO SCH ×2 (08:44→20:19)
[2022-10-14] MEDS: LINEZOLID 600 MG TAB PO SCH ×2 (08:44→20:18)
[2022-10-14] MEDS: DORZOLAMIDE/TIMOLOL 22.3/6.8MG/ML 10 ML BTL OPB SCH ×2 (08:45→20:20)
[2022-10-14] MEDS: BRIMONIDINE TARTRATE-P 0.15% 5 ML BTL OPR SCH ×2 (08:45→20:20)
--- NOTE | 2022-10-14 09:58 | Infectious Disease Progress Nt ---
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 Unclear what chemotherapy regimen he received. Last oncology note scanned from 08/27 state he would lkely be started on capecitabine and oxaliplatin vs cisplatin and etopaside. He was seen by Urology on 09/27 to review his bladder discomfort, with discussion re cystoscopy. He was admitted on 10/05 with sudden onset AMS, found by his . Patient was afebrile, tachycardic, req 1.5 L oxygen. Notable labs: procal 6.03. Lactate 4.6. Neutropenic 0.07. Leukopenic 0.91. CT head w/o hydrocephalus or bleed. Started on Cefepime. Dapto. Blood cultures 10/05 Group B beta hemolytic strep bottles, strep agalactiae by [facility]. 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 No airspace disease. L knee CT shows effusion L femur CT shows subtle ill-defined area of hypodensity within the distal vastus lateralis muscle. Seen by Orthopaedics Knee arthrocentesis on 10/06 synovial fluid shows 359 wbcs (20%pmns, 79% monos) 101,000 rbcs. Gram stain few wbcs no organisms. Knee cx is no growth. Pt unable to have MRI L leg due to PLASTIC TILE LAYER shunt. On Tuesday, LLE cellulitis was marked by RN. On 10/11, CTX changed to vancomycin as pt's reported worsening of L leg. however on exam, he has clear improvement of erythema, tenderness- unlikely to occur only approx 2 hours after vancomycin administered. No known prior h/o MRSA/contact isolation per pt and . Vanco changed to unasyn 10/12- L leg appears improved 10/13- slight increase in erythema L leg- pt lying on that side predominantly per son. Linezolid added 10/14- improved swelling, erythema and warmth. Pt had been constipated- now having diarrhea. Repeat Bcxs are negative (2) Metastatic cancer: (3) Adenocarcinoma of colon: (4) Lumbar radiculopathy: (5) Sepsis: Plan -improved L LE cellulitis -platelets improved -would continue linezolid 600 PO q12 with unasyn 3 g IV q6 for now- no drug interactions with current meds -would plan on 7 more days of linezolid 600 mg PO q12 on discharge (unasyn can be stopped at discharge)to complete treatment of cellulitis and GBS bacteremia. If erythema persists afterwards, would repeat imaging of L leg. -Repeat blood cultures are no growth -L chest mediport ok to keep -pt had been on stool regimen due to constipation- if diarrhea worsens, would check c.dif. Pt's asking about probiotics- would advise against probiotic supplements given risk of bacteremia in setting of immunosuppression with periodic neutropenia. Discussed food with probiotics instead. -discussed with pt and Please page with any questions. Syl Lepe M.D. [facility] [employer] Pager [phone] Admission and Anticipated Discharge Date Admission Date: October 05, 2022 Subjective Subsequent visit was provided via telemedicine using two-way real-time interactive telecommunication between the patient and the telemedicine provider. For the duration of the visit, the provider was performing the assessment from a different facility than the patient. This includesuse of bluetooth stethoscope forauscultationperformed by the telepresenter that the telemedicine provider can hear if described in the physical exam. [employer] contact information: Please call [employer] [facility] Call Center . (Phone Number For Physician Use Only) After establishing a telemedicine visit, patient was: Patient was verified with two unique identifiers, Patient/authorized rep acknowledged consent and understanding and Gave permission to continue telehealth session Time Spent with Patient: Subsequent => 25 min pt's at bedside provides history. Pt has been having frequent stools- semi-formed. No abd pain. Pt reports pain in L leg has improved but still present over a focal area of erythema Physical Exam Physical Exam: PE: Gen: Awake, fatigued/chronically-ill appearing, NAD HEENT: anicteric Chest: L chest port nontender Resp: no resp distress on RA Abd: Soft, distended, NT Extr: no c/c L leg with improved swelling. Erythema and warmth lateral L thigh improved. There is still a focal area of erythema lateral mid-thigh that is more tender than rest of leg- but no fluctuance appreciated. Faint erythema medial L thigh almost resolved. Erythema does not extend to posterior leg. No significant pedal edema. : tellez with yellow urine Skin: R peripheral IV ok Results & Data Vital Signs (Past 12 Hours) Vital Signs Temp Pulse Pulse Resp BP Pulse Ox O2 Del Method 10/14/22 08:30 36.8 C 87 18 143/90 H 97 Room Air 10/14/22 07:49 74 10/14/22 03:00 36.8 C 77 20 116/74 96 Room Air 10/14/22 00:01 90 10/13/22 23:41 36.8 C 75 20 151/90 H 97 Room Air Laboratory Results 10/08/22 19:25 Aerobic Blood Culture - Final Blood No growth in Aerobic bottle after 5 days. Anaerobic Blood Culture - Final 10/08/22 19:28 Aerobic Blood Culture - Final Blood No growth in Aerobic bottle after 5 days. Anaerobic Blood Culture - Final 10/14/22 10/14/22 10/14/22 05:50 05:49 05:49 WBC 8.50 RBC 3.80 L Hgb 11.6 L Hct 33.5 L MCV 88.2 MCH 30.5 MCHC 34.6 RDW Std Deviation 42.5 RDW Coeff of Brian 13.5 Plt Count 199 MPV 10.3 Immature Gran % (Auto) 8.5 Neut % (Auto) 73.4 Lymph % (Auto) 8.4 [place] % (Auto) 9.2 Eos % (Auto) 0.1 Baso % (Auto) 0.4 Neut # (Auto) 6.25 Lymph # (Auto) 0.71 L [place] # (Auto) 0.78 H Eos # (Auto) 0.01 Baso # (Auto) 0.03 Immature Gran # (Auto) 0.72 H PT 26.7 H INR 2.6 H Sodium 141 Potassium 3.4 L Chloride 108 H Carbon Dioxide 27 Anion Gap 6 BUN 12 Creatinine 0.74 Est Cr Clr Drug Dosing 83.9 Est GFR ( Amer) 102.4 Est GFR (Non-Af Amer) 88.3 BUN/Creatinine Ratio 16.2 Glucose 123 H Calcium 8.0 L Medications Administered Current Medications Acetaminophen (Acetaminophen 500 Mg Tab) 1,000 mg PO Q8H PRN PRN Reason: Pain or Fever Stop: 11/09/22 03:52 Last Admin: 10/13/22 21:12 Dose: 1,000 mg Brimonidine Tartrate (Brimonidine Tartrate-P 0.15% 5 Ml Btl) 1 drops OPR BID [facility] Stop: 11/05/22 20:59 Last Admin: 10/14/22 08:45 Dose: 1 drops Dorzolamide/Timolol (Dorzolamide/Timolol 22.3/6.8mg/Ml 10 Ml Btl) 1 drops OPB BID [facility] Stop: 11/05/22 20:59 Last Admin: 10/14/22 08:45 Dose: 1 drops Fluconazole (Fluconazole 100 Mg Tab) 100 mg PO QAM [facility] Stop: 10/16/22 10:59 Last Admin: 10/14/22 08:44 Dose: 100 mg Heparin Sodium (Porcine) (Heparin 100 Unit/Ml 5ml Flush) 5 ml FLUSH PRN PRN PRN Reason: Flush Stop: 11/05/22 01:22 Last Admin: 10/08/22 06:03 Dose: 5 ml Ampicillin Sodium/Sulbactam Sodium 3,000 mg/ Sodium Chloride 108 mls @ 200 mls/hr IV Q6H [facility]; Protocol Stop: 10/25/22 15:44 Last Infusion: 10/14/22 09:23 Dose: Infused Latanoprost (Latanoprost 0.005% Op Soln 2.5 Ml Btl) 1 drops OPB HS [facility] Stop: 11/05/22 20:59 Last Admin: 10/13/22 21:19 Dose: 1 drops Linezolid (Linezolid 600 Mg Tab) 600 mg PO BID [facility] Stop: 10/20/22 10:14 Last Admin: 10/14/22 08:44 Dose: 600 mg Metoprolol Tartrate (Metoprolol Tartrate 25 Mg Tab) 25 mg PO BID [facility] Stop: 11/11/22 10:29 Last Admin: 10/14/22 08:44 Dose: 25 mg Potassium Chloride (Potassium Chloride Crtab 20 Meq Tabcr) 20 meq PO QAM [facility] Stop: 11/13/22 10:14 Warfarin Sodium (Warfarin Sod 2.5 Mg Tab) 2.5 mg PO DAILY@1600 [facility] Stop: 11/07/22 15:59 Last Admin: 10/13/22 17:02 Dose: 2.5 mg (1) Neutropenia Neutropenia type: secondary to cancer chemotherapy Qualified Code(s): D70.1 - Agranulocytosis secondary to cancer chemotherapy; T45.1X5A - Adverse effect of antineoplastic and immunosuppressive drugs, initial encounter (2) Metastatic cancer Area of secondary neoplastic involvement: digestive structure Digestive structure secondary neoplasm location: metastatic to liver Qualified Code(s): C78.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
[2022-10-14] MEDS: POTASSIUM CHLORIDE CRTAB 20 MEQ TABCR PO SCH (10:43)
--- NOTE | 2022-10-14 14:22 | Hospitalist Progress Note ---
Date of Service October 14, 2022 Assessment & Plan (1) Sepsis: Plan: Present on admission. Now resolved. We will continue to treat cellulitis of the left leg. Rocephin has been switched to vancomycin then to Unasyn. Linezolid added per ID on October 13. Orthopedic consultation appreciated. Left knee joint aspirate culture negative (2) Left leg pain: Plan: This appears to be due to underlying cellulitis. Rocephin switched to vancomycin then to Unasyn plus linezolid. CT femur x2 show some subcutaneous edema, no drainable fluid. Appears to now be improving (3) Neutropenia: Plan: s/p chemo 09/22 for metastatic rectal cancer. Serial labs (4) Elevated lactic acid level: Plan: Resolved (5) Rhabdomyolysis: Plan: Non traumatic rhabdo. Present on admission. Mild. Now resolved (6) 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 terminal carman 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: Plan: Continue coumadin . History of pulmonary embolism. INR 2.6 today, October 14 (7) Altered mental status: Plan: Acute metabolic encephalopathy present on admission. Now resolved. CT head w/o acute changes or intracranial hemorrhage. (8) S/P DEAN shunt: Plan: Placed after acoustic neuroma surgery. Recently had MRI and shunt adjustment at [place] 07/2022. (9) Malnutrition: Plan: Will continue nutritional supplements and encourage intake (10) Metabolic acidosis, increased anion gap: Plan: Resolved (11) Lactic acidosis: Plan: Resolved (12) Tachypnea: Plan: Present on admission. Now resolved (13) Hypertension: Plan: Metoprolol started on October 12 for heart rate and blood pressure control. Now improved (14) Hypokalemia: Plan: Oral replacement ordered. Serial labs Plan Currently on intravenous Unasyn and oral linezolid. Hopeful eventual transition to oral antibiotics and eventual discharge to [facility]. Admission and Anticipated Discharge Date Admission Date: October 05, 2022 Subjective Afebrile and vital signs stable. The left lower extremity cellulitis appears to be improving. Potassium supplementation ordered. He is now on intravenous Unasyn and oral linezolid Review of Systems Review of Systems: Constitutional-no fever or chills ENT-no blurred vision, no double vision, no epistaxis, no sore throat Respiratory-no cough, no wheezing, no shortness of breath Cardiac-no palpitations, no chest pain, no syncope GI-no nausea, vomiting, diarrhea, melena, hematochezia -no urinary retention, no urinary incontinence, no dysuria, no hematuria Musculoskeletal-erythema and tenderness of the left upper extremity. Left knee effusion noted. Skin-no bruising, no rashes, no pruritus Neuro-no isolated weakness, no paresthesia, no weakness Psych-no depression, no anxiety Physical Exam Physical Exam: General-alert and oriented x3, no fevers, no chills HEENT-head atraumatic and normocephalic, pupils equal and reactive to light, extraocular muscles intact Neck-no lymphadenopathy or thyromegaly, trachea midline Chest-clear to auscultation percussion. No rales wheezing or rhonchi Cardiac-regular rate and rhythm, normal S1 and S2 Abdomen-normal bowel sounds, nontender, no hepatosplenomegaly Extremities-indurated tender proximal upper left leg. Neuro-cranial nerves II through XII intact, motor and sensory function within normal limits, strength symmetrical with generalized weakness , no focal deficits Psych-normal affect, normal mood Results & Data Results & Data Vital Signs (Past 12 Hours) Vital Signs Temp Pulse Pulse Resp BP Pulse Ox O2 Del Method 10/14/22 12:16 36.7 C 73 18 147/87 H 95 Room Air 10/14/22 08:30 36.8 C 87 18 143/90 H 97 Room Air 10/14/22 07:49 74 10/14/22 03:00 36.8 C 77 20 116/74 96 Room Air Laboratory Results 10/14/22 05:50 10/14/22 05:49 PG Care Time/CCT Total # of Minutes Spent Total Time Spent with Patient: Total time spent is greater than 50% in coordination of care (as documented) at patient's floor/unit and/or counseling patient: Coding Level of Care Code 41233 SUB INP/OBS CARE 3/50MIN Diagnoses Sepsis A41.9 Left leg pain M79.605 Neutropenia D70.1; T45.1X5A Neutropenia type: secondary to cancer chemotherapy Elevated lactic acid level R79.89 Rhabdomyolysis M62.82 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 terminal carman 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 Z79.01 Altered mental status R41.0 Altered mental status type: disorientation S/P DEAN shunt Z98.2 Malnutrition E46 Metabolic acidosis, increased anion gap E87.29 Lactic acidosis E87.20 Tachypnea R06.82 Hypertension I10 Hypokalemia E87.6 (3) Neutropenia Neutropenia type: secondary to cancer chemotherapy Qualified Code(s): D70.1 - Agranulocytosis secondary to cancer chemotherapy; T45.1X5A - Adverse effect of antineoplastic and immunosuppressive drugs, initial encounter (7) Altered mental status Altered mental status type: disorientation Qualified Code(s): R41.0 - Disorientation, unspecified
[2022-10-14] MEDS: WARFARIN SOD 2.5 MG TAB PO SCH (16:40)
[2022-10-14] MEDS: LATANOPROST 0.005% OP SOLN 2.5 ML BTL OPB SCH (20:19)
[2022-10-14] MEDS: ACETAMINOPHEN 500 MG TAB PO PRN (23:14)
[2022-10-15] MEDS: AMPICILLIN/SULBACTAM SOD 3,000 MG in 0.9 % SODIUM CHLORIDE 100 ML IV SCH ×4 (03:47→22:26)
--- NOTE | 2022-10-15 06:19 | Hospitalist Progress Note ---
Date of Service October 15, 2022 Assessment & Plan (1) Pancytopenia: Plan: CBC fully recovered and consistently in good range. No further intervention required (2) Metastatic cancer: Plan: Understandably, patient indicates he does not want to pursue any further cycles of current chemotherapy plan. It does seem that the infection is perhaps more soft tissue than bone and can hopefully be resolved with a reasonably defined course of antibiotics. I would wait for at least 1 week after his last antibiotic dose before even considering additional treatment for the underlying cancer to be sure that there is no short-term relapse. At that time, we may explore some noncytotoxic options for his further care but as well need to increasingly incorporate a discussion of the more fundamental choices between aggressive further oncologic therapy and a greater focus on palliative care and near-term quality of life Plan No further need for hematology/oncology intervention anticipated during this admission. I will arrange for follow-up in our clinic in early October. I will "sign off" but please reconsult if further questions arise during this [facility] hospitalization Admission and Anticipated Discharge Date Admission Date: October 05, 2022 Subjective Much improved Physical Exam Physical Exam: Afebrile, vital signs stable Left knee erythema persists but seems to be slowly resolving Exam otherwise stable Results & Data Results & Data Vital Signs (Past 12 Hours) Vital Signs Temp Pulse Pulse Resp BP Pulse Ox O2 Del Method 10/15/22 03:57 36.5 C 62 16 148/91 H 93 Room Air 10/15/22 01:26 73 10/14/22 22:54 36.4 C L 74 16 137/87 94 Room Air 10/14/22 19:00 36.3 C L 70 18 148/91 H 96 Room Air PG Care Time/CCT Total # of Minutes Spent Total Time Spent with Patient: Total time spent is greater than 50% in coordination of care (as documented) at patient's floor/unit and/or counseling patient: Coding Level of Care Code None Diagnoses Pancytopenia D61.818 Metastatic cancer C78.7 Area of secondary neoplastic involvement: digestive structure Digestive structure secondary neoplasm location: metastatic to liver (2) Metastatic cancer Area of secondary neoplastic involvement: digestive structure Digestive structure secondary neoplasm location: metastatic to liver Qualified Code(s): C78.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
[2022-10-15 06:20] LABS: Basophils # (auto) 0.06 K/uL (0-0.2); Basophils % (auto) 0.5 %; Eosinophils # (auto) 0.01 K/uL (0-0.50); Eosinophils % (auto) 0.1 %; Hemoglobin 12.4 g/dl (14.0-18.0); Immature Granulocytes # (auto) 0.46 K/uL (0.01-0.20); Immature Granulocytes % (auto) 3.9 %; Lymphocytes # (auto) 0.78 K/uL (1.2-3.4); Lymphocytes % (auto) 6.6 %; Mean Corpuscular Hemoglobin 30.5 pg (25.0-34.0); Mean Corpuscular Hgb Conc 34.4 g/dL (32.0-36.0); Mean Corpuscular Volume 88.5 fL (80.0-100.0); Mean Platelet Volume 9.7 fL (9.4-12.4); Monocytes # (auto) 0.97 K/uL (0.11-0.59); Monocytes % (auto) 8.2 %; Neutrophils # (auto) 9.48 K/uL (1.40-6.50); Neutrophils % (auto) 80.7 %; Platelet Count 258 K/uL (130-400); RDW Coefficient of Variation 13.4 % (11.5-14.5); RDW Standard Deviation 43.1 fL (36.4-46.3); Red Blood Count 4.07 M/uL (4.70-6.10); White Blood Count 11.76 K/ul (4.8-10.8)
[2022-10-15 06:42] LABS: BUN Creatinine Ratio 11.4 (10-20); Calcium 8.3 mg/dl (8.6-10.3); Creatinine Clr Calc Pharmacy 78.5 ml/min; Est GFR (African American) 99.7 ml/min; Potassium 3.7 mmol/L (3.5-5.1)
[2022-10-15 08:22] LABS: INR 3.5 (0.9-1.1); Prothrombin Time 34.8 Seconds (9.0-12.0)
[2022-10-15] MEDS: POTASSIUM CHLORIDE CRTAB 20 MEQ TABCR PO SCH (09:04)
[2022-10-15] MEDS: METOPROLOL TARTRATE 25 MG TAB PO SCH ×2 (09:04→22:21)
[2022-10-15] MEDS: FLUCONAZOLE 100 MG TAB PO SCH (09:04)
[2022-10-15] MEDS: LINEZOLID 600 MG TAB PO SCH ×2 (09:04→22:22)
[2022-10-15] MEDS: DORZOLAMIDE/TIMOLOL 22.3/6.8MG/ML 10 ML BTL OPB SCH ×2 (09:05→20:08)
[2022-10-15] MEDS: ACETAMINOPHEN 500 MG TAB PO PRN ×2 (09:05→22:25)
[2022-10-15] MEDS: BRIMONIDINE TARTRATE-P 0.15% 5 ML BTL OPR SCH ×2 (09:05→20:09)
--- NOTE | 2022-10-15 11:00 | Infectious Disease Progress Nt ---
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 Pt has been on chemotherapy with oncology following. He received etopaside/carboplatinum in September. He was seen by Urology on 09/27 to review his bladder discomfort, with discussion re cystoscopy. He was admitted on 10/05 with sudden onset AMS, found by his . Patient was afebrile, tachycardic, req 1.5 L oxygen. Notable labs: procal 6.03. Lactate 4.6. Neutropenic 0.07. Leukopenic 0.91. CT head w/o hydrocephalus or bleed. Started on Cefepime. Dapto. Blood cultures 10/05 Group B beta hemolytic strep bottles, strep agalactiae by [facility]. 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 No airspace disease. L knee CT shows effusion L femur CT shows subtle ill-defined area of hypodensity within the distal vastus lateralis muscle. Seen by Orthopaedics Knee arthrocentesis on 10/06 synovial fluid shows 359 wbcs (20%pmns, 79% monos) 101,000 rbcs. Gram stain few wbcs no organisms. Knee cx is no growth. Pt unable to have MRI L leg due to RN PERINATAL shunt. On Tuesday, LLE cellulitis was marked by RN. On 10/11, CTX changed to vancomycin as pt's reported worsening of L leg. ho wever on exam, he has clear improvement of erythema, tenderness- unlikely to occur only approx 2 hours after vancomycin administered. No known prior h/o MRSA/contact isolation per pt and . Vanco changed to unasyn 3/21- L leg appears improved 10/13- slight increase in erythema L leg- pt lying on that side predominantly per son. Linezolid added 10/14- improved swelling, erythema and warmth. Pt had been constipated- now having diarrhea. Pt's asking about probiotics- would advise against probiotic supplements given risk of bacteremia in setting of immunosuppression with periodic neutropenia. Discussed food with probiotics instead. 10/15 Leg improved but WBC noted to be trending up. Does not appear neupogen given after review of meds and onc consult note. Still having pudding-like frequent stools without abd pain. Chemo to be held pending resoluton of infection and further discussion of options, including palliative, per oncology. Repeat Bcxs are negative (2) Metastatic cancer: (3) Adenocarcinoma of colon: (4) Lumbar radiculopathy: (5) Sepsis: Plan -improved L LE cellulitis overall with residual area of erythema L leg -would continue linezolid 600 PO q12 with unasyn 3 g IV q6 for now- no drug interactions with current meds -had planned on 7 more days of linezolid 600 mg PO q12 on discharge (unasyn can be stopped at discharge)to complete treatment of cellulitis and GBS bacteremia. Had recommended that if erythema persists afterwards, would repeat imaging of L leg. -Repeat blood cultures are negative -L chest mediport ok to keep -pt had been on stool regimen due to constipation- now having frequent BMs- soft rather than liquid. If diarrhea worsens, would check c.dif. -trend up of WBC concerning given no recent neupogen. Stool does not sound c/w C. dif although possible contributor. Main concern is residual focal area of erythema L leg despite overall improvement- Would obtain repeat CT of L leg at this time to establish no abscess -discussed with pt and Please page with any questions. Syl Lepe M.D. [facility] [employer] Pager [phone] Admission and Anticipated Discharge Date Admission Date: October 05, 2022 Subjective Subsequent visit was provided via telemedicine using two-way real-time interactive telecommunication between the patient and the telemedicine provider. For the duration of the visit, the provider was performing the assessment from a different facility than the patient. This includesuse of bluetooth stethoscope forauscultationperformed by the telepresenter that the telemedicine provider can hear if described in the physical exam. Medical Biller contact information: Please call [facility] Call Center . (Phone Number For Physician Use Only) After establishing a telemedicine visit, patient was: Patient was verified with two unique identifiers, Patient/authorized rep acknowledged consent and understanding and Gave permission to continue telehealth session Time Spent with Patient: Subsequent => 25 min having BMs every 2 hours- soft/pudding-like, not liquid per pt's . no abd pain. pt and report L leg is better today than yesterday by about ~10% no fever/chills. Pt much more conversant today but focused on questions about his diet Physical Exam Physical Exam: PE: Gen: Awake, fatigued/chronically-ill appearing, NAD HEENT: anicteric Chest: L chest port nontender Resp: no resp distress on RA Abd: Soft, distended, NT Extr: no c/c L leg with improved swelling. Erythema and warmth lateral L thigh improved. There is still a focal area of erythema lateral mid-thigh that is more tender than rest of leg- but no fluctuance appreciated. Faint erythema medial L thigh almost resolved. Erythema does not extend to posterior leg. No significant pedal edema. : tellez with yellow urine Skin: R peripheral IV ok Results & Data Vital Signs (Past 12 Hours) Vital Signs Temp Pulse Pulse Pulse Resp BP Pulse Ox 10/15/22 08:40 36.8 C 82 18 146/62 H 97 10/15/22 03:57 36.5 C 62 16 148/91 H 93 10/15/22 01:26 73 O2 Del Method 10/15/22 08:40 Room Air 10/15/22 03:57 Room Air 10/15/22 01:26 Laboratory Results 10/15/22 10/15/22 10/15/22 05:50 05:50 05:50 WBC 11.76 H RBC 4.07 L Hgb 12.4 L Hct 36.0 L MCV 88.5 MCH 30.5 MCHC 34.4 RDW Std Deviation 43.1 RDW Coeff of Brian 13.4 Plt Count 258 MPV 9.7 Immature Gran % (Auto) 3.9 Neut % (Auto) 80.7 Lymph % (Auto) 6.6 [place] % (Auto) 8.2 Eos % (Auto) 0.1 Baso % (Auto) 0.5 Neut # (Auto) 9.48 H Lymph # (Auto) 0.78 L [place] # (Auto) 0.97 H Eos # (Auto) 0.01 Baso # (Auto) 0.06 Immature Gran # (Auto) 0.46 H PT 34.8 H INR 3.5 H Sodium 141 Potassium 3.7 Chloride 107 Carbon Dioxide 27 Anion Gap 7 BUN 9 Creatinine 0.79 Est Cr Clr Drug Dosing 78.5 Est GFR ( Amer) 99.7 Est GFR (Non-Af Amer) 86.0 BUN/Creatinine Ratio 11.4 Glucose 108 H Calcium 8.3 L Medications Administered Current Medications Acetaminophen (Acetaminophen 500 Mg Tab) 1,000 mg PO Q8H PRN PRN Reason: Pain or Fever Stop: 11/09/22 03:52 Last Admin: 10/15/22 09:05 Dose: 1,000 mg Brimonidine Tartrate (Brimonidine Tartrate-P 0.15% 5 Ml Btl) 1 drops OPR BID [facility] Stop: 11/05/22 20:59 Last Admin: 10/15/22 09:05 Dose: 1 drops Dorzolamide/Timolol (Dorzolamide/Timolol 22.3/6.8mg/Ml 10 Ml Btl) 1 drops OPB BID [facility] Stop: 11/05/22 20:59 Last Admin: 10/15/22 09:05 Dose: 1 drops Fluconazole (Fluconazole 100 Mg Tab) 100 mg PO QAM [facility] Stop: 10/16/22 10:59 Last Admin: 10/15/22 09:04 Dose: 100 mg Heparin Sodium (Porcine) (Heparin 100 Unit/Ml 5ml Flush) 5 ml FLUSH PRN PRN PRN Reason: Flush Stop: 11/05/22 01:22 Last Admin: 10/08/22 06:03 Dose: 5 ml Ampicillin Sodium/Sulbactam Sodium 3,000 mg/ Sodium Chloride 108 mls @ 200 mls/hr IV Q6H [facility]; Protocol Stop: 10/25/22 15:44 Last Infusion: 10/15/22 10:26 Dose: Infused Latanoprost (Latanoprost 0.005% Op Soln 2.5 Ml Btl) 1 drops OPB HS [facility] Stop: 11/05/22 20:59 Last Admin: 10/14/22 20:19 Dose: 1 drops Linezolid (Linezolid 600 Mg Tab) 600 mg PO BID [facility] Stop: 10/20/22 10:14 Last Admin: 10/15/22 09:04 Dose: 600 mg Metoprolol Tartrate (Metoprolol Tartrate 25 Mg Tab) 25 mg PO BID [facility] Stop: 11/11/22 10:29 Last Admin: 10/15/22 09:04 Dose: 25 mg Potassium Chloride (Potassium Chloride Crtab 20 Meq Tabcr) 20 meq PO QAM [facility] Stop: 11/13/22 10:14 Last Admin: 10/15/22 09:04 Dose: 20 meq (1) Neutropenia Neutropenia type: secondary to cancer chemotherapy Qualified Code(s): D70.1 - Agranulocytosis secondary to cancer chemotherapy; T45.1X5A - Adverse effect of antineoplastic and immunosuppressive drugs, initial encounter (2) Metastatic cancer Area of secondary neoplastic involvement: digestive structure Digestive structure secondary neoplasm location: metastatic to liver Qualified Code(s): C78.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
--- NOTE | 2022-10-15 15:36 | Hospitalist Progress Note ---
Date of Service October 15, 2022 Assessment & Plan (1) Sepsis: Plan: Present on admission. Now resolved. We will continue to treat cellulitis of the left leg. Rocephin has been switched to vancomycin then to Unasyn. Linezolid added per ID on October 13. Orthopedic consultation appreciated. Left knee joint aspirate culture negative (2) Left leg pain: Plan: This appears to be due to underlying cellulitis. Rocephin switched to vancomycin then to Unasyn plus linezolid. CT femur x2 show some subcutaneous edema, no drainable fluid. We will repeat CT scan again today, October 15. (3) Neutropenia: Plan: s/p chemo 09/22 for metastatic rectal cancer. Serial labs (4) Elevated lactic acid level: Plan: Resolved (5) Rhabdomyolysis: Plan: Non traumatic rhabdo. Present on admission. Mild. Now resolved (6) 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 intermediate 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: Plan: Continue coumadin . History of pulmonary embolism. INR 2.6 today, October 14 (7) Altered mental status: Plan: Acute metabolic encephalopathy present on admission. Now resolved. CT head w/o acute changes or intracranial hemorrhage. (8) S/P ASTROBIOLOGIST shunt: Plan: Placed after acoustic neuroma surgery. Recently had MRI and shunt adjustment at [place] [facility] 07/2022. (9) Malnutrition: Plan: Will continue nutritional supplements and encourage intake (10) Metabolic acidosis, increased anion gap: Plan: Resolved (11) Lactic acidosis: Plan: Resolved (12) Tachypnea: Plan: Present on admission. Now resolved (13) Hypertension: Plan: Metoprolol started on October 12 for heart rate and blood pressure control. Now improved (14) Hypokalemia: Plan: Oral replacement ordered. Serial labs (15) Diarrhea: Plan: C. difficile toxin assay ordered. Plan Currently on intravenous Unasyn and oral linezolid. Hopeful eventual transition to oral antibiotics and eventual discharge to [facility]. Admission and Anticipated Discharge Date Admission Date: October 05, 2022 Subjective Alert and oriented. No new problems. He states his left leg pain is controlled with Tylenol. is at the bedside. Infectious disease entry noted. He is now having some loose stools however. C. difficile toxin assay has been ordered and pending. We will repeat left femur CT scan due to rising white blood cell count although C. difficile is in the differential. INR is up to 3.5. Coumadin placed on hold. Continue daily lab studies. Blood pressure and heart rate have improved with metoprolol addition. Potassium has been corrected to 3.7. Review of Systems Review of Systems: Constitutional-no fever or chills ENT-no blurred vision, no double vision, no epistaxis, no sore throat Respiratory-no cough, no wheezing, no shortness of breath Cardiac-no palpitations, no chest pain, no syncope GI-no nausea, vomiting, melena, hematochezia. Loose stools have developed -no urinary retention, no urinary incontinence, no dysuria, no hematuria Musculoskeletal-erythema and tenderness of the lateral upper part of left leg . Left knee effusion noted. Skin-no bruising, no rashes, no pruritus Neuro-no isolated weakness, no paresthesia, no weakness Psych-no depression, no anxiety Physical Exam Physical Exam: General-alert and oriented x3, no fevers, no chills HEENT-head atraumatic and normocephalic, pupils equal and reactive to light, extraocular muscles intact Neck-no lymphadenopathy or thyromegaly, trachea midline Chest-clear to auscultation percussion. No rales wheezing or rhonchi Cardiac-regular rate and rhythm, normal S1 and S2 Abdomen-normal bowel sounds, nontender, no hepatosplenomegaly Extremities-indurated tender proximal upper lateral left leg. Neuro-cranial nerves II through XII intact, motor and sensory function within normal limits, strength symmetrical with generalized weakness , no focal deficits Psych-normal affect, normal mood Results & Data Results & Data Vital Signs (Past 12 Hours) Vital Signs Temp Pulse Pulse Resp BP Pulse Ox O2 Del Method 10/15/22 12:18 36.9 C 82 18 143/91 H 93 Room Air 10/15/22 08:40 36.8 C 82 18 146/62 H 97 Room Air 10/15/22 03:57 36.5 C 62 16 148/91 H 93 Room Air Laboratory Results 10/15/22 05:50 10/15/22 05:50 PG Care Time/CCT Total # of Minutes Spent Total Time Spent with Patient: Total time spent is greater than 50% in coordination of care (as documented) at patient's floor/unit and/or counseling patient: Coding Level of Care Code 93516 SUB INP/OBS CARE 3/50MIN Diagnoses Sepsis A41.9 Left leg pain M79.605 Neutropenia D70.1; T45.1X5A Neutropenia type: secondary to cancer chemotherapy Elevated lactic acid level R79.89 Rhabdomyolysis M62.82 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 intermediate 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 Z79.01 Altered mental status R41.0 Altered mental status type: disorientation S/P ASTROBIOLOGIST shunt Z98.2 Malnutrition E46 Metabolic acidosis, increased anion gap E87.29 Lactic acidosis E87.20 Tachypnea R06.82 Hypertension I10 Hypokalemia E87.6 Diarrhea R19.7 (3) Neutropenia Neutropenia type: secondary to cancer chemotherapy Qualified Code(s): D70.1 - Agranulocytosis secondary to cancer chemotherapy; T45.1X5A - Adverse effect of antineoplastic and immunosuppressive drugs, initial encounter (7) Altered mental status Altered mental status type: disorientation Qualified Code(s): R41.0 - Disorientation, unspecified
--- NOTE | 2022-10-15 18:43 | CT Scan Report ---
CT femur LT wo con CLINICAL HISTORY: cellulitis TECHNIQUE: Multidetector row helical CT of the left femur was performed without intravenous contrast. Coronal and sagittal reformations were obtained. Automated dose lowering techniques and/or adjustmen t according to patient size were utilized for this examination. CT DOSE: 414.30 mGy.cm Comparison: Comparison is made to CT femur 10/07/2022 FINDINGS: The osseous structures are without fracture or dislocation. Degenerative changes are seen in the hip and shoulder joint. Interval enlargement of the vastus lateralis fluid collection this measures 66 x 35 x 160 mm. Subcutaneous fat stranding and skin thickening is seen. IMPRESSION: Interval enlargement of the vastus lateralis fluid collection concerning for intramuscular abscess in this patient with sepsis, less likely hematoma/contusion. ACT 112: Negative or not required by law. Electronically signed by: Dewey Saucedo M.D. 10/15/2022 6:40 PM
[2022-10-15] MEDS: LATANOPROST 0.005% OP SOLN 2.5 ML BTL OPB SCH (20:09)
[2022-10-16] MEDS: AMPICILLIN/SULBACTAM SOD 3,000 MG in 0.9 % SODIUM CHLORIDE 100 ML IV SCH ×4 (03:53→21:12)
[2022-10-16 05:16] LABS: Basophils # (auto) 0.04 K/uL (0-0.2); Basophils % (auto) 0.3 %; Hematocrit (blood only) 36.2 % (42.0-52.0); Hemoglobin 12.5 g/dl (14.0-18.0); Immature Granulocytes # (auto) 0.29 K/uL (0.01-0.20); Immature Granulocytes % (auto) 2.4 %; Lymphocytes # (auto) 0.85 K/uL (1.2-3.4); Lymphocytes % (auto) 7.1 %; Mean Corpuscular Hemoglobin 30.4 pg (25.0-34.0); Mean Corpuscular Hgb Conc 34.5 g/dL (32.0-36.0); Mean Corpuscular Volume 88.1 fL (80.0-100.0); Mean Platelet Volume 9.5 fL (9.4-12.4); Monocytes # (auto) 0.93 K/uL (0.11-0.59); Monocytes % (auto) 7.7 %; Neutrophils # (auto) 9.91 K/uL (1.40-6.50); Neutrophils % (auto) 82.5 %; Platelet Count 319 K/uL (130-400); RDW Coefficient of Variation 13.6 % (11.5-14.5); RDW Standard Deviation 43.5 fL (36.4-46.3); Red Blood Count 4.11 M/uL (4.70-6.10); White Blood Count 12.02 K/ul (4.8-10.8)
[2022-10-16 05:31] LABS: BUN Creatinine Ratio 15.2 (10-20); Calcium 8.5 mg/dl (8.6-10.3); Creatinine Clr Calc Pharmacy 78.5 ml/min; Est GFR (African American) 99.7 ml/min; Potassium 3.8 mmol/L (3.5-5.1)
[2022-10-16 05:43] LABS: INR 3.3 (0.9-1.1); Prothrombin Time 33.3 Seconds (9.0-12.0)
[2022-10-16] MEDS: LINEZOLID 600 MG TAB PO SCH ×2 (08:14→21:11)
[2022-10-16] MEDS: POTASSIUM CHLORIDE CRTAB 20 MEQ TABCR PO SCH (08:14)
[2022-10-16] MEDS: DORZOLAMIDE/TIMOLOL 22.3/6.8MG/ML 10 ML BTL OPB SCH ×2 (08:15→19:47)
[2022-10-16] MEDS: BRIMONIDINE TARTRATE-P 0.15% 5 ML BTL OPR SCH ×2 (08:15→19:47)
[2022-10-16] MEDS: FLUCONAZOLE 100 MG TAB PO SCH (09:11)
[2022-10-16] MEDS: METOPROLOL TARTRATE 25 MG TAB PO SCH ×2 (09:11→21:11)
--- NOTE | 2022-10-16 12:31 | Surgery Consultation ---
Date of Consultation October 16, 2022 Assessment & Plan (1) Abscess of muscle of thigh: 77-year-old male on chemotherapy for colorectal cancer with likely intramuscular abscess of the vastus lateralis of the left leg. Recommend orthopedic surgery consultation Patient will need to hold his 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 and INR reversed prior to surgical intervention General surgery will follow peripherally, call with questions or concerns (2) Neutropenia: (3) Adenocarcinoma of colon: History of Present Illness Reason for Consultation: Intramuscular abscess Attending Physician: Antonio Rodriguez MD History of Present Illness 77-year-old male on chemotherapy for metastatic colon cancer admitted with neutropenic sepsis and cellulitis. Joint aspiration performed upon initial admission by orthopedics. His symptoms had been improving but he still a focal area of cellulitis and tenderness in the left lateral upper leg just above the knee. His WBC started to trend up again, and a repeat CT scan today showed a possible abscess in the vastus lateralis muscle in the left leg. He is on Coumadin and his INR is 3.3. Allergies Allergy/AdvReac Type Severity Reaction Status Date / Time Anesthetics - Bing Type- AdvReac Intermediate URINARY Verified 10/05/22 17:44 Parabens RETENTION Home Medications Medication Instructions Recorded Confirmed Type dorzolamide 22.3 mg-timolol 6.8 1 drp OPB BID 01/14/19 10/05/22 History mg/mL eye drops latanoprost 0.005 % eye drops 1 drp OPB HS 01/14/19 10/05/22 History lactobacillus combination no.4 3 3,000 mmu cells PO QAM ##0 03/08/19 10/05/22 History billion cell capsule (Probiotic) Wheelchair (Manual) #1 ea 09/24/19 09/27/22 Rx medical marijuana 1 ea PO BID PRN appetite, mood 04/15/20 10/05/22 History Wheeled Walker #1 ea 06/26/21 09/27/22 Rx Wheeled Walker #1 ea 11/09/21 09/27/22 Rx ibuprofen 200 mg tablet 200 mg PO Q12H PRN back pain 07/26/22 10/05/22 History warfarin 2.5 mg tablet See Rx Instructions .Route .COMPLEX 07/26/22 10/05/22 History tramadol 50 mg tablet 50 mg PO Q6H PRN pain 08/23/22 10/05/22 History brimonidine 0.15 % eye drops 1 drp OPR BID 10/05/22 10/05/22 History carboplatin 150 mg intravenous 0 mg IV DIRECTED 10/05/22 10/05/22 History solution etoposide phosphate 100 mg 0 mg IV DIRECTED 10/05/22 10/05/22 History intravenous solution Patient History Medical History (Updated 10/16/22 @ 12:29 by Neri Ross DO, FACS) Abscess of muscle of thigh Acoustic neuroma 2011 Anxiety BPH (benign prostatic hyperplasia) Brain cancer acoustic neuroma s/p radiation 2013, MASSAGE THERAPY INSTRUCTOR shunt in place Chest pain Constipation Deafness in right ear speak into left ear, pt has no hearing aid in right 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 Brother Family history of diabetes mellitus Hypertension Other Heart disease Denies family history of Colon cancer Ovarian cancer Prostate cancer Breast cancer Social History Smoking Status: Former smoker Tobacco Type: Cigarettes packs per day: 1; Cigarettes Per Day: quit at age 44; Smoking End Date: stopped smoking at age 44; Second Hand Exposure: No; Do You Dip or Chew Tobacco: No; Tobacco Cessation Education Requested by Patient: No Hx Alcohol Use: No Hx Substance Use: Yes Last Used Substance: Days (ago) Last Used Substance Other:: yesterday 10/04/22 Substance Use Type Other:: medical marijuanan for appetite stimulation Preferred Language: Mandarin Macedonian Communication Ability: Impaired Communication Ability Comment: deafness rt ear Visual Impairment: No Limitations Hearing Ability: Hard of Hearing Maintenance Team Leader Required: Yes Beliefs That Will Affect Care: None marital status: Current Living Situation: Spouse current occupational status: retired 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 [employer] How many Children do You have: 2 Other Information That Helps Us Care for You: No Feels Safe at Home: Yes Safety Concerns: Feels Safe At This Time caffeine: No Dental Care, Regularly: No Physical Activity Frequency: Does not Exercise Seatbelt Use: always Sunscreen Use: No Assistive Devices: Cane, Glasses and Walker Review of Systems Review of Systems: All systems reviewed & are unremarkable except as noted in HPI & below Physical Exam Constitutional: WD/WN, vitals as above Skin: no rashes, warm and dry + induration and + erythema The left lateral upper leg from mid thigh down to the knee there is an area of erythema, induration, and tenderness to palpation. Results & Data Vital Signs (Past 12 Hours) Vital Signs Temp Pulse Pulse Pulse Resp BP Pulse Ox 10/16/22 12:22 36.4 C L 67 17 154/87 H 97 10/16/22 09:04 70 10/16/22 04:01 36.7 C 84 14 128/84 95 10/16/22 00:32 76 O2 Del Method 10/16/22 12:22 Room Air 10/16/22 09:04 10/16/22 04:01 Room Air 10/16/22 00:32 Laboratory Results Laboratory Results - last 24 hr 10/16/22 10/16/22 10/16/22 02:43 04:49 04:49 WBC 12.02 H RBC 4.11 L Hgb 12.5 L Hct 36.2 L MCV 88.1 MCH 30.4 MCHC 34.5 RDW Std Deviation 43.5 RDW Coeff of Brian 13.6 Plt Count 319 MPV 9.5 Immature Gran % (Auto) 2.4 Neut % (Auto) 82.5 Lymph % (Auto) 7.1 [place] % (Auto) 7.7 Eos % (Auto) 0.0 Baso % (Auto) 0.3 Neut # (Auto) 9.91 H Lymph # (Auto) 0.85 L [facility] # (Auto) 0.93 H Eos # (Auto) 0.00 Baso # (Auto) 0.04 Immature Gran # (Auto) 0.29 H PT 33.3 H INR 3.3 H Sodium Potassium Chloride Carbon Dioxide Anion Gap BUN Creatinine Est Cr Clr Drug Dosing Est GFR ( Amer) Est GFR (Non-Af Amer) BUN/Creatinine Ratio Glucose Calcium Stl C. diff Tox B Gene Negative Cdiff Gene 10/16/22 04:49 WBC RBC Hgb Hct MCV MCH MCHC RDW Std Deviation RDW Coeff of Brian Plt Count MPV Immature Gran % (Auto) Neut % (Auto) Lymph % (Auto) [facility] % (Auto) Eos % (Auto) Baso % (Auto) Neut # (Auto) Lymph # (Auto) [facility] # (Auto) Eos # (Auto) Baso # (Auto) Immature Gran # (Auto) PT INR Sodium 138 Potassium 3.8 Chloride 105 Carbon Dioxide 26 Anion Gap 7 BUN 12 Creatinine 0.79 Est Cr Clr Drug Dosing 78.5 Est GFR ( Amer) 99.7 Est GFR (Non-Af Amer) 86.0 BUN/Creatinine Ratio 15.2 Glucose 138 H Calcium 8.5 L Stl C. diff Tox B Gene Diagnostic Findings I personally reviewed and interpreted the CT scan and agree with the assessment of a fluid collection in the left distal vastus lateralis. This may represent abscess versus infected hematoma versus benign hematoma. CT femur LT wo con CLINICAL HISTORY: cellulitis TECHNIQUE: Multidetector row helical CT of the left femur was performed without intravenous contrast. Coronal and sagittal reformations were obtained. Automated dose lowering techniques and/or adjustment according to patient size were utilized for this examination. CT DOSE: 414.30 mGy.cm Comparison: Comparison is made to CT femur 10/07/2022 FINDINGS: The osseous structures are without fracture or dislocation. Degenerative changes are seen in the hip and shoulder joint. Interval enlargement of the vastus lateralis fluid collection this measures 66 x 35 x 160 mm. Subcutaneous fat stranding and skin thickening is seen. IMPRESSION: Interval enlargement of the vastus lateralis fluid collection concerning for intramuscular abscess in this patient with sepsis, less likely hematoma/contusion. PG Care Time/CCT Total # of Minutes Spent Total Time Spent with Patient: Total time spent is greater than 50% in coordination of care (as documented) at patient's floor/unit and/or counseling patient: Coding Level of Care Code 75920 INT INP/OBS CARE 140MIN Diagnoses Abscess of muscle of thigh M60.059 Neutropenia D70.1; T45.1X5A Neutropenia type: secondary to cancer chemotherapy Adenocarcinoma of colon C18.9 (2) Neutropenia Neutropenia type: secondary to cancer chemotherapy Qualified Code(s): D70.1 - Agranulocytosis secondary to cancer chemotherapy; T45.1X5A - Adverse effect of antineoplastic and immunosuppressive drugs, initial encounter
--- NOTE | 2022-10-16 13:08 | Hospitalist Progress Note ---
Date of Service October 16, 2022 Assessment & Plan (1) Sepsis: Plan: Present on admission. Now resolved. We will continue to treat cellulitis of the left leg. Rocephin has been switched to vancomycin then to Unasyn. Linezolid added per ID on October 13. Orthopedic consultation appreciated. Left knee joint aspirate culture negative (2) Left leg pain: Plan: This appears to be due to underlying cellulitis. He may have developed a lateral left upper leg abscess as seen on repeat CT scan done yesterday, October 15. General surgery consultation appreciated. Will ask orthopedic surgery to reevaluate to determine best course of action. Coumadin is currently on hold and INR is 3.3. This can be further reversed with intravenous vitamin K if necessary. Rocephin was switched to vancomycin then to Unasyn plus linezolid. (3) Neutropenia: Plan: s/p chemo 09/22 for metastatic rectal cancer. Serial labs (4) Elevated lactic acid level: Plan: Resolved (5) Rhabdomyolysis: Plan: Non traumatic rhabdo. Present on admission. Mild. Now resolved (6) 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 custodial 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: Plan: Coumadin is currently on hold. INR is 3.3. This can be further reversed with intravenous vitamin K if surgical intervention of the left upper leg is necessary. History of pulmonary embolism. (7) Altered mental status: Plan: Acute metabolic encephalopathy present on admission. Now resolved. CT head w/o acute changes or intracranial hemorrhage. (8) S/P PRODUCTION REPAIRER shunt: Plan: Placed after acoustic neuroma surgery. Recently had MRI and shunt adjustment at [place] 07/2022. (9) Malnutrition: Plan: Will continue nutritional supplements and encourage intake (10) Metabolic acidosis, increased anion gap: Plan: Resolved (11) Lactic acidosis: Plan: Resolved (12) Tachypnea: Plan: Present on admission. Now resolved (13) Hypertension: Plan: Metoprolol started on October 12 for heart rate and blood pressure control. Now improved (14) Hypokalemia: Plan: Corrected with oral replacement. Serial labs (15) Diarrhea: Plan: C. difficile toxin assay ordered. Plan Currently on intravenous Unasyn and oral linezolid. Hopeful eventual transition to oral antibiotics and eventual discharge to [facility]. However, he may need surgical intervention on the left upper leg. To be determined. Admission and Anticipated Discharge Date Admission Date: October 05, 2022 Subjective No significant change. is at the bedside as usual. Repeat left upper leg CT scan reveals possible abscess collection. General surgery was consulted but they would like orthopedic opinion to see who should intervene. Coumadin is on hold. INR 3.3. This can be further reversed with vitamin K if needed. The left upper leg cellulitis appears to be improving with intravenous Unasyn and oral linezolid. Review of Systems Review of Systems: Constitutional-no fever or chills ENT-no blurred vision, no double vision, no epistaxis, no sore throat Respiratory-no cough, no wheezing, no shortness of breath Cardiac-no palpitations, no chest pain, no syncope GI-no nausea, vomiting, melena, hematochezia. Loose stools have developed -no urinary retention, no urinary incontinence, no dysuria, no hematuria Musculoskeletal-erythema and tenderness of the lateral upper part of left leg . Left knee effusion noted. Skin-no bruising, no rashes, no pruritus Neuro-no isolated weakness, no paresthesia, no weakness Psych-no depression, no anxiety Physical Exam Physical Exam: General-alert and oriented x3, no fevers, no chills HEENT-head atraumatic and normocephalic, pupils equal and reactive to light, extraocular muscles intact Neck-no lymphadenopathy or thyromegaly, trachea midline Chest-clear to auscultation percussion. No rales wheezing or rhonchi Cardiac-regular rate and rhythm, normal S1 and S2 Abdomen-normal bowel sounds, nontender, no hepatosplenomegaly Extremities-indurated tender proximal upper lateral left leg. Neuro-cranial nerves II through XII intact, motor and sensory function within normal limits, strength symmetrical with generalized weakness , no focal deficits Psych-normal affect, normal mood Results & Data Results & Data Vital Signs (Past 12 Hours) Vital Signs Temp Pulse Pulse Pulse Resp BP Pulse Ox 10/16/22 12:22 36.4 C L 67 17 154/87 H 97 10/16/22 09:04 70 10/16/22 04:01 36.7 C 84 14 128/84 95 O2 Del Method 10/16/22 12:22 Room Air 10/16/22 09:04 10/16/22 04:01 Room Air Laboratory Results 10/16/22 04:49 10/16/22 04:49 PG Care Time/CCT Total # of Minutes Spent Total Time Spent with Patient: Total time spent is greater than 50% in coordination of care (as documented) at patient's floor/unit and/or counseling patient: Coding Level of Care Code 28240 SUB INP/OBS CARE 3/50MIN Diagnoses Sepsis A41.9 Left leg pain M79.605 Neutropenia D70.1; T45.1X5A Neutropenia type: secondary to cancer chemotherapy Elevated lactic acid level R79.89 Rhabdomyolysis M62.82 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 mixing 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 operator 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 Z79.01 Altered mental status R41.0 Altered mental status type: disorientation S/P PRODUCTION REPAIRER shunt Z98.2 Malnutrition E46 Metabolic acidosis, increased anion gap E87.29 Lactic acidosis E87.20 Tachypnea R06.82 Hypertension I10 Hypokalemia E87.6 Diarrhea R19.7 (3) Neutropenia Neutropenia type: secondary to cancer chemotherapy Qualified Code(s): D70.1 - Agranulocytosis secondary to cancer chemotherapy; T45.1X5A - Adverse effect of antineoplastic and immunosuppressive drugs, initial encounter (7) Altered mental status Altered mental status type: disorientation Qualified Code(s): R41.0 - Disorientation, unspecified
[2022-10-16] MEDS ORDERED: PHYTONADIONE 5 MG in DEXTROSE 5% 50 ML IV ONE (14:39)
[2022-10-16] MEDS: LATANOPROST 0.005% OP SOLN 2.5 ML BTL OPB SCH (19:47)
[2022-10-16] MEDS: ACETAMINOPHEN 500 MG TAB PO PRN (21:11)
[2022-10-17] MEDS: AMPICILLIN/SULBACTAM SOD 3,000 MG in 0.9 % SODIUM CHLORIDE 100 ML IV SCH ×4 (03:33→20:47)
[2022-10-17 05:49] LABS: Basophils # (auto) 0.06 K/uL (0-0.2); Basophils % (auto) 0.5 %; Hematocrit (blood only) 36.9 % (42.0-52.0); Hemoglobin 12.6 g/dl (14.0-18.0); Immature Granulocytes # (auto) 0.28 K/uL (0.01-0.20); Immature Granulocytes % (auto) 2.4 %; Lymphocytes # (auto) 1.04 K/uL (1.2-3.4); Lymphocytes % (auto) 8.7 %; Mean Corpuscular Hemoglobin 30.1 pg (25.0-34.0); Mean Corpuscular Hgb Conc 34.1 g/dL (32.0-36.0); Mean Corpuscular Volume 88.3 fL (80.0-100.0); Mean Platelet Volume 9.6 fL (9.4-12.4); Monocytes # (auto) 1.04 K/uL (0.11-0.59); Monocytes % (auto) 8.7 %; Neutrophils # (auto) 9.47 K/uL (1.40-6.50); Neutrophils % (auto) 79.7 %; Platelet Count 372 K/uL (130-400); RDW Coefficient of Variation 13.7 % (11.5-14.5); RDW Standard Deviation 43.5 fL (36.4-46.3); Red Blood Count 4.18 M/uL (4.70-6.10); White Blood Count 11.89 K/ul (4.8-10.8)
[2022-10-17 05:57] LABS: Calcium 8.6 mg/dl (8.6-10.3); Creatinine Clr Calc Pharmacy 72.6 ml/min; Est GFR (African American) 96.7 ml/min; Est GFR (Non-African American) 83.5 ml/min
[2022-10-17 06:09] LABS: INR 1.3 (0.9-1.1)
[2022-10-17] MEDS: POTASSIUM CHLORIDE CRTAB 20 MEQ TABCR PO SCH (08:08)
[2022-10-17] MEDS: LINEZOLID 600 MG TAB PO SCH ×2 (08:08→20:46)
[2022-10-17] MEDS: METOPROLOL TARTRATE 25 MG TAB PO SCH ×2 (08:08→20:46)
[2022-10-17] MEDS: BRIMONIDINE TARTRATE-P 0.15% 5 ML BTL OPR SCH ×2 (08:10→20:45)
[2022-10-17] MEDS: DORZOLAMIDE/TIMOLOL 22.3/6.8MG/ML 10 ML BTL OPB SCH ×2 (08:10→20:46)
--- NOTE | 2022-10-17 14:51 | Hospitalist Progress Note ---
Date of Service October 17, 2022 Assessment & Plan (1) Sepsis: Plan: Present on admission. Now resolved. We will continue to treat cellulitis of the left leg. Rocephin has been switched to vancomycin then to Unasyn. Linezolid added per ID on October 13. Orthopedic consultation appreciated. Left knee joint aspirate culture negative (2) Left leg pain: Plan: This appears to be due to underlying cellulitis. He may have developed a lateral left upper leg abscess as seen on repeat CT scan done yesterday, October 15. General surgery consultation appreciated. Will ask orthopedic surgery to reevaluate to determine best course of action. Coumadin is currently on hold and INR is 3.3. This can be further reversed with intravenous vitamin K if necessary. Rocephin was switched to vancomycin then to Unasyn plus linezolid. (3) Neutropenia: Plan: s/p chemo 09/22 for metastatic rectal cancer. Serial labs (4) Elevated lactic acid level: Plan: Resolved (5) Rhabdomyolysis: Plan: Non traumatic rhabdo. Present on admission. Mild. Now resolved (6) 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 residential 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: Plan: Coumadin is currently on hold. INR is 3.3. This can be further reversed with intravenous vitamin K if surgical intervention of the left upper leg is necessary. History of pulmonary embolism. (7) Altered mental status: Plan: Acute metabolic encephalopathy present on admission. Now resolved. CT head w/o acute changes or intracranial hemorrhage. 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 Recently had MRI and shunt adjustment at [place] 07/2022. (9) Malnutrition: Plan: Will continue nutritional supplements and encourage intake (10) Metabolic acidosis, increased anion gap: Plan: Resolved (11) Lactic acidosis: Plan: Resolved (12) Tachypnea: Plan: Present on admission. Now resolved (13) Hypertension: Plan: Metoprolol started on October 12 for heart rate and blood pressure control. Now improved (14) Hypokalemia: Plan: Corrected with oral replacement. Serial labs (15) Diarrhea: Plan: C. difficile toxin assay ordered. Plan Currently on intravenous Unasyn and oral linezolid. Hopeful eventual transition to oral antibiotics and eventual discharge to [facility]. However, he may need surgical intervention on the left upper leg. To be determined. Admission and Anticipated Discharge Date Admission Date: October 05, 2022 Results & Data Results & Data Vital Signs (Past 12 Hours) Vital Signs Temp Pulse Pulse Pulse Resp BP Pulse Ox 10/17/22 12:38 36.5 C 71 17 118/82 94 10/17/22 08:23 36.3 C L 75 17 122/82 96 10/17/22 08:23 76 10/17/22 03:35 36.9 C 79 14 110/75 97 O2 Del Method 10/17/22 12:38 Room Air 10/17/22 08:23 Room Air 10/17/22 08:23 10/17/22 03:35 Room Air PG Care Time/CCT Total # of Minutes Spent Total Time Spent with Patient: Total time spent is greater than 50% in coordination of care (as documented) at patient's floor/unit and/or counseling patient: Coding Diagnoses Sepsis A41.9 Left leg pain M79.605 Neutropenia D70.1; T45.1X5A Neutropenia type: secondary to cancer chemotherapy Elevated lactic acid level R79.89 Rhabdomyolysis M62.82 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 residential 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 Z79.01 Altered mental status R41.0 Altered mental status type: disorientation S/P ROCKET ENGINE MECHANIC shunt Z98.2 Malnutrition E46 Metabolic acidosis, increased anion gap E87.29 Lactic acidosis E87.20 Tachypnea R06.82 Hypertension I10 Hypokalemia E87.6 Diarrhea R19.7 (3) Neutropenia Neutropenia type: secondary to cancer chemotherapy Qualified Code(s): D70.1 - Agranulocytosis secondary to cancer chemotherapy; T45.1X5A - Adverse effect of antineoplastic and immunosuppressive drugs, initial encounter (7) Altered mental status Altered mental status type: disorientation Qualified Code(s): R41.0 - Disorientation, unspecified
--- NOTE | 2022-10-17 14:57 | Hospitalist Progress Note ---
Date of Service October 17, 2022 Assessment & Plan (1) Sepsis: Plan: Present on admission. Now resolved (2) Left leg pain: Plan: Due to cellulitis and what now appears to be a left lateral mid thigh abscess. Orthopedic and general surgery consultations appreciated. They will determine who will aspirate this with eventual incision and drainage. Continue intravenous Unasyn and oral linezolid for now (3) Neutropenia: Plan: Resolved (4) Elevated lactic acid level: Plan: Present on admission. Resolved (5) Rhabdomyolysis: Plan: Present on admission. 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 Functioning well. No intervention necessary at this time (9) Malnutrition: Plan: Continue with dietary supplements (10) Metabolic acidosis, increased anion gap: Plan: Present on admission. Now resolved (11) Lactic acidosis: Plan: Present on admission. Now resolved (12) Tachypnea: Plan: Present on admission. Now resolved (13) Hypertension: Plan: Improved with addition of metoprolol. Blood pressure and heart rate controlled (14) Hypokalemia: Plan: Corrected with oral replacement. Serial labs (15) Diarrhea: Plan: Treated and resolved. Intravenous antibiotics are probably contributing Plan He probably will need incision and drainage of left lateral thigh abscess. Orthopedic consultation and general surgery consultation appreciated. They will decide who will do the intervention. Coumadin has been reversed and INR is down to 1.3. Continue intravenous Unasyn and oral linezolid for now Admission and Anticipated Discharge Date Admission Date: October 05, 2022 Subjective Alert and oriented. Coumadin has been reversed with vitamin K. INR is down to 1.3. Infectious disease consultation appreciated. Orthopedic surgery and general surgery are debating who will evaluate the left lateral thigh abscess. Blood pressure and heart rate have improved considerably with treatment. Review of Systems Review of Systems: Constitutional-no fever or chills ENT-no blurred vision, no double vision, no epistaxis, no sore throat Respiratory-no cough, no wheezing, no shortness of breath Cardiac-no palpitations, no chest pain, no syncope GI-no nausea, vomiting, diarrhea, melena, hematochezia -no urinary retention, no urinary incontinence, no dysuria, no hematuria Musculoskeletal-left leg discomfort proximally Skin-no bruising, no rashes, no pruritus Neuro-no isolated weakness, no paresthesia, no weakness Psych-no depression, no anxiety Physical Exam Physical Exam: General-alert and oriented x3, no fevers, no chills HEENT-head atraumatic and normocephalic, pupils equal and reactive to light, extraocular muscles intact Neck-no lymphadenopathy or thyromegaly, trachea midline Chest-clear to auscultation percussion. No rales wheezing or rhonchi Cardiac-regular rate and rhythm, normal S1 and S2, no murmurs Abdomen-normal bowel sounds, nontender, no hepatosplenomegaly Extremities-tender swollen erythemic raised area left lateral mid thigh area Neuro-cranial nerves II through XII intact, motor and sensory function within no rmal limits, strength symmetrical , no focal deficits Psych-normal affect, normal mood Results & Data Results & Data Vital Signs (Past 12 Hours) Vital Signs Temp Pulse Pulse Pulse Resp BP Pulse Ox 10/17/22 12:38 36.5 C 71 17 118/82 94 10/17/22 08:23 36.3 C L 75 17 122/82 96 10/17/22 08:23 76 10/17/22 03:35 36.9 C 79 14 110/75 97 O2 Del Method 10/17/22 12:38 Room Air 10/17/22 08:23 Room Air 10/17/22 08:23 10/17/22 03:35 Room Air Laboratory Results 10/17/22 05:14 10/17/22 05:14 PG Care Time/CCT Total # of Minutes Spent Total Time Spent with Patient: Total time spent is greater than 50% in coordination of care (as documented) at patient's floor/unit and/or counseling patient: Coding Level of Care Code 48505 SUB INP/OBS CARE 2/MIN Diagnoses Sepsis A41.9 Left leg pain M79.605 Neutropenia D70.1; T45.1X5A Neutropenia type: secondary to cancer chemotherapy Elevated lactic acid level R79.89 Rhabdomyolysis M62.82 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 assistant terminal manager 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 Z79.01 Altered mental status R41.0 Altered mental status type: disorientation S/P GMAT INSTRUCTOR shunt Z98.2 Malnutrition E46 Metabolic acidosis, increased anion gap E87.29 Lactic acidosis E87.20 Tachypnea R06.82 Hypertension I10 Hypokalemia E87.6 Diarrhea R19.7 (3) Neutropenia Neutropenia type: secondary to cancer chemotherapy Qualified Code(s): D70.1 - Agranulocytosis secondary to cancer chemotherapy; T45.1X5A - Adverse effect of antineoplastic and immunosuppressive drugs, initial encounter (7) Altered mental status Altered mental status type: disorientation Qualified Code(s): R41.0 - Disorientation, unspecified
[2022-10-17] MEDS: LATANOPROST 0.005% OP SOLN 2.5 ML BTL OPB SCH (20:46)
[2022-10-17] MEDS: ACETAMINOPHEN 500 MG TAB PO PRN (20:47)
[2022-10-18] MEDS: AMPICILLIN/SULBACTAM SOD 3,000 MG in 0.9 % SODIUM CHLORIDE 100 ML IV SCH ×4 (03:00→21:36)
[2022-10-18 07:50] LABS: Basophils # (auto) 0.06 K/uL (0-0.2); Basophils % (auto) 0.5 %; Eosinophils # (auto) 0.01 K/uL (0-0.50); Eosinophils % (auto) 0.1 %; Hematocrit (blood only) 37.7 % (42.0-52.0); Hemoglobin 12.7 g/dl (14.0-18.0); Immature Granulocytes # (auto) 0.22 K/uL (0.01-0.20); Immature Granulocytes % (auto) 1.7 %; Lymphocytes # (auto) 1.04 K/uL (1.2-3.4); Lymphocytes % (auto) 8.2 %; Mean Corpuscular Hemoglobin 30.5 pg (25.0-34.0); Mean Corpuscular Hgb Conc 33.7 g/dL (32.0-36.0); Mean Corpuscular Volume 90.4 fL (80.0-100.0); Mean Platelet Volume 9.3 fL (9.4-12.4); Monocytes % (auto) 7.1 %; Neutrophils # (auto) 10.39 K/uL (1.40-6.50); Neutrophils % (auto) 82.4 %; Platelet Count 389 K/uL (130-400); RDW Coefficient of Variation 13.8 % (11.5-14.5); RDW Standard Deviation 44.7 fL (36.4-46.3); Red Blood Count 4.17 M/uL (4.70-6.10); White Blood Count 12.62 K/ul (4.8-10.8)
[2022-10-18 08:01] LABS: INR 1.1 (0.9-1.1)
[2022-10-18 08:14] LABS: Calcium 8.7 mg/dl (8.6-10.3); Creatinine Clr Calc Pharmacy 68.8 ml/min; Est GFR (African American) 94.5 ml/min; Est GFR (Non-African American) 81.5 ml/min
[2022-10-18] MEDS: DORZOLAMIDE/TIMOLOL 22.3/6.8MG/ML 10 ML BTL OPB SCH ×2 (09:00→20:09)
[2022-10-18] MEDS: BRIMONIDINE TARTRATE-P 0.15% 5 ML BTL OPR SCH ×2 (09:00→20:09)
[2022-10-18] MEDS: ACETAMINOPHEN 500 MG TAB PO PRN ×2 (09:03→20:08)
[2022-10-18] MEDS: LINEZOLID 600 MG TAB PO SCH ×2 (09:03→20:08)
[2022-10-18] MEDS: METOPROLOL TARTRATE 25 MG TAB PO SCH ×2 (09:03→20:08)
[2022-10-18] MEDS: POTASSIUM CHLORIDE CRTAB 20 MEQ TABCR PO SCH (09:03)
--- NOTE | 2022-10-18 10:37 | Infectious Disease Progress Nt ---
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 Pt has been on chemotherapy with oncology following. He received etopaside/carboplatinum in September. He was seen by Urology on 09/27 to review his bladder discomfort, with discussion re cystoscopy. He was admitted on 10/05 with sudden onset AMS, found by his . Patient was afebrile, tachycardic, req 1.5 L oxygen. Notable labs: procal 6.03. Lactate 4.6. Neutropenic 0.07. Leukopenic 0.91. CT head w/o hydrocephalus or bleed. Started on Cefepime. Dapto. Blood cultures 10/05 Group B beta hemolytic strep bottles, strep agalactiae by [facility]. 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 No airspace disease. L knee CT shows effusion L femur CT shows subtle ill-defined area of hypodensity within the distal vastus lateralis muscle. Seen by Orthopaedics Knee arthrocentesis on 10/06 synovial fluid shows 359 wbcs (20%pmns, 79% monos) 101,000 rbcs. Gram stain few wbcs no organisms. Knee cx is no growth. Pt unable to have MRI L leg due to LOSS PREVENTION COORDINATOR shunt. On Tuesday, LLE cellulitis was marked by RN. On 10/11, CTX changed to vancomycin as pt's reported worsening of L leg. ho wever on exam, he has clear improvement of erythema, tenderness- unlikely to occur only approx 2 hours after vancomycin administered. No known prior h/o MRSA/contact isolation per pt and . Vanco changed to unasyn 3/21- L leg appears improved 10/13- slight increase in erythema L leg- pt lying on that side predominantly per son. Linezolid added 10/14- improved swelling, erythema and warmth. Pt had been constipated- now having diarrhea. Pt's asking about probiotics- would advise against probiotic supplements given risk of bacteremia in setting of immunosuppression with periodic neutropenia. Discussed food with probiotics instead. 10/15 Leg improved but WBC noted to be trending up. Does not appear neupogen given after review of meds and onc consult note. Still having pudding-like frequent stools without abd pain. Chemo to be held pending resoluton of infection and further discussion of options, including palliative, per oncology. CT leg recommended. Repeat Bcxs are negative (2) Metastatic cancer: (3) Adenocarcinoma of colon: (4) Lumbar radiculopathy: (5) Sepsis: Plan -I&D of leg abscess pending -would continue linezolid 600 PO q12 with unasyn 3 g IV q6 for now- no drug interactions with current meds -Repeat blood cultures are negative -L chest mediport ok to keep -pt had been on stool regimen due to constipation- now having frequent BMs- soft rather than liquid. If diarrhea worsens, would check c.dif. -discussed with pt and Please page with any questions. Syl Lepe M.D. [facility] [employer] Pager [phone] Admission and Anticipated Discharge Date Admission Date: October 05, 2022 Subjective Subsequent visit was provided via telemedicine using two-way real-time interactive telecommunication between the patient and the telemedicine provider. For the duration of the visit, the provider was performing the assessment from a different facility than the patient. This includesuse of bluetooth stethoscope forauscultationperformed by the telepresenter that the telemedic ine provider can hear if described in the physical exam. Car Rental Deliverer contact information: Please call [employer] [facility] Call Center [phone]. (Phone Number For Physician Use Only) After establishing a telemedicine visit, patient was: Patient was verified with two unique identifiers, Patient/authorized rep acknowledged consent and und erstanding and Gave permission to continue telehealth session Time Spent with Patient: Subsequent => 25 min pt reports pain in L leg no abd pain, diarrhea has improved to 4BMs - soft, not liquid per his CT femur suggestive of abscess surgery determining intervention Physical Exam Physical Exam: PE: Gen: Awake, fatigued/chronically-ill appearing, NAD HEENT: anicteric Chest: L chest port nontender Resp: no resp distress on RA Abd: Soft, distended, NT Extr: no c/c L leg with improved swelling. Erythema and warmth lateral L thigh improved. There is still a focal area of erythema lateral mid-thigh that is more tender than rest of leg- but no fluctuance appreciated. Faint erythema medial L thigh resolved. Erythema does not extend to posterior leg. No significant pedal edema. : tellez with yellow urine Skin: R peripheral IV ok Results & Data Vital Signs (Past 12 Hours) Vital Signs Temp Pulse Pulse Pulse Resp BP Pulse Ox 10/18/22 10:04 10/18/22 07:42 81 10/18/22 07:35 36.4 C L 78 18 127/82 97 10/18/22 03:03 36.8 C 85 14 101/67 10/18/22 00:20 97 H 10/17/22 23:06 36.7 C 87 14 117/81 98 O2 Del Method 10/18/22 10:04 Room Air 10/18/22 07:42 10/18/22 07:35 Room Air 10/18/22 03:03 Room Air 10/18/22 00:20 10/17/22 23:06 Room Air Laboratory Results 10/18/22 10/18/22 10/18/22 07:13 07:13 07:13 WBC 12.62 H RBC 4.17 L Hgb 12.7 L Hct 37.7 L MCV 90.4 MCH 30.5 MCHC 33.7 RDW Std Deviation 44.7 RDW Coeff of Brian 13.8 Plt Count 389 MPV 9.3 L Immature Gran % (Auto) 1.7 Neut % (Auto) 82.4 Lymph % (Auto) 8.2 Cook % (Auto) 7.1 Eos % (Auto) 0.1 Baso % (Auto) 0.5 Neut # (Auto) 10.39 H Lymph # (Auto) 1.04 L Cook # (Auto) 0.90 H Eos # (Auto) 0.01 Baso # (Auto) 0.06 Immature Gran # (Auto) 0.22 H PT 12.0 INR 1.1 Sodium 139 Potassium 4.0 Chloride 106 Carbon Dioxide 27 Anion Gap 6 BUN 18 Creatinine 0.90 Est Cr Clr Drug Dosing 68.8 Est GFR ( Amer) 94.5 Est GFR (Non-Af Amer) 81.5 BUN/Creatinine Ratio 20.0 Glucose 117 H Calcium 8.7 Medications Administered Current Medications Acetaminophen (Acetaminophen 500 Mg Tab) 1,000 mg PO Q8H PRN PRN Reason: Pain or Fever Stop: 11/09/22 03:52 Last Admin: 10/18/22 09:03 Dose: 1,000 mg Brimonidine Tartrate (Brimonidine Tartrate-P 0.15% 5 Ml Btl) 1 drops OPR BID [facility] Stop: 11/05/22 20:59 Last Admin: 10/18/22 09:00 Dose: 1 drops Dorzolamide/Timolol (Dorzolamide/Timolol 22.3/6.8mg/Ml 10 Ml Btl) 1 drops OPB BID [facility] Stop: 11/05/22 20:59 Last Admin: 10/18/22 09:00 Dose: 1 drops Heparin Sodium (Porcine) (Heparin 100 Unit/Ml 5ml Flush) 5 ml FLUSH PRN PRN PRN Reason: Flush Stop: 11/05/22 01:22 Last Admin: 10/08/22 06:03 Dose: 5 ml Ampicillin Sodium/Sulbactam Sodium 3,000 mg/ Sodium Chloride 108 mls @ 200 mls/hr IV Q6H [facility]; Protocol Stop: 10/25/22 15:44 Last Infusion: 10/18/22 10:03 Dose: Infused Latanoprost (Latanoprost 0.005% Op Soln 2.5 Ml Btl) 1 drops OPB HS [facility] Stop: 11/05/22 20:59 Last Admin: 10/17/22 20:46 Dose: 1 drops Linezolid (Linezolid 600 Mg Tab) 600 mg PO BID [facility] Stop: 10/20/22 10:14 Last Admin: 10/18/22 09:03 Dose: 600 mg Metoprolol Tartrate (Metoprolol Tartrate 25 Mg Tab) 25 mg PO BID [facility] Stop: 11/11/22 10:29 Last Admin: 10/18/22 09:03 Dose: 25 mg Potassium Chloride (Potassium Chloride Crtab 20 Meq Tabcr) 20 meq PO QAM [facility] Stop: 11/13/22 10:14 Last Admin: 10/18/22 09:03 Dose: 20 meq (1) Neutropenia Neutropenia type: secondary to cancer chemotherapy Qualified Code(s): D70.1 - Agranulocytosis secondary to cancer chemotherapy; T45.1X5A - Adverse effect of antineoplastic and immunosuppressive drugs, initial encounter (2) Metastatic cancer Area of secondary neoplastic involvement: digestive structure Digestive structure secondary neoplasm location: metastatic to liver Qualified Code(s): C78.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
[2022-10-18] MEDS ORDERED: OPTIRAY 350 100ml IV ONE (12:36)
--- NOTE | 2022-10-18 12:53 | CT Scan Report ---
CT femur LT w con HISTORY: f/u left thigh possible abscess TECHNIQUE: Multiaxial CT images of the left femur were performed following the intravenous administra tion of 94 cc of Optiray 350. COMPARISON STUDY: CT left femur 10/06/2022 and 10/15/2022. FINDINGS: There is a peripherally enhancing lobular fluid collection involving the majority of the va stus lateralis muscle. This measures approximately 27.0 x 6.7 x 5.8 cm. This has slightly increased i n size compared to the prior CT and likely represents an abscess. There is no soft tissue gas identif ied within this fluid collection. A small component of the suspected abscess extends into the suprapa tellar space but does not clearly connect to the trace left pleural effusion. Mild subcutaneous edema and skin thickening within the left lateral thigh likely representing a cellulitis. No acute fractur e or dislocation within the left femur. No destructive changes to suggest an osteomyelitis. IMPRESSION: There is again noted a 27.0 x 6.7 x 5.8 cm peripheral enhancing lobular fluid collection involving th e majority of the vastus lateralis muscle as described above. This is highly suspicious for an absces s. No underlying bony abnormality to suggest an osteomyelitis. ACT 112: Negative or not required by law. Electronically signed by: Aman Dumont M.D. 10/18/2022 12:52 PM
--- NOTE | 2022-10-18 14:12 | Orthopedic Progress Note ---
Date of Service October 18, 2022 Assessment & Plan (1) Abscess of muscle of thigh: Plan: After discussion with Dr. Cottrell and Dr. Ross, I will schedule the patient for operative suite tomorrow for incision and drainage abscess left lateral thigh with debridement vastus lateralis muscle. Patient will be n.p.o. Surgical consent discussed and obtained from both the patient and his present. I discussed the patient's care plan with Dr. Babcock of the anesthesia department. Continue current medical therapy per internal medicine team. (2) Left knee pain: (3) Sepsis: (4) Pancytopenia: Admission and Anticipated Discharge Date Admission Date: October 05, 2022 Subjective pt reports continued pain in L Lateral leg no abd pain, diarrhea has improved to 4BMs - soft, not liquid per his CT femur suggestive of abscess. I spoke with Dr. Cottrell and Dr. Ross regarding need for surgical intervention. Patient will be scheduled for evacuation of abscess tomorrow at 10 AM. Physical Exam Physical Exam: Patient awake and alert lying supine in hospital bed. Patient present at bedside. Focused examination of the left lateral thigh demonstrates fluid collection extensive throughout the vastus lateralis with continued tenderness to palpation. No evidence of tissue breakdown. Mild local erythema warmth with palpation. Neurovascular status is intact with palpable pedal pulses and intact motor and sensory examination to bilateral lower extremities. No calf tenderness. Negative Homans' sign bilateral. Range of motion left knee diminished compared to right due to persistent fluid collection/abscess left lateral thigh. Results & Data Vital Signs (Past 12 Hours) Vital Signs Temp Pulse Pulse Pulse Resp BP Pulse Ox 10/18/22 11:34 36.4 C L 75 18 145/88 H 96 10/18/22 10:04 10/18/22 07:42 81 10/18/22 07:35 36.4 C L 78 18 127/82 97 10/18/22 03:03 36.8 C 85 14 101/67 O2 Del Method 10/18/22 11:34 Room Air 10/18/22 10:04 Room Air 10/18/22 07:42 10/18/22 07:35 Room Air 10/18/22 03:03 Room Air Laboratory Results Reviewed. Increasing WBC count. Trending. Diagnostic Findings Abscess/fluid collection large left vastus lateralis intramuscular.
--- NOTE | 2022-10-18 16:40 | Anesthesiology Consultation ---
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 LMA#5 without issue for TURP on 07/06/22 History Surgery Operation Date: 10/19/22 10:00 Proposed Procedures p Incision and Drainage Left Mid Thigh Leg Abscess - Brenton Wu DO Height/Weight Height: 5 ft 6 in Weight: 84.1 kg Allergies Allergy/AdvReac Type Severity Reaction Status Date / Time Anesthetics - Bing Type- AdvReac Intermediate URINARY Verified 10/05/22 17:44 Parabens RETENTION Medications Home Medications Medication Instructions Recorded Confirmed Last Taken dorzolamide 22.3 mg-timolol 6.8 1 drp OPB BID 01/14/19 10/05/22 10/05/22 08:00 mg/mL eye drops latanoprost 0.005 % eye drops 1 drp OPB HS 01/14/19 10/05/22 10/04/22 lactobacillus combination no.4 3 3,000 mmu cells PO QAM ##0 03/08/19 10/05/22 10/05/22 billion cell capsule (Probiotic) Wheelchair (Manual) #1 ea 09/24/19 09/27/22 Unknown medical marijuana 1 ea PO BID PRN appetite, mood 04/15/20 10/05/22 07/05/22 23:45 Wheeled Walker #1 ea 06/26/21 09/27/22 Unknown Wheeled Walker #1 ea 11/09/21 09/27/22 Unknown ibuprofen 200 mg tablet 200 mg PO Q12H PRN back pain 07/26/22 10/05/22 Unknown warfarin 2.5 mg tablet See Rx Instructions .Route .COMPLEX 07/26/22 10/05/22 10/04/22 tramadol 50 mg tablet 50 mg PO Q6H PRN pain 08/23/22 10/05/22 Unknown brimonidine 0.15 % eye drops 1 drp OPR BID 10/05/22 10/05/22 10/05/22 08:00 carboplatin 150 mg intravenous 0 mg IV DIRECTED 10/05/22 10/05/22 09/24/22 solution etoposide phosphate 100 mg 0 mg IV DIRECTED 10/05/22 10/05/22 09/24/22 intravenous solution Active Medications Generic Name Dose Route Start Last Admin Trade Name Freq PRN Reason Stop Dose Admin Acetaminophen 1,000 mg 10/10/22 03:53 10/18/22 09:03 Acetaminophen 500 Mg Tab PO 11/09/22 03:52 1,000 mg Q8H PRN Administration Pain or Fever Brimonidine Tartrate 1 drops 10/06/22 21:00 10/18/22 09:00 Brimonidine Tartrate-P 0.15% 5 Ml Btl OPR 11/05/22 20:59 1 drops BID LEAH Administration Dorzolamide/Timolol 1 drops 10/06/22 21:00 10/18/22 09:00 Dorzolamide/Timolol 22.3/6.8mg/Ml 10 Ml Btl OPB 11/05/22 20:59 1 drops BID LEAH Administration Heparin Sodium (Porcine) 5 ml 10/06/22 01:23 10/08/22 06:03 Heparin 100 Unit/Ml 5ml Flush FLUSH 11/05/22 01:22 5 ml PRN PRN Administration Flush Ampicillin Sodium/Sulbactam 108 mls @ 200 mls/hr 10/11/22 15:45 10/18/22 10:03 Sodium 3,000 mg/ Sodium IV 10/25/22 15:44 Infused Chloride Q6H LEAH Infusion Protocol Latanoprost 1 drops 10/06/22 21:00 10/17/22 20:46 Latanoprost 0.005% Op Soln 2.5 Ml Btl OPB 11/05/22 20:59 1 drops HS LEAH Administration Linezolid 600 mg 10/13/22 10:15 10/18/22 09:03 Linezolid 600 Mg Tab PO 10/20/22 10:14 600 mg BID LEAH Administration Metoprolol Tartrate 25 mg 10/12/22 10:30 10/18/22 09:03 Metoprolol Tartrate 25 Mg Tab PO 11/11/22 10:29 25 mg BID LEAH Administration Potassium Chloride 20 meq 10/14/22 10:15 10/18/22 09:03 Potassium Chloride Crtab 20 Meq Tabcr PO 11/13/22 10:14 20 meq QAM LEAH Administration Past Medical History Medical History (Updated 10/18/22 @ 16:35 by Shi Foreman DO) Abscess of muscle of thigh Acoustic neuroma 2011 Anxiety BPH (benign prostatic hyperplasia) Brain cancer acoustic neuroma s/p radiation 2013, VAULT INSTALLER shunt in place Chest pain Constipation 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 Brother Family history of diabetes mellitus Hypertension Other Heart disease Denies family history of Colon cancer Ovarian cancer Prostate cancer Breast cancer Past Surgical History Surgical History (Updated 10/18/22 @ 16:32 by Shi Foreman DO) History of anesthesia reaction URINARY RETENTION History of brain shunt 2012 hydrocephalus History of cataract surgery RT/LEFT History of colonoscopy History of esophagogastroduodenoscopy (EGD) History of hemorrhoidectomy 12/25/2014 History of liver biopsy History of procedure for peripheral vascular disease S/P TURP S/P VAULT INSTALLER shunt 2013 VAULT INSTALLER Shunt working well per hospitalists Past Anesthesia History No Hx of Anesthesia Complications and No Family Hx of Anesthesia Complications History of PONV No Hx of PONV and No Hx of Motion Sickness Social History Smoking Status: Former smoker tobacco type: cigarettes Smoking cigarettes per day: quit at age 44 Do You Dip or Chew Tobacco: No Smoking End Date: stopped smoking at age 44 Hx Alcohol Use: No Hx Substance Use: Yes substance use type: marijuana Substance Use Type Other:: medical marijuanan for appetite stimulation Last Used Substance: Days (ago) Last Used Substance Other:: yesterday 10/04/22 Physical Exam Vital Signs Last Vital Signs Temp 36.6 C 10/18/22 15:03 Pulse 74 10/18/22 15:23 Resp 16 10/18/22 15:03 BP 116/77 10/18/22 15:03 Pulse Ox 96 10/18/22 15:03 O2 Del Method Room Air 10/18/22 15:03 O2 Flow Rate 1.5 10/08/22 03:48 Testing Laboratory Results 10/18/22 07:13 10/18/22 07:13 PT 12.0 Seconds (9.0-12.0) 10/18/22 07:13 INR 1.1 (0.9-1.1) 10/18/22 07:13 APTT 36.2 Seconds (21.0-31.0) H 10/06/22 06:[address] 10/05/22 16:14 Urine Appearance Clear (Clear) 10/05/22 16:14 Urine pH 6.0 (4.5-7.5) 10/05/22 16:14 Ur Specific [place] 1.022 (1.000-1.030) 10/05/22 16:14 Urine Protein 3+ (Negative) H 10/05/22 16:14 Urine Glucose (UA) Negative (Negative) 10/05/22 16:14 Urine Ketones 1+ (Negative) H 10/05/22 16:14 Urine Nitrite Negative (Negative) 10/05/22 16:14 Ur Leukocyte Esterase 1+ (Negative) H 10/05/22 16:14 Urine WBC (Auto) 1-5 /hpf (0-5) 10/05/22 16:14 Urine RBC (Auto) 5-10 /hpf (0-4) H 10/05/22 16:14 U Hyaline Cast (Auto) 1-5 /lpf (0-5) 10/05/22 16:14 U Epithel Cells (Auto) >30 /lpf (0-5) H 10/05/22 16:14 Urine Bacteria (Auto) Negative (Negative) 10/05/22 16:14 10/08/22 19:25 Aerobic Blood Culture - Final Blood No growth in Aerobic bottle after 5 days. Anaerobic Blood Culture - Final 10/08/22 19:28 Aerobic Blood Culture - Final Blood No growth in Aerobic bottle after 5 days. Anaerobic Blood Culture - Final 10/05/22 16:24 Aerobic Blood Culture - Final Blood Group B Beta Strep Anaerobic Blood Culture - Final No growth in Anaerobic bottle after 5 days. 10/06/22 14:00 Gram Stain - Final Knee,Left Aerobic and Anaerobic Culture - Final No growth 10/05/22 16:14 Aerobic Blood Culture - Final Blood No growth in Aerobic bottle after 5 days. Anaerobic Blood Culture - Final No growth in Anaerobic bottle after 5 days. 10/05/22 16:14 Urine Culture - Final Urine,Indwelling Cath No growth - less than 1,000 colonies/mL. Electrocardiogram Date: 10/05/22 Findings: + ST @ (105) possible LAE,age indetermined inf infarct (less T wave inversion compared to 10/25/21) Chest X-Ray Date: 10/05/22 Findings: + NAD and + cardiomegaly
--- NOTE | 2022-10-18 20:03 | Hospitalist Progress Note ---
Date of Service October 18, 2022 Assessment & Plan (1) Sepsis: Plan: Present on admission. Improved but remains with leukocytosis and intermittent tachycardia 2/2 left thigh abscess and Group B Strep bacteremia (2) Left leg pain: Plan: Due to cellulitis and what now appears to be a large, left lateral mid thigh abscess. Orthopedic and general surgery consultations appreciated. Plan now for Ortho to drain abscess on 10/19, likely leave a drain in place Appreciate ID consult Continue intravenous Unasyn and oral linezolid for now NPO after midnight repeat BCxs remain NGTD, no need for ECHO mentioned as per ID follow CBC, CMP (3) Neutropenia: Plan: Resolved (4) Elevated lactic acid level: Plan: Present on admission. Resolved (5) Rhabdomyolysis: Plan: Present on admission. 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 INR subtehrapeutic for surgery (7) Altered mental status: Plan: Acute metabolic encephalopathy present on admission has resolved (8) S/P PULP MIXER shunt: Plan: Remote acoustic neuroma surgery resulting in ventriculoperitoneal shunt placement which is chronic. Functioning well. No intervention necessary at this time (9) Malnutrition: Plan: Continue with dietary supplements (10) Lactic acidosis: Plan: Present on admission. Now resolved (11) Hypertension: Plan: Improved with addition of metoprolol. Blood pressure and heart rate controlled (12) Diarrhea: Plan: Treated and improving. Intravenous antibiotics are probably contributing check C. diff if worsens again Plan DVT porph-coumadin on hold for surgery Dispo-continued stay on tele Admission and Anticipated Discharge Date Admission Date: October 05, 2022 Subjective Pt continues having significant pain in left thigh. No CP, SOB, nausea. Diarrhea finally improving. Tele with NSR, PACs, rates 70-100s Physical Exam Constitutional: WD/WN, vitals as above Respiratory: normal respiratory effort, lungs clear to auscultation Cardiovascular: RRR, no murmur, no edema Gastrointestinal (Abdomen): normal bowel sounds, soft, nontender, no hepatosplenomegaly Musculoskeletal: Extremities: + extremities abnormal to inspection (left lateral thigh tense,erythematous,exquisite +TTP) Results & Data Results & Data Vital Signs (Past 12 Hours) Vital Signs Temp Pulse Pulse Pulse Resp BP Pulse Ox 10/18/22 19:17 36.7 C 85 14 130/81 97 10/18/22 15:23 74 10/18/22 15:03 36.6 C 71 16 116/77 96 10/18/22 11:34 36.4 C L 75 18 145/88 H 96 10/18/22 10:04 O2 Del Method 10/18/22 19:17 Room Air 10/18/22 15:23 10/18/22 15:03 Room Air 10/18/22 11:34 Room Air 10/18/22 10:04 Room Air Laboratory Results CBC and BMP reviewed BCxs 10/05 GBS BCxs 10/08 NGTD PG Care Time/CCT Total # of Minutes Spent Total Time Spent with Patient: Total time spent is greater than 50% in coordination of care (as documented) at patient's floor/unit and/or counseling patient: Coding Level of Care Code 78479 SUB INP/OBS CARE 2MIN Diagnoses Sepsis A41.9 Left leg pain M79.605 Neutropenia D70.1; T45.1X5A Neutropenia type: secondary to cancer chemotherapy Elevated lactic acid level R79.89 Rhabdomyolysis M62.82 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
[2022-10-18] MEDS: LATANOPROST 0.005% OP SOLN 2.5 ML BTL OPB SCH (20:09)
[2022-10-19] MEDS: AMPICILLIN/SULBACTAM SOD 3,000 MG in 0.9 % SODIUM CHLORIDE 100 ML IV SCH ×4 (02:59→22:14)
[2022-10-19 06:57] LABS: Basophils # (auto) 0.08 K/uL (0-0.2); Basophils % (auto) 0.6 %; Eosinophils # (auto) 0.01 K/uL (0-0.50); Eosinophils % (auto) 0.1 %; Hematocrit (blood only) 37.1 % (42.0-52.0); Hemoglobin 12.6 g/dl (14.0-18.0); Immature Granulocytes # (auto) 0.14 K/uL (0.01-0.20); Lymphocytes # (auto) 0.89 K/uL (1.2-3.4); Lymphocytes % (auto) 6.5 %; Mean Corpuscular Hemoglobin 30.6 pg (25.0-34.0); Monocytes # (auto) 0.97 K/uL (0.11-0.59); Monocytes % (auto) 7.1 %; Neutrophils # (auto) 11.61 K/uL (1.40-6.50); Neutrophils % (auto) 84.7 %; Platelet Count 384 K/uL (130-400); RDW Coefficient of Variation 13.6 % (11.5-14.5); Red Blood Count 4.12 M/uL (4.70-6.10)
[2022-10-19 07:08] LABS: INR 1.1 (0.9-1.1); Prothrombin Time 11.9 Seconds (9.0-12.0)
[2022-10-19 07:47] LABS: Albumin Globulin Ratio 0.7 (0.9-2); Albumin Level 3.2 gm/dl (3.4-5.0); BUN Creatinine Ratio 20.2 (10-20); Bilirubin,Total 0.7 mg/dl (0.2-1.0); C Reactive Protein 8.03 mg/dl (0-0.5); Calcium 8.5 mg/dl (8.6-10.3); Creatinine Clr Calc Pharmacy 73.9 ml/min; Est GFR (African American) 97.2 ml/min; Est GFR (Non-African American) 83.9 ml/min; Globulin 4.6 gm/dl (2.5-4.0); Magnesium 2.1 mg/dl (1.7-2.4); Total Protein 7.8 gm/dl (6.0-8.3)
[2022-10-19] MEDS ORDERED: MIDAZOLAM HCL 1 MG/ML 2ML VIAL ONE (08:38)
[2022-10-19] MEDS ORDERED: ONDANSETRON INJ 2 MG/ML 2 ML VIAL ONE (08:38)
[2022-10-19] MEDS ORDERED: DEXAMETHASONE SOD INJ 4 MG/ML VIAL ONE (08:38)
[2022-10-19] MEDS ORDERED: PROPOFOL IV EMULSION 10 MG/ML 20 ML VIAL IV ONE (08:38)
[2022-10-19] MEDS ORDERED: fentaNYL citrate PF 100 MCG/2 ML VIAL ONE (08:38)
[2022-10-19] MEDS ORDERED: BUPIVACAINE 0.5 % 5 MG/1 ML MPF 30ML VIAL ONE (09:15)
[2022-10-19] MEDS ORDERED: BACITRACIN OINT 15 GM TUBE ONE (09:15)
[2022-10-19] MEDS ORDERED: fentaNYL citrate PF 100 MCG/2 ML VIAL IV PRN (09:44)
[2022-10-19] MEDS ORDERED: ePHEDrine sulfate 50 MG/ML AMP IV PRN (09:44)
[2022-10-19] MEDS ORDERED: ATROPINE SULFATE 0.1 MG/ML 10ML SYR IV PRN (09:44)
[2022-10-19] MEDS ORDERED: ONDANSETRON INJ 2 MG/ML 2 ML VIAL IV PRN (09:44)
--- NOTE | 2022-10-19 10:04 | History & Physical Bridge Note ---
Date of Service October 19, 2022 History & Physical Bridge Note I have examined the patient, reviewed the History & Physical and in the interval since the performance of the History & Physical I have noted the following changes of clinical significance: no changes noted
[2022-10-19] MEDS ORDERED: ePHEDrine sulfate 50 MG/ML AMP ONE (10:38)
[2022-10-19] MEDS ORDERED: PHENYLEPHRINE HCL 10 MG/ML VIAL ONE (10:38)
--- NOTE | 2022-10-19 11:30 | Post Operative Brief Note ---
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
[2022-10-19] MEDS: DORZOLAMIDE/TIMOLOL 22.3/6.8MG/ML 10 ML BTL OPB SCH ×2 (12:36→20:11)
[2022-10-19] MEDS: LINEZOLID 600 MG TAB PO SCH ×2 (12:37→20:12)
[2022-10-19] MEDS: METOPROLOL TARTRATE 25 MG TAB PO SCH ×2 (12:37→20:12)
[2022-10-19] MEDS: BRIMONIDINE TARTRATE-P 0.15% 5 ML BTL OPR SCH ×2 (12:37→20:11)
--- NOTE | 2022-10-19 13:04 | Anesthesiology Progress Note ---
Date of Service October 19, 2022 Anesthesia Post Procedure Vital Signs Vital Signs: Temp Pulse Pulse Pulse Resp BP BP 10/19/22 12:40 86 16 135/84 10/19/22 12:29 97.3 F L 87 18 136/93 10/19/22 11:45 83 16 159/104 H 10/19/22 11:35 85 22 135/102 H 10/19/22 12:05 97.2 F L 87 12 140/99 10/19/22 11:55 84 19 146/97 H 10/19/22 11:50 87 20 150/95 H 10/19/22 11:29 97.2 F L 86 12 173/108 H 10/19/22 10:20 10/19/22 09:35 97.7 F 76 18 133/82 10/19/22 07:50 97.3 F L 85 16 126/83 10/19/22 07:35 78 10/19/22 03:30 97.7 F 72 18 115/78 10/19/22 00:08 96 H 10/18/22 23:00 98.4 F 85 16 112/76 10/18/22 19:17 98.1 F 85 14 130/81 10/18/22 15:23 74 10/18/22 15:03 97.9 F 71 16 116/77 Pulse Ox O2 Del Method O2 Flow Rate 10/19/22 12:40 93 Room Air 10/19/22 12:29 95 Room Air 10/19/22 11:45 100 Oxymask 7 10/19/22 11:35 100 Oxymask 7 10/19/22 12:05 92 Room Air 10/19/22 11:55 93 Room Air 10/19/22 11:50 95 Room Air 10/19/22 11:29 96 Oxymask 7 10/19/22 10:20 Room Air 10/19/22 09:35 98 Room Air 10/19/22 07:50 95 Room Air 10/19/22 07:35 10/19/22 03:30 96 Room Air 10/19/22 00:08 10/18/22 23:00 94 Room Air 10/18/22 19:17 97 Room Air 10/18/22 15:23 10/18/22 15:03 96 Room Air Pain Intensity Left Knee: Pain Intensity: 8 Left Leg: Pain Intensity: 6 Transfer of Care Handoff Completed per policy Notes Mental Status: alert / awake / arousable and participated in evaluation Patient Amnestic to Procedure: Yes Nausea / Vomiting: adequately controlled Pain: adequately controlled Airway Patency, RR, SpO2: stable & adequate BP & HR: stable & adequate Hydration State: stable & adequate Anesthetic Complications: no major complications apparent and Pt Satisfied with anesthetic care
--- NOTE | 2022-10-19 13:11 | Hospitalist Progress Note ---
Date of Service October 19, 2022 Assessment & Plan (1) Sepsis: Plan: Present on admission with lactic acidosis. Improved but remains with leukocytosis and intermittent tachycardia 2/2 left thigh abscess and Group B Strep bacteremia (2) Left leg pain: Plan: Due to cellulitis and what now appears to be a large, left lateral mid thigh abscess. Orthopedic and general surgery consultations appreciated. Ortho drained abscess on 10/19, drain remains in place ESR 71, CRP 8 on 10/19 Appreciate ID consult Continue intravenous Unasyn and oral linezolid for now, follow new fluid aspirate Gram stain and cxs repeat BCxs remain NGTD, no need for ECHO mentioned as per ID follow CBC, CMP,ESR, CRP pain control prn with tylenol (3) Rhabdomyolysis: Plan: Present on admission. Resolved (4) 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 skilled nursing 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: Plan: With h/o PE and with metastatic CA Coumadin has been reversed with vitamin K. INR subtherapeutic for surgery -will discuss with Ortho about restarting coumadin today (5) Altered mental status: Plan: Acute metabolic encephalopathy present on admission has resolved (6) S/P JOINTER MACHINE shunt: Plan: Remote acoustic neuroma surgery resulting in ventriculoperitoneal shunt placement which is chronic. Functioning well. No intervention necessary at this time (7) Malnutrition: Plan: Continue with dietary supplements (8) Hypertension: Plan: Improved with addition of metoprolol. Blood pressure and heart rate controlled (9) Diarrhea: Plan: Treated and improving. Intravenous antibiotics are probably contributing c. diff neg 10/16 check C. 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 Suarez at [facility] holding chemo for infection Plan DVT proph-coumadin on hold for surgery but hopeful to restart today Dispo-continued stay on tele, will need rehab likely in 2-3 days Discussed care with at bedside on 10/19 and 10/19 Admission and Anticipated Discharge Date Admission Date: October 05, 2022 Subjective Pt just returned from I&D of the thigh when I saw him. He was drowsy but awoke easily and said he wasn't sure yet if he had any pain. Denies CP,SOB, nausea. Tele with NSR rates 70-80s Physical Exam Constitutional: WD/WN, vitals as above Respiratory: normal respiratory effort, lungs clear to auscultation Cardiovascular: RRR, no murmur, no edema Musculoskeletal: Extremities: + extremities abnormal to inspection (left thigh dressed in large bandage,YULY drain with serosang fluid) Results & Data Results & Data Vital Signs (Past 12 Hours) Vital Signs Temp Pulse Pulse Pulse Resp BP BP 10/19/22 12:40 86 16 135/84 10/19/22 12:29 36.3 C L 87 18 136/93 10/19/22 11:45 83 16 159/104 H 10/19/22 11:35 85 22 135/102 H 10/19/22 12:05 36.2 C L 87 12 140/99 10/19/22 11:55 84 19 146/97 H 10/19/22 11:50 87 20 150/95 H 10/19/22 11:29 36.2 C L 86 12 173/108 H 10/19/22 10:20 10/19/22 09:35 36.5 C 76 18 133/82 10/19/22 07:50 36.3 C L 85 16 126/83 10/19/22 07:35 78 10/19/22 03:30 36.5 C 72 18 115/78 Pulse Ox O2 Del Method O2 Flow Rate 10/19/22 12:40 93 Room Air 10/19/22 12:29 95 Room Air 10/19/22 11:45 100 Oxymask 7 10/19/22 11:35 100 Oxymask 7 10/19/22 12:05 92 Room Air 10/19/22 11:55 93 Room Air 10/19/22 11:50 95 Room Air 10/19/22 11:29 96 Oxymask 7 10/19/22 10:20 Room Air 10/19/22 09:35 98 Room Air 10/19/22 07:50 95 Room Air 10/19/22 07:35 10/19/22 03:30 96 Room Air Laboratory Results CBC, CMP,Magnesium, CRP, ESR reviewed PG Care Time/CCT Total # of Minutes Spent Total Time Spent with Patient: Total time spent is greater than 50% in coordination of care (as documented) at patient's floor/unit and/or counseling patient: Coding Level of Care Code 41816 SUB INP/OBS CARE 2/35MIN Diagnoses Sepsis A41.9 Left leg pain M79.605 Rhabdomyolysis M62.82 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
--- NOTE | 2022-10-19 13:31 | Operative Report (OR) ---
DATE OF PROCEDURE: 10/19/2022. PREOPERATIVE DIAGNOSES: 1. Abscess of muscle, left mid thigh. 2. Necrosis of the vastus lateralis muscle. POSTOPERATIVE DIAGNOSES: 1. Abscess of muscle, left mid thigh. 2. Necrosis of the vastus lateralis muscle. PROCEDURE: 1. Incision and drainage, left mid thigh, leg abscess. 2. Debridement vastus lateralis muscle and fascia, left. SURGEON: Brenton Wu DO. ALARM INSTALLATION TECHNICIAN: None. ANESTHESIA: General with local. SPECIMENS: Aerobic, anaerobic, Gram stain, abscess, left lateral thigh. DRAINS: Hemovac x2 10-Sammarinese. COMPLICATIONS: None. BLOOD LOSS: 15 mL. ABSCESS FLUID DRAINAGE: 200 mL. PERTINENT HISTORY: This is a 77-year-old gentleman who presented with weakness, fevers, chills, diag nosed with bacteremia, sepsis with complicated medical history. He was placed on IV antibiotics. Co ncern was noted for possible septic joint, left knee. Aspiration performed under sterile technique r evealed no evidence of bacteria in the joint fluid. The patient continued on IV antibiotics; however , continued to have redness and swelling in the lateral thigh. Unable to have an MRI due to a ETL TESTER shannan nt and eventually had serial CT scans, which demonstrated an abscess and evolution in the left latera l thigh. At that point, discussion between orthopedics and General Surgery was indicated and a decis ion was made for incision and drainage of abscess, left lateral thigh. All potential risks, benefits , complications, alternatives, rehab potential for incomplete relief of symptoms, need for further tejada rgery, DVT, PE, , persistent pain, swelling, scarring, weakness, neurovascular injury, wound com plications, need for further drainage was discussed with the patient's family, they decided to procee d with the procedure as indicated. DESCRIPTION OF PROCEDURE: The patient was taken to the operative suite and placed supine on the OR t able. After review of consent and identification of proper operative site, the patient was anestheti zed and after a sterile prep and drape of the left lower extremity, a surgical timeout was performed, and then a 15 blade scalpel was used to make an approximately 2-inch incision over the lateral aspec t of the left thigh at the center point of the area of prominence and fluid collection. The incision was deepened through the skin and subcutaneous tissue with a 15 blade scalpel. Meticulous hemostasi s was achieved with electrocautery and then Ibeth rakes were applied. The fascia was incised in line with the skin incision and then using blunt dissection with Metzenbaum scissor, the abscess pocket wa s identified and under significant pressure, the abscess fluid was then evacuated. Culture was obtai alicja. Aerobic, anaerobic, Gram stain and then approximately 200 mL of abscess of cloudy brown milky c olored abscess fluid was evacuated. Next [place] retractors were applied to the incision and then a pulsatile lavage with 6 liters of fluid was then used to lavage the abscess until clear. Next, are as of devitalized necrotic muscle of the vastus lateralis and fascia were then sharply debrided and e xcised with Metzenbaum scissors and rat tooth forceps. Next, a final irrigation was performed with s terile saline with pulse lavage until clear and then electrocautery was used to cauterize any bleedin g vessels. Wound was noted to be clean and dry and a 10-Sammarinese Hemovac drain x2 was placed into the abscess extending proximal and lateral to the abscess pocket and lateral thigh and then loose closure was performed of the vastus fascia with a 2-0 Vicryl. The iliotibial band was then closed with 2-0 Vicryl, the dermis was closed using 2-0 Vicryl and the skin was loosely closed using skin spencer. T his was after top gloves and top sheet were changed. Next, approximately 10 mL of Sensorcaine 0.5% w as injected around the incision site for postoperative pain control and then a sterile compressive dr essing was applied, overwrapped with an Madan wrap. The patient was awakened and then taken to recover y in stable condition. Job ID: [id number]
[2022-10-19] MEDS: LATANOPROST 0.005% OP SOLN 2.5 ML BTL OPB SCH (20:11)
[2022-10-19] MEDS: ACETAMINOPHEN 500 MG TAB PO PRN (20:12)
[2022-10-20] MEDS: AMPICILLIN/SULBACTAM SOD 3,000 MG in 0.9 % SODIUM CHLORIDE 100 ML IV SCH ×4 (03:31→22:35)
[2022-10-20 06:51] LABS: Basophils # (auto) 0.04 K/uL (0-0.2); Basophils % (auto) 0.4 %; Eosinophils # (auto) 0.01 K/uL (0-0.50); Eosinophils % (auto) 0.1 %; Hemoglobin 11.6 g/dl (14.0-18.0); Immature Granulocytes # (auto) 0.09 K/uL (0.01-0.20); Lymphocytes % (auto) 13.5 %; Mean Corpuscular Hemoglobin 30.6 pg (25.0-34.0); Mean Corpuscular Hgb Conc 34.1 g/dL (32.0-36.0); Mean Corpuscular Volume 89.7 fL (80.0-100.0); Mean Platelet Volume 9.3 fL (9.4-12.4); Monocytes # (auto) 0.73 K/uL (0.11-0.59); Monocytes % (auto) 8.2 %; Neutrophils # (auto) 6.82 K/uL (1.40-6.50); Neutrophils % (auto) 76.8 %; Platelet Count 365 K/uL (130-400); RDW Coefficient of Variation 13.6 % (11.5-14.5); RDW Standard Deviation 43.4 fL (36.4-46.3); Red Blood Count 3.79 M/uL (4.70-6.10); White Blood Count 8.89 K/ul (4.8-10.8)
[2022-10-20 07:25] LABS: BUN Creatinine Ratio 23.9 (10-20); Calcium 8.5 mg/dl (8.6-10.3); Creatinine Clr Calc Pharmacy 70.4 ml/min; Est GFR (African American) 95.4 ml/min; Est GFR (Non-African American) 82.3 ml/min; Potassium 3.9 mmol/L (3.5-5.1)
[2022-10-20] MEDS: DORZOLAMIDE/TIMOLOL 22.3/6.8MG/ML 10 ML BTL OPB SCH ×2 (09:05→22:07)
[2022-10-20] MEDS: BRIMONIDINE TARTRATE-P 0.15% 5 ML BTL OPR SCH ×2 (09:06→22:07)
[2022-10-20] MEDS: METOPROLOL TARTRATE 25 MG TAB PO SCH ×2 (09:12→22:09)
[2022-10-20] MEDS: LINEZOLID 600 MG TAB PO SCH (09:12)
--- NOTE | 2022-10-20 12:29 | Orthopedic Progress Note ---
Date of Service October 20, 2022 Assessment & Plan (1) Abscess of muscle of thigh: Plan: POD #1 S/P incision and drainage abscess left lateral thigh with debridement vastus lateralis muscle. Continue WBAT Ice to left thigh prn Continue current medical therapy per internal medicine team and november D/C when stable per IM and ID Castile to be removed 2 wks post Op F/U Dr Wu as outpatient. (2) Left knee pain: (3) Sepsis: (4) Pancytopenia: Admission and Anticipated Discharge Date Admission Date: October 05, 2022 Subjective Pt had I&D of the thigh yesterday. He is alert and denies any pain. Walked in the [place] 3x today. Denies CP,SOB, nausea. Physical Exam Physical Exam: Patient awake and alert lying supine in hospital bed. Patient present at bedside. Focused examination of the left lateral thigh demonstrates resolved fluid collection throughout the vastus lateralis with mild tenderness to palpation. No evidence of tissue breakdown. Improved local erythema, warmth with palpation. Neurovascular status is intact with palpable pedal pulses and intact motor and sensory examination to bilateral lower extremities. No calf tenderness. Negative Homans' sign bilateral. Range of motion left knee improved. Results & Data Vital Signs (Past 12 Hours) Vital Signs Temp Pulse Pulse Resp BP Pulse Ox O2 Del Method 10/20/22 08:06 75 10/20/22 07:16 36.3 C L 75 14 132/83 92 Room Air 10/20/22 03:54 36.3 C L 71 16 122/82 95 Room Air
--- NOTE | 2022-10-20 12:52 | Infectious Disease Progress Nt ---
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 on 10/05, Infectious Diseases consulted for strep sepsis in neutropenic patient. Pt has been on chemotherapy with oncology following. He received etopaside/carboplatinum in September. He was seen by Urology on 09/27 to review his bladder discomfort, with discussion re cystoscopy. He was admitted on 10/05 with sudden onset AMS, found by his . Patient was afebrile, tachycardic, req 1.5 L oxygen. Notable labs: procal 6.03. Lactate 4.6. Neutropenic 0.07. Leukopenic 0.91. CT head w/o hydrocephalus or bleed. Started on Cefepime. Dapto. Blood cultures 10/05 Group B beta hemolytic strep bottles, strep agalactiae by BCID. 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 No airspace disease. L knee CT shows effusion L femur CT shows subtle ill-defined area of hypodensity within the distal vastus lateralis muscle. Seen by Orthopaedics Knee arthrocentesis on 10/06 synovial fluid shows 359 wbcs (20%pmns, 79% monos) 101,000 rbcs. Gram stain few wbcs no organisms. Knee cx is no growth. Pt unable to have MRI L leg due to FAMILY SUPPORT SPECIALIST shunt. On Tuesday, LLE cellulitis was marked by RN. On 10/11, CTX changed to vancomycin as pt's reported worsening of L leg. ho wever on exam, he has clear improvement of erythema, tenderness- unlikely to occur only approx 2 hours after vancomycin administered. No known prior h/o MRSA/contact isolation per pt and . Vanco changed to unasyn 3/21- L leg appears improved 10/13- slight increase in erythema L leg- pt lying on that side predominantly per son. Linezolid added 10/14- improved swelling, erythema and warmth. Pt had been constipated- now having diarrhea. Pt's asking about probiotics- would advise against probiotic supplements given risk of bacteremia in setting of immunosuppression with periodic neutropenia. Discussed food with probiotics instead. 10/15 Leg improved but WBC noted to be trending up. Does not appear neupogen given after review of meds and onc consult note. Still having pudding-like frequent stools without abd pain. Chemo to be held pending resoluton of infection and further discussion of options, including palliative, per oncology. CT leg recommended. 10/19- CT c/w abscess. Pt underwent OR drainage Repeat Bcxs are negative (2) Metastatic cancer: (3) Adenocarcinoma of colon: (4) Lumbar radiculopathy: (5) Sepsis: Plan -s/p I&D of leg abscess yesterday with drainage ~200cc -abscess cx NGTD -would hold linezolid 600 PO q12 at this time given no MRSA identified in abscess cx to date -will continue with unasyn 3 g IV q6 for now -pt had been on stool regimen due to constipation- now having frequent BMs- soft rather than liquid. Monitoring for if diarrhea worsens, would check c.dif. Please page with any questions. Syl Lepe M.D. [facility] IDConnect Pager [phone] Admission and Anticipated Discharge Date Admission Date: October 05, 2022 Subjective This patient recommendation is based on a telemedicine consult request which was completed asynchronously through chart review and information provided by the primary physician. The patient was not seen or examined today. The evaluation is consultative in nature and all patient care and treatment decisions can either be accepted or rejected by the patient's primary hospital-based treating physician using their own independent medical judgment for their patient. Time Spent Reviewing Chart: 21 - 30 minutes pt afebrile s/p drainage ~200 cc brown fluid in OR yesterday abscess cx NGTD- WBC has improved Results & Data Vital Signs (Past 12 Hours) Vital Signs Temp Pulse Pulse Resp BP Pulse Ox O2 Del Method 10/20/22 08:06 75 10/20/22 07:16 36.3 C L 75 14 132/83 92 Room Air 10/20/22 03:54 36.3 C L 71 16 122/82 95 Room Air (1) Neutropenia Neutropenia type: secondary to cancer chemotherapy Qualified Code(s): D70.1 - Agranulocytosis secondary to cancer chemotherapy; T45.1X5A - Adverse effect of antineoplastic and immunosuppressive drugs, initial encounter (2) Metastatic cancer Area of secondary neoplastic involvement: digestive structure Digestive structure secondary neoplasm location: metastatic to liver Qualified Code(s): C78.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
[2022-10-20] MEDS ORDERED: WARFARIN SOD 5 MG TAB PO SCH (16:00)
--- NOTE | 2022-10-20 16:03 | Hospitalist Progress Note ---
Date of Service October 20, 2022 Assessment & Plan (1) Sepsis: Plan: Present on admission with lactic acidosis. Now resolved Leukocytosis finally resolved now s/p I&D of left thigh abscess 2/2 left thigh abscess and Group B Strep bacteremia (2) Left leg pain: Plan: Due to cellulitis and large, left lateral mid thigh abscess. Orthopedic and general surgery consultations appreciated. Ortho drained abscess on 10/19, drain fell out on 10/20 ESR 71, CRP 8 on 10/19 Appreciate ID consult Continue intravenous Unasyn and will now dc oral linezolid -follow new fluid aspirate Gram stain and cxs repeat BCxs remain NGTD, no need for ECHO mentioned as per ID follow CBC, CMP,ESR, CRP pain control prn with tylenol f/u with Ortho for staple removal in 2 weeks, stable from Ortho standpoint for dc (3) Rhabdomyolysis: Plan: Present on admission. 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 Ortho ok with restarting coumadin today--> discussed with Dr. Alonso--> start 5mg daily until INR rises, then return to home regimen (5) Altered mental status: Plan: Acute metabolic encephalopathy present on admission has resolved (6) S/P DENIER CONTROL OPERATOR shunt: Plan: Remote acoustic neuroma surgery resulting in ventriculoperitoneal shunt placement which is chronic. Functioning well. No intervention necessary at this time (7) Malnutrition: Plan: Continue with dietary supplements (8) Hypertension: Plan: Improved with addition of metoprolol. Blood pressure and heart rate controlled (9) Diarrhea: Plan: Treated and improving. Intravenous antibiotics are probably contributing c. diff neg 10/16 now 2-3 soft stools daily check C. 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 Suarez at [facility] holding chemo for infection Plan DVT proph-coumadin Dispo-continued stay on tele, now much improved ambulation, prefers he come home with home health but could go to rehab-will reassess tomorrow and possible discharge tomorrow Remove Valdes in AM Discussed care with at bedside on 10/18,10/19, and 10/20 Admission and Anticipated Discharge Date Admission Date: October 05, 2022 Subjective Feeling better, less pain in thigh. ABle to ambulate 140 feet with PT in halls today Denies CP, SOB, abd pain, nausea Hesitant to remove Valdes yet Tele with NSR, rates in the 60-70s Physical Exam Constitutional: WD/WN, vitals as above Respiratory: normal respiratory effort, lungs clear to auscultation Cardiovascular: RRR, no murmur, no edema Gastrointestinal (Abdomen): normal bowel sounds, soft, nontender, no hepatosplenomegaly Musculoskeletal: Extremities: + extremities abnormal to inspection (left thigh dressed in large bandage,YULY drain fell out) Psychiatric: A+Ox3, euthymic affect Results & Data Results & Data Vital Signs (Past 12 Hours) Vital Signs Temp Pulse Pulse Resp BP Pulse Ox O2 Del Method 10/20/22 15:59 72 10/20/22 13:42 36.4 C L 73 18 127/79 10/20/22 08:06 75 10/20/22 07:16 36.3 C L 75 14 132/83 92 Room Air Laboratory Results CBC, BMP reviewed Wound cx pending PG Care Time/CCT Total # of Minutes Spent Total Time Spent with Patient: Total time spent is greater than 50% in coordination of care (as documented) at patient's floor/unit and/or counseling patient: Coding Level of Care Code 27584 SUB INP/OBS CARE 2/35MIN Diagnoses Sepsis A41.9 Left leg pain M79.605 Rhabdomyolysis M62.82 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 correction 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 Z79.01 Altered mental status R41.0 Altered mental status type: disorientation S/P DENIER CONTROL OPERATOR shunt Z98.2 Malnutrition E46 Hypertension I10 Diarrhea R19.7 Rectal cancer C20 (5) Altered mental status Altered mental status type: disorientation Qualified Code(s): R41.0 - Disorientation, unspecified
[2022-10-20] MEDS: HEPARIN 100 UNIT/ML 5ML FLUSH FLUSH PRN (16:18)
[2022-10-20] MEDS: LATANOPROST 0.005% OP SOLN 2.5 ML BTL OPB SCH (22:07)
[2022-10-20] MEDS: ACETAMINOPHEN 500 MG TAB PO PRN (23:55)
[2022-10-21] MEDS: AMPICILLIN/SULBACTAM SOD 3,000 MG in 0.9 % SODIUM CHLORIDE 100 ML IV SCH ×2 (04:30→09:21)
[2022-10-21 06:33] LABS: Basophils # (auto) 0.07 K/uL (0-0.2); Basophils % (auto) 1.1 %; Eosinophils # (auto) 0.02 K/uL (0-0.50); Eosinophils % (auto) 0.3 %; Hematocrit (blood only) 34.1 % (42.0-52.0); Hemoglobin 11.7 g/dl (14.0-18.0); Immature Granulocytes # (auto) 0.06 K/uL (0.01-0.20); Immature Granulocytes % (auto) 0.9 %; Lymphocytes # (auto) 1.14 K/uL (1.2-3.4); Lymphocytes % (auto) 17.8 %; Mean Corpuscular Hemoglobin 30.5 pg (25.0-34.0); Mean Corpuscular Hgb Conc 34.3 g/dL (32.0-36.0); Mean Corpuscular Volume 88.8 fL (80.0-100.0); Mean Platelet Volume 8.8 fL (9.4-12.4); Monocytes # (auto) 0.54 K/uL (0.11-0.59); Monocytes % (auto) 8.5 %; Neutrophils # (auto) 4.56 K/uL (1.40-6.50); Neutrophils % (auto) 71.4 %; Platelet Count 306 K/uL (130-400); RDW Coefficient of Variation 13.8 % (11.5-14.5); RDW Standard Deviation 43.7 fL (36.4-46.3); Red Blood Count 3.84 M/uL (4.70-6.10); White Blood Count 6.39 K/ul (4.8-10.8)
[2022-10-21 07:02] LABS: Albumin Globulin Ratio 0.7 (0.9-2); Albumin Level 3.1 gm/dl (3.4-5.0); Bilirubin,Total 0.4 mg/dl (0.2-1.0); Calcium 8.2 mg/dl (8.6-10.3); Creatinine Clr Calc Pharmacy 74.5 ml/min; Est GFR (African American) 98.2 ml/min; Est GFR (Non-African American) 84.7 ml/min; Globulin 4.3 gm/dl (2.5-4.0); Potassium 3.9 mmol/L (3.5-5.1); Total Protein 7.4 gm/dl (6.0-8.3)
[2022-10-21 07:03] LABS: INR 1.1 (0.9-1.1); Prothrombin Time 11.8 Seconds (9.0-12.0)
[2022-10-21] MEDS: DORZOLAMIDE/TIMOLOL 22.3/6.8MG/ML 10 ML BTL OPB SCH (09:20)
[2022-10-21] MEDS: BRIMONIDINE TARTRATE-P 0.15% 5 ML BTL OPR SCH (09:20)
[2022-10-21] MEDS: METOPROLOL TARTRATE 25 MG TAB PO SCH (09:21)
--- NOTE | 2022-10-21 11:26 | Infectious Disease Progress Nt ---
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 Pt has been on chemotherapy with oncology following. He received etopaside/carboplatinum in September. He was seen by Urology on 09/27 to review his bladder discomfort, with discussion re cystoscopy. He was admitted on 10/05 with sudden onset AMS, found by his . Patient was afebrile, tachycardic, req 1.5 L oxygen. Notable labs: procal 6.03. Lactate 4.6. Neutropenic 0.07. Leukopenic 0.91. CT head w/o hydrocephalus or bleed. Started on Cefepime. Dapto. Blood cultures 10/05 Group B beta hemolytic strep bottles, strep agalactiae by BCID. 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 No airspace disease. L knee CT shows effusion L femur CT shows subtle ill-defined area of hypodensity within the distal vastus lateralis muscle. Seen by Orthopaedics Knee arthrocentesis on 10/06 synovial fluid shows 359 wbcs (20%pmns, 79% monos) 101,000 rbcs. Gram stain few wbcs no organisms. Knee cx is no growth. Pt unable to have MRI L leg due to CHOIR DIRECTOR shunt. On Tuesday, LLE cellulitis was marked by RN. On 10/11, CTX changed to vancomycin as pt's reported worsening of L leg. ho wever on exam, he has clear improvement of erythema, tenderness- unlikely to occur only approx 2 hours after vancomycin administered. No known prior h/o MRSA/contact isolation per pt and . Vanco changed to unasyn 3/21- L leg appears improved 10/13- slight increase in erythema L leg- pt lying on that side predominantly per son. Linezolid added 10/14- improved swelling, erythema and warmth. Pt had been constipated- now having diarrhea. Pt's asking about probiotics- would advise against probiotic supplements given risk of bacteremia in setting of immunosuppression with periodic neutropenia. Discussed food with probiotics instead. 10/15 Leg improved but WBC noted to be trending up. Does not appear neupogen given after review of meds and onc consult note. Still having pudding-like frequent stools without abd pain. Chemo to be held pending resoluton of infection and further discussion of options, including palliative, per oncology. CT leg recommended. 10/19- CT c/w abscess. Pt underwent OR drainage 10/20 linezolid held as OR cx NGTD Repeat Bcxs are negative (2) Metastatic cancer: (3) Adenocarcinoma of colon: (4) Lumbar radiculopathy: (5) Sepsis: Plan -s/p I&D of leg abscess with drainage ~200cc -abscess cx remains NGTD -pt to be discharged today to rehab- would change unasyn 3 g IV q6 to augmentin 875mg PO q12 upon discharge to complete 7 more days. Pt and advised that if erythema persists at end of that duration, duration will need to be extended. -pt had been on stool regimen due to constipation- having frequent soft BMs without abd pain or leukocytosis. Monitoring for if diarrhea worsens, would check c.dif. -discussed with hospitalist Will sign off at this time as pt expected to be discharged. Please page with any questions. Syl Lepe M.D. [facility] IDConnect Pager [phone] Admission and Anticipated Discharge Date Admission Date: October 05, 2022 Subjective Subsequent visit was provided via telemedicine using two-way real-time interactive telecommunication between the patient and the telemedicine provider. For the duration of the visit, the provider was performing the assessment from a different facility than the patient. This includesuse of bluetooth stethoscope forauscultationperformed by the telepresenter that the telemedicine provider can hear if described in the physical exam. Applications Scientist contact information: Please call ID Connect Call Center . (Phone Number For Physician Use Only) After establishing a telemedicine visit, patient was: Patient was verified with two unique identifiers, Patient/authorized rep acknowledged consent and understanding and Gave permission to continue telehealth session Time Spent with Patient: Subsequent => 25 min pt reports leg much improved. Still having diarrhea but improved per pt and - no abd pain. to go to rehab today. Physical Exam Physical Exam: PE: Gen: Awake, alert, NAD HEENT: anicteric Chest: L chest port nontender Resp: no resp distress on RA Abd: Soft, distended, NT Extr: no c/c L lateral thigh with incision with spencer- appears dry- no drainage noted on dressing. There is a small area of faint erythema noted several cm above incision and slight erythema lateral knee. No significant pedal edema. Skin: iv has been removed Results & Data Vital Signs (Past 12 Hours) Vital Signs Temp Pulse Resp BP Pulse Ox O2 Del Method 10/21/22 08:47 36.5 C 73 16 165/92 H 95 Room Air 10/21/22 03:55 36.4 C L 68 16 126/74 94 Room Air Laboratory Results 10/19/22 10:53 Gram Stain - Final Thigh,Left Aerobic and Anaerobic Culture - Preliminary No growth to date. 10/21/22 10/21/22 10/21/22 06:20 06:20 06:20 WBC 6.39 RBC 3.84 L Hgb 11.7 L Hct 34.1 L MCV 88.8 MCH 30.5 MCHC 34.3 RDW Std Deviation 43.7 RDW Coeff of Brian 13.8 Plt Count 306 MPV 8.8 L Immature Gran % (Auto) 0.9 Neut % (Auto) 71.4 Lymph % (Auto) 17.8 [place] % (Auto) 8.5 Eos % (Auto) 0.3 Baso % (Auto) 1.1 Neut # (Auto) 4.56 Lymph # (Auto) 1.14 L [place] # (Auto) 0.54 Eos # (Auto) 0.02 Baso # (Auto) 0.07 Immature Gran # (Auto) 0.06 PT 11.8 INR 1.1 Sodium 140 Potassium 3.9 Chloride 107 Carbon Dioxide 27 Anion Gap 6 BUN 23 Creatinine 0.82 Est Cr Clr Drug Dosing 74.5 Est GFR ( Amer) 98.2 Est GFR (Non-Af Amer) 84.7 BUN/Creatinine Ratio 28.0 H Glucose 110 H Calcium 8.2 L Total Bilirubin 0.4 AST 31 ALT 32 Alkaline Phosphatase 87 Total Protein 7.4 Albumin 3.1 L Globulin 4.3 H Albumin/Globulin Ratio 0.7 L Medications Administered Current Medications Acetaminophen (Acetaminophen 500 Mg Tab) 1,000 mg PO Q8H PRN PRN Reason: Pain or Fever Stop: 11/09/22 03:52 Last Admin: 10/20/22 23:55 Dose: 1,000 mg Brimonidine Tartrate (Brimonidine Tartrate-P 0.15% 5 Ml Btl) 1 drops OPR BID [facility] Stop: 11/05/22 20:59 Last Admin: 10/21/22 09:20 Dose: 1 drops Dorzolamide/Timolol (Dorzolamide/Timolol 22.3/6.8mg/Ml 10 Ml Btl) 1 drops OPB BID [facility] Stop: 11/05/22 20:59 Last Admin: 10/21/22 09:20 Dose: 1 drops Heparin Sodium (Porcine) (Heparin 100 Unit/Ml 5ml Flush) 5 ml FLUSH PRN PRN PRN Reason: Flush Stop: 11/05/22 01:22 Last Admin: 10/20/22 16:18 Dose: 5 ml Ampicillin Sodium/Sulbactam Sodium 3,000 mg/ Sodium Chloride 108 mls @ 200 mls/hr IV Q6H [facility]; Protocol Stop: 10/25/22 15:44 Last Infusion: 10/21/22 10:13 Dose: Infused Latanoprost (Latanoprost 0.005% Op Soln 2.5 Ml Btl) 1 drops OPB HS [facility] Stop: 11/05/22 20:59 Last Admin: 10/20/22 22:07 Dose: 1 drops Metoprolol Tartrate (Metoprolol Tartrate 25 Mg Tab) 25 mg PO BID [facility] Stop: 11/11/22 10:29 Last Admin: 10/21/22 09:21 Dose: 25 mg Warfarin Sodium (Warfarin Sod 5 Mg Tab) 5 mg PO DAILY@1600 [facility] Stop: 11/19/22 15:59 Last Admin: 10/20/22 17:29 Dose: 5 mg (1) Neutropenia Neutropenia type: secondary to cancer chemotherapy Qualified Code(s): D70.1 - Agranulocytosis secondary to cancer chemotherapy; T45.1X5A - Adverse effect of antineoplastic and immunosuppressive drugs, initial encounter (2) Metastatic cancer Area of secondary neoplastic involvement: digestive structure Digestive structure secondary neoplasm location: metastatic to liver Qualified Code(s): C78.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
[2022-10-21 12:34] VITALS: PULSE 62; TEMP 98.1; O2SAT 97
--- NOTE | 2022-10-21 14:25 | Discharge Summary ---
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 Patient's had returned home w/ patient unattended for 30 min (he is A&Ox4 at baseline). She noted that he was less verbal than usual and only gave single word responses. His speech was slightly dysarthric and he appeared mildly confused. Patient complained of left knee swelling and pain yesterday. He fell on the ground today from generalized weakness, but this is different and unrelated to the knee swelling. Patient's collective symptoms of malaise and AMS worsened today, prompting the ED visit. Patient does take tramadol 50mg at night and uses medical marijuana. His denies noticing misuse. She did not note any fever, URI symptoms, abdominal pain, or diarrhea. He appeared slightly sweaty. No home O2 and no tellez. Per , had ETHICAL HACKER shunt adjustment and MRI brain in 07/2022 through [place]. Chemo on 09/22/22. History was obtained from because of patient's AMS. He is able to give single word responses and denies pain. He endorses confusion. ED course: 2.5L NSS bolus. Cefepime. Dapto. Notable labs: procal 6.03. Lactate 4.6. Neutropenic 0.07. Leukopenic 0.91. CT head w/o hydrocephalus or bleed. CT abd and chest pending. ABG w/ pH 7.4. Principal Diagnosis Group B beta Streptococcal septicemia, Left thigh abscess Discharge Exam Constitutional WD/WN, vitals as above Respiratory normal respiratory effort, lungs clear to auscultation Cardiovascular RRR, no murmur, no edema Gastrointestinal (Abdomen) normal bowel sounds, soft, nontender, no hepatosplenomegaly Musculoskeletal Extremities: + extremities abnormal to inspection (left thigh dressed in large bandage,no erythema surrounding) Psychiatric A+Ox3, euthymic affect Discharge Data Allergies Allergy/AdvReac Type Severity Reaction Status Date / Time Anesthetics - Bing Type- AdvReac Intermediate URINARY Verified 10/05/22 17:44 Parabens RETENTION Consultations 10/05/22 17:54 ED Decision to Admit Stat 10/05/22 20:05 Consult Oncology Routine 10/06/22 02:57 Consult Orthopedic Surgery Routine 10/06/22 11:08 Consult Neurology Routine 10/07/22 14:07 Consult Infectious Diseases Routine 10/16/22 11:21 Consult General Surgery Routine Procedures Performed Operation Date: 10/19/22 10:00 Actual Procedures p Incision and Drainage Left Mid Thigh Leg Abscess(Left) - Brenton Wu DO Ordered Studies 10/05/22 15:56 CT head/brain wo con Stat 10/05/22 17:26 CT Abd and Pelvis [CT abd pelvis IV con only] Stat 10/05/22 19:05 CT chest diagnostic wo con Stat 10/05/22 21:36 US venous doppler LE LT Stat 10/06/22 00:35 CT knee LT w con Urgent 10/06/22 00:40 CT femur LT w con Urgent 10/07/22 10:44 CT femur LT wo con Routine 10/15/22 15:30 CT femur LT wo con Urgent 10/18/22 11:07 CT femur LT w con Urgent Hospital Course (1) Sepsis: Group B Streptococcal septicemia Present on admission with lactic acidosis. Now resolved Leukocytosis finally resolved now s/p I&D of left thigh abscess 2/2 left thigh abscess and Group B Strep bacteremia (2) Left leg pain: Due to cellulitis and large, left lateral mid thigh abscess. Orthopedic and general surgery consultations appreciated. Ortho drained abscess on 10/19, drain fell out on 10/20 ESR 71, CRP 8 on 10/19 Appreciate ID and Orthopedic consults Received intravenous Unasyn and oral linezolid for many days -follow new fluid aspirate Gram stain and cxs-GPC on Gram stain but NGTD on culture repeat BCxs remain NGTD, no need for ECHO mentioned as per ID follow CBC, CMP,ESR, CRP at rehab pain control prn with tylenol f/u with Ortho for staple removal in 2 weeks, stable from Ortho standpoint for dc continue daily dressing changes (3) Rhabdomyolysis: Present on admission. Resolved (4) 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 joint terminal attack controller 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: With h/o PE and with metastatic CA Coumadin was reversed with vitamin K. Restarted coumadin10/20--> discussed with Dr. Alonso with whom he follows--> started 5mg daily x 3 days, then return to home regimen Check INR Wednesday 10/25 (5) Altered mental status: Acute metabolic encephalopathy present on admission has resolved (6) S/P ETHICAL HACKER shunt: Remote acoustic neuroma surgery resulting in ventriculoperitoneal shunt placement which is chronic. Functioning well. No intervention necessary at this time (7) Malnutrition: Continue with dietary supplements (8) Hypertension: Improved with addition of metoprolol. Blood pressure and heart rate controlled (9) Diarrhea: Treated and improving. Intravenous antibiotics are probably contributing c. diff neg 10/16 now 2-5 soft stools daily, no abd pain or fevers, leukocytosis resolved check C. 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 Suarez at [facility] holding chemo for infection-f/u with Oncology after dc from rehab Plan DVT proph-coumadin Dispo-dc to [facility] re[facility] today Discussed care with at bedside on 10/18,10/19, and 10/20, 10/21 Total Time Total Time Spent Total Time Spent (In Minutes): 45 min Discharge Plan Discharge Items Patient Disposition: Transfer Inpatient Rehab Fac Reason For Visit: GENERALIZED WEAKNESS, CONFUSION Discharge Diagnosis: Group B beta Streptococcal septicemia, left thigh abscess Condition on Discharge: Good Activity: As commented below Lifting: Gradually increase as tolerated Bathing: Keep incision dry Exercise/Sports: Gradually increase as tolerated Non-emergency contact: Primary Care Provider and Surgeon Call non-emergency contact if: you have any medication questions, your symptoms worsen, your pain is not controlled, you have a fever, your wound has increased redness, your wound has increased drainage and your wound pain has increased Follow-up/Referrals: Tarah Alonso MD, PhD [Pathologist] - 10/25/22 2:00 pm Lizett Walters MD [Primary Care Provider] - Brenton Wu DO [Surgeon] - (Follow up 2 weeks from your surgery date.) Diet: Regular Addtl Attending Provider Instructions: Please finish out 7 more days of Augmentin for your thigh abscess and blood stream infection. If there is residual erythema at the end of the 7 days, ID recommends extending the course of antibiotics. For your ongoing diarrhea, you tested negative for C. diff. You will be started on probiotics and cholestyramine powder. If it persists, please have a repeat C. diff test checked. You will need to take Coumadin 5mg today and 5mg tomorrow (10/22) and then resume your 2.5mg daily dose on 5 x/week, 5mg on 2x/week after that. Have your INR checked on Tuesday. Follow up for staple removal in [address] Wu. Continue daily dressing changes to the left thigh. Follow up with your Oncologist after discharge from the rehab. Pending Studies at Discharge: Yes (Final wound culture-no growth to date) Stand-Alone Forms: [facility] Skilled Items Patient informed of condition?: Yes DNR: No Discharge Level of Care: Acute rehab Communicable Disease: No Discharge Prognosis: Improving Lines: None Urinary Catheter: No Medications and DC Order Prescriptions: New acetaminophen [Tylenol Extra Strength] 500 mg Tablet 1,000 mg PO Q8H PRN (Reason: pain) Qty: 90 0RF metoprolol tartrate 25 mg Tablet 25 mg PO BID Qty: 60 0RF amoxicillin-pot clavulanate 875-125 mg tablet 1 tab PO BID Qty: 14 0RF Cholestyramine Light 4 gram powder 4 g PO BID 30 Days Qty: 201.6 0RF Rx Instructions: administer w/meal; avoid other meds within 1hr before or 4-6hr after dose Continued medical marijuana 1 ea PO BID PRN (Reason: appetite, mood) (DME) Wheelchair (Manual) Device See Rx Instructions .ROUTE .MEDSUPPLY Qty: 1 0RF Rx Instructions: As directed (DME) Wheeled Walker Misc See Rx Instructions .Route Qty: 1 0RF Rx Instructions: As directed (DME) Wheeled Walker Misc See Rx Instructions .Route Qty: 1 0RF Rx Instructions: rollator walker with seat latanoprost 0.005 % drops 1 drp OPB HS dorzolamide-timolol 22.3-6.8 mg/mL drops 1 drp OPB BID Probiotic 3 billion cell Capsule 3,000 mmu cells PO QAM Qty: 0 warfarin 2.5 mg tablet See Rx Instructions .ROUTE .COMPLEX Rx Instructions: TAKES @ HS-- 5mg q M/F, 2.5mg x 5 days per [facility] orally use as directed brimonidine 0.15 % drops 1 drp OPR BID Discontinued ibuprofen 200 mg tablet 200 mg PO Q12H PRN (Reason: back pain) tramadol 50 mg tablet 50 mg PO Q6H PRN (Reason: pain) etoposide phosphate 100 mg Recon Soln 0 mg IV DIRECTED Rx Instructions: PER PT'S SPOUSE "HAD 09/22/22-09/24/22". carboplatin 150 mg Recon Soln 0 mg IV DIRECTED Rx Instructions: PER PT'S SPOUSE "HAD 09/22/22--09/24/22". Discharge Orders: Discharge Order (Routine); Ordered 10/21/22 Ordered By: Claudia Cottrell Admission Data Admit Date/Time: 10/05/22 19:52 Attending Provider: Claudia Cottrell Admit Provider: Javier Wu Primary Care Provider: Lizett Walters Other Providers: [facility] ; Javier Wu ; Luiz Suarez ; Brenton Wu ; Austen Parker ; Kelly Harper ; Raman Briceño ; Dane Bennett ; Daiana Bolton ; Syl Lepe ; Nancy Richards ; Michaela Menard ; Tin Mccall ; Kathy Salinas ; Antonio Kyle ; Maurizio Rodriguez ; Edi Calabrese ; Issa Petty ; Neri Ross ; Kamryn Cervantes ; Justice Dave ; Mp Barrientos ; Ely Damon Coding Level of Care Code 68769 INP/OBS DISCH >30 MIN Diagnoses Sepsis A41.9 Left leg pain M79.605 Rhabdomyolysis M62.82 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 skilled nursing 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 Z79.01 Altered mental status R41.0 Altered mental status type: disorientation S/P ETHICAL HACKER shunt Z98.2 Malnutrition E46 Hypertension I10 Diarrhea R19.7 Rectal cancer C20
[2022-10-21 15:22] VITALS: BP 115/78
== END 2022-10-21 15:22 | DRG 853 ==
LOC: ED 15:32 → 4W 19:52 → SUATTDRO 19:52 → 4W 20:40